=== PATIENT | female | born 1980 | race African-American/Black ===

== ENCOUNTER 2024-07-13 07:57 | Outpatient (AMB) | payer OTHER, SELFPAY ==
--- OUTSIDE RECORDS SUMMARY | 2024-07-13 08:01 | XMS_ITS | Encounter Summary ---
Author Organization [employer] Address [address] [place] [address] Care Team Providers Care Smoke Control Supervisor Name Role Phone Unavailable Primary Care Provider Unavailabl e Encounter Details Date Type Department Care Team (Late st Contact Info) Description 05/02/2024 Lab Requisition [facility] - Main Lab 299 [facility] [place] [address] Jesus Roberts MD 100 [facility] [address] [place] [address] Gross hematuria Social History Tobacco Use Types Packs/Day Years Used Date Smoking Tobacco: Never Assessed Comments Unknown Sex and Gender Information Value Date Recorded Sex Assigned at Not on file Legal Sex Female 1:12 PM EST Gender Identity Not on file Sexual Orientation Not on file documented as of this encounter Plan of Treatment Not on file documented as of this encounter Procedures Procedure Name Priority Date/Time Associated Diagnosis Comments AP OUTSIDE CONSULT Routine 04/25/2024 12 :00 AM EST Gross hematuria documented in this encounter Results * Anatomic pathology outside consult (04/25/2024 12:00 AM EST) Final Diagnosis Urine, Voided: Negative for high grade urothelial carcinoma. Results of [employer] fluorescence in situ hybridization (FISH) testing: CEP3: Normal CEP7: Normal CEP17: Normal LSI 9p21: Normal Interpretation: Normal profile Controls stained appropriately. Note: The results are intended as a screening device and should be interpreted in association with other clinical and pathological findings. 05/11/2024 6:13 PM EST [facility] ([facility]) [facility] Clinical Information [id number] Urine cytology/urine FISH. 05/11/2024 6:13 PM EST [facility] Gross Description A. Urine, Voided, : [id number] RECD 1 TP CYTO 1 TP FISH. 05/11/2024 6:13 PM [facility] Disclaimer Unless otherwise specified, all tissue is 10% NB formalin fixed and paraffin embedded. Technical pathology services provided by [facility] [address] [place] [address] (CLIA #[id number]/Rebekah Pedro MD, Security Chief Museum) 05/11/2024 6:13 PM [facility] Tissue Urine specimen from urethra / Unknown 04/25/2024 05/02/2024 1:18 PM EST us Jesus Roberts MD LAB PATHOLOGY ORDERAB LES Final Result [facility] [address] [place] [address], documented in this encounter Visit Diagnoses Diagnosis Gross hematuria documented in this encounter
--- OUTSIDE RECORDS SUMMARY | 2024-07-13 08:01 | XMS_ITS | Clinical Summary ---
Author Organization 299 [facility] Address [address] [place] [address] Phone Care Team Providers Care Power Generation Engineer Name Role Phone Unavailable Primary Care Provider Unavailabl e Encounters Date Type Department Care Team Description 05/02/2024 Lab Requisition [facility] - Main Lab 299 [facility] [place] [address] Jesus Roberts MD Gross hematuria from Last 3 Months Social History Tobacco Use Types Packs/Day Years Used Date Smoking Tobacco: Never Assessed Comments Unknown Sex and Gender Information Value Date Recorded Sex Assigned at Not on file Legal Sex Female 1:12 PM EST Gender Identity Not on file Sexual Orientation Not on file Plan of Treatment Health Maintenance Due Date Last Done Comments Breast Cancer Screening 1978 DTaP,Tdap,and Td Vaccines (1 - Tdap) 1997 Hepatitis B Vaccines (1 of 3 - 19+ 3-dose series) 1997 Cervical Cancer Screening: P ap Smear 11/15/1999 COVID-19 Vaccine (2023-2 5 season) 2024 Influenza Vaccine (#1) 2024 Colorectal Cancer Screening: Colonoscopy 05/02/2024 Depression Screening 05/02/2024 HIV Screening 05/02/2024 Hepatitis C Screening 05/02/2024 Social Influencers of Health Screening 05/02/2024 HIB Vaccines Aged Out No longer eligi ble based on patient's age to complete this topic HPV Vaccines Aged Out No longer eligi ble based on patient's age to complete this topic Hepatitis A Vaccines Aged Out No long er eligible based on patient's age to complete this topic IPV Vaccines Aged Out No longer eligi ble based on patient's age to complete this topic MMR Vaccines Aged Out No longer eligi ble based on patient's age to complete this topic Meningococcal ACWY Vaccine Aged Out N o longer eligible based on patient's age to complete this topic Meningococcal B Vacine Aged Out No lo nger eligible based on patient's age to complete this topic Pneumococcal Vaccine: Pediat rics (0 to 5 Years) and At-Risk Patients (6 to 64 Years) Aged Out No longer eligible b ased on patient's age to complete this topic RSV Immunization Patients Un amira 20 months Aged Out No longer eligible b ased on patient's age to complete this topic Varicella Vaccines Aged Out No longer eligible based on patient's age to complete this topic Procedures Procedure Name Priority Date/Time Associated Diagnosis Comments AP OUTSIDE CONSULT Routine 04/25/2024 12 :00 AM EST Gross hematuria from Last 3 Months Results * Anatomic pathology outside consult (04/25/2024 [...] clinical and pathological findings. 05/11/2024 6:13 PM [facility] Clinical Information [id number] Urine cytology/urine FISH. 05/11/2024 6:13 PM [facility] Gross Description A. Urine, Voided, : [id number] RECD 1 TP CYTO 1 TP FISH. 05/11/2024 6:13 PM [facility] Disclaimer Unless otherwise specified, all tissue is 10% NB formalin fixed and paraffin embedded. Technical pathology services provided by [facility] at [address] [place] [address] [address], [place] [address] (CLIA #[id number]/Rebekah Pedro MD, Senior Account Representative) 05/11/2024 6:13 PM [facility] Tissue Urine specimen from urethra / Unknown 04/25/2024 05/02/2024 1:18 PM EST us Jesus Roberts MD LAB PATHOLOGY ORDERAB LES Final Result [facility] ([facility]) [facility] [address] [place] [address], [place] [phone] from Last 3 Months
--- NOTE | 2024-07-13 10:47 | MHC.OFFVISWM ---
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 Allergies acetaminophen [From Percocet] Allergy (Mild, Verified 07/13/24 10:47) jittery latex Allergy (Mild, Verified 07/13/24 10:47) itchy oxycodone [From Percocet] Allergy (Mild, Verified 07/13/24 10:47) jittery Medication List - Last Reconciled 07/13/24 by Teja Castellanos MD amlodipine 5 mg PO DAILY atorvastatin mg PO DAILY loratadine mg PO DAILY losartan 25 mg PO DAILY semaglutide (Ozempic) mg subcut HPI HPI 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: Details: Start time: 11.00am, End time: 11.45am ?I spent 40 minutes speaking with the patient on the phone plus an additional 5 minutes reviewing and updating records for a total of 45 minutes HPI Comments Details: Previous weight loss efforts: Ozempic 2mg/wk: lost 10 lbs in 5 mths Wakes up: 6am, Sleeps: 11pm Breakfast: 9am (noodles, or eggs and toast) Lunch: (only instead of breakfast), 12pm Dinner: 7pm (Fish baked or fried) Snacks: sunflower seeds, dried foods before dinner Exercise: none Fluids: Coffee 3-4/wk (1 cup), premade tea: 2-3 cups/wk, soda: Gingerale (3-4/wk), juice: occasionally cranberry, ETOH: none PFSH Medical History (Updated 07/13/24 @ 10:53 by Teja Castellanos MD) DJD (degenerative joint disease) Anxiety Depression Hypertension Non-insulin dependent type 2 diabetes mellitus Sleep apnea Morbid obesity Surgical History (Updated 07/13/24 @ 10:53 by Teja Castellanos MD) History of delivery Hx of colonoscopy Hx of hysterectomy Family History (Updated 07/10/24 @ 08:32 by Lalita Preston CMA) Mother Diabetes Hypertension Obesity High cholesterol Father Drug addiction HIV (human immunodeficiency virus infection) Daughter No problems noted. Social History (Updated 07/10/24 @ 08:33 by Lalita Preston CMA) Alcohol intake: current Alcohol intake frequency: holidays/special occasions only Patient Tobacco Use Status: Never used Tobacco Telehealth Telehealth Telehealth Platform: Telephone Location of provider rendering services: practice address Location of patient: address on file Patient Identification confirmed using: Name, : Yes Telehealth method: voice only Patient verbally consented to treatment: Yes Patient verbally consented to billing insurance company: Yes Patient informed of any privacy concerns related to visit: Yes Minutes spent on Phone/Video with Pt.: 45 Assessment & Plan Assessment & Plan (1) Morbid obesity: Code(s): E66.01 - Morbid (severe) obesity due to excess calories Category: Medical Plan: 1.? Plan for lap sleeve gastrectomy. If diaphragmatic or ventral hernias are present at time of surgery, these will be repaired laparoscopically as well. I emphasized the importance of close follow-up, adherence to instructions and good communication. The surgery does not replace the need to change your lifestlyle which is the cause of the obesity problem. The surgery provides the motivation to try again to change your lifestyle, it reduces the appetite and make the transition to a better lifestyle easier and doubles the amount of weight you would lose compared to doing the lifestyle change without the surgery. You will need to be on a liquid diet with protein shakes for 2 weeks before surgery to maximize weight loss and boost your nutritional status to recover better from surgery and also for the first two weeks after surgery to let the stomach heal before we introduce other foods. After the first 2 weeks we will introduce protein bars and soft foods like scrambled eggs, cottage cheese and yogurt and after the 6th week will introduce meat, fish and cooked vegetables in small amounts. Over time you should be able to eat everything in small amounts. Side effects like nausea, vomiting, heartburn or abdominal pain are not common in the practice unless you are not following in the practice. This operation requires lifetime commitment to following in our practice and communication with me. You will much less weight and experience side effects if you don?t communicate or not following in the practice. Complications are rare and in our practice is about 1/10 of the national average. However, you can develop bleeding that may require transfusion (hasn?t happened for year in the practice), you may from complications (we did not have any deaths in the practice) and infections. Infections are usually a result of breakdown in communication or not understanding or following directions correctly. They are difficult to treat, they can happen during the first 6 weeks, they may require to be in the hospital for weeks or even months, not being able to eat by mouth and you may have drains and surgeries to try and correct the issue. Other risks and complications include possible conversion to an open procedure, leaks, small bowel obstruction, blood clots, cardiac, or pulmonary complications, as senior living complications such as ulcers, insufficient weight loss and vitamin deficiencies. 2. You will receive a link of our software mary to generate an individualized nutritional and exercise plan specific for you. Please send me a screenshot of the plans you will generate Meal to include lean meat (beef, fish, pork, turkey, chicken), or malaysian yogurt, or egg whites, or beans with a salad with olive oil and fruits (berries, pears, apples, kiwi). Avoid salt, breads, potatoes, rice, pasta, desserts. ?3. If you choose shakes, each shake would be drunk slowly, like coffee in a period of 2 hours. ?4. If you choose bars, cut each bar in 4 pieces and eat each piece in 30min ?to make each bar last 2 hours. ?5. I emphasized the importance of measuring accurately the food portion and measure it when serving the food in plate ?6. The meal portions include a specific number of forks of meat and salad. You always eat the meat portion but you can replace up to half of salad/vegetables portion with rice, potatoes or pasta, or a fruit ?if you like. The less you do it the better weight loss will be. ?7. One full-size fork is what it can be scooped on the fork without falling aside and not what can be bit with the fork. Use regular forks like those you find in a typical restaurant. ?8.? Please buy the body composition scale we discussed and send me weight measurements as soon as possible and then once a week. Always include your diet and exercise plan. 9. The best choice would be to purchase a stationary bike, elliptical or treadmill at home that can track calories. Let me know if you do so I can give you an exercise plan. ?10. Goal is to lose at least 1.5-2lbs per week ?11. Goal to lose 10% of your weight before surgery, which is about 26lbs. Ultimate weight goal: 235lbs before surgery 12. Please follow the diet plan exactly without any change. If you don't like something about the plan or you feel hungry you need to communicate with me so I can help you revise the plan. You should not change the plan yourself. 13. To be scheduled for EGD due to the history of sleeve gastrectomy and anemia. The possibility of biopsies was discussed. Patient needs to avoid use of NSAIDs and aspirin for 1 week prior to EGD. You must be on liquids only the day before your endoscopy. Risks of perforation and bleeding was discussed with the patient. This will be an outpatient procedure with IV sedation.
[2024-07-13 11:02] VITALS: BMI 44.8
== END 2024-07-13 11:44 | disposition home or self-care (01) ==
LOC: HO.HBS 07:57
PROVIDERS: PCP Internal Medicine; Visit Provider Surgery
DX: E66.813 Obesity, class 3 (principal); Z68.41 Body mass index [BMI] 40.0-44.9, adult
CPT/HCPCS: 98010

== ENCOUNTER 2024-07-17 11:33 | Day surgery (SDC) | payer OTHER, SELFPAY ==
--- NOTE | 2024-07-16 09:36 | P.CONAN_ITS ---
HPI - Anesthesia Eval Consult details Narrative: 43yo F for Upper Endoscopy Anesthesia Pre-Procedure Meds Is the patient on any of the following meds?: GLP1/DPP4 PMFSH Active Problems Active Problems: All Active Problems DJD (degenerative joint disease) (Acute) Anxiety (Acute) Depression (Acute) Hypertension (Acute) Non-insulin dependent type 2 diabetes mellitus (Acute) Sleep apnea (Acute) Morbid obesity (Acute) Past Medical History Medical History (Updated 07/13/24 @ 10:53 by Teja Castellanos MD) DJD (degenerative joint disease) Anxiety Depression Hypertension Non-insulin dependent type 2 diabetes mellitus Sleep apnea Morbid obesity Family History Family History (Updated 07/10/24 @ 08:32 by Lalita Preston CMA) Mother Diabetes Hypertension Obesity High cholesterol Father Drug addiction HIV (human immunodeficiency virus infection) Daughter No problems noted. Surgical History Surgical History (Updated 07/13/24 @ 10:53 by Teja Castellanos MD) History of delivery Hx of colonoscopy Hx of hysterectomy Social History Social History (Updated 07/10/24 @ 08:33 by Lalita Preston CMA) Are you a primary home health caregiver to a significant other at home: No Do you presently have visiting nurse or other home services: No Alcohol intake: current Alcohol intake frequency: does not drink Patient Tobacco Use Status: Never used Tobacco Meds Allergies Allergy/AdvReac Type Severity Reaction Status Date / Time acetaminophen [From Percocet] Allergy Mild jittery Verified 07/17/24 11:40 latex Allergy Mild itchy Verified 07/17/24 11:40 oxycodone [From Percocet] Allergy Mild jittery Verified 07/17/24 11:40 Home Medications ?Medication ?Instructions ?Recorded ?Confirmed ?Last Taken ?Type atorvastatin 10 mg tablet mg PO DAILY 07/10/24 07/13/24 07/17/24 History loratadine 10 mg tablet mg PO DAILY 07/10/24 07/13/24 07/17/24 History losartan 50 mg tablet 25 mg PO DAILY 07/10/24 07/13/24 07/17/24 History semaglutide 2 mg/dose (8 mg/3 mL) mg subcut 07/10/24 07/13/24 07/10/24 History subcutaneous pen injector (Ozempic) amlodipine 5 mg tablet 5 mg PO DAILY 07/13/24 07/13/24 07/17/24 History Assessment and Plan Assessment Anesthesia Assessment: Chart Reviewed
--- OUTSIDE RECORDS SUMMARY | 2024-07-16 09:44 | XMS_ITS | Clinical Summary ---
Author Organization 299 [facility] Address [address] [place] [address] Phone Care Team Providers Care Sheriff Name Role Phone Unavailable Primary Care Provider Unavailabl e Encounters Date Type Department Care Team Description 05/02/2024 Lab Requisition [facility] - Main Lab 299 [facility] [place] [address] Jesus Roberts MD Gross hematuria [...] clinical and pathological findings. 05/11/2024 6:13 PM [facility] Clinical Information [id number] Urine cytology/urine FISH. 05/11/2024 6:13 PM [facility] Gross Description A. Urine, Voided, : [id number] RECD 1 TP CYTO 1 TP FISH. 05/11/2024 6:13 PM [facility] Disclaimer Unless otherwise specified, all tissue is 10% NB formalin fixed and paraffin embedded. Technical pathology services provided by [facility]rology at [address] [place] [address] [address], [place] [address] (CLIA #[id number]/Rebekah Pedro MD, Warp Tying Machine Knotter) 05/11/2024 6:13 PM [facility] Tissue Urine specimen from urethra / Unknown 04/25/2024 05/02/2024 1:18 PM EST us Jesus Roberts MD LAB PATHOLOGY ORDERAB LES Final Result [id number] ([facility]) [facility] [address] [place] [address], [place] [phone] from Last 3 Months
--- OUTSIDE RECORDS SUMMARY | 2024-07-16 09:44 | XMS_ITS | Encounter Summary ---
Author Organization [employer] Address [address] [place] [address] Care Team Providers Care Linker Up Name Role Phone Unavailable Primary Care Provider Unavailabl e Encounter Details Date Type Department Care Team (Late st Contact Info) Description 05/02/[address] [facility] - Main Lab 299 [facility] [place] [address] Jesus Roberts MD 100 [facility] [address] [place] [address] Gross hematuria Social History Tobacco Use Types [...] and pathological findings. 05/11/2024 6:[address] [facility] ([facility]) [facility] Clinical Information [id number] Urine cytology/urine FISH. 05/11/2024 6:13 PM EST [facility] Gross Description A. Urine, Voided, : [id number] RECD 1 TP CYTO 1 TP FISH. 05/11/2024 6:13 PM [facility] Disclaimer Unless otherwise specified, all tissue is 10% NB formalin fixed and paraffin embedded. Technical pathology services provided by [facility] at [facility]note 2[facility] [address] [place] [address] (CLIA #[id number]/Rebekah Pedro MD, Focuser) 05/11/2024 6:13 PM [facility] Tissue Urine specimen from urethra / Unknown 04/25/2024 05/02/2024 1:18 PM EST us Jesus Roberts MD LAB PATHOLOGY ORDERAB LES Final Result [facility] [address] [place] [address], documented in this encounter Visit Diagnoses Diagnosis Gross hematuria documented in this encounter
[2024-07-17 11:50] VITALS: BP 110/5; PULSE 98; RESP 14; TEMP 36.2; O2SAT 97; BMI 44.8
[2024-07-17 12:00] LABS: Glucose, Whole Blood 83 mg/dL (60-115)
[2024-07-17] MEDS: Lactated Ringers 1,000 ML 100 ML IVCONT (12:10)
--- NOTE | 2024-07-17 12:21 | MHC.SHP ---
Pre-Procedural Eval Section A - 24 Hr Update-Section A only Date of Service: 07/17/24 The patient is an INPATIENT: No The patient has been examined within 24 hours of the surgical procedure. The History & Physical has been completed within 30 days and I have reviewed it.: Yes Section B - Complete if H&P > 30 days Chief Complaint: Morbid (severe) obesity due to excess calories Relevant Family History (Specify if Yes): No Relevant Social History: None Present Medications: None Medical History: No relevant PMH History of Previous Operations: No relevant previous surgery Allergies: Allergies Allergy/AdvReac Type Severity Reaction Status Date / Time acetaminophen [From Percocet] Allergy Mild jittery Verified 07/17/24 11:40 latex Allergy Mild itchy Verified 07/17/24 11:40 oxycodone [From Percocet] Allergy Mild jittery Verified 07/17/24 11:40 Review of Systems Sugical H&P ROS: Negative: Constitution, Cardiovascular, Respiratory, Neurological, Psychiatric, Hem-Onc, Allergic/Immunologic, Gastrointestinal, Genitourinary, Musculoskeletal, Integumentary, Endocrine and Eyes/Ears/Nose/Throat Exam Surgical H&P Exam: Normal: HEENT, Normal: Heart, Normal: Lungs, Normal: Extremities, Normal: Abdomen, Normal: Skin and Normal: Neurological Plan Diagnosis/Plan: Unchanged (EGD to assess the stomach's anatomy. Risks of bleeding and perforation were discussed with the patient and she is in agreement with the plan.) I have reviewed the history and physical and performed a pertinent physical examination on my patient. No changes have occurred unless specified. Time Spent With Patient Time: Total time managing care of this patient today ____ minutes.
--- NOTE | 2024-07-17 12:40 | P.BOP_ITS ---
Brief Operative Note Date of Service: 07/17/24 Pre-op diagnosis: Morbid obesity Post-op diagnosis: same Procedure: PROCEDURE DATE: 07/17/2024 PREOPERATIVE DIAGNOSIS: GERD POSTOPERATIVE DIAGNOSIS: ?Same as above. Normal endoscopy PROCEDURE: [id number] with biopsies Surgeon: Derick Castellanos M.D.. Ph.D. Marshmallow Machine Worker: None ? Anesthesia: IV sedation Estimated blood loss: ?Minimal FINDINGS AND PROCEDURE: ? OPERATIVE INDICATIONS: ?The patient is a 43 year old female known to me who is interested in bariatric surgery. Based on this information I recommended an upper endoscopy to evaluate the stomach's anatomy. Risks and complications of the surgery were discussed with the patient in advance particularly the possibility of perforation or bleeding that may require surgical intervention. The patient understood the risks and was in agreement with the plan. ? PROCEDURE: After informed consent was obtained by the patient, the patient was ?transferred to the Operating Room and was placed in the supine position.? After successful induction of IV sedation, a mouth block was inserted and the patient was placed in the left lateral decubitus position. An upper endoscopy was performed next, the oropharynx and esophagus appeared within the normal limits. There was no hiatal hernia. The z-line was smooth. The stomach was entered and it appeared to be of normal size. There was no gastrit is. There was no stricture or ulcer. A biopsy was obtained from the distal antrum. No significant bleeding was noted from the biopsy site. The scope was then advanced into the duodenum which appeared to be normal as well. At that point the duodenum ?and the stomach were decompressed and the scope was withdrawn from the patient's mouth. Additional biopsies were not performed because the patient desaturated and I was asked by the Anesthesiologist to withdraw the endoscope. The patient extubated and was transferred in stable condition to the Recovery Room for further care. I was present and performed all steps of the procedure. There were no residents to assist with this case. Valdez Castellanos M.D., Ph.D. Surgeon: Teja Castellanos MD Anesthesia: MAC Was an Marshmallow Machine Worker used for this Procedure?: No Estimated blood loss (mL): 0 IV fluids (mL): 400 Urine output (mL): 0 (No Lubin to record output) Pathology: other (1) antrum x1) Condition: stable Disposition: PACU
[2024-07-17 12:58] VITALS: BP 110/59; PULSE 104; RESP 18; TEMP 36.1; O2SAT 95
[2024-07-17 13:13] VITALS: BP 109/74; PULSE 98; RESP 18; TEMP 36.1; O2SAT 96
== END 2024-07-17 13:33 | disposition home or self-care (01) ==
PROVIDERS: PCP Internal Medicine; Visit Provider Surgery
PROC: 0DJ08ZZ Inspection of Upper Intestinal Tract, Via Natural or Artificial Opening Endoscopic (ICD-10-PCS; CPT 43235; principal; 2024-07-17 13:30)
DX: K21.9 Gastro-esophageal reflux disease without esophagitis (principal); E66.01 Morbid (severe) obesity due to excess calories; Z68.41 Body mass index [BMI] 40.0-44.9, adult; I10 Essential (primary) hypertension; E11.9 Type 2 diabetes mellitus without complications; F32.A Depression, unspecified; F41.9 Anxiety disorder, unspecified; Z79.85 Long-term (current) use of injectable non-insulin antidiabetic drugs; Z79.899 Other long term (current) drug therapy; Z88.5 Allergy status to narcotic agent; Z91.040 Latex allergy status
CPT/HCPCS: 43239; 82947; 88305; J2003; J2250; J2704

== ENCOUNTER → 2024-07-17 11:33 | Outpatient (BNV) | payer OTHER, SELFPAY | PROVIDERS: PCP Internal Medicine; Visit Provider Surgery | DX: K21.9 Gastro-esophageal reflux disease without esophagitis (principal) | CPT/HCPCS: 43239 ==

== ENCOUNTER 2024-07-24 08:35 | Outpatient (REF) | payer OTHER, SELFPAY ==
--- NOTE | ~2024-07-24 | XR_ITS ---
EXAMINATION: XR CHEST CLINICAL INFORMATION: E66.01 - Morbid (severe) obesity due to excess calories COMPARISON: None available. TECHNIQUE: 2 views of the chest were obtained. FINDINGS: No significant abnormality is noted involving the heart, lungs, mediastinum, bony thorax or soft tissues. XR/XR chest 2V IMPRESSION: Unremarkable chest examination. Electronically signed by: Cas Michel MD 07/24/2024 02:05 PM [facility]
--- OUTSIDE RECORDS SUMMARY | 2024-07-24 09:11 | XMS_ITS | Encounter Summary ---
Author Organization [employer] Address [address] [place] [address] Care Team Providers Care President And Chief Operating Officer Name Role Phone Unavailable Primary Care Provider Unavailabl e Encounter Details Date Type Department Care Team (Late st Contact Info) Description 05/02/2024 Lab Requisition [facility] - Main Lab 299 [facility] [place] [address] Jesus Roberts MD 100 [facility] [address] [place] [address] Gross hematuria Social History Tobacco Use Types [...] and pathological findings. 05/11/2024 6:13 PM EST [facility] ([facility]) [facility] Clinical Information [id number] Urine cytology/urine FISH. 05/11/2024 6:13 PM EST [facility] Gross Description A. Urine, Voided, : [id number] RECD 1 TP CYTO 1 TP FISH. 05/11/2024 6:13 PM [facility] Disclaimer Unless otherwise specified, all tissue is 10% NB formalin fixed and paraffin embedded. Technical pathology services provided by [facility] Urology at [facility] [address] [place] [address] (CLIA #[id number]/Rebekah Pedro MD, Professional Tutor) 05/11/2024 6:13 PM [facility] Tissue Urine specimen from urethra / Unknown 04/25/2024 05/02/2024 1:18 PM EST us Jesus Roberts MD LAB PATHOLOGY ORDERAB LES Final Result [facility] [address] [place] [address], documented in this encounter Visit Diagnoses Diagnosis Gross hematuria documented in this encounter
--- OUTSIDE RECORDS SUMMARY | 2024-07-24 09:11 | XMS_ITS | Clinical Summary ---
Author Organization 299 [facility] Address [address] [place] [address] Phone Care Team Providers Care Resistance Welder Name Role Phone Unavailable Primary Care Provider Unavailabl e Encounters Date Type Department Care Team Description 05/02/[address] [facility] - Main Lab 299 [facility] [place] [address] Jesus Roberts MD Gross hematuria [...] clinical and pathological findings. 05/11/2024 6:13 PM [facility] Clinical Information [id number] Urine cytology/urine FISH. 05/11/2024 6:13 PM [facility] Gross Description A. Urine, Voided, : [id number] RECD 1 TP CYTO 1 TP FISH. 05/11/2024 6:13 PM [facility] Disclaimer Unless otherwise specified, all tissue is 10% NB formalin fixed and paraffin embedded. Technical pathology services provided by [facility] Urology at [address] [place] [address] [address], [place] [address] (CLIA #[id number]/Rebekah Pedro MD, Economic Research Analyst) 05/11/2024 6:13 PM [facility] Tissue Urine specimen from urethra / Unknown 04/25/2024 05/02/2024 1:18 PM EST us Jesus Roberts MD LAB PATHOLOGY ORDERAB LES Final Result [facility] ([facility]) [facility] [address] [place] [address], [place] [phone] from Last 3 Months
[2024-07-24 09:24] LABS: MANUAL DIFF FLAG NO
--- NOTE | 2024-07-24 09:27 | ECG_ITS ---
Test Reason : MORBID OBESITY Blood Pressure : */* mmHG Vent. Rate : 92 BPM Atrial Rate : 92 BPM P-R Int : 162 ms QRS Dur : 72 ms QT Int : 344 ms P-R-T Axes : 49 25 20 degrees QTcB Int : 425 ms Normal sinus rhythm Normal ECG No previous ECGs available Referred By: Teja Castellanos Electronically Signed By: OLVIN SANCHES MD
[2024-07-24 09:53] LABS: Basophils Percent Auto 0.5 % (0-2); Eosinophils Absolute Auto 0.1 X10*3/uL (0.0-0.4); Eosinophils Percent Auto 1.6 % (0-4); Hematocrit 38.8 % (37.0-47.0); Hemoglobin 12.9 g/dl (12.0-16.0); Imm Gran Abs Auto 0.02 X10*3/uL (0.00-0.03); Imm Gran Pct Auto 0.2 % (0.0-0.4); Lymphocytes Absolute Auto 1.7 X10*3/uL (1.2-4.9); Mean Corpuscular HGB Conc 33.2 g/dl (31.0-35.0); Mean Corpuscular Hemoglobin 26.2 pg (27.0-33.0); Mean Corpuscular Volume 78.9 fL (80.0-98.0); Mean Platelet Volume 11.1 fL (9.4-12.3); Monocytes Absolute Auto 0.5 X10*3/uL (0.1-1.2); Monocytes Percent Auto 5.7 % (2-11); Platelet Count 286 X10*3/uL (160-400); Red Blood Count 4.92 X10*6/uL (4.20-5.50); Red Cell Distribution Width 15.7 % (11.0-16.0); White Blood Count 8.3 X10*3/uL (4.8-10.8)
[2024-07-24 10:10] LABS: Estimated Average Glucose 117 mg/dL; Hemoglobin A1C 134.0394 umol/L; Hemoglobin A1c % 5.7 % (<6.0); Total Hemoglobin (HGBA1C) 3409.9788 umol/L
[2024-07-24 10:26] LABS: Alanine Aminotransferase 26 U/L (0-31); Albumin Level 4.3 g/dL (3.5-5.0); Alkaline Phosphatase 79 U/L (39-117); Anion Gap 12 (12-20); Aspartate Amino Transferase 18 U/L (5-31); Bilirubin Total 0.3 mg/dL (0.0-1.0); Blood Urea Nitrogen 13 mg/dL (9-16); C Reactive Protein 0.49 mg/dL (< or = 0.50); Calcium 9.1 mg/dL (8.4-10.2); Carbon Dioxide 25 mmol/L (22-29); Chloride 108 mmol/L (96-108); Cholesterol 134 mg/dL (<200); Estimated Glomerular Filt Rate > 60; Glucose Random 94 mg/dL (60-115); HDL Cholesterol 26 mg/dL (>40); Iron 46 mcg/dL (30-160); LDL Cholesterol Calculated 92 mg/dL (<100); Percent Iron Saturation 18 % (15-50); Potassium 3.6 mmol/L (3.3-5.1); Sodium 141 mmol/L (135-145); Total Iron Binding Capacity 261 mcg/dL (228-428); Triglycerides 84 mg/dL (<150); Unsaturated Iron Binding 215 ug/dL
[2024-07-24 10:39] LABS: Ferritin 94 ng/mL (10-250); TSH reflex Free T4 0.74 uIU/mL (0.32-4.0); Vitamin D 25-OH Total 20.9 ng/mL (>30)
[2024-07-24 10:53] LABS: Folate 6.5 ng/mL (> or = 4.0); Vitamin B12 328 pg/mL (200-900)
[2024-07-24 10:56] LABS: Insulin 27 uU/mL (2-29)
[2024-07-26 22:03] LABS: Zinc 62 mcg/dL (60-130)
[2024-07-27 01:49] LABS: Vitamin A 66 mcg/dL (38-98)
[2024-07-30 15:18] LABS: Vitamin B1 8 nmol/L (8-30)
== END 2024-07-24 08:36 | disposition home or self-care (01) ==
LOC: HO.XRAY 08:35
PROVIDERS: PCP Internal Medicine; Visit Provider Surgery
DX: E66.01 Morbid (severe) obesity due to excess calories (principal); E11.9 Type 2 diabetes mellitus without complications; G47.30 Sleep apnea, unspecified; I10 Essential (primary) hypertension
CPT/HCPCS: 36415; 71046; 80053; 80061; 82306; 82607; 82728; 82746; 83036; 83525; 83540; 84425; 84443; 84590; 84630; 85025; 86140; 93005

== ENCOUNTER → 2024-07-24 08:45 | Outpatient (BNV) | payer OTHER, SELFPAY | PROVIDERS: PCP Internal Medicine; Visit Provider Radiology Diagnostic Radiology | DX: E66.01 Morbid (severe) obesity due to excess calories (principal) | CPT/HCPCS: 71046 ==

== ENCOUNTER → 2024-07-24 09:27 | Outpatient (BNV) | payer OTHER, SELFPAY | PROVIDERS: PCP Internal Medicine; Visit Provider Internal Medicine Cardiovascular Disease | DX: E66.01 Morbid (severe) obesity due to excess calories (principal) | CPT/HCPCS: 93010 ==

== ENCOUNTER 2024-08-09 07:56 | Outpatient (REF) | payer OTHER, SELFPAY ==
[2024-08-12 08:57] LABS: H Pylori Breath Test Positive (Negative)
== END 2024-08-09 07:57 | disposition home or self-care (01) ==
LOC: HO.LNP 07:56
PROVIDERS: Visit Provider Surgery
DX: B96.81 Helicobacter pylori [H. pylori] as the cause of diseases classified elsewhere (principal)
CPT/HCPCS: 83013; 99211

== ENCOUNTER → 2024-08-21 09:08 | Outpatient (AMB) | payer OTHER, SELFPAY ==
--- NOTE | 2024-08-21 09:00 | A.OFFWM_ITS ---
Intake Intake Visit Reasons: VIDEO BH Intake Allergies acetaminophen [From Percocet] Allergy (Mild, Verified 07/17/24 11:40) jittery latex Allergy (Mild, Verified 07/17/24 11:40) itchy oxycodone [From Percocet] Allergy (Mild, Verified 07/17/24 11:40) jittery PFSH Medical History (Updated 08/18/24 @ 10:24 by Teja Castellanos MD) DJD (degenerative joint disease) Anxiety Depression Hypertension Non-insulin dependent type 2 diabetes mellitus Sleep apnea Morbid obesity Surgical History (Updated 07/13/24 @ 10:53 by Teja Castellanos MD) History of delivery Hx of colonoscopy Hx of hysterectomy Family History (Updated 07/10/24 @ 08:32 by Lalita Preston CMA) Mother Diabetes Hypertension Obesity High cholesterol Father Drug addiction HIV (human immunodeficiency virus infection) Daughter No problems noted. Social History (Updated 07/10/24 @ 08:33 by Lalita Preston CMA) Are you a primary lawn care technician to a significant other at home: No Do you presently have visiting nurse or other home services: No Alcohol intake: current Alcohol intake frequency: does not drink Patient Tobacco Use Status: Never used Tobacco Behavioral Health Assessment Weight Management Therapy Therapy Notes Details The patient is a 43-year-old female presenting for an initial visit to complete a behavioral health assessment as part of a surgical weight loss program. The patient is seeking weight loss surgery to improve her overall health, particularly in managing her hypertension and diabetes. She hopes to find relief from pain through weight loss and resolve her sleep apnea. Ultimately, her goal is to become healthier and reduce her reliance on medication. The patient began therapy last month at her primary care provider?s office located at [address] [place] [address]. She has a history of depression and anxiety. She reports experiencing significant anger and sleep disturbances in the past. The patient was previously prescribed Sertraline and Seroquel but discontinued both medications over six years ago. She has attended counseling in the past but denies any history of psychiatric hospitalization. The patient also denies any current or past concerns related to self-harm or harm to others. Presenting Concerns Referral Source P-Provider, Dr. Jasper Yee PT has initial visit on 07/13/2024 Initially referred by her PCP. Reason for referral Completion of behavioral health assessment as part of process for weight-loss surgery. Precipitating Event Obesity. Initial weight 261Lbs. Living Situation Current Living Situation Rent At risk of losing current housing? No Satisfied with current living situation? Yes Comments Pt lives with her partner. Food/Weight/Diet Expectations of change The initial goal is to lose 10% of your weight before surgery, which is about 26lbs. Ultimate weight goal: 235lbs before surgery PT started the program at 261Lbs, most recently as of 08/18/24, was 250Lbs. PT is implementing the following: The current meal plan is a combination of shakes, bars, and 1 meal (9F/9F) per day. Exercise plan: Walking 3-4 days a week - 45 min. Scale: Yes. Communication with Provider: Yes on Saturdays. History/Relationship with food PT reports in the past she wouldn't eat or try variety of foods but last year she did Example of meals before starting the program: Breakfast: Lunch: Dinner: Snacks: Drinks/Liquids: History/Relationship with weight PT reports a normal size in childhood. In HS she was around 110 Lbs. She was also very active as a kid/teen. PT reports she started gaining weight after getting in 2016, she gained about 70Lbs in 5 years. In the last 10 years, the patient's Lowest weight has been her current weight at 250Lbs and the highest was 273Lbs Social History Family history and relationship PT is almost 3 years ago and has been living with her current partner for about 1 year. PT has a 23-year-old daughter. She has 3 younger brothers on her father's side, only child on her mother's side. Her mother is alive, father in 2000. Her mom was 13 when she had her, and her grandmother raised her. PT reports strained family relationships, she feels she is in her self-care era, which is focusing on herself. 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 Developmental history and status None reported. Currently WNL. Social support 2 cousins, 1 of then had bariatric surge ry. Partner. Community support Her boss and his . Oriental Orthodox community. Episcopalian/Spirituality Jew. 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 Cultural/Ethnic information Did a [facility] program Legal Involvement and History Current or historical involvement with the legal system? None. Education Highest grade completed Some college. Preferred learning style Auditory, Verbal, Written, Learn by doing and Visual Currently enrolled in educational program? No Interested in further educational program? No Educational Interests/Skills Business. PT has done several college classes and has been involved in non-profit work. Pt enjoys doing volunteering at sikhism and community. 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 No Meaningful activities Puzzles, music/sign, play some games on the phone. Financial Situation Describe current financial situation Comfortable Financial assistance? Food [place] Service Service? No Mental Health and Addiction Treatment Current/Past substance abuse? No Comments Alcohol: Rarely. Cigarettes/Tobacco: None. Quit 8 years ago. Cannabis/Edibles: cannabis, smokes 1-2 times at day. Current/Past addictive behavior concerns? No Psychiatric history PT started therapy last month at her PCP's office at [address] [place] [address]. She has been diagnosed with depression and anxiety in the past. PT reports she had a lot of anger and was having sleeping issues. Used to take Sertraline and Seroquel in the past, no longer on these meds more than 6 years ago. She has been at [facility] for counseling. Denies ever being hospitalized for MH. Denies any past or recent concerns for safety around Self-harm/other-harm. Medical and Physical Health Summary Additional Medical History not covered in history Arthritis, fatty liver, high cholesterol. Sexual History concerns None reported Physical exam in the last year? Yes Pain Screening Current pain? Yes Pain in the last few months? Yes Comments Knee, back, feet. Trauma/Abuse History History of trauma? Yes (SIERRA score:6) Questionnaires PHQ-9 Over the last 2 weeks, how often have you been bothered by any of the following problems? 1. Little interest or pleasure in doing things: several days 2. Feeling down, depressed, or hopeless: several days 3. Trouble falling or staying asleep, or sleeping too much: more than half the days 4. Feeling tired or having little energy: more than half the days 5. Poor appetite or overeating: several days 6. Feeling bad about yourself - or that you are a failure or have let yourself or your family down: several days 7. Trouble concentrating on things, such as reading the newspaper or watching television: more than half the days 8. Moving or speaking so slowly that other people could have noticed. Or the opposite - being so fidgety or restless that you have been moving around a lot more than usual: not at all 9. Thoughts that you would be better off or of hurting yourself in some way: not at all Total score: 10 Depression Screening Interpretation: Positive (From new Pt pack. New one will be administered at next visit. ) Depression Screening Done: Yes Source: Developed by Drs. Richie Carranza, Sharon Concepcion, Travis Dang and colleagues, with an educational miguel from [employer]. Assessment & Plan Assessment & Plan (1) Morbid obesity: Code(s): E66.01 - Morbid (severe) obesity due to excess calories (2) Adjustment disorder: Code(s): F43.20 - Adjustment disorder, unspecified Qualifiers: Adjustment disorder type: with mixed anxiety and depressed mood Qualified Code(s): F43.23 - Adjustment disorder with mixed anxiety and depressed mood Plan PT not cleared yet. Will return in 2 weeks to finish assessment, and a new PHQ-9 will be administered. Next mary: 09/04/2024 at 9am, Telehealth Telehealth Telehealth Telehealth Platform: [facility] Location of provider rendering services: other Location of patient: other Patient Identification confirmed using: Name, : Yes Telehealth method: video Patient verbally consented to treatment: Yes Patient verbally consented to billing insurance company: Yes Patient informed of any privacy concerns related to visit: Yes Minutes spent on Phone/Video with Pt.: 55 Coding Level of Care Code New Pt Tele Psy Diag Eval (97272) Patient Type New Diagnoses Morbid obesity E66.01 Adjustment disorder with mixed anxiety and depressed mood F43.23 Adjustment disorder type: with mixed anxiety and depressed mood Time Spent (min) 55
--- OUTSIDE RECORDS SUMMARY | 2024-08-21 10:03 | XMS_ITS | Clinical Summary ---
Author Organization 299 [facility] Address [address] [place] [address] Phone Care Team Providers Care Pool Hall Inspector Name Role Phone Unavailable Primary Care Provider Unavailabl e Social History Tobacco Use Types Packs/Day Years [...] Screening: P ap Smear 11/15/1999 COVID-19 Vaccine ( - 2023-2 5 season) 2024 Influenza Vaccine (#1) 2024 [...]
--- OUTSIDE RECORDS SUMMARY | 2024-08-21 10:03 | XMS_ITS | Encounter Summary ---
Author Organization [employer] Address [address] [place] [address] Care Team Providers Care Dairy Grazer Name Role Phone Unavailable Primary Care Provider Unavailabl e Encounter Details Date Type Department Care Team (Late st Contact Info) Description 05/02/2024 Lab Requisition [facility] - Main Lab 299 [facility] [place] [address] Jesus Roberts MD 100 [facility] 120 [place] [address] Gross hematuria Social History Tobacco Use Types [...] and pathological findings. 05/11/2024 6:13 PM EST [facility] ([facility]) [facility] Clinical Information [id number] Urine cytology/urine FISH. 05/11/2024 6:13 PM EST [facility] Gross Description A. Urine, Voided, : [id number] RECD 1 TP CYTO 1 TP FISH. 05/11/2024 6:13 PM [facility] Disclaimer Unless otherwise specified, all tissue is 10% NB formalin fixed and paraffin embedded. Technical pathology services provided by [facility]rology at [facility] [address] [place] [address] (CLIA #[id number]/Rebekah Pedro MD, Vmware Engineer) 05/11/2024 6:13 PM [facility] Tissue Urine specimen from urethra / Unknown 04/25/2024 05/02/2024 1:18 PM EST us Jesus Roberts MD LAB PATHOLOGY ORDERAB LES Final Result [facility] [address] [place] [address], documented in this encounter Visit Diagnoses Diagnosis Gross hematuria documented in this encounter
== END ==
PROVIDERS: Visit Provider Counselor Mental Health
DX: E66.01 Morbid (severe) obesity due to excess calories (principal); F43.23 Adjustment disorder with mixed anxiety and depressed mood
CPT/HCPCS: 90791

== ENCOUNTER 2024-09-03 08:46 | Outpatient (REF) | payer OTHER, SELFPAY ==
--- NOTE | ~2024-09-03 | US_ITS ---
EXAMINATION: US ABDOMEN COMPLETE WITH LIVER ELASTOGRAPHY HISTORY: E66.01 - Morbid (severe) obesity due to excess calories TECHNIQUE: Real-time grayscale ultrasound imaging of the abdomen was performed and images were reviewed. COMPARISON: There are no prior studies for comparison. FINDINGS: Liver: The right lobe of the liver measures 14.5 cm in size. The left lobe of the liver measures 15.2 cm in size. The liver demonstrates increased echotexture, consistent with steatosis. There is a 2.1 x 2.0 x 2.0 cm hypoechoic area in the right lobe which may represent focal fatty sparing. There is a 6 x 5 x 8 mm cyst adjacent to the gallbladder No intrahepatic biliary ductal dilatation is identified. There is normal hepatopedal flow in the portal vein. Ultrasound elastography of the liver was performed with 10 separate measurements of the liver parenchyma with the patient in the supine position. Measurements were obtained approximately 2 cm below Kriss's capsule and perpendicular to the capsule. Images are of satisfactory quality. The median shear wave velocity is 1.56 m/s. The interquartile range/median (IQR/median) is 0.12. Gallbladder and biliary tree: The gallbladder is unremarkable, without evidence of calculi, wall thickening, or pericholecystic fluid. There is no sonographic Voss sign. The common bile duct is normal in caliber measuring 4 mm. Kidneys: The right kidney measures 13.4 cm in length. The left kidney measures 13.0 cm in length. There is a hypertrophied column of Phillip on the right. The kidneys are otherwise unremarkable, without evidence of masses, hydronephrosis, or calculi. Pancreas: The pancreatic head, neck, and body are unremarkable. The pancreatic tail is obscured by bowel gas. Spleen: The spleen is normal in size and contour, measuring 9.7 cm in length. Abdominal aorta and inferior vena cava: The visualized portions of the abdominal aorta and inferior vena cava are normal in caliber. There is no free fluid in the abdomen. US/US abdomen comp w elastography IMPRESSION: Hepatomegaly and hepatic steatosis. Possible focal fatty sparing in the right lobe. This could be confirmed with MRI. The median shear wave velocity in the liver is 1.56 m/s, corresponding to a median liver stiffness of 7.70 kPa. The IQR/median value is 0.12. This is indicative of a quality data set. Findings are indicative of a low elastography value which rules out advanced chronic liver disease in asymptomatic patients. REFERENCE: Society of Radiologists in Ultrasound Liver Stiffness Thresholds (2020): LIVER STIFFNESS THRESHOLDS: *Shear wave velocity less than 1.3 m/s (Liver Stiffness equal or less than 5 kPa): High probability of being normal. *Shear wave velocity less than 1.7 m/s (Liver Stiffness less than 9 kPa): In the absence of other known clinical signs, rules out compensated advanced chronic liver disease. *Shear wave velocity between 1.7-2.1 m/s (Liver Stiffness 9-13 kPa): Suggestive of compensated advanced chronic liver disease but need further test for confirmation. *Shear wave velocity between 2.1-2.4 m/s (Liver Stiffness 13-17 kPa): Rules in compensated advanced chronic liver disease. *Shear wave velocity greater than 2.4 m/s (Liver Stiffness over 17 kPa): Suggestive of clinically significant portal hypertension. QUALITY OF DATA SET: *IQR/Median value equal or less than 0.15 implies a quality data set. *IQR/Median value over 0.15 implies a poor quality data set. SIGNIFICANT CHANGE FROM PRIOR EXAM: Significant change if liver stiffness measurement is 10% or greater from prior exam. OTHER CONSIDERATIONS: The stage of liver fibrosis may be overestimated in the setting of acute hepatitis, liver inflammation, elevated liver function tests, hepatic vascular congestion, obstructive cholestasis, non-fasting state, and infiltrative diseases such as amyloidosis and lymphoma. In some patients with NAFLD, the liver stiffness thresholds for compensated advanced chronic liver disease may be lower. In causes other than viral hepatitis and NAFLD, liver stiffness thresholds are not well established. Electronically signed by: Richie Alcaraz MD 09/03/2024 11:07 AM EDT
--- OUTSIDE RECORDS SUMMARY | 2024-09-03 09:24 | XMS_ITS | Clinical Summary ---
Author Organization 299 [facility] Address [address] [place] [address] Phone Care Team Providers Care Command And Control Name Role Phone Unavailable Primary Care Provider [...] 11/15/1999 COVID-19 Vaccine (2023-2 5 season) 2024 Colorectal Cancer Screening: Colonoscopy 05/02/2024 Depression Screening 05/02/2024 HIV Screening 05/02/2024 Hepatitis C Screening 05/02/2024 Social Influencers of Health Screening 05/02/2024 Influenza Vaccine (Season Ended) 2025 HIB Vaccines Aged Out No longer eligi [...] age to complete this topic Meningococcal B Vaccine Aged Out No l onger eligible based on patient's age to complete [...]
--- OUTSIDE RECORDS SUMMARY | 2024-09-03 09:24 | XMS_ITS | Encounter Summary ---
Author Organization [employer] Address [address] [place] [address] Care Team Providers Care Protective Signal Operator Name Role Phone Unavailable Primary Care Provider Unavailabl e Encounter Details Date Type Department Care Team (Late st Contact Info) Description 05/02/[address] [facility] - Main Lab [address] [facility] [place] [address] Jesus Roberts MD 100 [facility] 120 [place] [address] Gross hematuria Social History Tobacco Use Types [...] and pathological findings. 05/11/2024 6:13 PM EST [facility] ([facility]) [facility] Clinical Information [id number] Urine cytology/urine FISH. 05/11/2024 6:13 PM EST [facility] Gross Description A. Urine, Voided, : [id number] RECD 1 TP CYTO 1 TP FISH. 05/11/2024 6:13 PM [facility] Disclaimer Unless otherwise specified, all tissue is 10% NB formalin fixed and paraffin embedded. Technical pathology services provided by [facility]rology at [facility] [address], [place] [address] (CLIA #[id number]/Rebekah Pedro MD, Chicken Cutter) 05/11/2024 6:13 PM [facility] Tissue Urine specimen from urethra / Unknown 04/25/2024 05/02/2024 1:18 PM EST us Jesus Roberts MD LAB PATHOLOGY ORDERAB LES Final Result [facility] [address] [place] [address], documented in this encounter Visit Diagnoses Diagnosis Gross hematuria documented in this encounter
== END 2024-09-03 08:47 | disposition home or self-care (01) ==
LOC: HO.US 08:46
PROVIDERS: Visit Provider Surgery
DX: E66.01 Morbid (severe) obesity due to excess calories (principal); E11.9 Type 2 diabetes mellitus without complications; G47.30 Sleep apnea, unspecified; I10 Essential (primary) hypertension
CPT/HCPCS: 76700; 76981

== ENCOUNTER → 2024-09-03 08:48 | Outpatient (BNV) | payer MEDICAID, SELFPAY | PROVIDERS: Visit Provider Radiology Diagnostic Radiology | DX: R16.0 Hepatomegaly, not elsewhere classified (principal); K76.0 Fatty (change of) liver, not elsewhere classified | CPT/HCPCS: 76700; 76981 ==

== ENCOUNTER 2024-09-04 09:17 | Outpatient (AMB) | payer OTHER, SELFPAY ==
--- NOTE | 2024-09-04 09:10 | A.OFFWM_ITS ---
Intake Intake Visit Reasons: VIDEO BH F/U Allergies acetaminophen [From Percocet] Allergy (Mild, Verified 07/17/24 11:40) jittery latex Allergy (Mild, Verified 07/17/24 11:40) itchy oxycodone [From Percocet] Allergy (Mild, Verified 07/17/24 11:40) jittery PFSH Medical History (Updated 08/18/24 @ 10:24 by Teja Castellanos MD) DJD (degenerative joint disease) Anxiety Depression Hypertension Non-insulin dependent type 2 diabetes mellitus Sleep apnea Morbid obesity Surgical History (Updated 07/13/24 @ 10:53 by Teja Castellanos MD) History of delivery Hx of colonoscopy Hx of hysterectomy Family History (Updated 07/10/24 @ 08:32 by Lalita Preston CMA) Mother Diabetes Hypertension Obesity High cholesterol Father Drug addiction HIV (human immunodeficiency virus infection) Daughter No problems noted. Social History (Updated 07/10/24 @ 08:33 by Lalita Preston CMA) Are you a primary primary care nurse practitioner to a significant other at home: No Do you presently have visiting nurse or other home services: No Alcohol intake: current Alcohol intake frequency: does not drink Patient Tobacco Use Status: Never used Tobacco Behavioral Health Assessment Weight Management Therapy Therapy Notes Details The patient is a 43-year-old female presenting for an initial behavioral health assessment as part of the surgical weight loss program. She is pursuing bariatric surgery to improve her overall health, particularly in managing hypertension and diabetes. Additionally, she hopes that weight loss will help alleviate chronic pain, improve her sleep apnea, and reduce her reliance on medications. Her primary goal is to enhance her overall well-being and long-term health. The patient recently started therapy through her primary care provider. She has a history of depression, anxiety, anger, and sleep issues. She previously took Sertraline and Seroquel but stopped over six years ago. She has engaged in counseling in the past and denies any psychiatric hospitalizations, self-harm, or harm to others. At present, there is no indication of emotional or stress-related eating. Scores from the Binge Eating Scale (BES) suggest a low risk for binge eating behaviors. Additionally, PHQ-9 results indicate no current depressive symptoms. The mental status exam was within normal limits, with some mild sources of stress noted, though these do not appear to impair her functioning. The patient is cleared from a behavioral health standpoint for bariatric surgery at this time. She will follow up in approximately one month for continued support, as requested. Presenting Concerns Referral Source [facility]-Provider, Dr. Jasper Yee PT has initial visit on 07/13/2024 Initially referred by her PCP. Reason for referral Completion of behavioral health assessment as part of process for weight-loss surgery. Precipitating Event Obesity. Initial weight 261Lbs. Living Situation Current Living Situation Rent At risk of losing current housing? No Satisfied with current living situation? Yes Comments Pt lives with her partner. Food/Weight/Diet Expectations of change The initial goal is to lose 10% of your weight before surgery, which is about 26lbs. Ultimate weight goal: 235lbs before surgery PT started the program at 261Lbs, most recently as of 09/01/24, was 250Lbs. PT is implementing the following: The current meal plan is a combination of shakes, bars, and 1 meal (9F/9F) per day. Exercise plan: Walking 3-4 days a week - 45 min. Scale: Yes. Communication with Provider: Yes on Saturdays. History/Relationship with food Example of meals before starting the program: Breakfast: 9am (noodles, or eggs and toast) Lunch: (only instead of breakfast), 12pm Dinner: 7pm (Fish baked or fried) Snacks: sunflower seeds, dried foods before dinner. Fluids: Coffee 3-4/wk (1 cup), premade tea: 2-3 cups/wk, soda: Gingerale (3- 4/wk), juice: occasionally cranberry. History/Relationship with weight PT reports a normal size in childhood. In HS she was around 110 Lbs. She was also very active as a kid/teen. PT reports she started gaining weight after getting in 2017, she gained about 70Lbs in 5 years. In the last 10 years, the patient's Lowest weight has been her current weight at 250Lbs and the highest was 273Lbs History/Relationship with dieting Ozempic 2mg/wk: lost 10 lbs in 5 mths. Self-diets. Dancing classes, walking. Did a WMP program in the past. Binge Eating Do you frequently eat large amounts of food in short periods of time, not feeling physically hungry? No Do you feel out of control when you eat a large amount of food in a short period of time? No Do you eat large amounts of food rapidly and typically alone? No Night Eating Do you wake up at least once during the night to eat? No If you wake up in the night, do you find that it is necessary to eat something in order to fall back asleep? No Do you have little or no appetite in the morning and feel very hungry in the evening, often overeating between dinner and when you go to bed? No Social History Family history and relationship PT is almost 3 years ago and has been living with her current partner for about 1 year. PT has a 23-year-old daughter. She has 3 younger brothers on her father's side, only child on her mother's side. Her mother is alive, father in 2000. Her mom was 13 when she had her, and her grandmother raised her. PT reports strained family relationships, she feels she is in her self-care era, which is focusing on herself. 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 Developmental history and status None reported. Currently WNL. Social support 2 cousins, 1 of then had bariatric surge ry. Partner. Community support Her boss and his . L[employer] community. Christianity/Spirituality Roman Catholic. 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 Cultural/Ethnic information -[place]. Legal Involvement and History Current or historical involvement with the legal system? None. Education Highest grade completed Some college. Preferred learning style Auditory, Verbal, Written, Learn by doing and Visual Currently enrolled in educational program? No Interested in further educational program? No Educational Interests/Skills Business. PT has done several college classes and has been involved in non-profit work. Pt enjoys doing volunteering at restorationist and community. 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 No Meaningful activities Puzzles, music/sign, play some games on the phone. Financial Situation Describe current financial situation Comfortable Financial assistance? Food [place] Service Service? No Mental Health and Addiction Treatment Current/Past substance abuse? No Comments Alcohol: Rarely. Cigarettes/Tobacco: None. Quit 8 years ago. Cannabis/Edibles: cannabis, smokes 1-2 times at day. Current/Past addictive behavior concerns? No Psychiatric history PT started therapy last month at her PCP's office at [address] [place] [address]. She has been diagnosed with depression and anxiety in the past. PT reports she had a lot of anger and was having sleeping issues. Used to take Sertraline and Seroquel in the past, no longer on these meds more than 6 years ago. She has been at [facility] for counseling. Denies ever being hospitalized for MH. Denies any past or recent concerns for safety around Self-harm/other-harm. Medical and Physical Health Summary Additional Medical History not covered in history Arthritis, fatty liver, high cholesterol. Sexual History concerns Low libido. Physical exam in the last year? Yes Pain Screening Current pain? Yes Pain in the last few months? Yes Comments Knee, back, feet. Medications Is the patient compliant with medications? Yes Does the patient have Sandoval Guardian in place? Not applicable Does the patient use complimentary health approaches? Yes Trauma/Abuse History History of trauma? Yes (SIERRA score:6) Questionnaires PHQ-9 Over the last 2 weeks, how often have you been bothered by any of the following problems? 1. Little interest or pleasure in doing things: several days 2. Feeling down, depressed, or hopeless: not at all 3. Trouble falling or staying asleep, or sleeping too much: several days 4. Feeling tired or having little energy: several days 5. Poor appetite or overeating: not at all 6. Feeling bad about yourself - or that you are a failure or have let yourself or your family down: not at all 7. Trouble concentrating on things, such as reading the newspaper or watching television: not at all 8. Moving or speaking so slowly that other people could have noticed. Or the opposite - being so fidgety or restless that you have been moving around a lot more than usual: several days 9. Thoughts that you would be better off or of hurting yourself in some way: not at all Total score: 4 Depression Screening Interpretation: Positive (Related to current stress with partner. ) Depression Screening Done: Yes 81793 - PHQ-9 Billing: Yes Source: Developed by Drs. Richie Carranza, Sharon Concepcion, Travis Dang and colleagues, with an educational miguel from Private [facility]. Binge Eating Scale Group 1 A. I don't feel self-conscious about my wt. or body size when I'm with others. B. I feel concerned about how I look to others, but it normally does not make me fell disappointed with myself C. I do get self-conscious about my appearance and wt. which makes me feel disappointed in myself. D. I feel very self-conscious about my wt. and frequently I feel intense shame and disgust for myself. I try to avoid social contacts because of my self- consciousness. Response Group 1: B Group 2 A. I don't have any difficulty eating slowly in the proper manner. B. Although I seem to gobble down foods, I don't end up feeling stuffed because of eating to much. C. At times, I tend to eat quickly and then, I feel uncomfortably full afterwards. D. I have the habit of bolting down my food, without really chewing it. When this happens I usually feel uncomfortably stuffed because I've eaten to much. Response Group 2: B Group 3 A. I feel capable to control my eating urges when I want to. B. I feel like I have failed to control my eating more than the average person. C. I feel utterly helpless when it comes to feeling in control of my eating urges. D. Because I feel so helpless about controlling my eating I have become very desperate about trying to get control. Response Group 3: A Group 4 A. I don't have the habit of eating when I'm bored. B. I sometimes eat when I'm bored, but often I'm able to get busy and get my mind off food. C. I have a regular habit of eating when I'm bored, but occasionally, I can use some other activity to get my mind off eating. D. I have a strong habit of eating when I'm bored. Nothing seems to help me breath the habit. Response Group 4: A Group 5 A. I'm usually physically hungry when I eat something. B. Occasionally, I eat something on impulse even though I really am not hungry. C. I have the regular habit of eating foods, that I might not really enjoy, to satisfy a hungry feeling even though physically, I don't need the food. D. Although I'm not physically hungry, I get a hungry feeling in my mouth that only seems to be satisfied when I eat a food, like sandwich, that fills my mouth. Sometimes, when I eat the food to satisfy my mouth hunger, I then spit the food out so I won't gain weight. Response Group 5: A Group 6 A. I don't feel any guilt or self-hate after I overeat. B. After I overeat, occasionally I feel guilt or self-hate. C. Almost all the time I experience strong guilt or self-hate after I overeat. Response Group 6: A Group 7 A. I don't lose total control of my eating when dieting even after periods when I overeat. B. Sometimes when I eat a forbidden food on a diet, I feel like I blew it and eat even more. C. Frequently, I have the habit of saying to myself, I've blown it now, why not go all the way, when I overeat on a diet. When that happens I eat more. D. I have a regular habit of starting a strict diets for myself but I break the diets by going on an eating binge. My life seems to be either a feast or famine. Response Group 7: A Group 8 A. I rarely eat so much food that I feel uncomfortably stuffed afterwards. B. Usually about once a month, I each such a quantity of food, I end up feeling very stuffed. C. I have regular periods during the month when I eat large amounts of food, either at mealtime or at snacks. D. I eat so much food that I regularly feel quite uncomfortable after eating and sometimes a bit nauseous. Response Group 8: A Group 9 A. My level of calorie intake does not go up very high or go down very low on a regular basis. B. Sometimes after I overeat, I will try to reduce my caloric intake to almost nothing to compensate for the excess calories I've eaten. C. I have a regular habit of overeating during the night. It seems that my routine is not to be hungry in the morning but overeat in the evening. D. In my adult years, I have had week-long periods where I practically starve myself. This follows periods when I overeat. It seems I live a life of either feast or famine. Response Group 9: A Group 10 A. I usually am able to stop eating when I want to. I know when enough is enough. B. Every so often, I experience a compulsion to eat which I can't seem to control. C. Frequently, I experience strong urges to eat which I seem unable to control, but at other times I can control my eating urges. D. I feel incapable of controlling urges to eat. I have a fear of not being able to stop eating voluntarily. Response Group 10: A Group 11 A. I don't have any problem stopping eating when I feel full. B. I usually can stop eating when I feel full but occasionally overeat leaving me feeling uncomfortably stuffed. C. I have a problem stopping eating once I start and usually I feel uncomfortably stuffed after I eat a meal. D. Because I have a problem not being able to stop eating when I want, I sometimes have to induce vomiting to relieve my stuffed feeling. Response Group 11: A Group 12 A. I seem to eat just as much when I'm with others, Family social gatherings as when I'm by myself. B. Sometimes, when I'm with other persons, I don't eat as much as I want to eat because I'm self-conscious about my eating. C. Frequently, I eat only a small amount of food when others are present, because I'm very embarrassed about my eating. D. I feel so ashamed about overeating that I pick times to overeat when I know no one will see me. I feel like a closet eater. Response Group 12: A Group 13 A. I eat three meals a day with only an occasional between meal snack. B. I eat 3 meals a day, but I also normally snack between meals. C. When I am snacking heavily, I get in the habit of skipping regular meals. D. There are regular periods when I seem to be continually eating, with no planned meals. Response Group 13: C Group 14 A. I don't think much about trying to control unwanted eating urges. B. At least some of the time, I feel my thoughts are pre-occupied with trying to control my eating urges. C. I feel that frequently I spend much time thinking about how much I ate or about trying not to eat anymore. D. It seems to me that most of my waking hours are pre-occupied by thoughts about eating or not eating. I feel like I'm constantly struggling not to eat. Response Group 14: A Group 15 A. I don't think about food a great deal. B. I have strong craving for food but they last only for brief periods of time. C. I have days when I can't seem to think about anything else but food. D. Most of my days seem to be pre-occupied with thoughts about food. I feel like I live to eat. Response Group 15: A Group 16 A. I usually know whether or not I'm physically hungry. I take the right portion of food to satisfy me. B. Occasionally, I feel uncertain about knowing whether or not I'm physically hungry. A these times it's hard to know how much food I should take to satisfy me. C. Even though I might know how many calories I should eat, I don't have any idea what is a normal amount of food for me. Response Group 16: C Binge Eating Score: 6 Score less than 17 Minimal Risk Score between 18-26 Moderate Risk Score between 27-46 High Risk Assessment & Plan Assessment & Plan (1) Morbid obesity: Code(s): E66.01 - Morbid (severe) obesity due to excess calories (2) Adjustment disorder: Code(s): F43.20 - Adjustment disorder, unspecified Plan The patient is cleared from a behavioral health standpoint for bariatric surgery at this time. She will follow up in approximately one month for continued support, as requested. Next mary: 10/01/2024 at 9am telehealth. Telehealth Telehealth Telehealth Platform: [employer] Location of provider rendering services: other Location of patient: other Patient Identification confirmed using: Name, : Yes Telehealth method: video Patient verbally consented to treatment: Yes Patient verbally consented to billing insurance company: Yes Patient informed of any privacy concerns related to visit: Yes Minutes spent on Phone/Video with Pt.: 50 Coding Level of Care Code Established Pt Tele Psytx 45 mins (88177) Patient Type Established Diagnoses Morbid obesity E66.01 Adjustment disorder F43.20 Additional Codes PHQ-9 - 04184 - PHQ-9 Billing: Yes ([id number]) Time Spent (min) 50
--- OUTSIDE RECORDS SUMMARY | 2024-09-04 10:11 | XMS_ITS | Clinical Summary ---
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
--- OUTSIDE RECORDS SUMMARY | 2024-09-04 10:11 | XMS_ITS | Encounter Summary ---
Author Organization [employer] Address [address] [place] [address] Care Team Providers Care Costumed Character Name Role Phone Unavailable Primary Care Provider Unavailabl e Encounter Details Date Type Department Care Team (Late st Contact Info) Description 05/02/2024 Lab Requisition [facility] - Main Lab [address] [facility] [place] [address] Jesus Roberts MD [address] [facility] [address] [place] [address] Gross hematuria Social History Tobacco Use Types [...] and pathological findings. 05/11/2024 6:13 PM EST [facility] ([facility]) [facility] Clinical Information [id number] Urine cytology/urine FISH. 05/11/2024 6:13 PM EST [facility] Gross Description A. Urine, Voided, : [id number] RECD 1 TP CYTO 1 TP FISH. 05/11/2024 6:[address] [facility] Disclaimer Unless otherwise specified, all tissue is 10% NB formalin fixed and paraffin embedded. Technical pathology services provided by [facility] [address] [place] [address] (CLIA #[id number]/Rebekah Pedro MD, [employer] Adf Consultant) 05/11/2024 6:[address] [facility] Tissue Urine specimen from urethra / Unknown 04/25/2024 05/02/2024 1:18 PM EST us Jesus Roberts MD LAB PATHOLOGY ORDERAB LES Final Result [facility] [address] [place] [address], documented in this encounter Visit Diagnoses Diagnosis Gross hematuria documented in this encounter
== END 2024-09-04 10:06 | disposition home or self-care (01) ==
LOC: HO.HBST 09:17
PROVIDERS: Visit Provider Counselor Mental Health
DX: F43.20 Adjustment disorder, unspecified (principal); E66.01 Morbid (severe) obesity due to excess calories
CPT/HCPCS: 90834

== ENCOUNTER 2024-09-21 07:42 | Outpatient (REF) | payer OTHER, SELFPAY ==
--- OUTSIDE RECORDS SUMMARY | 2024-09-21 16:19 | XMS_ITS | Encounter Summary ---
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 [address] [place] [address] Gross hematuria Social History Tobacco Use Types [...] and pathological findings. 05/11/2024 6:13 PM EST [facility] ([facility]) [facility] Clinical Information [id number] Urine cytology/urine FISH. 05/11/2024 6:13 PM EST [facility] Gross Description A. Urine, Voided, : [id number] RECD 1 TP CYTO 1 TP FISH. 05/11/2024 6:13 PM [facility] Disclaimer Unless otherwise specified, all tissue is 10% NB formalin fixed and paraffin embedded. Technical pathology services provided by [facility] at [facility] [address] [place] [address] (CLIA #[id number]/Rebekah Pedro MD, Para Operator) 05/11/2024 6:13 PM [facility] Tissue Urine specimen from urethra / Unknown 04/25/2024 05/02/2024 1:18 PM EST us Jesus Roberts MD LAB PATHOLOGY ORDERAB LES Final Result [facility] [address] [place] [address], documented in this encounter Visit Diagnoses Diagnosis Gross hematuria documented in this encounter
[2024-09-22 07:32] LABS: H Pylori Breath Test Negative (Negative)
== END 2024-09-21 07:43 | disposition home or self-care (01) ==
LOC: HO.LNP 07:42
PROVIDERS: Surgery; Visit Provider Physician Assistant Surgical
DX: E66.01 Morbid (severe) obesity due to excess calories (principal); E11.9 Type 2 diabetes mellitus without complications; G47.30 Sleep apnea, unspecified; I10 Essential (primary) hypertension
CPT/HCPCS: 83013; 99211

== ENCOUNTER 2024-10-01 09:16 | Outpatient (AMB) | payer OTHER, SELFPAY ==
--- NOTE | 2024-10-01 09:05 | MHC.WMTHER ---
Intake Intake Visit Reasons: VIDEO BH F/U Allergies acetaminophen [From Percocet] Allergy (Mild, Verified 09/21/24 08:58) jittery latex Allergy (Mild, Verified 09/21/24 08:58) itchy oxycodone [From Percocet] Allergy (Mild, Verified 09/21/24 08:58) jittery PFSH Medical History (Updated 08/18/24 @ 10:24 by Teja Castellanos MD) DJD (degenerative joint disease) Anxiety Depression Hypertension Non-insulin dependent type 2 diabetes mellitus Sleep apnea Morbid obesity Surgical History (Updated 07/13/24 @ 10:53 by Teja Castellanos MD) History of delivery Hx of colonoscopy Hx of hysterectomy Family History (Updated 07/10/24 @ 08:32 by Lalita Preston CMA) Mother Diabetes Hypertension Obesity High cholesterol Father Drug addiction HIV (human immunodeficiency virus infection) Daughter No problems noted. Social History (Updated 07/10/24 @ 08:33 by Lalita Preston CMA) Are you a primary critical care rn to a significant other at home: No Do you presently have visiting nurse or other home services: No Alcohol intake: current Alcohol intake frequency: does not drink Patient Tobacco Use Status: Never used Tobacco Behavioral Health Assessment Weight Management Therapy Therapy Notes Details Subjective: Patient (PT) reports quitting smoking approximately two weeks ago, which has led to an increase in appetite. She shares feeling somewhat frustrated with her progress and occasionally overwhelmed.. Objective: PT attended a follow-up visit via Telehealth. Discussed current functioning and ongoing difficulties maintaining consistency with her meal and exercise plan. Utilized Cognitive Processing Therapy (CPT) to address relationship stressors and other life challenges. Reflected on personal decision-making and her role in improving current circumstances. Provided constructive feedback, along with validation and normalization of emotional responses. Assessment/Response: Mental status: stressed but functioning WNL. Risk reported/identified: None. Food/Weight/Diet Expectations of change The initial goal is to lose 10% of your weight before surgery, which is about 26 lbs. Ultimate weight goal: 235 lbs before surgery PT started the program at 261 lbs, weight as of 09/01/24, was 250 lbs. 10/01/2024 weight: 247Lbs. PT is implementing the following: -The current meal plan is a combination of shakes, bars, and 1 meal (9F/9F) per day. -Exercise plan: Going to the gym 3 days a week (Doing the bike at the gym for 20 minutes, treadmill 20 minutes), doing 2-3 days of outdoor walks. -Scale: Yes. -Communication with Provider: Yes on Mondays. Assessment & Plan Assessment & Plan (1) Adjustment disorder: Code(s): F43.20 - Adjustment disorder, unspecified Plan -Continue with CPT strategies. -Monitor adjustment to smoking cessation and related appetite changes. -F/up appointment scheduled in two weeks. Next mary: 10/16/2024 at 9am, Telehealth Telehealth Telehealth Telehealth Platform: [employer] Location of provider rendering services: other (Home [employer]. [place], [place]) Location of patient: address on file Patient Identification confirmed using: Name, : Yes Telehealth method: video Patient verbally consented to treatment: Yes Patient verbally consented to billing insurance company: Yes Patient informed of any privacy concerns related to visit: Yes Minutes spent on Phone/Video with Pt.: 55 Coding Level of Care Code Established Pt Tele Psytx >53 mins (46560) Patient Type Established Diagnoses Adjustment disorder F43.20 Time Spent (min) 55
--- OUTSIDE RECORDS SUMMARY | 2024-10-01 09:23 | XMS_ITS | Encounter Summary ---
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 05/11/2024 6:13 PM EST [facility] ([facility] Clinical Information [id number] Urine cytology/urine FISH. 05/11/2024 6:13 PM EST [facility] Gross Description A. Urine, Voided, : [id number] RECD 1 TP CYTO 1 TP FISH. 05/11/2024 6:13 PM [facility] Disclaimer Unless otherwise specified, all tissue is 10% NB formalin fixed and paraffin embedded. Technical pathology services provided by [facility] [address] [place] [address] (CLIA #[id number]/Rebekah Pedro MD, [employer]) 05/11/2024 6:13 PM [facility] Tissue Urine specimen from urethra / Unknown 04/25/2024 05/02/2024 1:18 PM EST us Jesus Roberts MD LAB PATHOLOGY ORDERAB LES Final Result [facility] [address] [place] [address], documented in this encounter Visit Diagnoses Diagnosis Gross hematuria documented in this encounter
--- OUTSIDE RECORDS SUMMARY | 2024-10-01 09:23 | XMS_ITS | Clinical Summary ---
Author Organization [address] [facility] Address [address] [place] [address] Phone Care Team Providers Care Pantry Steward/Stewardess Name Role Phone Unavailable Primary Care Provider [...]
== END 2024-10-01 10:15 | disposition home or self-care (01) ==
LOC: HO.HBST 09:16
PROVIDERS: Visit Provider Counselor Mental Health
DX: F43.20 Adjustment disorder, unspecified (principal)
CPT/HCPCS: 90837

== ENCOUNTER 2024-10-10 08:15 | Outpatient (AMB) | payer OTHER, SELFPAY ==
[2024-10-10 16:06] VITALS: BMI 42.2
--- NOTE | 2024-10-10 16:06 | MHC.OFFVISWM ---
VS Expanded 10/10/24 16:06 Height 5 ft 4 in Weight 246 lb 2 oz BMI 42.2 Body Fat % 56.4 Body Fat Mass 138.8 Fat Free Mass 107.2 Visceral Fat Rating 23 Body Water % 29.9 Body Water Mass 73.6 Basal Metabolic Rate/Score 1,419 Intake Visit Reasons: TV Pre Op LSG 10/17/24 Allergies acetaminophen [From Percocet] Allergy (Mild, Verified 10/10/24 16:09) jittery latex Allergy (Mild, Verified 10/10/24 16:09) itchy oxycodone [From Percocet] Allergy (Mild, Verified 10/10/24 16:09) jittery Medication List - Last Reconciled 10/10/24 by Teja Castellanos MD amlodipine 5 mg PO DAILY atorvastatin mg PO DAILY loratadine mg PO DAILY losartan 25 mg PO DAILY ondansetron 4 mg PO Q12H pantoprazole 40 mg PO DAILY polyethylene glycol 3350 17 grams PO DAILY semaglutide (Ozempic) mg subcut sucralfate 10 mL PO BID HPI HPI TV Pre Op LSG 10/17/24: Details: Start time: 3pm, End time: 3.30pm I spent 25 minutes speaking with the patient on the phone plus an additional 5 minutes reviewing and updating records for a total of 30 minutes HPI Comments Details: Overall weight loss: 15lbs, or 5.74% TBWL Is doing 2 Slimfast shakes (4oz of Slimfast mixed with 4oz almond milk), 2 Fit Crunch protein bars and one meal (8 forks each) Exercise: walking outside for 1.5 miles [facility] Medical History (Updated 08/18/24 @ 10:24 by Teja Castellanos MD) DJD (degenerative joint disease) Anxiety Depression Hypertension Non-insulin dependent type 2 diabetes mellitus Sleep apnea Morbid obesity Surgical History (Updated 07/13/24 @ 10:53 by Teja Castellanos MD) History of delivery Hx of colonoscopy Hx of hysterectomy Family History (Updated 07/10/24 @ 08:32 by Lalita Preston CMA) Mother Diabetes Hypertension Obesity High cholesterol Father Drug addiction HIV (human immunodeficiency virus infection) Daughter No problems noted. Social History (Updated 07/10/24 @ 08:33 by Lalita Preston CMA) Are you a primary career orientation teacher to a significant other at home: No Do you presently have visiting nurse or other home services: No Alcohol intake: current Alcohol intake frequency: does not drink Patient Tobacco Use Status: Never used Tobacco Telehealth Telehealth Telehealth Platform: Telephone Location of provider rendering services: practice address Location of patient: address on file Patient Identification confirmed using: Name, : Yes Telehealth method: voice only Patient verbally consented to treatment: Yes Patient verbally consented to billing insurance company: Yes Patient informed of any privacy concerns related to visit: Yes Minutes spent on Phone/Video with Pt.: 30 Assessment & Plan Assessment & Plan (1) Morbid obesity: Code(s): E66.01 - Morbid (severe) obesity due to excess calories Category: Medical Plan: 1. Plan for lap sleeve gastrectomy including upper GI endoscopy. All tests has been completed and reviewed and the patient is cleared for the surgery. If diaphragmatic or ventral hernias are present at time of surgery, these will be repaired laparoscopically as well. The surgery does not replace the need to change your lifestlyle which is the cause of the obesity problem. The surgery provides the motivation to try again to change your lifestyle, it reduces the appetite and make the transition to a better lifestyle easier and doubles the amount of weight you would lose compared to doing the lifestyle change without the surgery. You will need to be on a liquid diet with protein shakes for 2 weeks before surgery to maximize weight loss and boost your nutritional status to recover better from surgery and also for the first two weeks after surgery to let the stomach heal before we introduce other foods. After the first 2 weeks we will introduce protein bars and soft foods like scrambled eggs, cottage cheese and yogurt and after the 6th week will introduce meat, fish and cooked vegetables in small amounts. Over time you should be able to eat everything in small amounts. Side effects like nausea, vomiting, heartburn or abdominal pain are not common in the practice unless you are not following in the practice. This operation requires lifetime commitment to following in our practice and communication with me. You will much less weight and experience side effects if you don?t communicate or not following in the practice. Complications are rare and in our practice is about 1/10 of the national average. However, you can develop bleeding that may require transfusion (hasn?t happened for year in the practice), you may from complications (we did not have any deaths in the practice) and infections. Infections are usually a result of breakdown in communication or not understanding or following directions correctly. They are difficult to treat, they can happen during the first 6 weeks, they may require to be in the hospital for weeks or even months, not being able to eat by mouth and you may have drains and surgeries to try and correct the issue. Other risks and complications include possible conversion to an open procedure, leaks, small bowel obstruction, blood clots, cardiac, or pulmonary complications, as senior living complications such as ulcers, insufficient weight loss and vitamin deficiencies. So far she has proven to be an excellent communicator and very compliant with all our directions accomplishing a great weight loss. I believe that she is an excellent candidate and she is ready. 2. Preop prescriptions were provided and explained the purpose of each one. Need to be purchased preop. Start Pantoprazole now as you get it from the pharmacy, 1 pill per day. Sucralfate and Zofran are for after surgery as needed. 3. Bowel prep: please do 7 packets of Miralax mixing each one with a an 8oz glass of water, crystal light, gatorade zero, or propel on 10/15/24 and the same amount on 10/16/24. The Miralax you begin with one packet at a time in 8oz water or crystal light, gatorade zero, or propel as early in the day as you can and you do them back to back until you finish them. Continue the protein shakes during the bowel prep. 4. Needs to purchase 1oz medicine cups . 5. Needs to purchase Children's liquid Tylenol for postop pain control. 6. She needs to stop the Trulicity as of today. Avoid aspirin, motrin, Advil, Aleve, Ibuprofen, Naproxyn. Tylenol is OK. 7. She needs to purchase the Celebrate multivitamins from the hospital's gift shop. 8. Will do basic preop blood work-up any day between 10/11/24 and Tuesday10/12/24 fasting for 12 hours and is scheduled to see the Anesthesiologist prior to the day of surgery. 9. Importance of adherence to postop follow-up and recommendations was underscored and she understands that. 10. Stop food and bars as of tomorrow 5/22/25 and continue with 5 Muscle milk or Slimfast protein shakes (mix 4oz of Muscle milk or Slimfast with 4oz almond milk) at 7am-9am, 10am-12pm, 1pm-3pm, 4pm-6pm and at 7pm-9pm one more WHOLE BOTTLE Muscle milk or Slimfast protein shake at 10pm to midnight 11. No soups, broths or V8 12. The patient's medical history has been reviewed and they are considered low risk for post op DVT and therefore DVT prophylaxis is not considered necessary. Travel after surgery was reviewed. The patient has not disclosed any travel plans during the first 30 days after surgery and they have been advised that within the first 30 days after surgery any bus, plane, train or car travel over 2 hours in duration is contraindicated due to the possibility of developing blood clots from immobility. Any travel, needs to include periods of ambulation of 10 minutes in duration every 2 hours. Patient was instructed to discuss any plans for travel during this period with their bariatric surgeon. 13. Use your CPAP daily and bring it to the hospital with your mask 14. As of tomorrow, please check your blood pressure daily in the morning. If your blood pressure is: Below 120/70: do not take the Amlodipine or the Losartan 121/71 to 130/80: take HALF Amlodipine only 131/81 to 140/90: take HALF Amlodipine and HALF Losartan Over 141/91: take the whole Amlodipine and HALF Losartan 15. Please take at the day of surgery the following medications: Only Amlodipine and Losartan if your blood pressure is high enough to justify them. 16. Stop any control pills and don't use them for one month after surgery 17. Absolutely no smoking or vaping, or marijuana until the surgery and for at least the first 4 weeks. Only nicotine patches are allowed. 18. Send me weight measurements DAILY including the day of surgery 19. Avoid any steroids by mouth for any reason. Let me know if someone prescribes them to you 20. These instructions supersede anything else you read in the handbook, anything you watched in videos or classes or you were told by any other provider. If there is any conflict, you follow the above instructions and nothing else. 21. Exercise daily for 300 calories Orders: Orders Prothrombin Time INR Today E11.9 - Type 2 diabetes mellitus without complications, E66.01 - Morbid (severe) obesity due to excess calories, I10 - Essential (primary) hypertension Type and Screen Today E11.9 - Type 2 diabetes mellitus without complications, E66.01 - Morbid (severe) obesity due to excess calories, I10 - Essential (primary) hypertension C Reactive Protein Today E11.9 - Type 2 diabetes mellitus without complications, E66.01 - Morbid (severe) obesity due to excess calories, I10 - Essential (primary) hypertension Comprehensive Met. Panel Today E11.9 - Type 2 diabetes mellitus without complications, E66.01 - Morbid (severe) obesity due to excess calories, I10 - Essential (primary) hypertension TSH reflex Free T4 Today E11.9 - Type 2 diabetes mellitus without complications, E66.01 - Morbid (severe) obesity due to excess calories, I10 - Essential (primary) hypertension Partial Thromboplastin Time Today E11.9 - Type 2 diabetes mellitus without complications, E66.01 - Morbid (severe) obesity due to excess calories, I10 - Essential (primary) hypertension Lipid Panel Today E11.9 - Type 2 diabetes mellitus without complications, E66.01 - Morbid (severe) obesity due to excess calories, I10 - Essential (primary) hypertension Hemoglobin A1c Today E11.9 - Type 2 diabetes mellitus without complications, E66.01 - Morbid (severe) obesity due to excess calories, I10 - Essential (primary) hypertension Complete Blood Count Auto Diff Today E11.9 - Type 2 diabetes mellitus without complications, E66.01 - Morbid (severe) obesity due to excess calories, I10 - Essential (primary) hypertension Insulin Today E11.9 - Type 2 diabetes mellitus without complications, E66.01 - Morbid (severe) obesity due to excess calories, I10 - Essential (primary) hypertension Medications: New pantoprazole 40 mg PO DAILY 90 tabs 0RF K21.9 - Gastro-esophageal reflux disease without esophagitis sucralfate 10 mL PO BID 600 mL 2RF K21.9 - Gastro-esophageal reflux disease without esophagitis ondansetron Only take one every 12 hours as needed if you have nausea 4 mg PO Q12H 20 tabs 0RF nausea and vomiting R11.0 - Nausea polyethylene glycol 3350 Mix each measuring cup with 8oz of water, Crystal light, or Gatorade zero, or Propel and do 7 measuring cups on 10/15/24 and another 7 measuring cups on 5/27/25 17 grams PO DAILY 238 grams 0RF Z01.818 - Encounter for other preprocedural examination
== END 2024-10-10 16:28 | disposition home or self-care (01) ==
LOC: HO.HBS 08:15
PROVIDERS: Visit Provider Surgery
DX: E66.01 Morbid (severe) obesity due to excess calories (principal)
CPT/HCPCS: 99214

== ENCOUNTER → 2024-10-10 08:15 | Outpatient (BNVA) | payer OTHER, SELFPAY | PROVIDERS: Visit Provider Surgery ==

== ENCOUNTER → 2024-10-11 07:59 | Outpatient (BNVA) | payer OTHER, SELFPAY | PROVIDERS: Visit Provider Physician Assistant Surgical ==

== ENCOUNTER 2024-10-16 09:28 | Outpatient (AMB) | payer OTHER, SELFPAY ==
--- NOTE | 2024-10-16 09:15 | MHC.WMTHER ---
Intake Intake Visit Reasons: VIDEO BH F/U Allergies latex Allergy (Mild, Verified 11/26/24 14:25) Itching oxycodone (From Percocet) Allergy (Mild, Verified 11/26/24 14:25) jittery [facility] Medical History (Updated 11/20/24 @ 00:02 by Background Daemon) Pulmonary embolism H. pylori infection Hyperlipidemia H. pylori infection Fatty liver Protein S deficiency Elevated cholesterol DJD (degenerative joint disease) Anxiety Depression Hypertension Non-insulin dependent type 2 diabetes mellitus Sleep apnea Morbid obesity Surgical History (Updated 11/20/24 @ 00:02 by Background Daemon) S/P laparoscopic sleeve gastrectomy History of esophagogastroduodenoscopy (EGD) History of delivery Hx of colonoscopy Hx of hysterectomy Family History Mother Diabetes Hypertension Obesity High cholesterol Father Drug addiction HIV (human immunodeficiency virus infection) Daughter No problems noted. 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 She has committed to exercising daily and is currently following a liquid diet in preparation for her scheduled weight-loss surgery tomorrow. Objective: Patient attended follow-up via Telehealth. Interventions focused on reinforcing motivation and emotional preparedness for surgery. Brief CBT techniques were used to address pre-surgical anxiety and to strengthen commitment to post-operative behavior change. Patient engaged in values-based discussion to align health goals with long-term self-care. Coping strategies for the immediate post-surgical period were reviewed. Assessment/Response: Mental status: Stable, motivated. WNL Risk reported/identified: None Patient demonstrated readiness for surgery and appropriate insight into upcoming lifestyle changes. Assessment & Plan Assessment & Plan (1) Adjustment disorder: Code(s): F43.20 - Adjustment disorder, unspecified Plan Continue behavioral health follow-up post-op to support adjustment, emotional coping, and adherence to recovery goals. Next session to be scheduled 1 week after surgery. 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 Check your blood pressure every morning and follow the parameters Dr. Castellanos gave you 25 mg PO DAILY PRN If BP >130 Teja Castellanos MD amlodipine Hold Comment: Resume on 10/19/24. Check your blood pressure every morning and follow the parameters Dr. Castellanos gave you 2.5 - 5 mg PO DAILY Teja Castellanos MD Telehealth Telehealth Telehealth [facility] Location of provider rendering services: other Location of patient: address on file Patient Identification confirmed using: Name, : Yes Telehealth method: video Patient verbally consented to treatment: Yes Patient verbally consented to billing insurance company: Yes Patient informed of any privacy concerns related to visit: Yes Minutes spent on Phone/Video with Pt.: 45 Coding Level of Care Code Established Pt Tele Psytx 45 mins (72251) Patient Type Established Diagnoses Adjustment disorder F43.20 Time Spent (min) 45
--- OUTSIDE RECORDS SUMMARY | 2024-10-16 10:00 | XMS_ITS | Clinical Summary ---
Author Organization [address] [facility] Address [address] [place] [address] Phone Care Team Providers Care Starbucks Clerk Name Role Phone Unavailable Primary Care Provider [...]
== END 2024-10-16 10:15 | disposition home or self-care (01) ==
LOC: HO.HBST 09:28
PROVIDERS: Visit Provider Counselor Mental Health
DX: F43.20 Adjustment disorder, unspecified (principal)
CPT/HCPCS: 90834

== ENCOUNTER 2024-10-17 08:21 | Inpatient (IN) | payer OTHER, SELFPAY ==
[2024-10-11 07:52] LABS: MANUAL DIFF FLAG NO
[2024-10-11 08:09] LABS: Basophils Percent Auto 0.4 % (0-2); Eosinophils Absolute Auto 0.1 X10*3/uL (0.0-0.4); Eosinophils Percent Auto 1.4 % (0-4); Hemoglobin 12.7 g/dl (12.0-16.0); Imm Gran Abs Auto 0.02 X10*3/uL (0.00-0.03); Imm Gran Pct Auto 0.3 % (0.0-0.4); Lymphocytes Absolute Auto 1.6 X10*3/uL (1.2-4.9); Lymphocytes Percent Auto 19.5 % (20-40); Mean Corpuscular HGB Conc 33.4 g/dl (31.0-35.0); Mean Corpuscular Hemoglobin 26.6 pg (27.0-33.0); Mean Corpuscular Volume 79.7 fL (80.0-98.0); Mean Platelet Volume 11.1 fL (9.4-12.3); Monocytes Absolute Auto 0.4 X10*3/uL (0.1-1.2); Monocytes Percent Auto 4.9 % (2-11); Neutrophils Absolute Auto 5.8 x10*3/uL (2.0-8.3); Neutrophils Percent Auto 73.5 % (45-73); Platelet Count 270 X10*3/uL (160-400); Red Blood Count 4.77 X10*6/uL (4.20-5.50); Red Cell Distribution Width 14.9 % (11.0-16.0); White Blood Count 7.9 X10*3/uL (4.8-10.8)
[2024-10-11 08:14] LABS: INTERNATIONAL NORM RATIO 1.1 (0.9-1.1); Prothrombin Time 12.3 SEC (10.9-12.4)
[2024-10-11 08:15] LABS: Estimated Average Glucose 114 mg/dL; Hemoglobin A1C 127.3427 umol/L; Hemoglobin A1c % 5.6 % (<6.0); Total Hemoglobin (HGBA1C) 3373.1214 umol/L
[2024-10-11 08:48] LABS: Alanine Aminotransferase 25 U/L (0-31); Albumin Level 4.2 g/dL (3.5-5.0); Alkaline Phosphatase 77 U/L (39-117); Anion Gap 11 (12-20); Aspartate Amino Transferase 16 U/L (5-31); Bilirubin Total 0.2 mg/dL (0.0-1.0); Blood Urea Nitrogen 17 mg/dL (9-16); C Reactive Protein 0.54 mg/dL (< or = 0.50); Calcium 9.3 mg/dL (8.4-10.2); Carbon Dioxide 24 mmol/L (22-29); Chloride 110 mmol/L (96-108); Cholesterol 164 mg/dL (<200); Estimated Glomerular Filt Rate > 60; Glucose Random 97 mg/dL (60-115); HDL Cholesterol 28 mg/dL (>40); LDL Cholesterol Calculated 117 mg/dL (<100); Potassium 3.9 mmol/L (3.3-5.1); Sodium 141 mmol/L (135-145); Total Protein 7.3 g/dL (6.5-8.0); Triglycerides 98 mg/dL (<150)
[2024-10-11 09:20] LABS: Insulin 36 uU/mL (2-29); TSH reflex Free T4 1.21 uIU/mL (0.32-4.0)
[2024-10-12 10:31] VITALS: BMI 41.5
--- NOTE | 2024-10-16 08:23 | HO.ANESPROP2 ---
Documented by User: Britany Alaniz NP 10/16/24 08:25 HPI - Anesthesia Eval Consult details Narrative: 43yo F for Gastrectomy Sleeve - EGD, possible diaphragmatic hernia, possible ventral hernia, possible open Arixtra for protein S deficiency Anesthesia Pre-Procedure Meds Is the patient on any of the following meds?: GLP1/DPP4 PMFSH Active Problems Active Problems: All Active Problems Protein S deficiency (Acute) H. pylori infection (Acute) DJD (degenerative joint disease) (Acute) Anxiety (Acute) Depression (Acute) Hypertension (Acute) Non-insulin dependent type 2 diabetes mellitus (Acute) Sleep apnea (Acute) Morbid obesity (Acute) Past Medical History Medical History H. pylori infection Fatty liver Protein S deficiency Elevated cholesterol DJD (degenerative joint disease) Anxiety Depression Hypertension Non-insulin dependent type 2 diabetes mellitus Sleep apnea Morbid obesity Family History Family History Mother Diabetes Hypertension Obesity High cholesterol Father Drug addiction HIV (human immunodeficiency virus infection) Daughter No problems noted. Surgical History Surgical History History of esophagogastroduodenoscopy (EGD) History of delivery Hx of colonoscopy Hx of hysterectomy Social History Social History Are you a primary rn progressive care to a significant other at home: No Do you presently have visiting nurse or other home services: No Alcohol intake: current Alcohol intake frequency: holidays/special occasions only Patient Tobacco Use Status: Former Tobacco user Tobacco use type: Cigarette Years Smoked: 22 Substance Use Type Other:: smoked daily since age 13-last used ~ early September 2024 Have you been hit, kicked, punched, or otherwise hurt by someone within the past year? If so, by whom?: No Spiritual Healthcare Practices: no Protestant Healthcare Practices: no-Taoist Cultural Healthcare Practices: no Are you DNR?: No Advance Directives Information Provided: Yes (as above noted) Advance Directives on File: No Patient : No (had hysterectomy) FDLMP: n/a : No Poor oral hygiene: No Meds Allergies Allergy/AdvReac Type Severity Reaction Status Date / Time latex Allergy Mild Itching Verified 10/17/24 08:31 oxycodone [From Percocet] Allergy Mild jittery Verified 10/17/24 08:31 Home Medications ?Medication ?Instructions ?Recorded ?Confirmed ?Last Taken ?Type atorvastatin 10 mg tablet 10 mg PO DAILY 07/10/24 10/17/24 10/16/24 History loratadine 10 mg tablet 10 mg PO DAILY 07/10/24 10/17/24 10/16/24 History losartan 50 mg tablet 25 mg PO DAILY 07/10/24 10/17/24 10/16/24 History amlodipine 5 mg tablet 5 mg PO DAILY 07/13/24 10/17/24 10/16/24 History dulaglutide 1.5 mg/0.5 mL 1.5 mg subcut MO 10/12/24 10/17/24 10/08/24 History subcutaneous pen injector (Trulicity) Exam Height,Weight and Vital Signs: Height 5 ft 4 in Weight 109.769 kg Pertinent Lab Results Pertinent Lab Results: Laboratory Tests 10/11/24 10/11/24 07:40 07:51 WBC 7.9 RBC 4.77 Hgb 12.7 Hct 38.0 MCV 79.7 L MCH 26.6 L MCHC 33.4 RDW 14.9 Plt Count 270 MPV 11.1 Immature Gran % (Auto) 0.3 Neut % (Auto) 73.5 H Lymph % (Auto) 19.5 L Wheeler % (Auto) 4.9 Eos % (Auto) 1.4 Baso % (Auto) 0.4 Lymph # (Auto) 1.6 Wheeler # (Auto) 0.4 Eos # (Auto) 0.1 Baso # (Auto) 0.0 Abs Immat Gran (auto) 0.02 Absolute Neuts (auto) 5.8 Absolute Nucleated RBC 0.000 Nucleated RBC % (auto) 0.0 PT 12.3 INR 1.1 APTT 29.0 Sodium 141 Potassium 3.9 Chloride 110 H Carbon Dioxide 24 Anion Gap 11 L BUN 17 H Creatinine 0.78 Estim Creat Clear Calc TNP Estimated GFR > 60 Random Glucose 97 Estimat Average Glucose 114 Hemoglobin A1c % 5.6 Insulin Level 36 H Calcium 9.3 Total Bilirubin 0.2 AST 16 ALT 25 Alkaline Phosphatase 77 C-Reactive Protein 0.54 H Total Protein 7.3 Albumin 4.2 Triglycerides 98 Cholesterol 164 LDL Cholesterol, Calc 117 H HDL Cholesterol 28 L TSH 1.21 Blood Type B Positive Antibody Screen NEGATIVE Narrative Narrative: EKG 07/2024 Vent. Rate : 92 BPM Atrial Rate : 92 BPM P-R Int : 162 ms QRS Dur : 72 ms QT Int : 344 ms P-R-T Axes : 49 25 20 degrees QTcB Int : 425 ms Normal sinus rhythm Normal ECG No previous ECGs available Assessment and Plan Assessment Anesthesia Assessment: Chart Reviewed Documented by User: Malena Pal MD 10/17/24 09:40 [facility] Past Medical History Medical History H. pylori infection Fatty liver Protein S deficiency Elevated cholesterol DJD (degenerative joint disease) Anxiety Depression Hypertension Non-insulin dependent type 2 diabetes mellitus Sleep apnea Morbid obesity Family History Family History Mother Diabetes Hypertension Obesity High cholesterol Father Drug addiction HIV (human immunodeficiency virus infection) Daughter No problems noted. Surgical History Surgical History History of esophagogastroduodenoscopy (EGD) History of delivery Hx of colonoscopy Hx of hysterectomy History of Problems with Anesthesia: No Social History Social History Are you a primary rn progressive care to a significant other at home: No Do you presently have visiting nurse or other home services: No Alcohol intake: current Alcohol intake frequency: holidays/special occasions only Patient Tobacco Use Status: Former Tobacco user Tobacco use type: Cigarette Years Smoked: 22 Substance Use Type Other:: smoked daily since age 13-last used ~ early September 2024 Have you been hit, kicked, punched, or otherwise hurt by someone within the past year? If so, by whom?: No Spiritual Healthcare Practices: no Protestant Healthcare Practices: no-Taoist Cultural Healthcare Practices: no Are you DNR?: No Advance Directives Information Provided: Yes (as above noted) Advance Directives on File: No Patient : No (had hysterectomy) FDLMP: n/a : No Poor oral hygiene: No Meds Allergies Allergy/AdvReac Type Severity Reaction Status Date / Time latex Allergy Mild Itching Verified 10/17/24 08:31 oxycodone [From Percocet] Allergy Mild jittery Verified 10/17/24 08:31 Home Medications ?Medication ?Instructions ?Recorded ?Confirmed ?Last Taken ?Type atorvastatin 10 mg tablet 10 mg PO DAILY 07/10/24 10/17/24 10/16/24 History loratadine 10 mg tablet 10 mg PO DAILY 07/10/24 10/17/24 10/16/24 History losartan 50 mg tablet 25 mg PO DAILY 07/10/24 10/17/24 10/16/24 History amlodipine 5 mg tablet 5 mg PO DAILY 07/13/24 10/17/24 10/16/24 History dulaglutide 1.5 mg/0.5 mL 1.5 mg subcut MO 10/12/24 10/17/24 10/08/24 History subcutaneous pen injector (Trulicity) Exam Airway Mallampati Class: III TM Dist: >3cm Neck ROM: Full Loose/Missing/Broken Teeth: No Heart: RRR Lungs: CTA Assessment and Plan Assessment Anesthesia Assessment: Anesthesia Plan Discussed Final Anesthetic Review History of Problems with Anesthesia: No NPO: Yes ASA Class: III Final Preanesthetic Review: Meds/Allgs Chart Reviewed, Consent Obtained/Reviewed and Anes Risks/Benef Reviewed Patient Risk: Intermediate Procedure Risk: Intermediate Anesthetic Plan Anesthetic Plan: GA Disposition: Standard PACU
[2024-10-17] VITALS (9 sets, daily range): BP systolic 109–134; BP diastolic 55–75; PULSE 71–94; RESP 14–20; TEMP 36–36.9; O2SAT 96–100
--- OUTSIDE RECORDS SUMMARY | 2024-10-17 08:37 | XMS_ITS | Clinical Summary ---
Author Organization [address] [facility] Address [address] [place] [address] Phone Care Team Providers Care History Tutor Name Role Phone Unavailable Primary Care Provider [...]
--- NOTE | 2024-10-17 08:38 | PHA.MEDREC ---
Pharmacy Consult ? Medication Reconciliation Pharmacy has completed the medication reconciliation. Spoke to patient at bedside, she was able to confirm her meds. Losartan she has been tkaing 25mg for the last week. Trulicity she takes Mondays but skipped this week. The Fondaparinux, Ondansetron, Polyethylene Glycol, and Sucralfate were filled for post-op and she hasn't started yet.
[2024-10-17] MEDS: Lactated Ringers 1,000 ML 999 ML IV (08:57)
[2024-10-17] MEDS: Aprepitant 32 MG/4.4 ML VIAL IVPUSH (08:58)
[2024-10-17 09:14] LABS: Glucose, Whole Blood 80 mg/dL (60-115)
--- NOTE | 2024-10-17 09:35 | MHC.SHP ---
Pre-Procedural Eval Section A - 24 Hr Update-Section A only Date of Service: 10/17/24 The patient is an INPATIENT: Yes The patient has been examined within 24 hours of the surgical procedure. The History & Physical has been completed within 30 days and I have reviewed it.: Yes Section B - Complete if H&P > 30 days Chief Complaint: OBESITY Relevant Family History (Specify if Yes): No Relevant Social History: None Present Medications: None Medical History: No relevant PMH History of Previous Operations: No relevant previous surgery Allergies: Allergies Allergy/AdvReac Type Severity Reaction Status Date / Time latex Allergy Mild Itching Verified 10/17/24 08:31 oxycodone [From Percocet] Allergy Mild jittery Verified 10/17/24 08:31 Review of Systems Sugical H&P ROS: Negative: Constitution, Cardiovascular, Respiratory, Neurological, Psychiatric, Hem-Onc, Allergic/Immunologic, Gastrointestinal, Genitourinary, Musculoskeletal, Integumentary, Endocrine and Eyes/Ears/Nose/Throat Exam Surgical H&P Exam: Normal: HEENT, Normal: Heart, Normal: Lungs, Normal: Extremities, Normal: Abdomen, Normal: Skin and Normal: Neurological Plan Diagnosis/Plan: Unchanged I have reviewed the history and physical and performed a pertinent physical examination on my patient. No changes have occurred unless specified. Time Spent With Patient Time: Total time managing care of this patient today ____ minutes.
--- NOTE | 2024-10-17 09:41 | P.BOP_ITS ---
Brief Operative Note Date of Service: 10/17/24 Pre-op diagnosis: Morbid obesity with comorbidities (see below) Post-op diagnosis: same Procedure: INITIAL PATIENT BMI ON PRESENTATION AT OUR OFFICE: 44.8 kg/m2 LAST BMI BEFORE SURGERY: 41.6 kg/m2 COMORBIDITIES: Protein S Deficiency, non-insulin dependent diabetes, sleep apnea on CPAP, hyperlipidemia, hypertension, depression, anxiety, DJD, liver fibrosis ?The patient presented to the Weight Management Program with significant obesity that was negatively impacting the patient's comorbidities as listed above.? The program is a phased program with a special focus on preoperative medical weight management to promote substantial weight loss and prepare the patients for the second phase of the program: bariatric surgery. The patient participated in an intensive weekly lifestyle ?intervention and exercise program during which the patient ?has lost between the initial office visit and the last preoperative visit 25.6 lbs, or 9.8% of initial actual body weight. It was deemed appropriate for the patient to now have bariatric surgery. In light of the current Covid-19 pandemic and the well documented strong association of obesity and increased risk of worse outcomes if infected with Covid-19 (REFERENCES: https://pubmed.ncbi.nlm.nih.gov/02337723/ ,? https://pubmed.ncbi.nlm.nih.gov/05712342/ ), any delay in undergoing bariatric surgery may lead to the patient's worsening health condition and increased?risk of more severe Covid-19 disease if infected. In addition a recent?study from [facility] published in [facility] on 05/18/2021 ([email or web address]) found that, among patients with obesity, substantial weight loss achieved with surgery was associated with improved outcomes of COVID-19 infection. The findings suggest that obesity can be a modifiable risk factor for the severity of COVID-19 infection. In addition, the patient met the BMI-criteria for bariatric surgery based on the BMI on initial presentation. The patient should not be penalized for achieving such weight loss because ?it is not sustainable long-term without surgical intervention and it was achieved in preparation for bariatric surgery ?under my direction and based on my published research ([email or web address]).[email or web address] and? https://www. soard.org/article/[email or web address](05)44171-X/pdf ) ?that a 10% preoperative weight loss improves long-term weight loss after surgery and reduces perioperative complications.? Insurance carriers such as [facility] have endorsed my recommendations ?and have included in their policies criteria to include a 10% preoperative weight loss requirement. PROCEDURE: Esophago-gastroscopy, laparoscopic lysis of adhesions, laparoscopic sleeve gastrectomy and laparoscopic gastropexy INDICATIONS: This is a 43 year-old female who was electively scheduled for laparoscopic, possibly open sleeve gastrectomy. The risks and complications of the procedure were discussed with the patient in advance, particularly the possibility of ; pulmonary embolism; staple line leak; bleeding; GERD; cardiac, pulmonary, or renal complications; as well as long-term problems such as insufficient weight loss, vitamin deficiency, strictures, or ulcers. The patient understood all the risks, and was in agreement to proceed with surgery. DESCRIPTION OF PROCEDURE: After informed consent was obtained from the patient, the patient was given preoperative antibiotics, and was transferred to the operating room. After successful induction of general anesthesia, pneumatic compression devices were placed on both lower extremities. An upper endoscopy was performed next. The oropharynx and esophagus appeared to be within normal limits. There was no diaphragmatic hernia present. The stomach was entered. Then after all fluid and air were suctioned and the stomach was fully decompressed, the scope was withdrawn and secured in the mid esophagus. The patient was then prepped and draped in the usual sterile manner, and abdominal access was established at the right upper quadrant with the Raymon technique. A 12 mm blunt port was inserted, and the abdomen was insufflated with CO2 to a pressure of 15 mmHg. Under direct visualization, additional ports were placed, specifically two 5 mm Versi-step ports to the left upper quadrant, and a 5 mm Versi-Step port to the right upper quadrant. 1% lidocaine plain was used to infiltrate all port sites as well as all fascia defects. Following that, the patient was placed in a steep reverse Trendelenburg position. An additional 5 mm port was placed to the right flank for the Mediflex retractor that was used to retract the left lobe of the liver. The gastro-esophageal fat pad was opened with the ultrasonic device (Thunderbeat, Olympus) and the anterior esophagus and hiatus were exposed. The angle of His was opened with the ultrasonic device the fundus of the stomach from any diaphragmatic and splenic attachments. I then opened the gastrocolic ligament between the transverse colon and the greater curvature of the stomach with the ultrasonic device to enter the lesser sac and facilitate the ligation of the short gastric vessels. I started at a mid-point along the greater curvature and using the Thunderbeat, all short gastric vessels were divided all the way to the angle of His until the left gabby was completely dissected at its entirety. I then divided the gastro-colic ligament distally to a distance of about 3-4 cm proximal to the pylorus. There were extensive congenital adhesions between the pancreas and posterior gastric wall. Those were lysed completely with the ultrasonic device. Adhesiolysis took approximately 45 min to complete. The stomach was then divided transversely with two Endo ERA-45 purple and four ERA-60 articulating purple loads using the DailyeventIA stapler and loads. Every effort was made that the gastric sleeve had a tubular shape and an even caliber throughout. Once the sleeve resection was completed, the staple line of the gastric sleeve was reinforced with Hemoclips. The resected stomach was retrieved without difficulty from the Raymon port. A gastropexy was then performed in order to prevent postoperative GERD and partial gastric volvulus. Several interrupted 2.0 Surgidac sutures were placed between the sleeve's staple line and the previously divided greater omentum and gastro-colic ligament using the Endo-Stitch device. ?An upper endoscopy was performed. There was no narrowing at the GE junction. The scope was easily advanced all the way to the pylorus which was clearly visualized. There was no narrowing anywhere and the sleeve's caliber was even throughout. The sleeve's staple line was inspected and there was no evidence of ischemia, bleeding or dehiscence. At that point the gastroscope was withdrawn from the patient?s mouth while we were decompressing the bowel and the stomach from any remaining air. I looked into the lesser sac to see how the sleeve was situating and it was situating well. There was no bleeding from the staple line, spleen, or short gastric vessels. The Mediflex retractor was removed, and the undersurface of the liver was inspected and there was no bleeding. The patient was placed in supine position. I closed the fascial defect of the 12 mm port site with a figure of eight #1 Polysorb suture. Then 30cc Ropivacaine plain with 10 mg of Dexamethasone were used to infiltrate the fascial closure as well as all skin incisions. At this point, the abdomen was deflated, all ports were removed under direct vision, and no bleeding was noted from any of the port sites. The skin incisions were irrigated with saline and were closed with 4-0 absorbable monofilament sutures. Steri-Strips and OpSites were used to cover all incisions. The patient was extubated and was transferred in stable condition to the recovery room for further care. I was present and performed all law parts of the procedure. Mr. Wade was the first aid nurse. There were no residents to assist with this case. Valdez Castellanos MD, PhD, FACS Surgeon: Teja Castellanos MD Anesthesia: GETA, local and other (TAP block) Was an Precinct Commanding Officer used for this Procedure?: Yes Precinct Commanding Officer: Rios Wade Estimated blood loss (mL): 10 IV fluids (mL): 2,100 Urine output (mL): 0 (No Lubin to record output) Pathology: other (1) Stomach, 2) Gastro-esophageal fat pad) Condition: stable Disposition: PACU
--- NOTE | 2024-10-17 09:46 | P.PNGS_ITS ---
Subjective Subjective Date of Service: 10/18/24 Interval history: Feels well. Mild incisional pain. She is tolerating phase 1 bariatric diet Physical Exam 2 Vital Signs: Vital Signs: Last Vital Signs Temp 97.8 F 10/17/24 08:34 Pulse 86 10/17/24 08:34 Resp 14 10/17/24 08:34 BP 109/69 10/17/24 08:34 Pulse Ox 97 10/17/24 08:34 O2 Del Method Room Air 10/17/24 08:34 BMI result Body Mass Index 41.5 GI: Inspection: Yes normal to inspection, Yes incision (clean, dry and intact) and Yes obesity Palpation (GI): Soft to palpation Extrem: Right lower extremity: normal to inspection (no calf tenderness) L eft lower extremity: normal to inspection (no calf tenderness) Objective Data Active Medications Albuterol/Ipratropium (Albuterol/Iprat 2.5/0.5mg 3 Ml Ampul.Neb) 3 ml INHALE ONCE PRN PRN Reason: Bronchospasm/wheezing Stop: 10/17/24 15:41 Fentanyl (Fentanyl Citrate/Pf 100 Mcg/2 Ml Vial) 25 mcg IVPUSH Q5M PRN PRN Reason: Pain, Moderate to Severe (Pain Scale 4-10) Stop: 10/17/24 15:41 Haloperidol Lactate (Haloperidol Lactate 5 Mg/Ml Vial) 1 mg IVPUSH ONCE PRN PRN Reason: intractable nausea Stop: 10/17/24 15:41 Hydromorphone HCl (Hydromorphone Hcl 0.5 Mg/0.5 Ml Syringe) 0.25 mg IVPUSH Q5M PRN PRN Reason: Pain, Moderate to Severe (Pain Scale 4-10) Stop: 10/17/24 15:41 Lactated Ringer's (Lr) 1,000 mls @ 100 mls/hr IVCONT .Q10H BLAIR Lactated Ringer's (Lr) 1,000 mls @ 999 mls/hr IV .Q1H1M BLAIR Stop: 10/17/24 10:15 Last Admin: 10/17/24 08:57 Dose: 999 mls/hr Documented By: RAEGAN Naloxone HCl (Naloxone Hcl 0.4 Mg/Ml Vial) 0.04 mg IVPUSH Q5M PRN PRN Reason: Excessive sedation or RR < 8 Ondansetron HCl (Ondansetron Hcl 4 Mg/2 Ml Vial) 4 mg IVPUSH ONCE PRN PRN Reason: Nausea and Vomiting Stop: 10/17/24 15:41 Labs 10/18/24 05:38 10/18/24 05:38 Labs: Laboratory Results - last 24 hr 10/17/24 09:10 POC Glucose 80 Procedures Date of Service Date of Service: 10/18/24 Progress Note: A&P Assessment and plan (1) Morbid obesity: Status: Acute Assessment and Plan: s/p laparoscopic sleeve gastrectomy, lysis of adhesions and gastropexy Doing well Will check am labs and if OK the patient will be discharged home (2) Non-insulin dependent type 2 diabetes mellitus: Status: Acute (3) Hypertension: Status: Acute (4) Protein S deficiency: Status: Acute (5) Sleep apnea: Status: Acute (6) Depression: Status: Acute (7) Anxiety: Status: Acute (8) Hyperlipidemia: Status: Acute (9) Liver fibrosis: Status: Acute (10) S/P laparoscopic sleeve gastrectomy: Status: Acute (11) Hepatomegaly: Status: Acute (12) Congenital intra-abdominal adhesions: Status: Acute Time Spent With Patient Time: Total time managing care of this patient today ____ minutes. Quality Stroke Does the patient have a stroke diagnosis?: No VTE Prior VTE?: No VTE Risk Level:: Surgical - moderate VTE Device Contraindication: N/A - Device Ordered VTE Drug Contraindication: Treatment Not Indicated
[2024-10-17] MEDS: ceFAZolin Sodium/Dextrose,Iso 2 GM/50 ML PIGGYBACK IV ×2 (10:44→15:25)
--- NOTE | 2024-10-17 12:07 | P.DS_ITS ---
DS: Providers Provider Date of Service: 10/18/24 Date of admission: 10/17/24 08:21 Date of discharge: 10/18/24 Primary care physician: Unknown Physician DS: Diagnosis Discharge Diagnosis (1) Morbid obesity: Status: Acute (2) Non-insulin dependent type 2 diabetes mellitus: Status: Acute (3) Hypertension: Status: Acute (4) Protein S deficiency: Status: Acute (5) Sleep apnea: Status: Acute (6) Depression: Status: Acute (7) Anxiety: Status: Acute (8) Hyperlipidemia: Status: Acute (9) Liver fibrosis: Status: Acute DS: Summary Hospital Course Hospital Course: ADMITTING DIAGNOSIS: morbid obesity, protein S deficiency, fabi, dm, htn, hld, anxiety, depression ? DISCHARGE DIAGNOSIS: same, s/p laparoscopic sleeve gastrectomy ? PAST SURGICAL HISTORY: hysterectomy ? PROCEDURE: upper endoscopy, laparoscopic sleeve gastrectomy ? DISCHARGE SUMMARY: ? History of Present Illness: ? The patient is a?43 year-old woman with a BMI of?44.8 kg/m2 and associated co- morbidities as described above. The patient had extensive work-up,lost?19.9 lbs preoperatively and was electively scheduled for laparoscopic, possible open sleeve gastrectomy and gastropexy. Risks and complications of the surgery were discussed with the patient in advance, particularly the possibility of , pulmonary embolism, anastomotic leak, bleeding, bowel injury, GERD, cardiac, renal or pulmonary complications. The patient understood all the risks and was in agreement with the surgical plan. ? Hospital Course: ? The patient underwent an uneventful laparoscopic sleeve gastrectomy with gastropexy on the day of admission. Postoperatively, the patient was transferred to the surgical floor. The patient received IV Acetaminophen and IV dilaudid for pain control. Patient was started on bariatric phase 1 diet POD #0. On postoperative day one, the patient was feeling well without nausea, vomiting, fevers, or tachycardia. The patient had some mild incisional pain and the abdomen was soft. ? On the morning of postoperative day one, the patient was continued on 1 ounce of water or ice every half hour. During the day, the patient did fairly well, having some incisional pain, but able to ambulate adequately and to tolerate liquids well. ? Since the patient is doing well, we decided that the patient was ready to be discharged. The patient was given instructions to follow-up with me next week and to call my office for any fever over 101, persistent abdominal pain, nausea, vomiting, GERD, symptoms of DVT such as calf tenderness, or leg swelling, or pulmonary embolism such as chest pain or shortness of breath. The patient was also instructed to drink 40-60 ounces of liquids per day using the 1-ounce cups. The patient had been given prescriptions for Tylenol for pain, Zofran prn for nausea, and pantoprazole and carafate previously. The patient was encouraged to ambulate and use the incentive spirometer. The patient was allowed to shower, but no baths, and encouraged to stay active at home. All of these instructions were given to the patient personally. All questions were answered and the patient understood all instructions, the instructions were also given to the patient in print. Time Attestation Total time managing care of this patient today: 25 mintues. Discharge Coordination Time (in mins): 25 Quality: Safe Use of Opioids Does Pt have an Active Cancer Diagnosis on the Problem List?: No Quality: Stroke Does the patient have a stroke diagnosis?: No Physical Exam Vital Signs: Vital Signs: Last Vital Signs Temp 97.1 F 10/17/24 12:00 Pulse 85 10/17/24 12:00 Resp 19 10/17/24 12:00 BP 130/74 10/17/24 12:00 Pulse Ox 100 10/17/24 12:00 O2 Del Method Simple Mask 10/17/24 12:00 O2 Flow Rate 6 10/17/24 12:00 BMI result Body Mass Index 41.5 DS: Data Data Completed and Pending Pending studies at discharge: Pending at discharge 10/17/24 11:36 Surgical [PTH] Routine Labs on day of discharge: Laboratory Results - last 24 hr 10/17/24 09:10 POC Glucose 80 Discharge Plan Discharge Anticipated Discharge Date/Time: 10/18/24 10:00 Patient Disposition: Home, Self-Care Discharge Diagnosis: s/p laparoscopic sleeve gastrectomy Referrals: Physician,Unknown J [Primary Care Provider] - 1 Week Discharge Medications: Continued atorvastatin 10 mg tablet 10 mg PO DAILY loratadine 10 mg tablet 10 mg PO DAILY pantoprazole 40 mg tablet,delayed release (DR/EC) 40 mg PO DAILY Qty: 90 0RF sucralfate 100 mg/mL suspension 10 ml PO BID Qty: 600 2RF ondansetron 4 mg tablet,disintegrating 4 mg PO Q12H Qty: 20 0RF Rx Instructions: Only take one every 12 hours as needed if you have nausea Held fondaparinux 2.5 mg/0.5 mL syringe 2.5 mg subcut Q24H Qty: 5 1RF Hold Instructions: until discussed with Dr Castellanos Trulicity 1.5 mg/0.5 mL pen injector 1.5 mg subcut MO Hold Instructions: until discussed with dr Castellanos losartan 50 mg tablet 25 mg PO DAILY Hold Instructions: Resume on 10/19/24. Check your blood pressure every morning and follow the parameters Dr. Castellanos gave you amlodipine 5 mg tablet 5 mg PO DAILY Hold Instructions: Resume on 10/19/24. Check your blood pressure every morning and follow the parameters Dr. Castellanos gave you Discontinued polyethylene glycol 3350 17 gram/dose powder 17 g PO DAILY Qty: 238 0RF Rx Instructions: Mix each measuring cup with 8oz of water, Crystal light, or Gatorade zero, or Propel and do 7 measuring cups on 10/15/24 and another 7 measuring cups on 10/16/24 Discharge Orders: Discharge Order (Routine); Ordered 10/18/24 Ordered By: Teja Castellanos Activity on Discharge: No heavy lifting Stand Alone Forms: Patient Portal Discharge page Print Language: Belarusian Care Plan Goals: weight loss Health Concerns: morbid obesity Plan of Treatment: No tub baths, sex or returning to work until discussed at first post op appointment. No exercise, alcohol, tobacco or illegal drug use. Continue to use incentive spirometer hourly while awake. Walk in home for 5- 10 minutes every 2 hours during the first week. Follow all instructions in the bariatric handbook and call with any questions.Discharge Instructions 1. Please call your doctor or come back to the emergency room should any new symptoms arise. 2. You will receive a courtesy call from [facility] 24-48 hours after discharge. 3. Activity: abstain from alcohol, practice limited stair climbing, no bending, no driving, no exercise, no illicit substances, no lifting, no sex, no tub bath, no work. 4. Diet: continue as discussed with Dr. Castellanos. 5. Dressing Change/Wound Care: Your incision is covered by clear bandages and guaze underneath. If the area is tender, you may apply an ice pack for short intervals (no more than 20 minutes on, followed by at least 20 minutes off). Do not apply heat. Do not use creams, lotions, or topical antibiotics unless instructed to do so by your surgeon. These can cause infection or allergic reaction. 6. Call your doctor if: - Your temperature exceeds 101.5 F - You experience excessive pain or swelling - You have an unexpected reaction to medication - You have excessive bleeding - You experience continued vomiting/nausea - Your incision begins to separate - Your incision shows signs of infection such as increased redness, swelling, excessive pain, heat, or drainage (light blood or clear fluid is normal) 7. General instructions: No lifting greater than 5 lbs for 1 week and not more than 20lbs the next 3?weeks. No driving until seen at the office in 5-7 days after surgery. If you do not move your bowels in the next 2 days, please tell?Dr. Castellanos. Please walk around your home every hour or two to prevent blood clots from forming in your legs. You do not need to wake from sleeping to walk. Please sleep in a bed or couch to prevent kinking at the hips and knees. Please take your incentive spirometer (your lung rock breaker) home with you and use it for the next few days to prevent pneumonia. You may shower, no hot tubs, baths or swimming pools.?Please follow the post op diet instructions you are?given by Dr Castellanos? and text me daily at 5-6pm for an update.?If you have any issues or concerns or questions please communicate this to him via text.? The Celebrate shakes have all of the bariatric vitamins you need if you consume these shakes. If you are drinking other protein shakes, you will need to purchase the Celebrate multivitamins and calcium that are available in the [employer] gift shop on the first floor of the [facility].??Do not take anything without first discussing with Dr Castellanos. Please make sure you are consuming at least 40 ounces of fluids per day starting the?day AFTER your discharge from the hospital. Always drink 1-2 ml per minute using the 5ml?syringe. If you drink faster you may experience?bloating,?gas pain, burping, nausea or heartburn. In that case please slow down your pace and use the syringe to?understand better the?proper?pace and volume of drinking. Do not hesitate to contact the office with any questions at . The patient's medical history has been reviewed and they are considered low risk for post op DVT and therefore DVT prophylaxis is not considered necessary. Travel after surgery was reviewed. The patient has not disclosed any travel plans during the first 30 days after surgery and they have been advised that within the first 30 days after surgery any bus, plane, train or car travel over 2 hours in duration is contraindicated due to the possibility of developing blood clots from immobility. Any travel, needs to include periods of ambulation of 10 minutes in duration every 2 hours.? The patient was instructed to discuss any plans for travel during this period with their bariatric surgeon. Assessment: stable s/p laparoscopic sleeve gastrectomy
[2024-10-17 12:11] LABS: Glucose, Whole Blood 151 mg/dL (60-115)
[2024-10-17] MEDS: Haloperidol Lactate 5 MG/ML VIAL 1 MG IVPUSH (12:43)
[2024-10-17 12:49] LABS: Hematocrit 35.1 % (37.0-47.0); Hemoglobin 11.8 g/dl (12.0-16.0)
[2024-10-17] MEDS: Lactated Ringers 1,000 ML 100 ML IVCONT ×2 (13:12→22:27)
[2024-10-17 13:16] LABS: Anion Gap 12 (12-20); Blood Urea Nitrogen 14 mg/dL (9-16); Calcium 8.6 mg/dL (8.4-10.2); Carbon Dioxide 24 mmol/L (22-29); Chloride 107 mmol/L (96-108); Creatinine Clr Calc Pharmacy 94.5; Estimated Glomerular Filt Rate > 60; Glucose Random 178 mg/dL (60-115); Potassium 3.6 mmol/L (3.3-5.1); Sodium 139 mmol/L (135-145)
[2024-10-17 13:35] LABS: Glucose, Whole Blood 179 mg/dL (60-115)
[2024-10-17] MEDS: Acetaminophen 1,000 MG/100 ML PIGGYBACK 16.7 MG IV ×2 (16:30→22:26)
[2024-10-17] MEDS: Losartan Potassium 25 MG TABLET PO (16:31)
[2024-10-17] MEDS: amLODIPine Besylate 5 MG TABLET PO (16:31)
[2024-10-17] MEDS: HYDROmorphone HCl 0.5 MG/0.5 ML SYRINGE 0.25 MG IVPUSH ×2 (17:16→21:41)
[2024-10-17] MEDS: 0.9 % Sodium Chloride Flush 3 ML SYRINGE IVFLUSH (21:36)
[2024-10-18 00:06] VITALS: BP 126/65; PULSE 88; RESP 17; TEMP 36.6; O2SAT 94
[2024-10-18] MEDS: HYDROmorphone HCl 0.5 MG/0.5 ML SYRINGE 0.25 MG IVPUSH (03:12)
[2024-10-18 03:43] VITALS: BP 137/69; PULSE 84; RESP 18; TEMP 36.4; O2SAT 93
[2024-10-18 03:54] VITALS: BP 124/58
[2024-10-18] MEDS: Acetaminophen 1,000 MG/100 ML PIGGYBACK 16.7 MG IV (04:21)
[2024-10-18] MEDS: Pantoprazole Sodium 40 MG/10 ML VIAL IVPUSH (05:39)
[2024-10-18 05:51] LABS: MANUAL DIFF FLAG NO
[2024-10-18 05:56] LABS: Basophils Percent Auto 0.1 % (0-2); Hematocrit 35.1 % (37.0-47.0); Hemoglobin 11.8 g/dl (12.0-16.0); Imm Gran Abs Auto 0.04 X10*3/uL (0.00-0.03); Imm Gran Pct Auto 0.3 % (0.0-0.4); Lymphocytes Absolute Auto 0.8 X10*3/uL (1.2-4.9); Lymphocytes Percent Auto 7.2 % (20-40); Mean Corpuscular HGB Conc 33.6 g/dl (31.0-35.0); Mean Corpuscular Hemoglobin 26.6 pg (27.0-33.0); Mean Corpuscular Volume 79.1 fL (80.0-98.0); Mean Platelet Volume 10.5 fL (9.4-12.3); Monocytes Absolute Auto 0.6 X10*3/uL (0.1-1.2); Monocytes Percent Auto 5.5 % (2-11); Neutrophils Absolute Auto 10.1 x10*3/uL (2.0-8.3); Neutrophils Percent Auto 86.9 % (45-73); Platelet Count 241 X10*3/uL (160-400); Red Blood Count 4.44 X10*6/uL (4.20-5.50); Red Cell Distribution Width 14.8 % (11.0-16.0); White Blood Count 11.6 X10*3/uL (4.8-10.8)
[2024-10-18 06:11] LABS: Anion Gap 14 (12-20); Blood Urea Nitrogen 10 mg/dL (9-16); Calcium 9.1 mg/dL (8.4-10.2); Carbon Dioxide 22 mmol/L (22-29); Chloride 111 mmol/L (96-108); Creatinine Clr Calc Pharmacy 130.3; Estimated Glomerular Filt Rate > 60; Glucose Random 97 mg/dL (60-115); Potassium 3.9 mmol/L (3.3-5.1); Sodium 143 mmol/L (135-145)
[2024-10-18] MEDS: ondansetron HCL 4 MG/2 ML VIAL IVPUSH (06:15)
[2024-10-18 07:21] VITALS: BP 141/89; PULSE 93; RESP 18; TEMP 36.2; O2SAT 96
[2024-10-18] MEDS: amLODIPine Besylate 5 MG TABLET PO (08:11)
[2024-10-18] MEDS: Losartan Potassium 25 MG TABLET PO (08:11)
--- NOTE | 2024-10-18 08:31 | HO.POSTANES ---
Post Anesthesia Evaluation Post Anesthesia Evaluation Date of Service: 10/18/24 Vital Signs: Vital Signs Temp Pulse Resp BP Pulse Ox O2 Del Method 10/18/24 07:21 97.1 F 93 18 141/89 H 96 Room Air 10/18/24 03:54 124/58 L 10/18/24 03:43 97.5 F 84 18 137/69 93 CPAP 10/18/24 00:06 97.9 F 88 17 126/65 94 CPAP Anesthesia: General Endotracheal-GETA Mental Status: Awake Pain Control: Satisfactory Nausea/Vomiting: None Hydration: Adequate Anesthesia-Related Issues: No Anes. Related Issues
--- NOTE | 2024-10-18 08:48 | MHC.CM.PN ---
Patient 43 DX OBESITY S/P surgical intervention. She was discharged prior to being seen by case management.
== END 2024-10-18 08:48 | disposition home or self-care (01) | DRG 403 ==
LOC: HO.SSSA 12:09 → HO.S3 12:13
PROVIDERS: Physician Assistant Surgical; Admitting Provider Surgery; Visit Provider Surgery
PROC: 0DB64Z3 Excision of Stomach, Percutaneous Endoscopic Approach, Vertical (ICD-10-PCS; CPT 43845; principal; 2024-10-17 10:20)
DX: E66.01 Morbid (severe) obesity due to excess calories (principal); D68.59 Other primary thrombophilia; K74.00 Hepatic fibrosis, unspecified; E11.9 Type 2 diabetes mellitus without complications; G47.33 Obstructive sleep apnea (adult) (pediatric); E78.5 Hyperlipidemia, unspecified; I10 Essential (primary) hypertension; F32.A Depression, unspecified; F41.9 Anxiety disorder, unspecified; M19.90 Unspecified osteoarthritis, unspecified site; Q43.3 Congenital malformations of intestinal fixation; Z79.85 Long-term (current) use of injectable non-insulin antidiabetic drugs; Z68.41 Body mass index [BMI] 40.0-44.9, adult; Z79.899 Other long term (current) drug therapy
CPT/HCPCS: 36415; 80048; 80053; 80061; 82947; 83036; 83525; 84443; 85014; 85018; 85025; 85610; 85730; 86140; 86850; 86900; 86901; 88304; 88305; 88307; 88342; A4649; C9145; J0131; J0690; J1100; J1171; J1630; J2003; J2250; J2405; J2470; J2704; J2795; J3010; J7120

== ENCOUNTER → 2024-10-17 08:21 | Outpatient (BNV) | payer OTHER, SELFPAY | PROVIDERS: Admitting Provider Surgery; Visit Provider Surgery | DX: E66.01 Morbid (severe) obesity due to excess calories (principal); Z68.41 Body mass index [BMI] 40.0-44.9, adult; K66.0 Peritoneal adhesions (postprocedural) (postinfection) | CPT/HCPCS: 43659; 43775; 99024; 99499 ==

== ENCOUNTER 2024-10-23 09:39 | Outpatient (AMB) | payer OTHER, SELFPAY ==
--- NOTE | 2024-10-23 09:30 | A.OFFWM_ITS ---
Intake Intake Visit Reasons: TV PO LSG 10/17/24 Allergies latex Allergy (Mild, Verified 10/17/24 08:31) Itching oxycodone [From Percocet] Allergy (Mild, Verified 10/17/24 08:31) jittery [facility] Medical History (Updated 10/19/24 @ 00:02 by Background Daemon) H. pylori infection Hyperlipidemia H. pylori infection Fatty liver Protein S deficiency Elevated cholesterol DJD (degenerative joint disease) Anxiety Depression Hypertension Non-insulin dependent type 2 diabetes mellitus Sleep apnea Morbid obesity Surgical History (Updated 10/19/24 @ 00:02 by Background Daemon) History of esophagogastroduodenoscopy (EGD) History of delivery Hx of colonoscopy Hx of hysterectomy Family History Mother Diabetes Hypertension Obesity High cholesterol Father Drug addiction HIV (human immunodeficiency virus infection) Daughter No problems noted. Social History Household Members: Family Housing: Apartment Are you a primary home health care worker to a significant other at home: No Do you presently have visiting nurse or other home services: No Alcohol intake: current Alcohol intake frequency: holidays/special occasions only Patient Tobacco Use Status: Former Tobacco user Tobacco use type: Cigarette Years Smoked: 22 Behavioral Health Assessment Weight Management Therapy Therapy Notes Details Subjective:? The patient underwent weight loss surgery on 10/17/2024 and reports a good recovery. However, she is experiencing some stress with her partner and has not been sleeping well. She occasionally feels impatient, eager to fully recover and return to her normal busy routine. Objective:? The patient is attending a post-operative behavioral health session. During the session, we discussed her functioning and recovery process. A PHQ-9 was administered. We reviewed her meal plan and emphasized the importance of adhering to all instructions to prevent complications, including maintaining a proper drinking pace. We discussed how to use her energy wisely and stay busy while following post-operative instructions and ensuring adequate rest. A mindfulness exercise was practiced. Additionally, we discussed the importance of discipline over motivation for achieving long-term success. Assessment/Response: * Mental status: some stress, feeling fidgety but euthymic, and good functioning overall. * Risk reported/identified: Within normal limits The PHQ-9 indicates no active symptoms or concerns with depression or mood in general. Food/Weight/Diet Expectations of change The initial goal is to lose 10% of your weight before surgery, which is about 26 lbs. Ultimate weight goal: 235 lbs before surgery PT started the program at 261 lbs, weight as of 09/01/24, was 250 lbs. 10/01/2024 weight: 247Lbs. Day of surgery weight 10/17/2024: 235Lbs PO weight 10/23/2024: 230Lbs PT is implementing the following: -The current meal plan: liquid diet, pha se 2. Goal: 40-60oz at day, including 2 shakes and water/Gatorade. -Exercise plan: not cleared yet. -Scale: Yes. -Communication with Provider: Yes, daily as she had surgery last week. Questionnaires PHQ-9 Over the last 2 weeks, how often have you been bothered by any of the following problems? 1. Little interest or pleasure in doing things: not at all 2. Feeling down, depressed, or hopeless: not at all 3. Trouble falling or staying asleep, or sleeping too much: several days (at night as she is napping during the day. ) 4. Feeling tired or having little energy: several days 5. Poor appetite or overeating: not at all 6. Feeling bad about yourself - or that you are a failure or have let yourself or your family down: not at all 7. Trouble concentrating on things, such as reading the newspaper or watching television: not at all 8. Moving or speaking so slowly that other people could have noticed. Or the opposite - being so fidgety or restless that you have been moving around a lot more than usual: several days (fidgety as she is an active person. ) 9. Thoughts that you would be better off or of hurting yourself in some way: not at all Total score: 3 Depression Screening Interpretation: Negative Depression Screening Done: Yes 49966 - PHQ-9 Billing: Yes Source: Developed by Drs. Richie Carranza, Sharon Concepcion, Travis Dang and colleagues, with an educational miguel from [employer]. Assessment & Plan Assessment & Plan (1) Adjustment disorder: Code(s): F43.20 - Adjustment disorder, unspecified Plan F/up in 2 weeks. Reminded to keep mary with PA tomorrow. Next mary: 11/06/2024 at 11am- telehealth. Telehealth Telehealth Telehealth Platform: [employer] Location of provider rendering services: practice address Location of patient: address on file Patient Identification confirmed using: Name, : Yes Telehealth method: video Patient verbally consented to treatment: Yes Patient verbally consented to billing insurance company: Yes Patient informed of any privacy concerns related to visit: Yes Minutes spent on Phone/Video with Pt.: 30 Coding Level of Care Code Established Pt Tele Psytx 30 mins (74911) Patient Type Established Diagnoses Adjustment disorder F43.20 Additional Codes PHQ-9 - 76128 - PHQ-9 Billing: Yes ([id number]) Time Spent (min) 30
--- OUTSIDE RECORDS SUMMARY | 2024-10-23 10:47 | XMS_ITS | Clinical Summary ---
Author Organization [address] [facility] Address [address] [place] [address] Phone Care Team Providers Care Glue Plant Operator Name Role Phone Unavailable Primary Care [...]
== END 2024-10-23 09:59 | disposition home or self-care (01) ==
LOC: HO.HBST 09:39
PROVIDERS: Visit Provider Counselor Mental Health
DX: F43.20 Adjustment disorder, unspecified (principal)
CPT/HCPCS: 90832

== ENCOUNTER 2024-10-24 12:40 | Outpatient (AMB) | payer OTHER, SELFPAY ==
--- NOTE | 2024-10-24 13:07 | A.OFFVIS_ITS ---
VS Expanded 10/24/24 13:25 BP 124/81 Blood Pressure Location Rt brachial Blood Pressure Position Sitting Pulse 97 Pulse Source Pulse Oximeter Temp 97.4 F Temperature Source Temporal Artery Scan Pulse Oximetry 98 Oxygen Delivery Method Room Air Height 5 ft 4 in Weight 228 lb 9.6 oz BMI 39.2 Body Fat % 42.0 Body Fat Mass 96.0 Fat Free Mass 132.4 Visceral Fat Rating 12.0 Body Water % 41.4 Body Water Mass 94.6 Muscle Mass/Score 125.8 Basal Metabolic Rate/Score 1,842 Intake Visit Reasons: (OV) PO LSG 10/17/24 Architectural Practice Manager Required: No Allergies latex Allergy (Mild, Verified 10/24/24 13:18) Itching oxycodone [From Percocet] Allergy (Mild, Verified 10/24/24 13:18) jittery Medication List - Last Reconciled 10/24/24 by ROBBI Maldonado amlodipine 5 mg PO DAILY atorvastatin 10 mg PO DAILY dulaglutide (Trulicity) 1.5 mg subcut MO fondaparinux 2.5 mg (0.5 mL) subcut Q24H loratadine 10 mg PO DAILY losartan 25 mg PO DAILY ondansetron 4 mg PO Q12H pantoprazole 40 mg PO DAILY sucralfate 10 mL PO BID HPI Comments Details: Patient is a pleasant 43-year-old female who returns to the office today in follow-up. She is 6 days post sleeve gastrectomy performed on 10/17/2024. Tolerating 2 premier protein ready to drink shakes at 9-12 and2-5 and 6 oz mixed with 2 oz of unsweetened almond milk at 6-8. She has moved her bowels and has no complaints of pain. [facility] Medical History (Updated 10/19/24 @ 00:02 by Background Daemon) H. pylori infection Hyperlipidemia H. pylori infection Fatty liver Protein S deficiency Elevated cholesterol DJD (degenerative joint disease) Anxiety Depression Hypertension Non-insulin dependent type 2 diabetes mellitus Sleep apnea Morbid obesity Surgical History (Updated 10/19/24 @ 00:02 by Background Daemon) History of esophagogastroduodenoscopy (EGD) History of delivery Hx of colonoscopy Hx of hysterectomy Family History Mother Diabetes Hypertension Obesity High cholesterol Father Drug addiction HIV (human immunodeficiency virus infection) Daughter No problems noted. Social History Household Members: Family Housing: Apartment Are you a primary care companion to a significant other at home: No Do you presently have visiting nurse or other home services: No Alcohol intake: current Alcohol intake frequency: holidays/special occasions only Patient Tobacco Use Status: Former Tobacco user Tobacco use type: Cigarette Years Smoked: 22 Physical Exam Vital Signs: Last Vital Signs Temp 97.4 F 10/24/24 13:25 Pulse 97 10/24/24 13:25 BP 124/81 10/24/24 13:25 Pulse Ox 98 10/24/24 13:25 Oxygen Delivery Method Room Air 10/24/24 13:25 BMI result Body Mass Index 39.2 GI Inspection: Yes incision (Clean, dry, intact.) Assessment & Plan Assessment & Plan (1) S/P laparoscopic sleeve gastrectomy: Code(s): Z98.84 - Bariatric surgery status Category: Surgical Plan: POD 6 s/p LSG on 10/17/[address] Castellanos Weight loss prior to surgery was 19.9 pounds or 7.6 % TBWL. Original weight on 07/13/2024 was 261.2 pounds and op weight was 241.3 pounds. Be sure to text Dr Castellanos exactly 1 week after surgery your weight from your home scale so he can adjust your meal plan. Continue meal plan until f/u dayanna Nation in 2 weeks May shower, no submersion in bath for another week Continue abdominal binder with activity and exercise for the next 2 weeks. Exercise prior to surgery was walking outside and stationary bike and may resume No abdominal exercises for 6 weeks post operatively Will be emailed link to post op video for review Reminded of the pace of drinking, 2 mL per minute, 1 oz/15 min.
--- OUTSIDE RECORDS SUMMARY | 2024-10-24 13:10 | XMS_ITS | Clinical Summary ---
Author Organization [address] [facility] Address [address] [place] [address] Phone Care Team Providers Care Sand Polisher Name Role Phone Unavailable Primary Care Provider [...]
[2024-10-24 13:25] VITALS: BP 124/81; PULSE 97; TEMP 36.3; O2SAT 98; BMI 39.2
== END 2024-10-24 14:17 | disposition home or self-care (01) ==
LOC: HO.HBS 12:41
PROVIDERS: Visit Provider Physician Assistant Surgical
DX: Z98.84 Bariatric surgery status (principal)
CPT/HCPCS: 99024

== ENCOUNTER → 2024-10-24 12:40 | Outpatient (BNVA) | payer OTHER, SELFPAY | PROVIDERS: Visit Provider Physician Assistant Surgical | DX: E66.9 Obesity, unspecified (principal); Z98.84 Bariatric surgery status; Z68.39 Body mass index [BMI] 39.0-39.9, adult | CPT/HCPCS: 99212 ==

== ENCOUNTER 2024-10-31 07:28 | Inpatient (IN) | payer OTHER, SELFPAY ==
[2024-10-31] VITALS (9 sets, daily range): BP systolic 103–124; BP diastolic 63–82; PULSE 74–102; RESP 14–18; TEMP 36.3–37.1; O2SAT 95–100; BMI 38.2
--- NOTE | ~2024-10-31 | CT_ITS ---
EXAMINATION: CT ABDOMEN AND PELVIS WITH CONTRAST CLINICAL INFORMATION: Portal vein thrombosis COMPARISON: None available. TECHNIQUE: Multidetector volumetric images were obtained from the superior aspect of the liver through the pubic symphysis following administration 85 mL of Omnipaque 350 intravenous contrast. Sagittal and coronal reformatted images were obtained on the technologist's workstation. Oral contrast: No This CT examination was performed using dose optimization techniques as appropriate, variously including the following: *Automated exposure control *Adjustment of mA and/or kV according to patient size (this includes techniques or standardized protocols for targeted exams where dose is matched to indication/reason for exam; i.e. extremities or head) *Use of iterative reconstruction technique DLP: 771 mGY*cm FINDINGS: LUNG BASES: The visualized lung bases are unremarkable. LIVER, GALLBLADDER, AND BILIARY TREE: Again noted is nonopacification of the left portal vein throughout the liver. There is also stable nonopacification of divisions of the right portal vein extending into the right hepatic lobe, segments 5 and 6. There is also associated filling defect in the superior mesenteric vein. There is contrast filling of the splenic vein and the main portal vein. Splenic vein wall appears thickened and there is adjacent fat stranding. Small focal hypoattenuating lesion in the left medial hepatic segment along the gallbladder fossa is too small enteric contrast but prior represent simple hepatic cysts. There is minimal layering contrast in the gallbladder from vicarious excretion related to yesterday's examination. There is no gallbladder wall thickening or extrahepatic bile duct relation. PANCREAS: Unremarkable. SPLEEN: Unremarkable. ADRENAL GLANDS: Unremarkable. KIDNEYS AND URETERS: Hypodensity in the superior right pole is too small character as before represent small simple renal cyst. Kidneys are otherwise unremarkable. BLADDER: Unremarkable. GASTROINTESTINAL TRACT: There is hypoattenuation and wall thickening of the proximal jejunum with borderline mild dilation of the lumen, increased in thickness and hypoattenuation when compared to the prior. There is also new mild thickening of a segment of jejunum extending along the left abdominal wall, increased since yesterday. There is fat stranding in the adjacent mesentery. There is no free air or gas in the wall of the bowel. Otherwise, again noted are changes from gastric bypass surgery. Also, again seen is diverticulosis in the descending and sigmoid colon. Small moderate amount of ascites is stable. ABDOMINAL WALL: No significant hernia is appreciated. LYMPH NODES: Normal. VASCULAR: See liver section. Minimal atherosclerotic calcifications present in the abdominal aorta and right common iliac artery. PELVIC VISCERA: There is a 2.0 x 2.4 cm left ovarian cyst. Right ovary is unremarkable. Uterus is clearly seen. OSSEOUS STRUCTURES: Severe facet sclerosis is present in the lower lumbar spine. There is degenerative disc disease in the lower thoracic spine. CT/CT abdomen pelvis w IV con IMPRESSION: Stable venous thrombosis involving the superior mesenteric vein, entire left portal vein, and posterior divisions in the right hepatic vein. There is associated bowel wall thickening involving the proximal jejunum and borderline mild dilation of the affected loop with potential for developing paralytic ileus. There is new mild thickening of the descending loops of jejunum along the left abdominal wall. Bowel wall thickening is likely ischemic in nature versus infection. Other etiologies such as inflammatory bowel disease is unlikely. Small to moderate amount ascites is stable. Results were discussed between Dr. Sage Alcarazand Dr. Sheri Aguiar guidelines were followed. Electronically signed by: Obinna Arriaga MD 11/01/2024 11:10 AM EDT
--- NOTE | ~2024-10-31 | CT_ITS ---
CLINICAL HISTORY: per Dr. Damon- imaging prior to IR procedure [address] abdomen and pelvis with contrast Comparison: 11/01/24 Findings: No consolidation at the lung bases. Unremarkable gallbladder and bladder. Hepatic steatosis. Subcentimeter low attenuating liver lesion which is too small to characterize. Persistent thrombus within right and left portal veins. The main portal vein is patent. The splenic vein is patent in the spleen enhances normally. Right renal subcentimeter low attenuating lesions which are too small to characterize. Status post hysterectomy. Left ovarian corpus luteum, similar to the prior study. The other solid organs are unremarkable. Status post sleeve gastrectomy. Interval decrease in the amount of small bowel wall thickening, currently mild. There is thrombus within the superior mesenteric vein which is slightly less than on the prior study. Interval decrease in amount of mesenteric edema, currently mild. No bowel dilation. A normal appendix is identified. Colonic diverticulosis. No aneurysm. Trace calcified atherosclerotic disease. No lymphadenopathy. Small ascites, similar to the prior study. No acute osseous abnormality. Grade 1 anterolisthesis of L4 on L5, degenerative. Impression: Interval decrease in amount of small bowel wall thickening, currently mild, which is secondary to thrombus within the superior mesenteric vein. Slight decrease in amount of thrombus within the superior mesenteric vein since the prior study. Decrease in amount of mesenteric edema, currently mild. There is persistent thrombus within the right and left portal veins. Small ascites, similar to the prior study. This document has been electronically signed by: Mohini Ibarra MD on 11/04/2024 16:06:09
--- NOTE | ~2024-10-31 | XR_ITS ---
CLINICAL HISTORY: SOB with ambulation 1 view chest x-ray Comparison: CT/SR - CT ABDOMEN PELVIS W IV CON - 11/01/24 10:23 EDT CR/SR - XR CHEST 2V - 07/24/24 09:00 EST Findings: Right middle lobe scarring. No acute consolidation, pleural effusion, or pneumothorax. Heart size is normal. No acute fracture. IMPRESSION: 1. No acute cardiopulmonary findings. This document has been electronically signed by: Abel Newton MD on 11/03/2024 18:39:26
--- NOTE | ~2024-10-31 | CT_ITS ---
EXAMINATION: CT ABDOMEN PELVIS WITH IV CONTRAST HISTORY: abd pain, recent gastric sleeve 10/17 COMPARISON: There are no prior studies for available comparison. TECHNIQUE: CT scan of the abdomen and pelvis was performed following administration of 85 mL Omnipaque 350 using standard departmental protocol. Coronal and sagittal reformatted images were generated and reviewed. Oral contrast material was not administered at the request of the referring physician. This CT exam was performed with one or more of the following dose reduction techniques: automated exposure control, adjustment of the mA and/or kV according to patient size, use of iterative reconstruction technique. DLP: 1180 mGy-cm FINDINGS: LOWER CHEST: The visualized lung bases are clear. There is no pleural effusion. CARDIOVASCULATURE: The heart is normal in size. There is no pericardial effusion. LIVER: The liver is normal in size and contour. No liver mass is identified. There is thrombosis of the left portal vein and the posterior branch of the right portal vein. The main portal vein and the hepatic veins are patent. GALLBLADDER / BILE DUCTS: The gallbladder is unremarkable. There is no intra or extrahepatic biliary ductal dilatation. SPLEEN: The spleen is normal in size. No focal splenic lesion is identified. PANCREAS: The pancreas is unremarkable in appearance. ADRENAL GLANDS: Within normal limits. KIDNEYS/RETROPERITONEUM: No renal calculi are identified. There is no hydronephrosis. No renal masses are identified. LYMPH NODES: No abdominal or pelvic lymphadenopathy. VASCULATURE: The abdominal aorta is normal in caliber. There is complete thrombosis of the superior mesenteric vein. MESENTERY/PERITONEUM: There is a small to moderate amount of fluid in the pelvis. Dependent high density material is noted cyst with hemorrhage. No masses. There is no free intraperitoneal gas. STOMACH: Postsurgical changes are noted involving the stomach. SMALL BOWEL: The proximal jejunum demonstrates wall thickening and there is inflammatory stranding of the mesentery. Findings are suspicious for ischemia given the SMV thrombosis. COLON: There is diverticulosis of the colon, without evidence of diverticulitis. APPENDIX: Normal. URINARY BLADDER/PELVIC ORGANS: The urinary bladder is collapsed, limiting evaluation. The patient is status post hysterectomy. BONES / SOFT TISSUES: No suspicious bony or soft tissue abnormalities. CT/CT abdomen pelvis w IV con IMPRESSION: Thrombosis of the superior mesenteric vein, the left portal vein, and the posterior branch of the right portal vein. Wall thickening of the proximal jejunum with associated inflammatory stranding, highly suspicious for ischemia. Small to moderate amount of fluid with a small amount of layering hemorrhage in the pelvis. These findings were discussed with Irish Landa in the emergency room on 10/31/2024 at 12:54 PM. Electronically signed by: Richie Alcaraz MD 10/31/2024 01:00 PM EDT
[2024-10-31 08:03] LABS: MANUAL DIFF FLAG NO
[2024-10-31 08:10] LABS: Basophils Percent Auto 0.3 % (0-2); Eosinophils Absolute Auto 0.1 X10*3/uL (0.0-0.4); Eosinophils Percent Auto 0.7 % (0-4); Hematocrit 36.8 % (37.0-47.0); Hemoglobin 12.7 g/dl (12.0-16.0); Imm Gran Abs Auto 0.02 X10*3/uL (0.00-0.03); Imm Gran Pct Auto 0.2 % (0.0-0.4); Lymphocytes Absolute Auto 1.3 X10*3/uL (1.2-4.9); Lymphocytes Percent Auto 11.5 % (20-40); Mean Corpuscular HGB Conc 34.5 g/dl (31.0-35.0); Mean Corpuscular Hemoglobin 26.5 pg (27.0-33.0); Mean Corpuscular Volume 76.7 fL (80.0-98.0); Mean Platelet Volume 11.3 fL (9.4-12.3); Monocytes Absolute Auto 0.9 X10*3/uL (0.1-1.2); Monocytes Percent Auto 8.4 % (2-11); Neutrophils Absolute Auto 8.7 x10*3/uL (2.0-8.3); Neutrophils Percent Auto 78.9 % (45-73); Platelet Count 247 X10*3/uL (160-400); Red Cell Distribution Width 14.6 % (11.0-16.0)
[2024-10-31 08:20] LABS: Alanine Aminotransferase 30 U/L (0-31); Albumin Level 4.1 g/dL (3.5-5.0); Alkaline Phosphatase 76 U/L (39-117); Anion Gap 14 (12-20); Aspartate Amino Transferase 18 U/L (5-31); Bilirubin Total 0.4 mg/dL (0.0-1.0); Blood Urea Nitrogen 7 mg/dL (9-16); Calcium 9.2 mg/dL (8.4-10.2); Carbon Dioxide 23 mmol/L (22-29); Chloride 106 mmol/L (96-108); Creatinine Clr Calc Pharmacy 117.3; Estimated Glomerular Filt Rate > 60; Glucose Random 133 mg/dL (60-115); Potassium 3.2 mmol/L (3.3-5.1); Sodium 140 mmol/L (135-145); Total Protein 7.5 g/dL (6.5-8.0)
--- NOTE | 2024-10-31 09:10 | ED.GENADULT ---
HPI - General Adult General Chief complaint: Abdominal Pain Stated complaint: pain, dehydrated post op bariatric surgery Time Seen by Provider: 10/31/24 09:03 Source: patient, RN notes reviewed and old records reviewed Mode of arrival: ambulatory Limitations: no limitations History of Present Illness ED Provider: Cordell HPI narrative: Patient is a 43-year-old female with history of T2DM, HTN, sleep apnea, obesity, HLD, congenital intra-abdominal adhesions, recent lap sleeve gastrectomy on 10/17/24 presenting to the emergency department with complaint of upper abdominal pain since Tuesday which began during the day. Reports has been unable to tolerate any more than 20oz of fluid per day. Has had nausea but has not been able to vomit. Denies diarrhea or constipation. Unsure of fevers, does not have thermometer at home, denies chills/sweats. States pain has gradually been worsening. Was taking liquid acetaminophen which was providing some brief relief initially but is no longer providing relief at all. MD complaint: abdominal pain Onset (ago): day(s) Related Data Home Medications ?Medication ?Instructions ?Recorded ?Confirmed atorvastatin 10 mg tablet 10 mg PO DAILY 07/10/24 10/24/24 loratadine 10 mg tablet 10 mg PO DAILY 07/10/24 10/24/24 losartan 50 mg tablet 25 mg PO DAILY 07/10/24 10/24/24 amlodipine 5 mg tablet 5 mg PO DAILY 07/13/24 10/24/24 dulaglutide 1.5 mg/0.5 mL 1.5 mg subcut MO 10/12/24 10/24/24 subcutaneous pen injector (Trulicity) Previous Rx's ?Medication ?Instructions ?Recorded ondansetron 4 mg disintegrating 4 mg PO Q12H nausea and vomiting 10/10/24 tablet #20 tabs pantoprazole 40 mg tablet,delayed 40 mg PO DAILY #90 tabs 10/10/24 release sucralfate 100 mg/mL oral 10 ml PO BID #600 mL 10/10/24 suspension fondaparinux 2.5 mg/0.5 mL 2.5 mg (0.5 mL) subcut Q24H #5 mL 10/13/24 subcutaneous solution syringe Allergies Allergy/AdvReac Type Severity Reaction Status Date / Time latex Allergy Mild Itching Verified 10/31/24 07:51 oxycodone [From Percocet] Allergy Mild jittery Verified 10/31/24 07:51 Review of Systems Review of Systems: As per HPI Yes all other systems are reviewed and are negative Constitutional: Constitutional: Reports as per HPI [facility] Past Medical History Medical History (Updated 10/31/24 @ 13:48 by Irish Landa NP) H. pylori infection Hyperlipidemia H. pylori infection Fatty liver Protein S deficiency Elevated cholesterol DJD (degenerative joint disease) Anxiety Depression Hypertension Non-insulin dependent type 2 diabetes mellitus Sleep apnea Morbid obesity Surgical History (Updated 10/19/24 @ 00:02 by Elvis Loza) History of esophagogastroduodenoscopy (EGD) History of delivery Hx of colonoscopy Hx of hysterectomy Family History Family History Mother Diabetes Hypertension Obesity High cholesterol Father Drug addiction HIV (human immunodeficiency virus infection) Daughter No problems noted. Social History Social History Household Members: Family Housing: Apartment Are you a primary acute care nursing assistant to a significant other at home: No Do you presently have visiting nurse or other home services: No Alcohol intake: current Alcohol intake frequency: holidays/special occasions only Patient Tobacco Use Status: Former Tobacco user Tobacco use type: Cigarette Years Smoked: 22 Smoked in Last 30 Days: No Use of substances other than those prescribed or required for medical reasons: No Advance Directives: No Advance Directives Information Provided: Yes Do you have a plan to hurt others: No Plan Patient : No Physical Exam ED Vital Signs: Vital Signs - 24 hr 10/31/24 07:48 10/31/24 11:04 Temperature 98.7 F 97.4 F Pulse Rate 102 H 74 Respiratory Rate 18 18 Blood Pressure 119/82 103/64 Pulse Oximetry 97 95 Oxygen Delivery Method Room Air Room Air BMI result Body Mass Index 38.2 Vital signs have been reviewed and appear to be correct. Blood pressure normal. Heart rate slightly tachycardic. Respiratory rate normal. Temperature normal. Oxygen saturation normal. Const General: cooperative, healthy appearing and no acute distress Orientation/consciousness: oriented to person, oriented to place, oriented to time and patient oriented x3 Limitations: no limitations HENMT Head: Yes normocephalic and Yes atraumatic Ears: external ears normal General nose exam: Normal external nose present Face and sinus: Yes face symmetric Mouth: oropharynx normal and moist mucous membranes Throat: Yes uvula midline Eyes Pupils: Equal, round and reactive pupils present Neck Neck: Yes normal visual inspection and Yes supple Resp Effort & Inspection: normal respiratory effort and able to speak in complete sentences Auscultation: clear to auscultation bilaterally Cardio Rate: regular rate Rhythm: regular rhythm Heart sounds: S1 normal heart sound present and S2 normal heart sound present GI Other: patient wearing abdominal binder, surgical incisions clean, dry, intact, without erythema, swelling, or drainage Palpation (GI): Soft to palpation and Tenderness to palpation present (GI) in the epigastrum, in the LUQ and in the RUQ Auscultation: Hypoactive bowel sounds present General: Yes no CVA tenderness Back/Spine/Pelvis Back: no CVA tenderness Skin General skin exam: elasticity normal and turgor normal Neuro General: oriented to person, oriented to place, oriented to time, patient oriented x3, moves all extremities, no focal motor deficits and CN's II-XI intact bilaterally Cranial nerves: Yes Equal, round and reactive pupils present Cognition (Neuro): normal cognition Extrem General: Yes full ROM, Yes no pedal edema and Yes no calf tenderness Psych Mental Status: mental status grossly normal Affect: normal affect Thought process: Normal thought process present Course Reevaluation(s) Reevaluation #1: Received call from radiologist that CT A/P showing thrombosis of SMV, left portal vein, and posterior branch of R portal vein with wall thickening of proximal jejeunum concerning for ischemia. [place] text to Dr. [place] and ROBBI Wade in bariatric surgery. Time: 12:54 Reevaluation #2: No return text or call from Dr. Castellanos. ROBBI Sharif from bariatric office also notified on findings, states he will reach out directly to try to reach Dr. Castellanos. Time: 13:27 Reevaluation #3: Dr. Castellanos and ROBBI Wade at bedside, will admit patient. Time: 13:47 Medications Administered Discontinued Medications Generic Name Dose Route Start Last Admin Trade Name Freq PRN Reason Stop Dose Admin Diatrizoate Meglum/Diatrizoate Sod 30 ml 10/31/24 12:23 10/31/24 12:24 Diatrizoate Meglumine, Sodium 30 Ml Solution PO 10/31/24 12:24 30 ml ONCE ONE Administration Hydromorphone HCl 1 mg 10/31/24 10:16 10/31/24 10:22 Hydromorphone Hcl 1 Mg/Ml Syringe IVPUSH 10/31/24 10:17 1 mg ONCE ONE Administration Protocol Sodium Chloride 1,000 mls @ 999 mls/hr 10/31/24 09:30 10/31/24 10:47 Ns IV 10/31/24 10:30 Infused .Q1H1M BLAIR Infusion Iohexol 100 ml 10/31/24 12:24 10/31/24 12:24 Iohexol 350 Mg/Ml 100 Ml Infus..Btl IV 10/31/24 12:25 100 ml ONCE ONE Administration Morphine Sulfate 4 mg 10/31/24 09:19 10/31/24 09:46 Morphine Sulfate 4 Mg/Ml Cartridge IVPUSH 10/31/24 09:20 4 mg ONCE ONE Administration Protocol Ondansetron HCl 4 mg 10/31/24 09:19 10/31/24 09:46 Ondansetron Hcl 4 Mg/2 Ml Vial IVPUSH 10/31/24 09:20 4 mg ONCE ONE Administration Medical Decision Making Medical Decision Making MDM Narrative: Patient is a 43-year-old female with history of T2DM, HTN, sleep apnea, obesity, HLD, congenital intra-abdominal adhesions, recent lap sleeve gastrectomy on 10/17/24 presenting to the emergency department with complaint of upper abdominal pain since Tuesday which began during the day. On exam patient is awake, A+Ox3, HR slightly tachycardic, VS otherwise WNL, afebrile, normal neurological exam without focal deficits, physical exam findings as above. Given reported symptoms and physical exam findings, initial differential includes but is not limited to perforation, abscess, obstruction, thrombosis. Labs notable for slight leukocytosis improved from POD 1, slight hypokalemia, no HIRAM, euglycemic. Patient medicated for pain with morphine, reports little relief, rates pain at 7/10. Dilaudid ordered. CT notable for thrombosis of superior mesenteric vein, left portal vein, posterior branch of the right portal vein with wall thickening of proximal jejunum concerning for ischemia. My interpretation is in agreement with the radiologist's interpretation. See course for remainder of clinical decision-making. Differential Diagnosis Differential Diagnoses: The differential diagnosis associated with the presentation includes as per [facility] Admission/Observation Consideration of admission/observation: Escalation of care including admission/observation considered Consult Healthcare Provider Management of the patient was discussed with: Secretary Of Police (Dr. Castellanos, ROBBI Sharif) Lab Data [facility] Lab Attestation statement: I reviewed the patient's lab results. as per [facility] 10/31/24 07:59 10/31/24 07:59 Labs: Lab Results 10/31/24 10/31/24 10/31/24 Range/Units 07:59 10:37 11:33 WBC 11.0 H (4.8-10.8) X10*3/uL RBC 4.80 (4.20-5.50) X10*6/uL Hgb 12.7 (12.0-16.0) g/dl Hct 36.8 L (37.0-47.0) % MCV 76.7 L (80.0-98.0) fL MCH 26.5 L (27.0-33.0) pg MCHC 34.5 (31.0-35.0) g/dl RDW 14.6 (11.0-16.0) % Plt Count 247 (160-400) X10*3/uL MPV 11.3 (9.4-12.3) fL Immature Gran % (Auto) 0.2 (0.0-0.4) % Neut % (Auto) 78.9 H (45-73) % Lymph % (Auto) 11.5 L (20-40) % Oliver % (Auto) 8.4 (2-11) % Eos % (Auto) 0.7 (0-4) % Baso % (Auto) 0.3 (0-2) % Lymph # (Auto) 1.3 (1.2-4.9) X10*3/uL Oliver # (Auto) 0.9 (0.1-1.2) X10*3/uL Eos # (Auto) 0.1 (0.0-0.4) X10*3/uL Baso # (Auto) 0.0 (0.0-0.2) X10*3/uL Abs Immat Gran (auto) 0.02 (0.00-0.03) X10*3/uL Absolute Neuts (auto) 8.7 H (2.0-8.3) x10*3/uL Absolute Nucleated RBC 0.000 (0.0-0.012) X10*3/uL Nucleated RBC % (auto) 0.0 (0.0-0.2) /100WBC Sodium 140 (135-145) mmol/L Potassium 3.2 L (3.3-5.1) mmol/L Chloride 106 (96-108) mmol/L Carbon Dioxide 23 (22-29) mmol/L Anion Gap 14 (12-20) BUN 7 L (9-16) mg/dL Creatinine 0.70 (0.5-1.4) mg/dL Estim Creat Clear Calc 117.3 Estimated GFR > 60 Random Glucose 133 H (60-115) mg/dL Lactic Acid 0.6 (0.5-2.0) mmol/L Calcium 9.2 (8.4-10.2) mg/dL Magnesium 2.0 (1.6-2.6) mg/dL Total Bilirubin 0.4 (0.0-1.0) mg/dL AST 18 (5-31) U/L ALT 30 (0-31) U/L Alkaline Phosphatase 76 (39-117) U/L Total Protein 7.5 (6.5-8.0) g/dL Albumin 4.1 (3.5-5.0) g/dL Lipase 33 (8-78) U/L Urine Color Yellow Urine Appearance Cloudy Urine pH 6.0 (5.0-9.0) Ur Specific [place] 1.020 (1.005-1.025) Urine Protein 30 (1+) H (Neg-Trace) mg/dL Urine Glucose (UA) Negative (Negative) mg/dL Urine Ketones 80 (Negative) mg/dL Urine Blood Negative (Negative) Urine Nitrite Positive H (Negative) Ur Leukocyte Esterase Small (1+) H (Negative) Urine RBC 0-2 (0-2) /HPF Urine WBC 21-50 H (0-5) /HPF Ur Squamous Epith Cells 11-20 (0-2) /HPF Urine Bacteria 4+ (None Seen) Hyaline Casts 0-2 (0-2) /LPF Independent Interpretation I performed an independent interpretation of an: CT Scan Interpretation: CT notable for thrombosis of superior mesenteric vein, left portal vein, posterior branch of the right portal vein with wall thickening of proximal jejunum concerning for ischemia. Radiology Impression Discussion of test interpretation with radiology: I have reviewed the radiologist's reading. Radiologist Impression: CT/CT abdomen pelvis w IV con IMPRESSION: Thrombosis of the superior mesenteric vein, the left portal vein, and the posterior branch of the right portal vein. Wall thickening of the proximal jejunum with associated inflammatory stranding, highly suspicious for ischemia. Small to moderate amount of fluid with a small amount of layering hemorrhage in the pelvis. These findings were discussed with Irish Landa in the emergency room on 10/31/2024 at 12:54 PM. External Record Review External record reviewed: Inpatient record, Office record and Outpatient record Prescription Management I considered prescription management with: Pain Medication Critical Care Time Critical Care Time Critical Care Time: Yes Total Critical Care Time: 49 Attestation: I have personally provided critical care time exclusive of time spent on separately billable procedures. Time includes review of lab data, radiology results, discussion with consultants, and monitoring for potential decompensation. Intervention performed as documented. Discharge Plan Discharge Patient Disposition: Admitted As Inpatient Prescriptions: No Action fondaparinux 2.5 mg/0.5 mL syringe 2.5 mg subcut Q24H Qty: 5 1RF Trulicity 1.5 mg/0.5 mL pen injector 1.5 mg subcut MO losartan 50 mg tablet 25 mg PO DAILY atorvastatin 10 mg tablet 10 mg PO DAILY loratadine 10 mg tablet 10 mg PO DAILY amlodipine 5 mg tablet 5 mg PO DAILY pantoprazole 40 mg tablet,delayed release (DR/EC) 40 mg PO DAILY Qty: 90 0RF sucralfate 100 mg/mL suspension 10 ml PO BID Qty: 600 2RF ondansetron 4 mg tablet,disintegrating 4 mg PO Q12H Qty: 20 0RF Rx Instructions: Only take one every 12 hours as needed if you have nausea Print Language: Austrian
--- OUTSIDE RECORDS SUMMARY | 2024-10-31 09:20 | XMS_ITS | Clinical Summary ---
Author Organization [address] [facility] Address [address] [place] [address] Phone Care Team Providers Care Die Attaching Machine Tender Name Role Phone Unavailable Primary Care Provider [...]
[2024-10-31] MEDS: ondansetron HCL 4 MG/2 ML VIAL IVPUSH ×2 (09:46→19:49)
[2024-10-31] MEDS: 0.9 % Sodium Chloride 1,000 ML 999 ML IV (09:46)
[2024-10-31] MEDS: Morphine Sulfate 4 MG/ML CARTRIDGE IVPUSH (09:46)
[2024-10-31] MEDS: HYDROmorphone HCl 1 MG/ML SYRINGE IVPUSH (10:22)
[2024-10-31 10:48] LABS: Lipase 33 U/L (8-78)
[2024-10-31 11:09] LABS: Lactic Acid 0.6 mmol/L (0.5-2.0)
[2024-10-31 11:42] LABS: Appearance Urine Cloudy; Color Urine Yellow; Glucose Urine UA Negative (Negative); Leukocyte Esterase Urine Small (1+) (Negative); Nitrite Urine Positive (Negative); UMIC TRIGGER UACC YES; Urine Blood Negative (Negative); Urine Ketones 80 mg/dL (Negative); Urine Protein 30 (1+) mg/dL (Neg-Trace)
[2024-10-31 11:44] LABS: Bacteria Urine 4+ (None Seen); Hyaline Casts Urine 0-2 /LPF (0-2); RBC Urine 0-2 /HPF (0-2); UACC Culture Trigger YES; WBC Urine 21-50 /HPF (0-5)
--- NOTE | 2024-10-31 12:22 | PC.NURSE ---
Pt to CT
[2024-10-31] MEDS: iohexoL 350 MG/ML 100 ML INFUS..BTL IV (12:24)
[2024-10-31] MEDS: Diatrizoate Meglumine, Sodium 30 ML SOLUTION PO (12:24)
--- NOTE | 2024-10-31 13:43 | PC.NURSE ---
Informed provider. Pt. requesting pain medication. Awaiting orders at this time.
[2024-10-31 14:22] LABS: Hematocrit 36.7 % (37.0-47.0); Hemoglobin 12.2 g/dl (12.0-16.0); Mean Corpuscular HGB Conc 33.2 g/dl (31.0-35.0); Mean Corpuscular Hemoglobin 26.3 pg (27.0-33.0); Mean Corpuscular Volume 79.3 fL (80.0-98.0); Mean Platelet Volume 12.1 fL (9.4-12.3); Platelet Count 214 X10*3/uL (160-400); Red Blood Count 4.63 X10*6/uL (4.20-5.50); Red Cell Distribution Width 14.8 % (11.0-16.0); White Blood Count 11.4 X10*3/uL (4.8-10.8)
[2024-10-31] MEDS: Heparin Sodium,Porcine 5,000 UNIT/ML VIAL 8100 UNIT IVPUSH (14:23)
[2024-10-31 14:28] LABS: INTERNATIONAL NORM RATIO 1.3 (0.9-1.1); Prothrombin Time 14.9 SEC (10.9-12.4)
[2024-10-31] MEDS: Heparin Sodium,Porcine/1/2NS 25,000 UNIT/250 ML IV.SOLN 14.14 UNIT IVCONT (14:28)
--- NOTE | 2024-10-31 14:28 | P.HPGS_ITS ---
History of Present Illness History of Present Illness Date of Service: 11/01/24 <ROBBI Maldonado - Last Filed: 11/01/24 07:58> 10/31/24 <Teja Castellanos MD - Last Filed: 10/31/24 16:31> Chief complaint: Portal Vein thrombosis <ROBBI Maldonado - Last Filed: 11/01/24 07:58> Narrative: Francisca Mcneill is a 43 year old female with history of protein S deficiency who underwent uneventful sleeve gastrectomy on 10/17/2024. She was to restart Arixtra postoperatively however this did not happen. She developed abdominal pain in the epigastric area 3 days ago. Her p.o. intake decreased and abdominal pain worsened last night, presenting to the emergency room. She reports her last bowel movement was loose brown stool on Tuesday. She additionally reported associated nausea without vomiting. In the emergency room she was found to have portal vein thrombosis and is going to be admitted to the hospital for heparin drip. <ROBBI Maldonado - Last Filed: 11/01/24 07:58> Francisca Mcneill is a 43 year old female with history of protein S de ficiency who underwent uneventful sleeve gastrectomy on 10/17/2024. Arixtra was prescribed postoperatively but the patient did not start it. She developed abdominal pain in the epigastric area 3 days ago. Her p.o. intake decreased and abdominal pain worsened last night, presenting to the emergency room. She reports her last bowel movement was loose brown stool on Tuesday. She additionally reported associated nausea without vomiting. In the emergency room she was found to have portal vein thrombosis and is going to be admitted to the hospital for heparin drip. Last bowel movement was 4 days ago and it was normal. <Teja Castellanos MD - Last Filed: 10/31/24 16:31> Review of Systems Review of Systems: Yes all other systems are reviewed and are negative <ROBBI Maldonado - Last Filed: 11/01/24 07:58> FOR[facility]LY [facility] Past Medical History Medical History: Medical History (Updated 10/31/24 @ 13:48 by Irish Landa NP) H. pylori infection Hyperlipidemia H. pylori infection Fatty liver Protein S deficiency Elevated cholesterol DJD (degenerative joint disease) Anxiety Depression Hypertension Non-insulin dependent type 2 diabetes mellitus Sleep apnea Morbid obesity <ROBBI Maldonado - Last Filed: 11/01/24 07:58> Family History Family History: Family History Mother Diabetes Hypertension Obesity High cholesterol Father Drug addiction HIV (human immunodeficiency virus infection) Daughter No problems noted. <ROBBI Maldonado - Last Filed: 11/01/24 07:58> Surgical History Surgical History: Surgical History (Updated 10/19/24 @ 00:02 by Elvis Loza) History of esophagogastroduodenoscopy (EGD) History of delivery Hx of colonoscopy Hx of hysterectomy <ROBBI Maldonado - Last Filed: 11/01/24 07:58> Social History Social History: Social History Household Members: Spouse Household Members Other:: 2 Housing: Apartment Are you a primary md do resident urgent care to a significant other at home: No Do you presently have visiting nurse or other home services: No Alcohol intake: current Alcohol intake frequency: holidays/special occasions only Comment: rings appropriately Patient Tobacco Use Status: Former Tobacco user Tobacco use type: Cigarette Years Smoked: 22 Smoked in Last 30 Days: No Use of substances other than those prescribed or required for medical reasons: No Currently Displaying Signs/Symptoms of Drug Intoxication Withdrawal: No Do you feel safe in your current relationship?: Yes Advance Directives: No Advance Directives Information Provided: Yes Do you have a plan to hurt others: No Plan Recently lost weight without trying: Yes Patient : No Poor oral hygiene: No <ROBBI Maldonado Last Filed: 11/01/24 07:58> Meds Allergies/Adverse reactions: Allergies Allergy/AdvReac Type Severity Reaction Status Date / Time latex Allergy Mild Itching Verified 10/31/24 07:51 oxycodone [From Percocet] Allergy Mild jittery Verified 10/31/24 07:51 <ROBBI Maldonado - Last Filed: 11/01/24 07:58> Active Medications: Current Medications Heparin Sodium (Porcine) (Heparin Sodium,Porcine 5,000 Unit/Ml Vial) 4,000 unit 40 unit/kg (4000 unit) IVPUSH PROTOCOL BOLUS PRN; Protocol PRN Reason: 40 unit/kg - Heparin Protocol Heparin Sodium (Porcine) (Heparin Sodium,Porcine 5,000 Unit/Ml Vial) 8,100 unit 80 unit/kg (8100 unit) IVPUSH PROTOCOL BOLUS PRN; Protocol PRN Reason: 80 unit/kg - Heparin Protocol Heparin Sodium/Sodium Chloride (Heparin Sodium,Porcine/1/2ns) 25,000 unit in 250 mls @ 0 mls/hr IVCONT .Q0M BLAIR; Protocol <ROBBI Maldonado - Last Filed: 11/01/24 07:58> Home medications: Home Medications ?Medication ?Instructions ?Recorded ?Confirmed ?Last Taken ?Type atorvastatin 10 mg tablet 10 mg PO DAILY 07/10/24 10/31/24 10/16/24 History loratadine 10 mg tablet 10 mg PO DAILY 07/10/24 10/31/24 10/16/24 History losartan 50 mg tablet 25 mg PO DAILY PRN If BP >130 07/10/24 10/31/24 10/16/24 History amlodipine 5 mg tablet 2.5 - 5 mg PO DAILY 07/13/24 10/31/24 10/16/24 History acetaminophen 650 mg/20.3 mL oral 650 mg PO Q4H PRN Pain 10/31/24 10/31/24 10/31/24 History suspension multivitamin with iron 1 tab PO DAILY 10/31/24 10/31/24 10/16/24 History pantoprazole 40 mg tablet,delayed 40 mg PO DAILY@0630 10/31/24 10/31/24 10/16/24 History release <ROBBI Maldonado - Last Filed: 11/01/24 07:58> Physical Exam Vital Signs: Vital Signs: Last Vital Signs Temp 97.4 F 10/31/24 11:04 Pulse 74 10/31/24 11:04 Resp 18 10/31/24 11:04 BP 103/64 10/31/24 11:04 Pulse Ox 95 10/31/24 11:04 O2 Del Method Room Air 10/31/24 11:04 BMI result Body Mass Index 38.2 <ROBBI Maldonado - Last Filed: 11/01/24 07:58> Const: General: cooperative, healthy appearing and no acute distress <ROBBI Maldonado Last Filed: 11/01/24 07:58> Orientation/consciousness: patient oriented x3 <ROBBI Maldonado Last Filed: 11/01/24 07:58> HEENT: Head: Yes normal to inspection <ROBBI Maldonado Last Filed: 11/01/24 07:58> Ears: hearing grossly normal bilaterally <ROBBI Maldonado Last Filed: 11/01/24 07:58> General nose exam: Normal external nose present <ROBBI Maldonado Last Filed: 11/01/24 07:58> Face and sinus: Yes normal facial exam <ROBBI Maldonado Last Filed: 11/01/24 07:58> Eyes: General: appearance normal, both eyes and all related structures <ROBBI Maldonado Last Filed: 11/01/24 07:58> Resp: Effort & Inspection: normal respiratory effort <ROBBI Maldonado Last Filed: 11/01/24 07:58> Auscultation: clear to auscultation bilaterally <ROBBI Maldonado Last Filed: 11/01/24 07:58> Cardio: Rate: regular rate <ROBBI Maldonado Last Filed: 11/01/24 07:58> Rhythm: regular rhythm <ROBBI Maldonado Last Filed: 11/01/24 07:58> Heart sounds: S1 normal heart sound present and S2 normal heart sound present <ROBBI Maldonado Last Filed: 11/01/24 07:58> GI: Palpation (GI): Soft to palpation, Tenderness to palpation present (GI) other (Fairly diffusely across the epigastrium, right upper and left upper quadrant. No guarding or rebound tenderness) and no guarding <ROBBI Maldonado Last Filed: 11/01/24 07:58> Palpation (GI): Tenderness to palpation present (GI) (mild mid-epigastric and LUQ tenderness. No peritoneal signs) <Teja Castellanos MD - Last Filed: 10/31/24 16:31> Auscultation: normal bowel sounds <ROBBI Maldonado Last Filed: 11/01/24 07:58> Skin: General skin exam: no rashes or lesions noted <ROBBI Maldonado Last Filed: 11/01/24 07:58> Neuro: General: patient oriented x3 <ROBBI Maldonado Last Filed: 11/01/24 07:58> Extrem: General: No edema <ROBBI Maldonado Last Filed: 11/01/24 07:58> Psych: Appearance: grossly normal <ROBBI Maldonado Last Filed: 11/01/24 07:58> Mental Status: mental status grossly normal <ROBBI Maldonado Last Filed: 11/01/24 07:58> Speech and movement: Normal speech and movement present <ROBBI Maldonado Last Filed: 11/01/24 07:58> Affect: normal affect <ROBBI Maldonado Last Filed: 11/01/24 07:58> Attitude: cooperative <ROBBI Maldonado Last Filed: 11/01/24 07:58> Results Results Labs: Short CBC 10/31/24 10/31/24 Range/Units 07:59 14:17 WBC 11.0 H 11.4 H (4.8-10.8) X10*3/uL Hgb 12.7 12.2 (12.0-16.0) g/dl Hct 36.8 L 36.7 L (37.0-47.0) % Plt Count 247 214 (160-400) X10*3/uL BMP 10/31/24 07:59 Sodium 140 Potassium 3.2 L Chloride 106 Carbon Dioxide 23 BUN 7 L Creatinine 0.70 Calcium 9.2 Liver Function 10/31/24 Range/Units 07:59 Total Bilirubin 0.4 (0.0-1.0) mg/dL AST 18 (5-31) U/L ALT 30 (0-31) U/L Alkaline Phosphatase 76 (39-117) U/L Albumin 4.1 (3.5-5.0) g/dL Urine 10/31/24 Range/Units 11:33 Urine Color Yellow Urine Appearance Cloudy Urine pH 6.0 (5.0-9.0) Ur Specific [place] 1.020 (1.005-1.025) Urine Protein 30 (1+) H (Neg-Trace) mg/dL Urine Glucose (UA) Negative (Negative) mg/dL <ROBBI Maldonado Last Filed: 11/01/24 07:58> Abdomen CT scan report/results: report reviewed (Thrombosis of the superior mesenteric vein, the left portal vein, and the posterior branch of the right portal vein. Wall thickening of the proximal jejunum with associated inflammatory stranding, highly suspicious for ischemia. Small to moderate amount of fluid with a small amount of layering h) and image reviewed <ROBBI Maldonado - Last Filed: 11/01/24 07:58> Assessment and Plan (1) Portal vein thrombosis: Status: Acute <ROBBI Maldonado - Last Filed: 11/01/24 07:58> Patient with history of protein S deficiency found to have thrombosis of the superior mesenteric vein, the left portal vein, and the posterior branch of the right portal vein.portal vein thrombosis. Main portal vein without thrombosis. Plan is for heparin bolus followed by heparin drip, serial lactate, CBC, Chem 7. Case discussed with interventional radiology with conservative approach at the moment and in agreement with systemic anticoagulation and low threshold for percutaneous transhepatic thrombolysis if no improvement or worsening by serial exams and lab data. Patient will be maintained NPO, given LR. Analgesia with IV Ofirmev, p.r.n. Dilaudid. P.r.n. antiemetic with metoclopramide and ondansetron. PPI prophylaxis with b.i.d. pantoprazole. Additionally 1 dose of B12, daily folate and thiamine. Patient may require PICC line for TPN if no improvement, she will be watched very closely. Case discussed and patient examined in entirety with Dr. Castellanos. <ROBBI Maldonado - Last Filed: 11/01/24 07:58> Patient with history of protein S deficiency found to have thrombosis of the superior mesenteric vein, the left portal vein, and the posterior branch of the right portal vein.portal vein thrombosis. Main portal vein without thrombosis. Plan is for heparin bolus followed by heparin drip, serial lactate, CBC, Chem 7. Case discussed with interventional radiology with conservative approach at the moment and in agreement with systemic anticoagulation and low threshold for percutaneous transhepatic thrombolysis if no improvement or worsening by serial exams and lab data. Patient will be maintained NPO, given LR. Analgesia with IV Ofirmev, p.r.n. Dilaudid. P.r.n. antiemetic with metoclopramide and ondansetron. PPI prophylaxis with b.i.d. pantoprazole. Additionally 1 dose of B12, daily folate and thiamine. Patient may require PICC line for TPN if no improvement, she will be watched very closely. Case discussed and patient examined in entirety with Dr. Castellanos. Note was reviewed and I agree with contents of the note and the plan made. The plan was discussed with the patient and her . <Teja Castellanos MD - Last Filed: 10/31/24 16:31> Total time managing care of this patient today: 30 minutes. <Teja Castellanos MD - Last Filed: 10/31/24 16:31> Quality Stroke Does the patient have a stroke diagnosis?: No <Teja Castellanos MD - Last Filed: 10/31/24 16:31> VTE Prior VTE?: No <Teja Castellanos MD - Last Filed: 10/31/24 16:31> VTE Risk Level:: Surgical - high <Teja Castellanso MD - Last Filed: 10/31/24 16:31> VTE Device Contraindication: N/A - Device Ordered <Teja Castellanos MD - Last Filed: 10/31/24 16:31> VTE Drug Contraindication: N/A - Med Ordered <Teja Castellanos MD - Last Filed: 10/31/24 16:31> Procedures Date of Service Date of Service: 11/01/24 <ROBBI Maldonado - Last Filed: 11/01/24 07:58> 10/31/24 <Teja Castellanos MD - Last Filed: 10/31/24 16:31>
[2024-10-31 14:31] LABS: PTT Heparin Drip 29.4 SEC (53-77.9)
--- NOTE | 2024-10-31 14:35 | PHA.MEDREC ---
Addendum entered by Abhishek Melgar [facility] 10/31/24 15:14: Reviewed by [facility] Original Note: Pharmacy Consult ? Medication Reconciliation Pharmacy has completed the medication reconciliation. Spoke with pt and she was able to confirm her medications. Pt had a surgery 10/17 and states she stopped her po medications 10/16 for it and has not been able to start any of them again due to complications with the surgery and not being able to keep any food/water down. Pt confirmed she was taking Trulicity once a week but states her Dr stopped it 10/08 to have the pt start Zepbound but the pt had insurance issues confirming that injection and now the pharmacy is out of stock of that medication at this time. Pt stated she takes her Amlodipine 5mg tab 1/2-1 tab depending on what her BP Parameters are per Dr. Castellanos orders. Pt also stated she has Losartan 50mg tabs at home as needed if her BP spikes over 130-140, she will take one but has not needed to.
--- NOTE | 2024-10-31 14:37 | PC.NURSE ---
okay to start hep before receiving ptt level per suni melgar
[2024-10-31] MEDS: HYDROmorphone HCl 0.5 MG/0.5 ML SYRINGE 0.25 MG IVPUSH ×3 (14:45→22:40)
[2024-10-31] MEDS: Cyanocobalamin (Vitamin B-12) 1,000 MCG/ML VIAL 1000 MCG IM (14:45)
[2024-10-31] MEDS: Acetaminophen 1,000 MG/100 ML PIGGYBACK 16.7 MG IV ×2 (14:45→20:01)
[2024-10-31] MEDS: Pantoprazole Sodium 40 MG/10 ML VIAL IVPUSH (14:46)
[2024-10-31] MEDS: Lactated Ringers 1,000 ML 150 ML IVCONT ×2 (15:41→22:17)
[2024-10-31 16:09] LABS: Folate 8.8 ng/mL (> or = 4.0); Vitamin B12 486 pg/mL (200-900)
[2024-10-31] MEDS: Potassium Chloride/H20 10 MEQ/100 ML PIGGYBACK 100 MEQ IV ×2 (16:19→18:14)
[2024-10-31 16:26] LABS: Lactate Dehydrogenase 131 U/L (122-220)
[2024-10-31 16:29] LABS: Lactic Acid 0.8 mmol/L (0.5-2.0)
--- NOTE | 2024-10-31 19:18 | PC.NURSE ---
Hep Gtt checked at bedside with TRE Baxter.
[2024-10-31 21:25] LABS: PTT Heparin Drip 178.2 SEC (53-77.9)
--- NOTE | 2024-10-31 22:02 | PC.NURSE ---
Addendum entered by Nila Stearns RN 11/01/24 00:44: 2243 PTT 98.2, per protocol holding infusion for an hour then decreasing by 3 units/kg/hr 2347 Heparin drip decreased by 3 units/kg/hr, now infusing at 11 units/kg/hr , 11.11 mls/hr . Witnessed by secondary RNAmparo. Next PTT ordered for 0545 11/01/24 Original Note: At 2121 notified of critical PTT high 178.2 Per protocol heparin drip paused at 2127 and disconnected from patient, witness by secondary nurse. Hourly PTT order, next PTT order for 2227
[2024-10-31] MEDS: Metoclopramide HCl 10 MG/2 ML VIAL IVPUSH (22:36)
[2024-10-31 23:00] LABS: PTT Heparin Drip 98.2 SEC (53-77.9)
[2024-10-31] MEDS: 0.9 % Sodium Chloride Flush 3 ML SYRINGE IVFLUSH (23:29)
[2024-11-01] VITALS (8 sets, daily range): BP systolic 106–121; BP diastolic 56–72; PULSE 72–85; RESP 16–18; TEMP 36.4–37.2; O2SAT 94–98
[2024-11-01] MEDS: Acetaminophen 1,000 MG/100 ML PIGGYBACK 16.7 MG IV ×4 (01:19→21:28)
[2024-11-01] MEDS: HYDROmorphone HCl 0.5 MG/0.5 ML SYRINGE 0.25 MG IVPUSH ×3 (01:49→09:09)
--- NOTE | 2024-11-01 03:03 | PC.NURSE ---
Patient continues to refuse bed alarm. Patient is alert and oriented x4, rings appropriately.
[2024-11-01] MEDS: Lactated Ringers 1,000 ML 150 ML IVCONT ×3 (04:52→19:23)
[2024-11-01 05:44] LABS: MANUAL DIFF FLAG NO
[2024-11-01 05:47] LABS: Basophils Percent Auto 0.4 % (0-2); Eosinophils Absolute Auto 0.1 X10*3/uL (0.0-0.4); Eosinophils Percent Auto 0.4 % (0-4); Hematocrit 35.3 % (37.0-47.0); Hemoglobin 11.8 g/dl (12.0-16.0); Imm Gran Abs Auto 0.04 X10*3/uL (0.00-0.03); Imm Gran Pct Auto 0.4 % (0.0-0.4); Lymphocytes Absolute Auto 1.3 X10*3/uL (1.2-4.9); Lymphocytes Percent Auto 11.5 % (20-40); Mean Corpuscular HGB Conc 33.4 g/dl (31.0-35.0); Mean Corpuscular Hemoglobin 26.3 pg (27.0-33.0); Mean Corpuscular Volume 78.6 fL (80.0-98.0); Mean Platelet Volume 11.2 fL (9.4-12.3); Monocytes Percent Auto 8.7 % (2-11); Neutrophils Absolute Auto 8.8 x10*3/uL (2.0-8.3); Neutrophils Percent Auto 78.6 % (45-73); Platelet Count 205 X10*3/uL (160-400); Red Blood Count 4.49 X10*6/uL (4.20-5.50); Red Cell Distribution Width 14.8 % (11.0-16.0); White Blood Count 11.2 X10*3/uL (4.8-10.8)
[2024-11-01 05:52] LABS: INTERNATIONAL NORM RATIO 1.3 (0.9-1.1); Prothrombin Time 15.3 SEC (10.9-12.4)
[2024-11-01 05:54] LABS: PTT Heparin Drip 58.4 SEC (53-77.9)
[2024-11-01] MEDS: Pantoprazole Sodium 40 MG/10 ML VIAL IVPUSH ×2 (05:57→17:26)
[2024-11-01 06:03] LABS: Lactic Acid 1.8 mmol/L (0.5-2.0)
[2024-11-01 06:04] LABS: Anion Gap 15 (12-20); Blood Urea Nitrogen 5 mg/dL (9-16); Carbon Dioxide 24 mmol/L (22-29); Chloride 108 mmol/L (96-108); Creatinine Clr Calc Pharmacy 136.8; Estimated Glomerular Filt Rate > 60; Glucose Random 104 mg/dL (60-115); Potassium 3.9 mmol/L (3.3-5.1); Sodium 143 mmol/L (135-145)
[2024-11-01] MEDS: Thiamine HCL 100 MG in 0.9 % Sodium Chloride 100 ML 202 MG IV (08:37)
[2024-11-01] MEDS: 0.9 % Sodium Chloride Flush 3 ML SYRINGE IVFLUSH (08:38)
--- NOTE | 2024-11-01 08:50 | PM.PNGS ---
Subjective Subjective Date of Service: 11/01/24 Interval history: Looks better. States that the epigastric pain is somewhat better and she is using the Dilaudid less frequently. Lactate 0.6 / 0.8 / 1.0 / 1.8 Physical Exam Vital Signs: Vital Signs: Last Vital Signs Temp 97.5 F 11/01/24 07:37 Pulse 83 11/01/24 07:37 Resp 16 11/01/24 07:37 BP 106/56 L 11/01/24 07:37 Pulse Ox 97 11/01/24 07:37 O2 Del Method Room Air 11/01/24 07:37 BMI result Body Mass Index 38.2 GI: Inspection: Yes normal to inspection, Yes incision (well healed) and Yes obesity Palpation (GI): Tenderness to palpation present (GI) in the epigastrum and in the LUQ Extrem: Right lower extremity: normal to inspection (no calf tenderness) Left lower extremity: normal to inspection (no calf tenderness) Objective Data Active Medications Heparin Sodium (Porcine) (Heparin Sodium,Porcine 5,000 Unit/Ml Vial) 4,000 unit 40 unit/kg (4000 unit) IVPUSH PROTOCOL BOLUS PRN; Protocol PRN Reason: 40 unit/kg - Heparin Protocol Heparin Sodium (Porcine) (Heparin Sodium,Porcine 5,000 Unit/Ml Vial) 8,100 unit 80 unit/kg (8100 unit) IVPUSH PROTOCOL BOLUS PRN; Protocol PRN Reason: 80 unit/kg - Heparin Protocol Hydromorphone HCl (Hydromorphone Hcl 0.5 Mg/0.5 Ml Syringe) 0.25 mg IVPUSH Q3H PRN; Protocol PRN Reason: Pain, Moderate(Pain Scale 4-6) Last Admin: 11/01/24 05:57 Dose: 0.25 mg Documented By: SAMANTHA Heparin Sodium/Sodium Chloride (Heparin Sodium,Porcine/1/2ns) 25,000 unit in 250 mls @ 0 mls/hr IVCONT .Q0M [facility]; Protocol Last Titration: 11/01/24 06:04 Dose: 11 units/kg/hr, 11.11 mls/hr Documented By: SAMANTHA Co-signed By: BARBARA Lactated Ringer's (Lr) 1,000 mls @ 150 mls/hr IVCONT .Q6H40M [facility] Last Admin: 11/01/24 04:52 Dose: 150 mls/hr Documented By: KELSIE Acetaminophen (Ofirmev) 1,000 mg in 100 mls @ 16.7 mls/hr IV .Q6H [facility] Last Infusion: 11/01/24 07:26 Dose: Infused Documented By: KHANH Folic Acid 1 mg/ Sodium (Chloride) 50.2 mls @ 100.4 mls/hr IV DAILY [facility] Thiamine HCl 100 mg/ Sodium (Chloride) 101 mls @ 202 mls/hr IV DAILY [facility] Last Admin: 11/01/24 08:37 Dose: 202 mls/hr Documented By: KHANH Metoclopramide HCl (Metoclopramide Hcl 10 Mg/2 Ml Vial) 10 mg IVPUSH Q6H PRN PRN Reason: Nausea no effect from zofran Last Admin: 10/31/24 22:36 Dose: 10 mg Documented By: KELSIE Metoprolol Tartrate (Metoprolol Tartrate 5 Mg/5 Ml Vial) 5 mg IVPUSH Q6H PRN PRN Reason: BP>140/90 Ondansetron HCl (Ondansetron Hcl 4 Mg/2 Ml Vial) 4 mg IVPUSH Q8H PRN PRN Reason: Nausea Last Admin: 10/31/24 19:49 Dose: 4 mg Documented By: KELSIE Pantoprazole Sodium (Pantoprazole Sodium 40 Mg/10 Ml Vial) 40 mg IVPUSH BID@0630,1630 [facility] Last Admin: 11/01/24 05:57 Dose: 40 mg Documented By: SAMANTHA Sodium Chloride (0.9 % Sodium Chloride Flush 3 Ml Syringe) 3 ml IVFLUSH QSHIFT [facility] Last Admin: 11/01/24 08:38 Dose: 3 ml Documented By: KHANH Labs 11/01/24 05:39 11/01/24 05:39 Labs: Laboratory Results - last 24 hr 10/31/24 10/31/24 10/31/24 07:59 10:37 11:33 MCV MCH MCHC RDW Plt Count MPV Immature Gran % (Auto) Neut % (Auto) Lymph % (Auto) [place] % (Auto) Eos % (Auto) Baso % (Auto) Lymph # (Auto) [place] # (Auto) Eos # (Auto) Baso # (Auto) Abs Immat Gran (auto) Absolute Neuts (auto) Absolute Nucleated RBC Nucleated RBC % (auto) PT INR aPTT Heparin Protocol Anion Gap Estim Creat Clear Calc Estimated GFR Random Glucose Lactic Acid 0.6 Calcium Magnesium 2.0 Lactate Dehydrogenase Lipase 33 Vitamin B12 Folate Urine Color Yellow Urine Appearance Cloudy Urine pH 6.0 Ur Specific [place] 1.020 Urine Protein 30 (1+) H Urine Glucose (UA) Negative Urine Ketones 80 Urine Blood Negative Urine Nitrite Positive H Ur Leukocyte Esterase Small (1+) H Urine RBC 0-2 Urine WBC 21-50 H Ur Squamous Epith Cells 11-20 Urine Bacteria 4+ Hyaline Casts 0-2 10/31/24 10/31/24 10/31/24 14:17 14:57 15:07 MCV 79.3 L MCH 26.3 L MCHC 33.2 RDW 14.8 Plt Count 214 MPV 12.1 Immature Gran % (Auto) Neut % (Auto) Lymph % (Auto) [place] % (Auto) Eos % (Auto) Baso % (Auto) Lymph # (Auto) [place] # (Auto) Eos # (Auto) Baso # (Auto) Abs Immat Gran (auto) Absolute Neuts (auto) Absolute Nucleated RBC 0.000 Nucleated RBC % (auto) 0.0 PT 14.9 H D INR 1.3 H aPTT Heparin Protocol 29.4 L Anion Gap Estim Creat Clear Calc Estimated GFR Random Glucose Lactic Acid Calcium Magnesium Lactate Dehydrogenase 131 Lipase Vitamin B12 486 Folate 8.8 Urine Color Urine Appearance Urine pH Ur Specific [place] Urine Protein Urine Glucose (UA) Urine Ketones Urine Blood Urine Nitrite Ur Leukocyte Esterase Urine RBC Urine WBC Ur Squamous Epith Cells Urine Bacteria Hyaline Casts 10/31/24 10/31/24 10/31/24 16:01 20:25 21:53 MCV MCH MCHC RDW Plt Count MPV Immature Gran % (Auto) Neut % (Auto) Lymph % (Auto) [place] % (Auto) Eos % (Auto) Baso % (Auto) Lymph # (Auto) [place] # (Auto) Eos # (Auto) Baso # (Auto) Abs Immat Gran (auto) Absolute Neuts (auto) Absolute Nucleated RBC Nucleated RBC % (auto) PT INR aPTT Heparin Protocol 178.2 H* D Anion Gap Estim Creat Clear Calc Estimated GFR Random Glucose Lactic Acid 0.8 1.0 Calcium Magnesium Lactate Dehydrogenase Lipase Vitamin B12 Folate Urine Color Urine Appearance Urine pH Ur Specific [place] Urine Protein Urine Glucose (UA) Urine Ketones Urine Blood Urine Nitrite Ur Leukocyte Esterase Urine RBC Urine WBC Ur Squamous Epith Cells Urine Bacteria Hyaline Casts 10/31/24 11/01/24 11/01/24 22:43 05:39 05:41 MCV 78.6 L MCH 26.3 L MCHC 33.4 RDW 14.8 Plt Count 205 MPV 11.2 Immature Gran % (Auto) 0.4 Neut % (Auto) 78.6 H Lymph % (Auto) 11.5 L [place] % (Auto) 8.7 Eos % (Auto) 0.4 Baso % (Auto) 0.4 Lymph # (Auto) 1.3 [place] # (Auto) 1.0 Eos # (Auto) 0.1 Baso # (Auto) 0.0 Abs Immat Gran (auto) 0.04 H Absolute Neuts (auto) 8.8 H Absolute Nucleated RBC 0.000 Nucleated RBC % (auto) 0.0 PT 15.3 H INR 1.3 H aPTT Heparin Protocol 98.2 H D 58.4 D Anion Gap 15 Estim Creat Clear Calc 136.8 Estimated GFR > 60 Random Glucose 104 Lactic Acid 1.8 Calcium 9.0 Magnesium Lactate Dehydrogenase Lipase Vitamin B12 Folate Urine Color Urine Appearance Urine pH Ur Specific [place] Urine Protein Urine Glucose (UA) Urine Ketones Urine Blood Urine Nitrite Ur Leukocyte Esterase Urine RBC Urine WBC Ur Squamous Epith Cells Urine Bacteria Hyaline Casts Procedures Date of Service Date of Service: 11/01/24 Progress Note: A&P Assessment and plan (1) Mesenteric vein thrombosis: Status: Acute Assessment and Plan: 1. Continue heparin protocol 2. NPO, IV fluids 3. Repeat CT scan today Time Spent With Patient Time: Total time managing care of this patient today __20__ minutes. Quality Stroke Does the patient have a stroke diagnosis?: No VTE Prior VTE?: No VTE Risk Level:: Surgical - high VTE Device Contraindication: N/A - Device Ordered VTE Drug Contraindication: N/A - Med Ordered
--- NOTE | 2024-11-01 09:55 | MHC.CM.PN ---
PATIENT LIVES IN A HOME W/ HER MOTHER. INDEPENDENT W/ CARE. USES CPAP - SUPPLIES THROUGH A LOCAL DME STORE, CANNOT RECALL NAME. PCP ТАТЬЯНА CHEW MD REPORTS SHE HAS AN HCP NAMING HER PARTNER, KIANNA STEPHENSON, H[employer]. COPY REQUESTED. DP: GOAL IS HOME SELF CARE, PARTNER TO TRANSPORT. CM WILL CONTINUE TO FOLLOW.
[2024-11-01] MEDS: iohexoL 350 MG/ML 100 ML INFUS..BTL IV (10:37)
[2024-11-01 11:41] LABS: Lactic Acid 0.9 mmol/L (0.5-2.0)
[2024-11-01] MEDS: Folic Acid 1 MG in 0.9 % Sodium Chloride 50 ML 100.4 MG IV (12:16)
[2024-11-01 12:38] LABS: PTT Heparin Drip 60.8 SEC (53-77.9)
[2024-11-01] MEDS: Heparin Sodium,Porcine/1/2NS 25,000 UNIT/250 ML IV.SOLN 11.11 UNIT IVCONT (13:47)
[2024-11-01] MEDS: Heparin Sodium,Porcine 5,000 UNIT/ML VIAL 4000 UNIT IVPUSH (19:23)
[2024-11-01 23:59] LABS: Partial Thromboplastin Time 109.7 SEC (26.0-36.8)
[2024-11-02 01:22] LABS: PTT Heparin Drip 66.9 SEC (53-77.9)
[2024-11-02] MEDS: Lactated Ringers 1,000 ML 150 ML IVCONT (01:29)
[2024-11-02] MEDS: Acetaminophen 1,000 MG/100 ML PIGGYBACK 16.7 MG IV ×4 (03:35→21:13)
[2024-11-02 03:47] VITALS: BP 111/72; PULSE 82; RESP 18; TEMP 36.7; O2SAT 99
--- NOTE | 2024-11-02 04:45 | PC.NURSE ---
Per pharmacist and ROBBI Wade - heparin drip was increased from 9 units to 12 units. Next PTT-HD is scheduled for 1030.
[2024-11-02] MEDS: Pantoprazole Sodium 40 MG/10 ML VIAL IVPUSH ×2 (05:38→16:26)
[2024-11-02 06:04] LABS: MANUAL DIFF FLAG NO
[2024-11-02 06:09] LABS: Basophils Percent Auto 0.3 % (0-2); Eosinophils Absolute Auto 0.1 X10*3/uL (0.0-0.4); Eosinophils Percent Auto 1.1 % (0-4); Hematocrit 30.3 % (37.0-47.0); Hemoglobin 10.4 g/dl (12.0-16.0); Imm Gran Abs Auto 0.03 X10*3/uL (0.00-0.03); Imm Gran Pct Auto 0.3 % (0.0-0.4); Lymphocytes Absolute Auto 1.7 X10*3/uL (1.2-4.9); Lymphocytes Percent Auto 19.4 % (20-40); Mean Corpuscular HGB Conc 34.3 g/dl (31.0-35.0); Mean Corpuscular Hemoglobin 26.7 pg (27.0-33.0); Mean Corpuscular Volume 77.7 fL (80.0-98.0); Mean Platelet Volume 11.7 fL (9.4-12.3); Monocytes Absolute Auto 0.7 X10*3/uL (0.1-1.2); Monocytes Percent Auto 8.4 % (2-11); Neutrophils Absolute Auto 6.1 x10*3/uL (2.0-8.3); Neutrophils Percent Auto 70.5 % (45-73); Platelet Count 216 X10*3/uL (160-400); Red Cell Distribution Width 14.8 % (11.0-16.0); White Blood Count 8.7 X10*3/uL (4.8-10.8)
[2024-11-02 06:28] LABS: Lactic Acid 0.5 mmol/L (0.5-2.0)
[2024-11-02 06:36] LABS: Anion Gap 13 (12-20); Blood Urea Nitrogen 5 mg/dL (9-16); Calcium 8.4 mg/dL (8.4-10.2); Carbon Dioxide 23 mmol/L (22-29); Chloride 111 mmol/L (96-108); Creatinine Clr Calc Pharmacy 139.1; Estimated Glomerular Filt Rate > 60; Glucose Random 78 mg/dL (60-115); Potassium 3.1 mmol/L (3.3-5.1); Sodium 144 mmol/L (135-145)
--- NOTE | 2024-11-02 07:39 | PM.PNGS ---
Subjective Subjective Date of Service: 11/02/24 Interval history: Feels better. Has not used Dilaudid since yesterday morning. Has very good urine output. Is walking frequently Physical Exam Vital Signs: Vital Signs: Last Vital Signs Temp 98.1 F 11/02/24 03:47 Pulse 82 11/02/24 03:47 Resp 18 11/02/24 03:47 BP 111/72 11/02/24 03:47 Pulse Ox 99 11/02/24 03:47 O2 Del Method Room Air 11/02/24 03:47 BMI result Body Mass Index 38.2 GI: Inspection: Yes normal to inspection and Yes incision (well healed) Palpation (GI): Soft to palpation and Tenderness to palpation present (GI) (less than yesterday) in the epigastrum and in the LUQ Extrem: Right lower extremity: normal to inspection (no calf tenderness) Left lower extremity: normal to inspection (no calf tenderness) Objective Data Active Medications Heparin Sodium (Porcine) (Heparin Sodium,Porcine 5,000 Unit/Ml Vial) 4,000 unit 40 unit/kg (4000 unit) IVPUSH PROTOCOL BOLUS PRN; Protocol PRN Reason: 40 unit/kg - Heparin Protocol Last Admin: 11/01/24 19:23 Dose: 4,000 unit Documented By: JUANI Heparin Sodium (Porcine) (Heparin Sodium,Porcine 5,000 Unit/Ml Vial) 8,100 unit 80 unit/kg (8100 unit) IVPUSH PROTOCOL BOLUS PRN; Protocol PRN Reason: 80 unit/kg - Heparin Protocol Hydromorphone HCl (Hydromorphone Hcl 0.5 Mg/0.5 Ml Syringe) 0.25 mg IVPUSH Q3H PRN; Protocol PRN Reason: Pain, Moderate(Pain Scale 4-6) Last Admin: 11/01/24 09:09 Dose: 0.25 mg Documented By: KHANH Lactated Ringer's (Lr) 1,000 mls @ 150 mls/hr IVCONT .Q6H40M [facility] Last Admin: 11/02/24 05:37 Dose: Not Given Documented By: JUANI Non-Admin Reason: IV Running Acetaminophen (Ofirmev) 1,000 mg in 100 mls @ 16.7 mls/hr IV .Q6H [facility] Last Admin: 11/02/24 03:35 Dose: 16.7 mls/hr Documented By: JUANI Thiamine HCl 100 mg/ Sodium (Chloride) 101 mls @ 202 mls/hr IV DAILY [facility] Last Infusion: 11/01/24 09:15 Dose: Infused Documented By: KHANH Folic Acid 1 mg/ Sodium (Chloride) 50.2 mls @ 100.4 mls/hr IV DAILY [facility] Last Infusion: 11/01/24 13:19 Dose: Infused Documented By: KHANH Heparin Sodium/Sodium Chloride (Heparin Sodium,Porcine/1/2ns) 25,000 unit in 250 mls @ 0 mls/hr IVCONT .Q0M [facility]; Protocol Last Titration: 11/02/24 04:31 Dose: 12 units/kg/hr, 12.12 mls/hr Documented By: JUANI Co-signed By: JUNI Metoclopramide HCl (Metoclopramide Hcl 10 Mg/2 Ml Vial) 10 mg IVPUSH Q6H PRN PRN Reason: Nausea no effect from zofran Last Admin: 10/31/24 22:36 Dose: 10 mg Documented By: EKLSIE Metoprolol Tartrate (Metoprolol Tartrate 5 Mg/5 Ml Vial) 5 mg IVPUSH Q6H PRN PRN Reason: BP>140/90 Ondansetron HCl (Ondansetron Hcl 4 Mg/2 Ml Vial) 4 mg IVPUSH Q8H PRN PRN Reason: Nausea Last Admin: 10/31/24 19:49 Dose: 4 mg Documented By: KELSIE Pantoprazole Sodium (Pantoprazole Sodium 40 Mg/10 Ml Vial) 40 mg IVPUSH BID@0630,1630 [facility] Last Admin: 11/02/24 05:38 Dose: 40 mg Documented By: JUANI Sodium Chloride (0.9 % Sodium Chloride Flush 3 Ml Syringe) 3 ml IVFLUSH QSHIFT [facility] Last Admin: 11/01/24 19:44 Dose: Not Given Documented By: JUANI Non-Admin Reason: IV Running Labs 11/02/24 05:58 11/02/24 05:58 Labs: Laboratory Results - last 24 hr 11/01/24 11/01/24 11/01/24 11:18 11:50 17:52 MCV MCH MCHC RDW Plt Count MPV Immature Gran % (Auto) Neut % (Auto) Lymph % (Auto) [place] % (Auto) Eos % (Auto) Baso % (Auto) Lymph # (Auto) [place] # (Auto) Eos # (Auto) Baso # (Auto) Abs Immat Gran (auto) Absolute Neuts (auto) Absolute Nucleated RBC Nucleated RBC % (auto) APTT Cancelled aPTT Heparin Protocol 60.8 48.0 L D Anion Gap Estim Creat Clear Calc Estimated GFR Random Glucose Lactic Acid 0.9 Calcium 11/01/24 11/02/24 11/02/24 23:41 01:06 05:58 MCV 77.7 L MCH 26.7 L MCHC 34.3 RDW 14.8 Plt Count 216 MPV 11.7 Immature Gran % (Auto) 0.3 Neut % (Auto) 70.5 Lymph % (Auto) 19.4 L [place] % (Auto) 8.4 Eos % (Auto) 1.1 Baso % (Auto) 0.3 Lymph # (Auto) 1.7 [place] # (Auto) 0.7 Eos # (Auto) 0.1 Baso # (Auto) 0.0 Abs Immat Gran (auto) 0.03 Absolute Neuts (auto) 6.1 Absolute Nucleated RBC 0.000 Nucleated RBC % (auto) 0.0 APTT 109.7 H* D aPTT Heparin Protocol 66.9 D Anion Gap 13 Estim Creat Clear Calc 139.1 Estimated GFR > 60 Random Glucose 78 Lactic Acid 0.5 Calcium 8.4 D Microbiology Microbiology Results: Microbiology 10/31/24 10:37 Blood Culture - Preliminary Blood - Venous No growth after 24 hours. 10/31/24 10:37 Blood Culture - Preliminary Blood - Venous No growth after 24 hours. 10/31/24 Unknown Urine Culture - Preliminary Urine clean catch - Clean Catch Midstream Gram negative co[place] Procedures Date of Service Date of Service: 11/02/24 Progress Note: A&P Assessment and plan (1) Mesenteric vein thrombosis: Status: Acute Assessment and Plan: 1. Phase 1 diet 2. Continue IV heparin 3. Supplement K 4. Consult Dr. Mckenzie for best fpc option for anticoagulation: Coumadin vs Eliquis and appropriate dosing Time Spent With Patient Time: Total time managing care of this patient today ____ minutes. Quality Stroke Does the patient have a stroke diagnosis?: No VTE Prior VTE?: No VTE Risk Level:: Surgical - high VTE Device Contraindication: N/A - Device Ordered VTE Drug Contraindication: N/A - Med Ordered
[2024-11-02 07:44] VITALS: BP 112/73; PULSE 95; RESP 18; TEMP 36.2; O2SAT 99
[2024-11-02] MEDS: KCl 20 mEq in 0.45% Sod 20 MEQ/1,000 ML IV.SOLN 125 MEQ IVCONT ×3 (08:12→22:43)
[2024-11-02] MEDS: Folic Acid 1 MG in 0.9 % Sodium Chloride 50 ML 100.4 MG IV (08:20)
[2024-11-02] MEDS: Thiamine HCL 100 MG in 0.9 % Sodium Chloride 100 ML 202 MG IV (08:59)
[2024-11-02 10:53] LABS: PTT Heparin Drip 58.4 SEC (53-77.9)
[2024-11-02] MEDS: Heparin Sodium,Porcine 5,000 UNIT/ML VIAL 4000 UNIT IVPUSH (11:06)
--- NOTE | 2024-11-02 11:07 | MHC.CM.PN ---
Patient not medically cleared for dc at this time. CM will continue to follow.
--- NOTE | 2024-11-02 11:51 | P.CNHO_ITS ---
Subjective - Subjective Chief complaint: Abdominal pain Patient: new to practice Consult date: 11/02/24 Primary Care Provider: Aydee Santos MD Health Insurance Agent Utilized?: No - [place] Speaking HPI - Consult Narrative Reason for consult: Thrombosis Narrative: Francisca Mcneill is a 43 year old female with history of protein S deficiency, prior spontaneous pulmonary embolism who is presenting with postoperative thrombosis of multiple abdominal veins. Patient states that she was diagnosed with spontaneous pulmonary embolism in 1998, all her treatment was at [facility]. She was diagnosed with protein S deficiency. She was on anticoagulation with warfarin from [id number]. In 2000 she became , she was on Lovenox and subsequently Coumadin for about 2 months . She then took herself off the medication. In 2003 she had an performed at [place]. At that time she did not receive any perioperative chemical prophylaxis. In 2010 she underwent hysterectomy for polyps, she underwent perioperative heparin for DVT prophylaxis. She underwent laparoscopic sleeve gastrectomy with gastropexy on 10/17/2024. She received preoperative Arixtra 2.5 mg once a day for prophylaxis but not postoperatively. A week after surgery she developed cramping abdominal pain and she was unable to eat or drink anything. She was afraid of dehydration and presented to emergency department because of progressive increase in pain. She denies any pleuritic chest pain, shortness of breath or cough. She denies any swelling in her lower extremities. She denies any fever or chills. She does not know if any other members in her family have thrombophilia, her and child have protein C deficiency. She is a former smoker. Review of Systems - Constitutional Reports as per [facility] Medical History: Medical History (Last Updated 10/17/24 @ 09:47 by Teja Castellanos MD) Anxiety Depression DJD (degenerative joint disease) Elevated cholesterol Fatty liver H. pylori infection H. pylori infection Hyperlipidemia Hypertension Morbid obesity Non-insulin dependent type 2 diabetes mellitus Protein S deficiency Sleep apnea Family History: Family History (Last Reviewed 10/17/24 @ 09:39 by Malena Pal MD) Mother Diabetes Hypertension Obesity High cholesterol Father Drug addiction HIV (human immunodeficiency virus infection) Daughter No problems noted. Surgical History: Surgical History (Last Reviewed 10/17/24 @ 09:39 by Malena Pal MD) History of delivery History of esophagogastroduodenoscopy (EGD) Hx of colonoscopy Hx of hysterectomy Social History: Social History (Last Reviewed 10/17/24 @ 09:39 by Malena Pal MD) Living Situation History: Household Members: Spouse Household Members Other:: 2 Housing: Apartment Are you a primary prompt care rn to a significant other at home: No Do you presently have visiting nurse or other home services: No Alcohol History Details: 1. How often do you have a drink containing alcohol?: a. Never AUDIT-C Alcohol total score: 0 Currently Displaying Signs/Symptoms of Alcohol Withdrawal: No Tobacco History: Patient Tobacco Use Status: Former Tobacco user Tobacco use type: Cigarette Years Smoked: 22 Smoked in Last 30 Days: No Substance Use History: Use of substances other than those prescribed or required for medical reasons : No Currently Displaying Signs/Symptoms of Drug Intoxication Withdrawal: No Domestic Abuse History: Do you feel safe in your current relationship?: Yes Advance Directives: Advance Directives: No Advance Directives Information Provided: Yes Homicidal Assessment: Do you have a plan to hurt others: No Plan Nutrition Assessment: Recently lost weight without trying: Yes Patient : No Poor oral hygiene: No Occupation Assessmet: service: No Home Medications and Allergies Current Medications: Current Medications Heparin Sodium (Porcine) (Heparin Sodium,Porcine 5,000 Unit/Ml Vial) 4,000 unit 40 unit/kg (4000 unit) IVPUSH PROTOCOL BOLUS PRN; Protocol PRN Reason: 40 unit/kg - Heparin Protocol Last Admin: 11/02/24 11:06 Dose: 4,000 unit Heparin Sodium (Porcine) (Heparin Sodium,Porcine 5,000 Unit/Ml Vial) 8,100 unit 80 unit/kg (8100 unit) IVPUSH PROTOCOL BOLUS PRN; Protocol PRN Reason: 80 unit/kg - Heparin Protocol Hydromorphone HCl (Hydromorphone Hcl 0.5 Mg/0.5 Ml Syringe) 0.25 mg IVPUSH Q3H PRN; Protocol PRN Reason: Pain, Moderate(Pain Scale 4-6) Last Admin: 11/01/24 09:09 Dose: 0.25 mg Acetaminophen (Ofirmev) 1,000 mg in 100 mls @ 16.7 mls/hr IV .Q6H [facility] Last Admin: 11/02/24 10:16 Dose: 16.7 mls/hr Thiamine HCl 100 mg/ Sodium (Chloride) 101 mls @ 202 mls/hr IV DAILY [facility] Last Infusion: 11/02/24 09:31 Dose: Infused Folic Acid 1 mg/ Sodium (Chloride) 50.2 mls @ 100.4 mls/hr IV DAILY [facility] Last Infusion: 11/02/24 08:54 Dose: Infused Heparin Sodium/Sodium Chloride (Heparin Sodium,Porcine/1/2ns) 25,000 unit in 250 mls @ 0 mls/hr IVCONT .Q0M [facility]; Protocol Last Titration: 11/02/24 11:10 Dose: 14 units/kg/hr, 14.14 mls/hr Potassium Chloride/Sodium Chloride (Kcl 20 Meq In 0.45% Sod) 20 meq in 1,000 mls @ 125 mls/hr IVCONT .Q8H [facility] Last Admin: 11/02/24 08:12 Dose: 125 mls/hr Metoclopramide HCl (Metoclopramide Hcl 10 Mg/2 Ml Vial) 10 mg IVPUSH Q6H PRN PRN Reason: Nausea no effect from zofran Last Admin: 10/31/24 22:36 Dose: 10 mg Metoprolol Tartrate (Metoprolol Tartrate 5 Mg/5 Ml Vial) 5 mg IVPUSH Q6H PRN PRN Reason: BP>140/90 Ondansetron HCl (Ondansetron Hcl 4 Mg/2 Ml Vial) 4 mg IVPUSH Q8H PRN PRN Reason: Nausea Last Admin: 10/31/24 19:49 Dose: 4 mg Pantoprazole Sodium (Pantoprazole Sodium 40 Mg/10 Ml Vial) 40 mg IVPUSH BID@0630,1630 [facility] Last Admin: 11/02/24 05:38 Dose: 40 mg Sodium Chloride (0.9 % Sodium Chloride Flush 3 Ml Syringe) 3 ml IVFLUSH QSHIFT [facility] Last Admin: 11/02/24 07:51 Dose: Not Given Home Medications ?Medication ?Instructions ?Recorded ?Confirmed ?Type atorvastatin 10 mg tablet 10 mg PO DAILY 07/10/24 10/31/24 History loratadine 10 mg tablet 10 mg PO DAILY 07/10/24 10/31/24 History losartan 50 mg tablet 25 mg PO DAILY PRN If BP >130 07/10/24 10/31/24 History amlodipine 5 mg tablet 2.5 - 5 mg PO DAILY 07/13/24 10/31/24 History acetaminophen 650 mg/20.3 mL oral 650 mg PO Q4H PRN Pain 10/31/24 10/31/24 History suspension multivitamin with iron 1 tab PO DAILY 10/31/24 10/31/24 History pantoprazole 40 mg tablet,delayed 40 mg PO DAILY@0630 10/31/24 10/31/24 History release Allergies Allergy/AdvReac Type Severity Reaction Status Date / Time latex Allergy Mild Itching Verified 10/31/24 07:51 oxycodone [From Percocet] Allergy Mild jittery Verified 10/31/24 07:51 Physical Exam Vital signs: Vital Signs Temp 97.1 F 11/02/24 07:44 Pulse 95 11/02/24 07:44 Resp 18 11/02/24 07:44 BP 112/73 11/02/24 07:44 Pulse Ox 99 11/02/24 07:44 O2 Del Method Room Air 11/02/24 07:44 Intake & Output 11/01/24 11/02/24 11/02/24 18:59 06:59 18:59 Intake Total 1432.597 / 3938.710 2506.113 / 3938.710 1331.798 / 1331.798 Output Total 1350 / 2400 1050 / 2400 Balance 82.597 / 2520.520 3287.113 / 1183.590 6070.798 / 1331.798 Urine Output (Average ml/kg/hr) 1.11 0.87 0.87 Intake: Intake, Oral Amount 240 / 240 Intake, IV Amount 1432.597 / 3698.710 2266.113 / 3698.710 1331.798 / 1331.798 Acetaminophen 1,000 mg In 100 200 / 400 200 / 400 100 / 100 ml @ 16.7 mls/hr IV .Q6H [facility] Rx #:[id number] Folic Acid 1 mg In 0.9 % Sodium 50.2 / 50.2 50.2 / 50.2 Chloride 50 ml @ 100.4 mls/hr IV DAILY [facility] Rx#:[id number] Thiamine HCL 100 mg In 0.9 % 101 / 101 101 / 101 Sodium Chloride 100 ml @ 202 mls/hr IV DAILY [facility] Rx#: [id number] Heparin Sodium,Porcine/1/2NS 25 81.397 / 232.510 151.113 / 232.510 80.598 / 80.598 ,000 unit In 250 ml @ Per Protocol IVCONT .Q0M [facility] Rx#: [id number] Lactated Ringers 1,000 ml @ 150 1000 / 2915 1915 / 2915 1000 / 1000 mls/hr IVCONT .Q6H40M [facility] Rx#: [id number] Output: Output, Urine Amount 1350 / 2400 1050 / 2400 Other: Meal Refused No NPO Yes Dinner % Eaten 75% Eating (Feeding) Ability Independent Urine Bathroom Bathroom Urine Color Yellow Yellow Weight 100.9 kg - Constitutional Present: no acute distress, obese - Routine HEENT Exam Head: Present: normal inspection Eye: Present: EOMI - Routine Neck Exam Absent: lymphadenopathy - Routine Respiratory Exam Present: CTAB. Absent: accessory muscle use - Routine Cardiovascular Exam Cardiovascular: Present: RRR, S1, S2 - Routine Extremities Exam Absent: tenderness Hem/Onc Consult Result - Labs CBC & Chem 7: 11/02/24 05:58 11/02/24 05:58 Labs: Short CBC 11/02/24 Range/Units 05:58 WBC 8.7 (4.8-10.8) X10*3/uL Hgb 10.4 L (12.0-16.0) g/dl Hct 30.3 L (37.0-47.0) % Plt Count 216 (160-400) X10*3/uL BMP 11/02/24 05:58 Sodium 144 Potassium 3.1 L D Chloride 111 H Carbon Dioxide 23 BUN 5 L Creatinine 0.59 Calcium 8.4 D Assessment and Plan Patient Active problem list reviewed?: Yes (1) Mesenteric vein thrombosis Status: Acute Assessment and plan: 1. This is a 43-year-old woman with history of protein S deficiency, spontaneous pulmonary embolism in 1998 who has developed extensive postoperative intra- abdominal thrombosis. As per history she was on anticoagulation with warfarin from 1998 until 2000. She was followed by chisel grinder at [facility] until 2000. She took herself off warfarin in 2001 after she delivered her 1st and only child. She did receive anticoagulation throughout her and in the period. She underwent uncomplicated laparoscopic gastric sleeve surgery/gastropexy on 10/17/2024. A week later, she developed symptoms of cramping abdominal pain that progressively worsened along with inability to eat. She did not receive thromboprophylaxis postoperatively. CT abdomen/pelvis with contrast performed 10/31/2024 showed thrombosis of the superior mesenteric vein, left portal vein in the posterior branch of right portal vein. Wall thickening of proximal jejunum and associated inflammatory stranding highly suspicious for ischemia. Small to moderate amount of fluid with a small amount of layering hemorrhage in the pelvis. She was started on heparin on 10/31/2024. The scan was repeated on 11/01/2024, was read as stable venous thrombosis with mild dilatation of affected jejunal loop, bowel wall thickening felt likely ischemic in nature rather than infection. No mention of any intra-abdominal hemorrhage. Hemoglobin dropped slightly, this could be dilutional. This is therefore thrombosis in the postoperative setting in a patient with underlying thrombophilia as per her report and prior spontaneous thromboembolism. I could not find records at [facility] going back to 1998. Clinically she is improving, her abdominal pain has resolved since she was started on anticoagulation. I would recommend warfarin for anticoagulation because of her BMI and insufficient data with newer oral anticoagulants such as Eliquis for patients with protein S deficiency. She could be switched to Eliquis after the acute phase of 3 months. I do recommend longer duration of anticoagulation. The duration can be determined after repeat imaging and possibly repeating thrombophilia workup. I will be happy to see her upon discharge. Thank you for the consultation. - Time Spent With Patient Time Spent with Patient (in minutes): 30 Additional Coding: - Additional E/M codes Complex E/M visit Add On: CPT G2211
[2024-11-02 12:00] VITALS: BP 117/77; PULSE 88; RESP 18; TEMP 36.3; O2SAT 100
[2024-11-02 15:25] VITALS: BP 124/74; PULSE 79; RESP 18; TEMP 36.9; O2SAT 99
[2024-11-02] MEDS: Heparin Sodium,Porcine/1/2NS 25,000 UNIT/250 ML IV.SOLN 12.12 UNIT IVCONT (15:43)
[2024-11-02 17:21] LABS: PTT Heparin Drip 98.8 SEC (53-77.9)
[2024-11-02 19:13] VITALS: BP 117/74; PULSE 74; RESP 18; TEMP 36.8; O2SAT 97
[2024-11-02 23:36] VITALS: BP 119/81; PULSE 79; RESP 16; TEMP 36.1; O2SAT 98
[2024-11-03] MEDS: Heparin Sodium,Porcine 5,000 UNIT/ML VIAL 4000 UNIT IVPUSH ×2 (00:07→13:25)
[2024-11-03 03:20] VITALS: BP 120/79; PULSE 80; RESP 16; TEMP 36.1; O2SAT 98
[2024-11-03] MEDS: Acetaminophen 1,000 MG/100 ML PIGGYBACK 16.7 MG IV ×4 (03:20→23:18)
[2024-11-03] MEDS: KCl 20 mEq in 0.45% Sod 20 MEQ/1,000 ML IV.SOLN 125 MEQ IVCONT ×3 (06:14→23:17)
[2024-11-03] MEDS: Pantoprazole Sodium 40 MG/10 ML VIAL IVPUSH ×2 (06:14→15:44)
[2024-11-03 06:16] LABS: MANUAL DIFF FLAG NO
[2024-11-03 06:20] LABS: Basophils Percent Auto 0.6 % (0-2); Eosinophils Absolute Auto 0.1 X10*3/uL (0.0-0.4); Eosinophils Percent Auto 1.9 % (0-4); Hematocrit 33.6 % (37.0-47.0); Hemoglobin 11.4 g/dl (12.0-16.0); Imm Gran Abs Auto 0.03 X10*3/uL (0.00-0.03); Imm Gran Pct Auto 0.4 % (0.0-0.4); Lymphocytes Absolute Auto 1.8 X10*3/uL (1.2-4.9); Lymphocytes Percent Auto 25.6 % (20-40); Mean Corpuscular HGB Conc 33.9 g/dl (31.0-35.0); Mean Corpuscular Hemoglobin 26.2 pg (27.0-33.0); Mean Corpuscular Volume 77.2 fL (80.0-98.0); Mean Platelet Volume 11.3 fL (9.4-12.3); Monocytes Absolute Auto 0.5 X10*3/uL (0.1-1.2); Monocytes Percent Auto 6.6 % (2-11); Neutrophils Absolute Auto 4.5 x10*3/uL (2.0-8.3); Neutrophils Percent Auto 64.9 % (45-73); Platelet Count 245 X10*3/uL (160-400); Red Blood Count 4.35 X10*6/uL (4.20-5.50); Red Cell Distribution Width 14.9 % (11.0-16.0); White Blood Count 6.9 X10*3/uL (4.8-10.8)
[2024-11-03] MEDS: Metoclopramide HCl 10 MG/2 ML VIAL IVPUSH (06:23)
[2024-11-03 06:30] LABS: PTT Heparin Drip 100.1 SEC (53-77.9)
[2024-11-03 06:37] LABS: Lactic Acid 0.6 mmol/L (0.5-2.0)
[2024-11-03 06:41] LABS: Anion Gap 15 (12-20); Blood Urea Nitrogen 6 mg/dL (9-16); Calcium 9.1 mg/dL (8.4-10.2); Carbon Dioxide 19 mmol/L (22-29); Chloride 110 mmol/L (96-108); Creatinine Clr Calc Pharmacy 136.8; Estimated Glomerular Filt Rate > 60; Glucose Random 68 mg/dL (60-115); Potassium 3.8 mmol/L (3.3-5.1); Sodium 140 mmol/L (135-145)
--- NOTE | 2024-11-03 06:42 | PC.NURSE ---
Pt on Heparin drip at 9 units/kg/hr. PTT at 2300 drawn and result came at 12mn=49, Heparin increased to 11 units/kg/hr and bolus of 40units given. PTT at 0600 taken with result came at 0636= 100.1, Heparin drip paused at 0637, will restart at 0737 at 8 units/kg/hr. No apparent bleed noted so far.
[2024-11-03 08:07] VITALS: BP 111/75; PULSE 83; RESP 18; TEMP 36.6; O2SAT 100
[2024-11-03] MEDS: 0.9 % Sodium Chloride Flush 3 ML SYRINGE IVFLUSH ×2 (08:09→15:48)
[2024-11-03] MEDS: Thiamine HCL 100 MG in 0.9 % Sodium Chloride 100 ML 202 MG IV (09:08)
[2024-11-03] MEDS: Folic Acid 1 MG in 0.9 % Sodium Chloride 50 ML 100.4 MG IV (10:00)
--- NOTE | 2024-11-03 11:04 | P.PNGS_ITS ---
Subjective Subjective Date of Service: 11/03/24 Interval history: No overnight events. Pt reports mild nausea and cramping earlier this morning. Given Reglan which helped. No pain currently. Would like to try protein shakes. Voiding, passing flatus, + loose BM yesterday. Ambulated twice yesterday, plans to walk again today when her partner arrives. She reports that she spoke to Dr. Damon yesterday and is agreeable to moving forward with the discussed procedure. Physical Exam 2 Vital Signs: Vital Signs: Last Vital Signs Temp 97.8 F 11/03/24 08:07 Pulse 83 11/03/24 08:07 Resp 18 11/03/24 08:07 BP 111/75 11/03/24 08:07 Pulse Ox 100 11/03/24 08:07 O2 Del Method Room Air 11/03/24 08:07 BMI result Body Mass Index 38.2 Const: General: cooperative, comfortable and no acute distress O rientation/consciousness: patient oriented x3 GI: Other: soft, minimal tenderness at center incision without rebound/guarding, nondistended, incisions healing well Neuro: General: patient oriented x3 Objective Data Active Medications Heparin Sodium (Porcine) (Heparin Sodium,Porcine 5,000 Unit/Ml Vial) 4,000 unit 40 unit/kg (4000 unit) IVPUSH PROTOCOL BOLUS PRN; Protocol PRN Reason: 40 unit/kg - Heparin Protocol Last Admin: 11/03/24 00:07 Dose: 4,000 unit Documented By: KEVIN Heparin Sodium (Porcine) (Heparin Sodium,Porcine 5,000 Unit/Ml Vial) 8,100 unit 80 unit/kg (8100 unit) IVPUSH PROTOCOL BOLUS PRN; Protocol PRN Reason: 80 unit/kg - Heparin Protocol Hydromorphone HCl (Hydromorphone Hcl 0.5 Mg/0.5 Ml Syringe) 0.25 mg IVPUSH Q3H PRN; Protocol PRN Reason: Pain, Moderate(Pain Scale 4-6) Last Admin: 11/01/24 09:09 Dose: 0.25 mg Documented By: GRAZIC Acetaminophen (Ofirmev) 1,000 mg in 100 mls @ 16.7 mls/hr IV .Q6H [facility] Last Infusion: 11/03/24 11:04 Dose: 16.7 mls/hr Documented By: HO.MOHAMER Thiamine HCl 100 mg/ Sodium (Chloride) 101 mls @ 202 mls/hr IV DAILY [facility] Last Infusion: 11/03/24 09:55 Dose: Infused Documented By: ANA LILIA Folic Acid 1 mg/ Sodium (Chloride) 50.2 mls @ 100.4 mls/hr IV DAILY [facility] Last Infusion: 11/03/24 10:37 Dose: Infused Documented By: ANA LILIA Heparin Sodium/Sodium Chloride (Heparin Sodium,Porcine/1/2ns) 25,000 unit in 250 mls @ 0 mls/hr IVCONT .Q0M [facility]; Protocol Last Titration: 11/03/24 07:37 Dose: 8 units/kg/hr, 8.08 mls/hr Documented By: ANA LILIA Co-signed By: ANGELA Potassium Chloride/Sodium Chloride (Kcl 20 Meq In 0.45% Sod) 20 meq in 1,000 mls @ 125 mls/hr IVCONT .Q8H [facility] Last Infusion: 11/03/24 10:02 Dose: 0 mls/hr Documented By: ANA LILIA Metoclopramide HCl (Metoclopramide Hcl 10 Mg/2 Ml Vial) 10 mg IVPUSH Q6H PRN PRN Reason: Nausea no effect from zofran Last Admin: 11/03/24 06:23 Dose: 10 mg Documented By: KEVIN Metoprolol Tartrate (Metoprolol Tartrate 5 Mg/5 Ml Vial) 5 mg IVPUSH Q6H PRN PRN Reason: BP>140/90 Ondansetron HCl (Ondansetron Hcl 4 Mg/2 Ml Vial) 4 mg IVPUSH Q8H PRN PRN Reason: Nausea Last Admin: 10/31/24 19:49 Dose: 4 mg Documented By: KELSIE Pantoprazole Sodium (Pantoprazole Sodium 40 Mg/10 Ml Vial) 40 mg IVPUSH BID@0630,1630 [facility] Last Admin: 11/03/24 06:14 Dose: 40 mg Documented By: KEVIN Sodium Chloride (0.9 % Sodium Chloride Flush 3 Ml Syringe) 3 ml IVFLUSH QSHIFT [facility] Last Admin: 11/03/24 08:09 Dose: 3 ml Documented By: ANA LILIA Labs 11/03/24 06:10 11/03/24 06:10 Labs: Laboratory Results - last 24 hr 11/02/24 11/02/24 11/03/24 17:03 23:10 06:10 MCV 77.2 L MCH 26.2 L MCHC 33.9 RDW 14.9 Plt Count 245 MPV 11.3 Immature Gran % (Auto) 0.4 Neut % (Auto) 64.9 Lymph % (Auto) 25.6 [place] % (Auto) 6.6 Eos % (Auto) 1.9 Baso % (Auto) 0.6 Lymph # (Auto) 1.8 [place] # (Auto) 0.5 Eos # (Auto) 0.1 Baso # (Auto) 0.0 Abs Immat Gran (auto) 0.03 Absolute Neuts (auto) 4.5 Absolute Nucleated RBC 0.000 Nucleated RBC % (auto) 0.0 aPTT Heparin Protocol 98.8 H D 49.0 L D 100.1 H D Anion Gap 15 Estim Creat Clear Calc 136.8 Estimated GFR > 60 Random Glucose 68 Lactic Acid 0.6 Calcium 9.1 D Microbiology Microbiology Results: Microbiology 10/31/24 10:37 Blood Culture - Preliminary Blood - Venous No growth after 48 hours. 10/31/24 10:37 Blood Culture - Preliminary Blood - Venous No growth after 48 hours. 10/31/24 Unknown Urine Culture - Final Urine clean catch - Clean Catch Midstream Escherichia coli Procedures Date of Service Date of Service: 11/03/24 Progress Note: A&P Assessment and plan (1) Portal vein thrombosis: Status: Acute (2) Mesenteric vein thrombosis: Status: Acute (3) S/P laparoscopic sleeve gastrectomy: Status: Acute (4) Protein S deficiency: Status: Acute Plan Labs reviewed, lactate remains WNL, VSS. Start bariatric stage 2 diet. Pt knows to follow pace of drinking at 2ml/min using syringe. CT scan tomorrow afternoon to reevaluate thrombosis prior to procedure. Will contact radiology regarding when procedure will be scheduled so we can stop heparin gtt prior to procedure. Continue to follow CBC, lytes, lactate. Discussed with Dr. Castellanos. Time Spent With Patient Time: Total time managing care of this patient today __30__ minutes. Quality Stroke Does the patient have a stroke diagnosis?: No VTE Prior VTE?: No VTE Risk Level:: Surgical - high VTE Device Contraindication: N/A - Device Ordered VTE Drug Contraindication: N/A - Med Ordered
[2024-11-03 12:00] VITALS: BP 123/97; PULSE 95; RESP 18; TEMP 36.3; O2SAT 95
[2024-11-03 13:01] LABS: PTT Heparin Drip 41.8 SEC (53-77.9)
[2024-11-03 14:32] VITALS: BP 132/80; PULSE 71; RESP 18; TEMP 36.1; O2SAT 100
[2024-11-03] MEDS: Heparin Sodium,Porcine/1/2NS 25,000 UNIT/250 ML IV.SOLN 10.1 UNIT IVCONT (15:50)
[2024-11-03 18:00] VITALS: BP 110/73; PULSE 85; RESP 18; TEMP 36.6; O2SAT 98
[2024-11-03 20:02] LABS: PTT Heparin Drip 73.5 SEC (53-77.9)
[2024-11-03 23:30] VITALS: BP 126/70; PULSE 73; RESP 16; TEMP 36.3; O2SAT 98
[2024-11-04 01:35] LABS: PTT Heparin Drip 67.9 SEC (53-77.9)
[2024-11-04 03:00] VITALS: BP 128/75; PULSE 77; RESP 16; TEMP 36.2; O2SAT 95
[2024-11-04] MEDS: Acetaminophen 1,000 MG/100 ML PIGGYBACK 16.7 MG IV ×4 (05:13→23:57)
[2024-11-04 05:45] LABS: MANUAL DIFF FLAG NO
[2024-11-04 05:46] LABS: Basophils Percent Auto 0.5 % (0-2); Eosinophils Absolute Auto 0.1 X10*3/uL (0.0-0.4); Eosinophils Percent Auto 2.2 % (0-4); Hemoglobin 10.7 g/dl (12.0-16.0); Imm Gran Abs Auto 0.01 X10*3/uL (0.00-0.03); Imm Gran Pct Auto 0.2 % (0.0-0.4); Lymphocytes Absolute Auto 1.4 X10*3/uL (1.2-4.9); Lymphocytes Percent Auto 23.6 % (20-40); Mean Corpuscular HGB Conc 34.5 g/dl (31.0-35.0); Mean Corpuscular Hemoglobin 26.5 pg (27.0-33.0); Mean Corpuscular Volume 76.7 fL (80.0-98.0); Mean Platelet Volume 10.7 fL (9.4-12.3); Monocytes Absolute Auto 0.7 X10*3/uL (0.1-1.2); Monocytes Percent Auto 11.1 % (2-11); Neutrophils Absolute Auto 3.8 x10*3/uL (2.0-8.3); Neutrophils Percent Auto 62.4 % (45-73); Platelet Count 237 X10*3/uL (160-400); Red Blood Count 4.04 X10*6/uL (4.20-5.50); Red Cell Distribution Width 14.9 % (11.0-16.0)
[2024-11-04 06:00] LABS: Lactic Acid 0.5 mmol/L (0.5-2.0)
[2024-11-04 06:03] LABS: Anion Gap 15 (12-20); Blood Urea Nitrogen 6 mg/dL (9-16); Calcium 8.7 mg/dL (8.4-10.2); Carbon Dioxide 17 mmol/L (22-29); Chloride 111 mmol/L (96-108); Creatinine Clr Calc Pharmacy 132.3; Estimated Glomerular Filt Rate > 60; Glucose Random 66 mg/dL (60-115); Potassium 3.7 mmol/L (3.3-5.1); Sodium 139 mmol/L (135-145)
--- NOTE | 2024-11-04 06:07 | PC.NURSE ---
Pt maintained on Heparin drip at 10 units/kg/hr, PTT within TR x2, no bleed noted
[2024-11-04 08:36] VITALS: BP 125/81; PULSE 88; RESP 18; TEMP 36.5; O2SAT 98
[2024-11-04] MEDS: 0.9 % Sodium Chloride Flush 3 ML SYRINGE IVFLUSH (08:36)
[2024-11-04] MEDS: Thiamine HCL 100 MG in 0.9 % Sodium Chloride 100 ML 202 MG IV (08:38)
[2024-11-04] MEDS: Folic Acid 1 MG in 0.9 % Sodium Chloride 50 ML 100.4 MG IV (09:31)
[2024-11-04 12:11] VITALS: BP 116/65; PULSE 77; RESP 16; TEMP 36.1; O2SAT 97
[2024-11-04] MEDS: KCl 20 mEq in 0.45% Sod 20 MEQ/1,000 ML IV.SOLN 125 MEQ IVCONT ×2 (13:05→21:22)
--- NOTE | 2024-11-04 13:14 | P.PNGS_ITS ---
Subjective Subjective Date of Service: 11/04/24 Interval history: Last night pt reported feeling an air bubble in her chest during ambulation. CXR ordered and encouraged to use her IS. Upon discussion about this pt notes it occurred soon after she started to take in protein shakes. She feels better this morning. Denies abdominal pain, no nausea but no appetite/thirst and has taken in only about 1oz water. Using Premier shakes but does not care for them much. Passing flatus, voiding. Physical Exam 2 Vital Signs: Vital Signs: Last Vital Signs Temp 96.9 F 11/04/24 12:11 Pulse 77 11/04/24 12:11 Resp 16 11/04/24 12:11 BP 116/65 11/04/24 12:11 Pulse Ox 97 11/04/24 12:11 O2 Del Method Room Air 11/04/24 12:11 BMI result Body Mass Index 38.2 Const: General: cooperative, comfortable and no acute distress O rientation/consciousness: patient oriented x3 GI: Other: soft, minimal tenderness in epigastrium without rebound/guarding, nondistended, incisions healing well Neuro: General: patient oriented x3 Objective Data Active Medications Heparin Sodium (Porcine) (Heparin Sodium,Porcine 5,000 Unit/Ml Vial) 4,000 unit 40 unit/kg (4000 unit) IVPUSH PROTOCOL BOLUS PRN; Protocol PRN Reason: 40 unit/kg - Heparin Protocol Last Admin: 11/03/24 13:25 Dose: 4,000 unit Documented By: ANA LILIA Heparin Sodium (Porcine) (Heparin Sodium,Porcine 5,000 Unit/Ml Vial) 8,100 unit 80 unit/kg (8100 unit) IVPUSH PROTOCOL BOLUS PRN; Protocol PRN Reason: 80 unit/kg - Heparin Protocol Hydromorphone HCl (Hydromorphone Hcl 0.5 Mg/0.5 Ml Syringe) 0.25 mg IVPUSH Q3H PRN; Protocol PRN Reason: Pain, Moderate(Pain Scale 4-6) Last Admin: 11/01/24 09:09 Dose: 0.25 mg Documented By: KHANH Thiamine HCl 100 mg/ Sodium (Chloride) 101 mls @ 202 mls/hr IV DAILY [facility] Last Infusion: 11/04/24 09:25 Dose: Infused Documented By: ANA LILIA Folic Acid 1 mg/ Sodium (Chloride) 50.2 mls @ 100.4 mls/hr IV DAILY [facility] Last Infusion: 11/04/24 10:09 Dose: Infused Documented By: ANA LILIA Heparin Sodium/Sodium Chloride (Heparin Sodium,Porcine/1/2ns) 25,000 unit in 250 mls @ 0 mls/hr IVCONT .Q0M [facility]; Protocol Last Titration: 11/04/24 01:42 Dose: 10 units/kg/hr, 10.1 mls/hr Documented By: KEVIN Co-signed By: AGNIESZKA Acetaminophen (Ofirmev) 1,000 mg in 100 mls @ 16.7 mls/hr IV .Q6H [facility] Last Admin: 11/04/24 12:49 Dose: 16.7 mls/hr Documented By: ANA LILIA Potassium Chloride/Sodium Chloride (Kcl 20 Meq In 0.45% Sod) 20 meq in 1,000 mls @ 125 mls/hr IVCONT .Q8H [facility] Last Admin: 11/04/24 13:05 Dose: 125 mls/hr Documented By: ANA LILIA Metoclopramide HCl (Metoclopramide Hcl 10 Mg/2 Ml Vial) 10 mg IVPUSH Q6H PRN PRN Reason: Nausea no effect from zofran Last Admin: 11/03/24 06:23 Dose: 10 mg Documented By: KEVIN Metoprolol Tartrate (Metoprolol Tartrate 5 Mg/5 Ml Vial) 5 mg IVPUSH Q6H PRN PRN Reason: BP>140/90 Ondansetron HCl (Ondansetron Hcl 4 Mg/2 Ml Vial) 4 mg IVPUSH Q8H PRN PRN Reason: Nausea Last Admin: 10/31/24 19:49 Dose: 4 mg Documented By: KELSIE Sodium Chloride (0.9 % Sodium Chloride Flush 3 Ml Syringe) 3 ml IVFLUSH QSHIFT [facility] Last Admin: 11/04/24 08:36 Dose: 3 ml Documented By: ANA LILIA Labs 11/04/24 05:40 11/04/24 05:40 Labs: Laboratory Results - last 24 hr 11/03/24 11/04/24 11/04/24 19:40 01:14 05:40 MCV 76.7 L MCH 26.5 L MCHC 34.5 RDW 14.9 Plt Count 237 MPV 10.7 Immature Gran % (Auto) 0.2 Neut % (Auto) 62.4 Lymph % (Auto) 23.6 [place] % (Auto) 11.1 H Eos % (Auto) 2.2 Baso % (Auto) 0.5 Lymph # (Auto) 1.4 [place] # (Auto) 0.7 Eos # (Auto) 0.1 Baso # (Auto) 0.0 Abs Immat Gran (auto) 0.01 Absolute Neuts (auto) 3.8 Absolute Nucleated RBC 0.000 Nucleated RBC % (auto) 0.0 aPTT Heparin Protocol 73.5 D 67.9 Anion Gap 15 Estim Creat Clear Calc 132.3 Estimated GFR > 60 Random Glucose 66 Lactic Acid 0.5 Calcium 8.7 Procedures Date of Service Date of Service: 11/04/24 Progress Note: A&P Assessment and plan (1) Mesenteric vein thrombosis: Status: Acute (2) Portal vein thrombosis: Status: Acute (3) S/P laparoscopic sleeve gastrectomy: Status: Acute (4) Protein S deficiency: Status: Acute Plan Labs reviewed, lactate remains WNL, VSS. Continue bariatric stage 2 diet with pace of drinking at 2ml/min using syringe. Will try Ensure Clear option. CT scan today afternoon to reevaluate thrombosis prior to procedure. Per pt, Dr. Damon would like to evaluate repeat scan to determine whether to proceed tomorrow. Will contact radiology regarding when procedure will be scheduled so we can stop heparin gtt prior to procedure. Continue to follow CBC, lytes, lactate. Will follow up with radiology tomorrow re: pt's finding of right middle lobe lung scarring on CXR- image appears similar compared to preop CXR. Discussed with Dr. Castellanos. Time Spent With Patient Time: Total time managing care of this patient today __30__ minutes. Quality Stroke Does the patient have a stroke diagnosis?: No VTE Prior VTE?: No VTE Risk Level:: Surgical - high VTE Device Contraindication: N/A - Device Ordered VTE Drug Contraindication: N/A - Med Ordered
[2024-11-04] MEDS: iohexoL 350 MG/ML 100 ML INFUS..BTL 85 ML IV (14:41)
[2024-11-04 15:07] LABS: Appearance Urine Clear; Color Urine Yellow; Glucose Urine UA Negative (Negative); Leukocyte Esterase Urine Small (1+) (Negative); Nitrite Urine Negative (Negative); Specific Gravity - Urine 1.015 (1.005-1.025); UMIC TRIGGER UACC YES; Urine Blood Negative (Negative); Urine Ketones 80 mg/dL (Negative); Urine Protein Negative (Neg-Trace)
[2024-11-04 15:10] LABS: Bacteria Urine Trace (None Seen); Hyaline Casts Urine 0-2 /LPF (0-2); RBC Urine 0-2 /HPF (0-2); UACC Culture Trigger YES
[2024-11-04 16:00] VITALS: BP 129/85; PULSE 66; RESP 12; TEMP 36.7; O2SAT 99
[2024-11-04] MEDS: Heparin Sodium,Porcine/1/2NS 25,000 UNIT/250 ML IV.SOLN 10.1 UNIT IVCONT (16:08)
--- NOTE | 2024-11-04 19:26 | PC.NURSE ---
Pt. maintained on Heparin drip at 10units/kg/hr, no bleeding noted or reported. This Nurse reached out to the bariatric team if the Heparin drip should be stopped at any point pending possible procedure tomorrow, Per Bariatric team providers, will review the study in the morning and make a decision.
[2024-11-04 20:00] VITALS: BP 121/75; PULSE 69; RESP 12; TEMP 36.6; O2SAT 99
[2024-11-04 23:41] VITALS: BP 124/77; PULSE 65; RESP 16; TEMP 36.3; O2SAT 97
[2024-11-05 04:00] VITALS: BP 120/71; PULSE 62; RESP 16; TEMP 36.3; O2SAT 98
[2024-11-05] MEDS: KCl 20 mEq in 0.45% Sod 20 MEQ/1,000 ML IV.SOLN 125 MEQ IVCONT ×3 (05:27→22:54)
[2024-11-05] MEDS: Acetaminophen 1,000 MG/100 ML PIGGYBACK 16.7 MG IV ×3 (05:28→19:27)
[2024-11-05 06:14] LABS: Hematocrit 32.2 % (37.0-47.0); Hemoglobin 11.3 g/dl (12.0-16.0); Mean Corpuscular HGB Conc 35.1 g/dl (31.0-35.0); Mean Corpuscular Hemoglobin 26.8 pg (27.0-33.0); Mean Corpuscular Volume 76.3 fL (80.0-98.0); Mean Platelet Volume 11.1 fL (9.4-12.3); Platelet Count 261 X10*3/uL (160-400); Red Blood Count 4.22 X10*6/uL (4.20-5.50); White Blood Count 5.8 X10*3/uL (4.8-10.8)
[2024-11-05 06:29] LABS: Anion Gap 16 (12-20); Blood Urea Nitrogen 5 mg/dL (9-16); Calcium 8.8 mg/dL (8.4-10.2); Carbon Dioxide 18 mmol/L (22-29); Chloride 109 mmol/L (96-108); Creatinine Clr Calc Pharmacy 141.4; Estimated Glomerular Filt Rate > 60; Glucose Random 66 mg/dL (60-115); Sodium 139 mmol/L (135-145)
[2024-11-05 06:30] LABS: Lactic Acid 0.5 mmol/L (0.5-2.0)
[2024-11-05 06:32] LABS: PTT Heparin Drip 64.2 SEC (53-77.9)
--- NOTE | 2024-11-05 07:55 | P.PNGS_ITS ---
Subjective Subjective Date of Service: 11/05/24 Interval history: Feels well but did not like the Premier or the Ensure Plusn shakes. Has not been drinking adequate amount of fluids orally repeat CT yesterday showed some reduction of the blood clot and improvement of the appearance of the proximal jejunum that was mildly thickened before. Physical Exam 2 Vital Signs: Vital Signs: Last Vital Signs Temp 97.4 F 11/05/24 04:00 Pulse 62 11/05/24 04:00 Resp 16 11/05/24 04:00 BP 120/71 11/05/24 04:00 Pulse Ox 98 11/05/24 04:00 O2 Del Method Room Air 11/05/24 04:00 BMI result Body Mass Index 38.2 GI: Inspection: Yes normal to inspection and Yes incision (well healed) P alpation (GI): Soft to palpation and Tenderness to palpation present (GI) (less tender than before) Extrem: Right lower extremity: normal to inspection (no calf tenderness) L eft lower extremity: normal to inspection (no calf tenderness) Objective Data Active Medications Heparin Sodium (Porcine) (Heparin Sodium,Porcine 5,000 Unit/Ml Vial) 4,000 unit 40 unit/kg (4000 unit) IVPUSH PROTOCOL BOLUS PRN; Protocol PRN Reason: 40 unit/kg - Heparin Protocol Last Admin: 11/03/24 13:25 Dose: 4,000 unit Documented By: ANA LILIA Heparin Sodium (Porcine) (Heparin Sodium,Porcine 5,000 Unit/Ml Vial) 8,100 unit 80 unit/kg (8100 unit) IVPUSH PROTOCOL BOLUS PRN; Protocol PRN Reason: 80 unit/kg - Heparin Protocol Hydromorphone HCl (Hydromorphone Hcl 0.5 Mg/0.5 Ml Syringe) 0.25 mg IVPUSH Q3H PRN; Protocol PRN Reason: Pain, Moderate(Pain Scale 4-6) Last Admin: 11/01/24 09:09 Dose: 0.25 mg Documented By: KHANH Thiamine HCl 100 mg/ Sodium (Chloride) 101 mls @ 202 mls/hr IV DAILY [facility] Last Infusion: 11/04/24 09:25 Dose: Infused Documented By: ANA LILIA Folic Acid 1 mg/ Sodium (Chloride) 50.2 mls @ 100.4 mls/hr IV DAILY [facility] Last Infusion: 11/04/24 10:09 Dose: Infused Documented By: ANA LILIA Heparin Sodium/Sodium Chloride (Heparin Sodium,Porcine/1/2ns) 25,000 unit in 250 mls @ 0 mls/hr IVCONT .Q0M [facility]; Protocol Last Titration: 11/05/24 07:03 Dose: 10 units/kg/hr, 10.1 mls/hr Documented By: ROBYAC Co-signed By: KEVIN Acetaminophen (Ofirmev) 1,000 mg in 100 mls @ 16.7 mls/hr IV .Q6H [facility] Last Admin: 11/05/24 05:28 Dose: 16.7 mls/hr Documented By: KEVIN Potassium Chloride/Sodium Chloride (Kcl 20 Meq In 0.45% Sod) 20 meq in 1,000 mls @ 125 mls/hr IVCONT .Q8H [facility] Last Admin: 11/05/24 05:27 Dose: 125 mls/hr Documented By: KEVIN Metoclopramide HCl (Metoclopramide Hcl 10 Mg/2 Ml Vial) 10 mg IVPUSH Q6H PRN PRN Reason: Nausea no effect from zofran Last Admin: 11/03/24 06:23 Dose: 10 mg Documented By: KEVIN Metoprolol Tartrate (Metoprolol Tartrate 5 Mg/5 Ml Vial) 5 mg IVPUSH Q6H PRN PRN Reason: BP>140/90 Ondansetron HCl (Ondansetron Hcl 4 Mg/2 Ml Vial) 4 mg IVPUSH Q8H PRN PRN Reason: Nausea Last Admin: 10/31/24 19:49 Dose: 4 mg Documented By: KELSIE Sodium Chloride (0.9 % Sodium Chloride Flush 3 Ml Syringe) 3 ml IVFLUSH QSHIFT [facility] Last Admin: 11/05/24 00:14 Dose: Not Given Documented By: KEVIN Non-Admin Reason: IV Running Labs 11/05/24 06:05 11/05/24 06:05 Labs: Laboratory Results - last 24 hr 11/04/24 11/05/24 14:55 06:05 MCV 76.3 L MCH 26.8 L MCHC 35.1 H RDW 15.0 Plt Count 261 MPV 11.1 Absolute Nucleated RBC 0.000 Nucleated RBC % (auto) 0.0 aPTT Heparin Protocol 64.2 Anion Gap 16 Estim Creat Clear Calc 141.4 Estimated GFR > 60 Random Glucose 66 Lactic Acid 0.5 Calcium 8.8 Urine Color Yellow Urine Appearance Clear Urine pH 6.0 Ur Specific [place] 1.015 Urine Protein Negative Urine Glucose (UA) Negative Urine Ketones 80 Urine Blood Negative Urine Nitrite Negative Ur Leukocyte Esterase Small (1+) H Urine RBC 0-2 Urine WBC 11-20 H Ur Squamous Epith Cells 6-10 Urine Bacteria Trace Hyaline Casts 0-2 Procedures Date of Service Date of Service: 11/05/24 Progress Note: A&P Assessment and plan (1) Mesenteric vein thrombosis: Status: Acute Assessment and Plan: 1. Continue IV heparin 2. Will try protein bars and Celebrate protein water. As I told the patient she should be able to drink 40oz of fluids per day and at least 40-50gr of protein per day before she gets discharged 3. We are waiting for IR decision regarding need for thrombolysis Time Spent With Patient Time: Total time managing care of this patient today ____ minutes. Quality Stroke Does the patient have a stroke diagnosis?: No VTE Prior VTE?: No VTE Risk Level:: Surgical - high VTE Device Contraindication: N/A - Device Ordered VTE Drug Contraindication: N/A - Med Ordered
[2024-11-05 08:00] VITALS: BP 119/80; PULSE 89; RESP 18; TEMP 36.2; O2SAT 98
[2024-11-05] MEDS: Thiamine HCL 100 MG in 0.9 % Sodium Chloride 100 ML 202 MG IV (09:07)
[2024-11-05] MEDS: Folic Acid 1 MG in 0.9 % Sodium Chloride 50 ML 100.4 MG IV (09:46)
[2024-11-05 12:09] VITALS: BP 110/73; PULSE 91; RESP 18; TEMP 36.5; O2SAT 97
[2024-11-05] MEDS: Heparin Sodium,Porcine/1/2NS 25,000 UNIT/250 ML IV.SOLN 10.1 UNIT IVCONT (14:13)
--- NOTE | 2024-11-05 15:25 | MHC.CM.PN ---
PER PROGRESS NOTE, PT IS NOT MEDICALLY CLEAR DCP REMAINS HOME VIA PRIVATE TRANSPORT
[2024-11-05 16:01] VITALS: BP 114/70; PULSE 77; RESP 18; TEMP 36.1; O2SAT 98
[2024-11-05] MEDS: Warfarin Sodium 5 MG TABLET PO (17:19)
[2024-11-05 19:48] VITALS: BP 131/81; PULSE 70; RESP 18; TEMP 36.6; O2SAT 99
[2024-11-05] MEDS: 0.9 % Sodium Chloride Flush 3 ML SYRINGE IVFLUSH (22:59)
[2024-11-05 23:39] VITALS: BP 118/70; PULSE 79; RESP 18; TEMP 36.3; O2SAT 95
[2024-11-06] MEDS: Acetaminophen 1,000 MG/100 ML PIGGYBACK 16.7 MG IV ×4 (01:31→20:47)
[2024-11-06 04:00] VITALS: BP 125/80; PULSE 57; RESP 18; TEMP 36.6; O2SAT 98
[2024-11-06 05:48] LABS: Basophils Percent Auto 0.4 % (0-2); Eosinophils Absolute Auto 0.1 X10*3/uL (0.0-0.4); Eosinophils Percent Auto 2.3 % (0-4); Hematocrit 32.6 % (37.0-47.0); Hemoglobin 11.2 g/dl (12.0-16.0); Imm Gran Abs Auto 0.02 X10*3/uL (0.00-0.03); Imm Gran Pct Auto 0.4 % (0.0-0.4); Lymphocytes Absolute Auto 1.6 X10*3/uL (1.2-4.9); Lymphocytes Percent Auto 29.2 % (20-40); MANUAL DIFF FLAG NO; Mean Corpuscular HGB Conc 34.4 g/dl (31.0-35.0); Mean Corpuscular Hemoglobin 26.4 pg (27.0-33.0); Mean Corpuscular Volume 76.7 fL (80.0-98.0); Mean Platelet Volume 10.9 fL (9.4-12.3); Monocytes Absolute Auto 0.6 X10*3/uL (0.1-1.2); Monocytes Percent Auto 10.6 % (2-11); Neutrophils Absolute Auto 3.2 x10*3/uL (2.0-8.3); Neutrophils Percent Auto 57.1 % (45-73); Platelet Count 279 X10*3/uL (160-400); Red Blood Count 4.25 X10*6/uL (4.20-5.50); White Blood Count 5.6 X10*3/uL (4.8-10.8)
[2024-11-06 05:53] LABS: INTERNATIONAL NORM RATIO 1.6 (0.9-1.1)
[2024-11-06 05:57] LABS: Lactic Acid 0.5 mmol/L (0.5-2.0)
[2024-11-06 05:58] LABS: Alanine Aminotransferase 297 U/L (0-31); Albumin Level 3.4 g/dL (3.5-5.0); Alkaline Phosphatase 93 U/L (39-117); Anion Gap 15 (12-20); Aspartate Amino Transferase 222 U/L (5-31); Bilirubin Total 0.4 mg/dL (0.0-1.0); Blood Urea Nitrogen 6 mg/dL (9-16); Calcium 8.9 mg/dL (8.4-10.2); Carbon Dioxide 18 mmol/L (22-29); Chloride 110 mmol/L (96-108); Creatinine Clr Calc Pharmacy 134.5; Estimated Glomerular Filt Rate > 60; Glucose Random 67 mg/dL (60-115); Potassium 3.9 mmol/L (3.3-5.1); Sodium 139 mmol/L (135-145); Total Protein 6.3 g/dL (6.5-8.0)
[2024-11-06] MEDS: KCl 20 mEq in 0.45% Sod 20 MEQ/1,000 ML IV.SOLN 125 MEQ IVCONT ×3 (06:37→22:02)
[2024-11-06 06:53] LABS: PTT Heparin Drip 76.5 SEC (53-77.9)
--- NOTE | 2024-11-06 07:44 | P.PNGS_ITS ---
Subjective Subjective Date of Service: 11/06/24 Interval history: Feels well. No pain. IR decided not to proceed with thrombolysis since the last CT was improved. Physical Exam 2 Vital Signs: Vital Signs: Last Vital Signs Temp 97.8 F 11/06/24 04:00 Pulse 57 11/06/24 04:00 Resp 18 11/06/24 04:00 BP 125/80 11/06/24 04:00 Pulse Ox 98 11/06/24 04:00 O2 Del Method Room Air 11/06/24 04:00 BMI result Body Mass Index 38.2 GI: Inspection: Yes normal to inspection Palpation (GI): Soft to palpation and Tenderness to palpation present (GI) (mild epigastric tenderness) Extrem: Right lower extremity: normal to inspection (no calf tenderness) L eft lower extremity: normal to inspection (no calf tenderness) Objective Data Active Medications Heparin Sodium (Porcine) (Heparin Sodium,Porcine 5,000 Unit/Ml Vial) 4,000 unit 40 unit/kg (4000 unit) IVPUSH PROTOCOL BOLUS PRN; Protocol PRN Reason: 40 unit/kg - Heparin Protocol Last Admin: 11/03/24 13:25 Dose: 4,000 unit Documented By: ANA LILIA Heparin Sodium (Porcine) (Heparin Sodium,Porcine 5,000 Unit/Ml Vial) 8,100 unit 80 unit/kg (8100 unit) IVPUSH PROTOCOL BOLUS PRN; Protocol PRN Reason: 80 unit/kg - Heparin Protocol Thiamine HCl 100 mg/ Sodium (Chloride) 101 mls @ 202 mls/hr IV DAILY [facility] Last Infusion: 11/05/24 10:08 Dose: Infused Documented By: JOSE Folic Acid 1 mg/ Sodium (Chloride) 50.2 mls @ 100.4 mls/hr IV DAILY [facility] Last Infusion: 11/05/24 10:42 Dose: Infused Documented By: JOSE Heparin Sodium/Sodium Chloride (Heparin Sodium,Porcine/1/2ns) 25,000 unit in 250 mls @ 0 mls/hr IVCONT .Q0M [facility]; Protocol Last Admin: 11/05/24 14:13 Dose: 10 units/kg/hr, 10.1 mls/hr Documented By: JOSE Co-signed By: CAREY Acetaminophen (Ofirmev) 1,000 mg in 100 mls @ 16.7 mls/hr IV .Q6H [facility] Last Admin: 11/06/24 01:31 Dose: 16.7 mls/hr Documented By: BARBARA Potassium Chloride/Sodium Chloride (Kcl 20 Meq In 0.45% Sod) 20 meq in 1,000 mls @ 125 mls/hr IVCONT .Q8H [facility] Last Admin: 11/06/24 06:37 Dose: 125 mls/hr Documented By: BARBARA Metoclopramide HCl (Metoclopramide Hcl 10 Mg/2 Ml Vial) 10 mg IVPUSH Q6H PRN PRN Reason: Nausea no effect from zofran Last Admin: 11/03/24 06:23 Dose: 10 mg Documented By: CASTILM Metoprolol Tartrate (Metoprolol Tartrate 5 Mg/5 Ml Vial) 5 mg IVPUSH Q6H PRN PRN Reason: BP>140/90 Ondansetron HCl (Ondansetron Hcl 4 Mg/2 Ml Vial) 4 mg IVPUSH Q8H PRN PRN Reason: Nausea Last Admin: 10/31/24 19:49 Dose: 4 mg Documented By: KELSIE Sodium Chloride (0.9 % Sodium Chloride Flush 3 Ml Syringe) 3 ml IVFLUSH QSHIFT [facility] Last Admin: 11/05/24 22:59 Dose: 3 ml Documented By: BARBARA Warfarin Sodium (Warfarin Sodium 5 Mg Tablet) 5 mg PO ONCE@1800 ONE Stop: 11/06/24 18:01 Labs 11/06/24 05:31 11/06/24 05:31 Labs: Laboratory Results - last 24 hr 11/06/24 11/06/24 05:31 06:34 MCV 76.7 L MCH 26.4 L MCHC 34.4 RDW 15.0 Plt Count 279 MPV 10.9 Immature Gran % (Auto) 0.4 Neut % (Auto) 57.1 Lymph % (Auto) 29.2 [place] % (Auto) 10.6 Eos % (Auto) 2.3 Baso % (Auto) 0.4 Lymph # (Auto) 1.6 [place] # (Auto) 0.6 Eos # (Auto) 0.1 Baso # (Auto) 0.0 Abs Immat Gran (auto) 0.02 Absolute Neuts (auto) 3.2 Absolute Nucleated RBC 0.000 Nucleated RBC % (auto) 0.0 PT 18.0 H INR 1.6 H aPTT Heparin Protocol 76.5 Anion Gap 15 Estim Creat Clear Calc 134.5 Estimated GFR > 60 Random Glucose 67 Lactic Acid 0.5 Calcium 8.9 Total Bilirubin 0.4 AST 222 H ALT 297 H Alkaline Phosphatase 93 Total Protein 6.3 L Albumin 3.4 L Microbiology Microbiology Results: Microbiology 10/31/24 10:37 Blood Culture - Final Blood - Venous No growth after 5 days. 10/31/24 10:37 Blood Culture - Final Blood - Venous No growth after 5 days. 11/04/24 Unknown Urine Culture - Preliminary Urine clean catch - Clean Catch Midstream Culture in progress. Procedures Date of Service Date of Service: 11/06/24 Progress Note: A&P Assessment and plan (1) Mesenteric vein thrombosis: Status: Acute Assessment and Plan: 1. Give another 5mg Coumadin today. INR was 1.6. Goal is to have an INR>2 for 2- 3 days consistently 2. Try to do one 20gr protein water today and a 30gr protein bar. Keep track of all PO fluids 3. Continue IV heparin 4. Monitor LFTs Time Spent With Patient Time: Total time managing care of this patient today ____ minutes. Quality Stroke Does the patient have a stroke diagnosis?: No VTE Prior VTE?: No VTE Risk Level:: Surgical - high VTE Device Contraindication: N/A - Device Ordered VTE Drug Contraindication: N/A - Med Ordered
[2024-11-06 08:00] VITALS: BP 124/78; PULSE 92; RESP 16; TEMP 36.4; O2SAT 97
[2024-11-06] MEDS: Thiamine HCL 100 MG in 0.9 % Sodium Chloride 100 ML 202 MG IV (08:46)
[2024-11-06] MEDS: Folic Acid 1 MG in 0.9 % Sodium Chloride 50 ML 100.4 MG IV (09:25)
[2024-11-06 11:59] VITALS: BP 119/73; PULSE 69; RESP 16; TEMP 36.6; O2SAT 97
[2024-11-06 13:32] LABS: PTT Heparin Drip 75.2 SEC (53-77.9)
[2024-11-06] MEDS: Heparin Sodium,Porcine/1/2NS 25,000 UNIT/250 ML IV.SOLN 10.1 UNIT IVCONT (14:16)
[2024-11-06 16:11] VITALS: BP 126/79; PULSE 99; RESP 18; TEMP 36.3; O2SAT 98
--- NOTE | 2024-11-06 17:29 | PC.NURSE ---
Per dr. frank. If Kcl 20meq 0.45 NS reaches renew stop date and is DCd. Renew. Only to be DCd if says so.
[2024-11-06] MEDS: Warfarin Sodium 5 MG TABLET PO (18:02)
[2024-11-06 19:36] VITALS: BP 114/79; PULSE 67; RESP 16; TEMP 36.3; O2SAT 99
[2024-11-06 19:59] LABS: PTT Heparin Drip 63.2 SEC (53-77.9)
[2024-11-06 23:00] VITALS: BP 118/77; PULSE 70; RESP 16; TEMP 36.4; O2SAT 96
[2024-11-07 02:01] VITALS: BP 125/73; PULSE 66; RESP 16; TEMP 36; O2SAT 95
[2024-11-07 02:26] LABS: PTT Heparin Drip 84.1 SEC (53-77.9)
[2024-11-07] MEDS: Acetaminophen 1,000 MG/100 ML PIGGYBACK 16.7 MG IV ×4 (02:45→21:20)
[2024-11-07] MEDS: KCl 20 mEq in 0.45% Sod 20 MEQ/1,000 ML IV.SOLN 125 MEQ IVCONT ×3 (06:10→23:06)
[2024-11-07 06:24] LABS: INTERNATIONAL NORM RATIO 2.2 (0.9-1.1); Prothrombin Time 25.6 SEC (10.9-12.4)
[2024-11-07 06:32] LABS: Alanine Aminotransferase 326 U/L (0-31); Albumin Level 3.3 g/dL (3.5-5.0); Alkaline Phosphatase 87 U/L (39-117); Anion Gap 15 (12-20); Aspartate Amino Transferase 188 U/L (5-31); Bilirubin Total 0.3 mg/dL (0.0-1.0); Blood Urea Nitrogen 5 mg/dL (9-16); Carbon Dioxide 20 mmol/L (22-29); Chloride 108 mmol/L (96-108); Creatinine Clr Calc Pharmacy 143.9; Estimated Glomerular Filt Rate > 60; Glucose Random 67 mg/dL (60-115); Potassium 3.9 mmol/L (3.3-5.1); Sodium 139 mmol/L (135-145); Total Protein 6.3 g/dL (6.5-8.0)
[2024-11-07 07:00] VITALS: BP 112/74; PULSE 80; RESP 18; TEMP 36.5; O2SAT 97
--- NOTE | 2024-11-07 08:10 | P.PNGS_ITS ---
Subjective Subjective Date of Service: 11/07/24 Interval history: Feels well. Minimal pain. Was able to complete one Celebrate protein water and a 30gr Fit Crunch bar. Last bowel movement was on Tuesday Physical Exam 2 Vital Signs: Vital Signs: Last Vital Signs Temp 97.7 F 11/07/24 07:00 Pulse 80 11/07/24 07:00 Resp 18 11/07/24 07:00 BP 112/74 11/07/24 07:00 Pulse Ox 97 11/07/24 07:00 O2 Del Method Room Air 11/07/24 07:00 BMI result Body Mass Index 38.2 GI: Inspection: Yes normal to inspection, Yes incision (well healed) and Yes obesity Palpation (GI): Soft to palpation and Tenderness to palpation present (GI) (mildly tender ) in the epigastrum Extrem: Right lower extremity: normal to inspection (no calf tenderness) L eft lower extremity: normal to inspection (no calf tenderness) Objective Data Active Medications Heparin Sodium (Porcine) (Heparin Sodium,Porcine 5,000 Unit/Ml Vial) 4,000 unit 40 unit/kg (4000 unit) IVPUSH PROTOCOL BOLUS PRN; Protocol PRN Reason: 40 unit/kg - Heparin Protocol Last Admin: 11/03/24 13:25 Dose: 4,000 unit Documented By: ANA LILIA Heparin Sodium (Porcine) (Heparin Sodium,Porcine 5,000 Unit/Ml Vial) 8,100 unit 80 unit/kg (8100 unit) IVPUSH PROTOCOL BOLUS PRN; Protocol PRN Reason: 80 unit/kg - Heparin Protocol Thiamine HCl 100 mg/ Sodium (Chloride) 101 mls @ 202 mls/hr IV DAILY [facility] Last Infusion: 11/06/24 09:25 Dose: Infused Documented By: MARY Folic Acid 1 mg/ Sodium (Chloride) 50.2 mls @ 100.4 mls/hr IV DAILY [facility] Last Infusion: 11/06/24 10:18 Dose: Infused Documented By: MARY Heparin Sodium/Sodium Chloride (Heparin Sodium,Porcine/1/2ns) 25,000 unit in 250 mls @ 0 mls/hr IVCONT .Q0M [facility]; Protocol Last Titration: 11/07/24 02:36 Dose: 8 units/kg/hr, 8.08 mls/hr Documented By: BARBARA Co-signed By: TAMIAQC Potassium Chloride/Sodium Chloride (Kcl 20 Meq In 0.45% Sod) 20 meq in 1,000 mls @ 125 mls/hr IVCONT .Q8H [facility] Last Admin: 11/07/24 06:10 Dose: 125 mls/hr Documented By: BARBARA Acetaminophen (Ofirmev) 1,000 mg in 100 mls @ 16.7 mls/hr IV .Q6H [facility] Last Admin: 11/07/24 02:45 Dose: 16.7 mls/hr Documented By: BARBARA Metoclopramide HCl (Metoclopramide Hcl 10 Mg/2 Ml Vial) 10 mg IVPUSH Q6H PRN PRN Reason: Nausea no effect from zofran Last Admin: 11/03/24 06:23 Dose: 10 mg Documented By: KEVIN Metoprolol Tartrate (Metoprolol Tartrate 5 Mg/5 Ml Vial) 5 mg IVPUSH Q6H PRN PRN Reason: BP>140/90 Ondansetron HCl (Ondansetron Hcl 4 Mg/2 Ml Vial) 4 mg IVPUSH Q8H PRN PRN Reason: Nausea Last Admin: 10/31/24 19:49 Dose: 4 mg Documented By: KELSIE Sodium Chloride (0.9 % Sodium Chloride Flush 3 Ml Syringe) 3 ml IVFLUSH QSHIFT [facility] Last Admin: 11/07/24 00:50 Dose: Not Given Documented By: BARBARA Non-Admin Reason: IV Running Labs 11/06/24 05:31 11/07/24 06:06 Labs: Laboratory Results - last 24 hr 11/06/24 11/06/24 11/07/24 13:06 19:40 02:08 Hold Purple Top PT INR aPTT Heparin Protocol 75.2 63.2 84.1 H D Anion Gap Estim Creat Clear Calc Estimated GFR Random Glucose Calcium Total Bilirubin AST ALT Alkaline Phosphatase Total Protein Albumin 11/07/24 06:06 Hold Purple Top SEE NOTE PT 25.6 H D INR 2.2 H aPTT Heparin Protocol Anion Gap 15 Estim Creat Clear Calc 143.9 Estimated GFR > 60 Random Glucose 67 Calcium 9.0 Total Bilirubin 0.3 AST 188 H ALT 326 H Alkaline Phosphatase 87 Total Protein 6.3 L Albumin 3.3 L Microbiology Microbiology Results: Microbiology 11/04/24 Unknown Urine Culture - Final Urine clean catch - Clean Catch Midstream Escherichia coli Procedures Date of Service Date of Service: 11/07/24 Progress Note: A&P Assessment and plan (1) Mesenteric vein thrombosis: Status: Acute Plan 1. Coumadin 5mg PO today 2. Check INR, CBC, CMP in am 3. Nutritional plan for today to do two 20gr protein kuhn annd two 20gr protein bars Time Spent With Patient Time: Total time managing care of this patient today ____ minutes. Quality Stroke Does the patient have a stroke diagnosis?: No VTE Prior VTE?: No VTE Risk Level:: Surgical - high VTE Device Contraindication: N/A - Device Ordered VTE Drug Contraindication: N/A - Med Ordered
[2024-11-07] MEDS: Folic Acid 1 MG in 0.9 % Sodium Chloride 50 ML 100.4 MG IV (10:18)
[2024-11-07] MEDS: Thiamine HCL 100 MG in 0.9 % Sodium Chloride 100 ML 202 MG IV (10:59)
[2024-11-07 11:00] VITALS: BP 109/68; PULSE 82; RESP 18; TEMP 36.8; O2SAT 97
--- NOTE | 2024-11-07 11:44 | MHC.CM.PN ---
Patient not medically cleared for dc at this time. CM will continue to follow.
[2024-11-07 15:00] VITALS: BP 114/73; PULSE 93; RESP 18; TEMP 36.5; O2SAT 97
[2024-11-07] MEDS: Warfarin Sodium 5 MG TABLET PO (17:54)
[2024-11-07] MEDS: Heparin Sodium,Porcine/1/2NS 25,000 UNIT/250 ML IV.SOLN 8.08 UNIT IVCONT (18:07)
[2024-11-07 19:00] VITALS: BP 122/76; PULSE 76; RESP 18; TEMP 36.5; O2SAT 99
[2024-11-07 23:00] VITALS: BP 124/76; PULSE 83; RESP 18; TEMP 36.5; O2SAT 98
[2024-11-08 03:00] VITALS: BP 120/66; PULSE 73; RESP 18; TEMP 36.4; O2SAT 96
[2024-11-08] MEDS: Acetaminophen 1,000 MG/100 ML PIGGYBACK 16.7 MG IV ×4 (03:02→23:36)
[2024-11-08 06:05] LABS: Basophils Percent Auto 0.6 % (0-2); Eosinophils Absolute Auto 0.1 X10*3/uL (0.0-0.4); Eosinophils Percent Auto 2.2 % (0-4); Hematocrit 34.3 % (37.0-47.0); Hemoglobin 11.5 g/dl (12.0-16.0); Imm Gran Abs Auto 0.01 X10*3/uL (0.00-0.03); Imm Gran Pct Auto 0.2 % (0.0-0.4); Lymphocytes Absolute Auto 1.6 X10*3/uL (1.2-4.9); Lymphocytes Percent Auto 32.7 % (20-40); MANUAL DIFF FLAG SCAN; Mean Corpuscular HGB Conc 33.5 g/dl (31.0-35.0); Mean Corpuscular Hemoglobin 26.2 pg (27.0-33.0); Mean Corpuscular Volume 78.1 fL (80.0-98.0); Mean Platelet Volume 10.6 fL (9.4-12.3); Monocytes Absolute Auto 0.7 X10*3/uL (0.1-1.2); Monocytes Percent Auto 13.4 % (2-11); Neutrophils Absolute Auto 2.5 x10*3/uL (2.0-8.3); Neutrophils Percent Auto 50.9 % (45-73); Platelet Count 280 X10*3/uL (160-400); Red Blood Count 4.39 X10*6/uL (4.20-5.50); Red Cell Distribution Width 15.6 % (11.0-16.0); SCAN SMEAR FLAG 1; White Blood Count 4.9 X10*3/uL (4.8-10.8)
[2024-11-08 06:19] LABS: Prothrombin Time 34.8 SEC (10.9-12.4)
[2024-11-08 06:26] LABS: SLIDE REVIEW VERIFIED
[2024-11-08 06:30] LABS: Alanine Aminotransferase 337 U/L (0-31); Albumin Level 3.3 g/dL (3.5-5.0); Alkaline Phosphatase 87 U/L (39-117); Anion Gap 14 (12-20); Aspartate Amino Transferase 160 U/L (5-31); Bilirubin Total 0.3 mg/dL (0.0-1.0); Blood Urea Nitrogen 5 mg/dL (9-16); Calcium 8.9 mg/dL (8.4-10.2); Carbon Dioxide 21 mmol/L (22-29); Chloride 108 mmol/L (96-108); Creatinine Clr Calc Pharmacy 136.8; Estimated Glomerular Filt Rate > 60; Glucose Random 71 mg/dL (60-115); Potassium 3.9 mmol/L (3.3-5.1); Sodium 139 mmol/L (135-145); Total Protein 6.3 g/dL (6.5-8.0)
[2024-11-08] MEDS: KCl 20 mEq in 0.45% Sod 20 MEQ/1,000 ML IV.SOLN 125 MEQ IVCONT ×2 (07:10→18:19)
--- NOTE | 2024-11-08 07:37 | P.PNGS_ITS ---
Subjective Subjective Date of Service: 11/08/24 Interval history: Feels well. She did one 20gr protein water and a 30gr protein bar. Did 27oz of fluids all together. Had one small bowel movement of normal color. No nausea or abdominal pain Physical Exam 2 Vital Signs: Vital Signs: Last Vital Signs Temp 97.5 F 11/08/24 03:00 Pulse 73 11/08/24 03:00 Resp 18 11/08/24 03:00 BP 120/66 11/08/24 03:00 Pulse Ox 96 11/08/24 03:00 O2 Del Method Room Air 11/08/24 03:00 BMI result Body Mass Index 38.2 GI: Inspection: Yes normal to inspection, Yes incision (well healed) and Yes obesity Palpation (GI): Soft to palpation and Tenderness to palpation present (GI) (very mild) in the epigastrum Extrem: Right lower extremity: normal to inspection (no calf tenderness) L eft lower extremity: normal to inspection (no calf tenderness) Objective Data Active Medications Heparin Sodium (Porcine) (Heparin Sodium,Porcine 5,000 Unit/Ml Vial) 4,000 unit 40 unit/kg (4000 unit) IVPUSH PROTOCOL BOLUS PRN; Protocol PRN Reason: 40 unit/kg - Heparin Protocol Last Admin: 11/03/24 13:25 Dose: 4,000 unit Documented By: ANA LILIA Heparin Sodium (Porcine) (Heparin Sodium,Porcine 5,000 Unit/Ml Vial) 8,100 unit 80 unit/kg (8100 unit) IVPUSH PROTOCOL BOLUS PRN; Protocol PRN Reason: 80 unit/kg - Heparin Protocol Thiamine HCl 100 mg/ Sodium (Chloride) 101 mls @ 202 mls/hr IV DAILY [facility] Last Infusion: 11/07/24 11:43 Dose: Infused Documented By: MICHELE Folic Acid 1 mg/ Sodium (Chloride) 50.2 mls @ 100.4 mls/hr IV DAILY [facility] Last Infusion: 11/07/24 10:51 Dose: Infused Documented By: MICHELE Heparin Sodium/Sodium Chloride (Heparin Sodium,Porcine/1/2ns) 25,000 unit in 250 mls @ 0 mls/hr IVCONT .Q0M [facility]; Protocol Last Admin: 11/07/24 18:07 Dose: 8 units/kg/hr, 8.08 mls/hr Documented By: MICHELE Co-signed By: VIRI Potassium Chloride/Sodium Chloride (Kcl 20 Meq In 0.45% Sod) 20 meq in 1,000 mls @ 125 mls/hr IVCONT .Q8H [facility] Last Admin: 11/08/24 07:10 Dose: 125 mls/hr Documented By: MICHELE Acetaminophen (Ofirmev) 1,000 mg in 100 mls @ 16.7 mls/hr IV .Q6H [facility] Last Admin: 11/08/24 03:02 Dose: 16.7 mls/hr Documented By: AGUSTÍN Metoclopramide HCl (Metoclopramide Hcl 10 Mg/2 Ml Vial) 10 mg IVPUSH Q6H PRN PRN Reason: Nausea no effect from zofran Last Admin: 11/03/24 06:23 Dose: 10 mg Documented By: KEVIN Metoprolol Tartrate (Metoprolol Tartrate 5 Mg/5 Ml Vial) 5 mg IVPUSH Q6H PRN PRN Reason: BP>140/90 Ondansetron HCl (Ondansetron Hcl 4 Mg/2 Ml Vial) 4 mg IVPUSH Q8H PRN PRN Reason: Nausea Last Admin: 10/31/24 19:49 Dose: 4 mg Documented By: KELSIE Sodium Chloride (0.9 % Sodium Chloride Flush 3 Ml Syringe) 3 ml IVFLUSH QSHIFT [facility] Last Admin: 11/07/24 23:08 Dose: Not Given Documented By: AGUSTÍN Non-Admin Reason: IV Running Labs 11/08/24 05:29 11/08/24 05:29 Labs: Laboratory Results - last 24 hr 11/07/24 11/07/24 11/08/24 07:51 14:23 05:29 MCV 78.1 L MCH 26.2 L MCHC 33.5 RDW 15.6 Plt Count 280 MPV 10.6 Immature Gran % (Auto) 0.2 Neut % (Auto) 50.9 Lymph % (Auto) 32.7 [place] % (Auto) 13.4 H Eos % (Auto) 2.2 Baso % (Auto) 0.6 Lymph # (Auto) 1.6 [place] # (Auto) 0.7 Eos # (Auto) 0.1 Baso # (Auto) 0.0 Abs Immat Gran (auto) 0.01 Absolute Neuts (auto) 2.5 Absolute Nucleated RBC 0.000 Nucleated RBC % (auto) 0.0 Smear Tech's Comments VERIFIED PT 34.8 H D INR 3.0 H aPTT Heparin Protocol 71.0 64.0 65.0 Anion Gap 14 Estim Creat Clear Calc 136.8 Estimated GFR > 60 Random Glucose 71 Calcium 8.9 Total Bilirubin 0.3 AST 160 H ALT 337 H Alkaline Phosphatase 87 Total Protein 6.3 L Albumin 3.3 L Microbiology Microbiology Results: Microbiology 11/04/24 Unknown Urine Culture - Final Urine clean catch - Clean Catch Midstream Escherichia coli Procedures Date of Service Date of Service: 11/08/24 Progress Note: A&P Assessment and plan (1) Mesenteric vein thrombosis: Status: Acute Assessment and Plan: 1. 3mg Coumadin today 2. Try to do 2 20gr protein kuhn and a 30gr protein bar. 3. Goal to drink at leat 30-35oz of fluids today 4. Poss discharge tomorrow if INR is >2 Time Spent With Patient Time: Total time managing care of this patient today ____ minutes. Quality Stroke Does the patient have a stroke diagnosis?: No VTE Prior VTE?: No VTE Risk Level:: Surgical - high VTE Device Contraindication: N/A - Device Ordered VTE Drug Contraindication: N/A - Med Ordered
[2024-11-08 07:56] VITALS: BP 116/78; PULSE 79; RESP 16; TEMP 36.4; O2SAT 98
[2024-11-08] MEDS: Thiamine HCL 100 MG in 0.9 % Sodium Chloride 100 ML 202 MG IV (09:07)
[2024-11-08] MEDS: Folic Acid 1 MG in 0.9 % Sodium Chloride 50 ML 100.4 MG IV (09:46)
[2024-11-08 11:00] VITALS: BP 100/73; PULSE 95; RESP 18; TEMP 36.6; O2SAT 98
[2024-11-08 15:00] VITALS: BP 117/65; PULSE 69; RESP 14; TEMP 36.4; O2SAT 96
--- NOTE | 2024-11-08 15:46 | PM.DS ---
DS: Providers Provider Date of Service: 11/09/24 Date of admission: 10/31/24 14:17 Date of discharge: 11/09/24 Primary care physician: yAdee Santos MD Consults: 11/02/24 07:42 Consult to Hematology / Oncology Stat Consulting Provider: Rosemary Mcguire Reason for consultation: anticoagulation reccomendation Has provider been notified: Yes DS: Diagnosis Discharge Diagnosis (1) Mesenteric vein thrombosis: Status: Acute DS: Summary Hospital Course Hospital Course: ADMITTING DIAGNOSIS: obesity, SMV thrombosis, portal vein thrombosis, protein S deficiency DISCHARGE DIAGNOSIS: same PAST SURGICAL HISTORY:? History of delivery History of esophagogastroduodenoscopy (EGD) Hx of colonoscopy Hx of hysterectomy Laparoscopic sleeve gastrectomy with gastropexy 10/17/2024 DISCHARGE SUMMARY: History of Present Illness: The patient is a?43 year-old woman with a history of protein S deficiency who recently underwent laparoscopic sleeve gastrectomy with gastropexy 10/17/2024. The patient was on Arixtra preoperatively but did not restart it postoperatively. She presented to the ED on 10/31/2024 with abdominal pain x [address] scan, she was found to have thrombosis of the superior mesenteric vein, the left portal vein, and the posterior branch of the right portal vein; and wall thickening of the proximal jejunum with associated inflammatory stranding, highly suspicious for ischemia. She was admitted and started on a heparin gtt. Hospital Course: The patient was kept NPO with IVF resuscitation. Lactate levels were trended and remained WNL. Repeat CT scan showed improvement; IR was consulted and considered intervention, but after an additional repeat CT scan continued to show improvement, decision was made to manage conservatively. Patient was seen by hematology in consultation. Patient was allowed bariatric stage 3 diet and was eventually able to tolerate protein water and protein bars after initially having difficulty. On HD5 she was started on warfarin. Her INR was followed and quickly became therapeutic by HD 7. Dose of warfarin was reduced from 5mg to 3mg. Pt was able to be discharged on HD10 tolerating adequate fluids, protein water and protein bars; with no complaints of abdominal pain or nausea. Patient will follow up with the anticoagulation clinic as well as weight management next week. She will also follow up with hematology (Dr. 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 Prior to discharge alll questions were answered and the patient verbalized understanding of all instructions. Time Attestation Discharge Coordination Time (in mins): 45 Quality: Safe Use of Opioids Does Pt have an Active Cancer Diagnosis on the Problem List?: No Quality: Stroke Does the patient have a stroke diagnosis?: No Physical Exam Vital Signs: Vital Signs: Last Vital Signs Temp 97.5 F 11/08/24 15:00 Pulse 69 11/08/24 15:00 Resp 14 11/08/24 15:00 BP 117/65 11/08/24 15:00 Pulse Ox 96 11/08/24 15:00 O2 Del Method Room Air 11/08/24 15:00 BMI result Body Mass Index 38.2 DS: Data Data Completed and Pending Completed studies during hospitalization [Text1]: Procedures Excision of Stomach, Percutaneous Endoscopic Approach, Vertical (10/17/24) Release Peritoneum, Percutaneous Endoscopic Approach (10/17/24) Labs on day of discharge: Laboratory Results - last 24 hr 11/08/24 05:29 WBC 4.9 RBC 4.39 Hgb 11.5 L Hct 34.3 L MCV 78.1 L MCH 26.2 L MCHC 33.5 RDW 15.6 Plt Count 280 MPV 10.6 Immature Gran % (Auto) 0.2 Neut % (Auto) 50.9 Lymph % (Auto) 32.7 [place] % (Auto) 13.4 H Eos % (Auto) 2.2 Baso % (Auto) 0.6 Lymph # (Auto) 1.6 [place] # (Auto) 0.7 Eos # (Auto) 0.1 Baso # (Auto) 0.0 Abs Immat Gran (auto) 0.01 Absolute Neuts (auto) 2.5 Absolute Nucleated RBC 0.000 Nucleated RBC % (auto) 0.0 Smear Tech's Comments VERIFIED PT 34.8 H D INR 3.0 H aPTT Heparin Protocol 65.0 Sodium 139 Potassium 3.9 Chloride 108 Carbon Dioxide 21 L Anion Gap 14 BUN 5 L Creatinine 0.60 Estim Creat Clear Calc 136.8 Estimated GFR > 60 Random Glucose 71 Calcium 8.9 Total Bilirubin 0.3 AST 160 H ALT 337 H Alkaline Phosphatase 87 Total Protein 6.3 L Albumin 3.3 L Discharge Plan Discharge Anticipated Discharge Date/Time: 11/09/24 10:00 Patient Disposition: Home, Self-Care Discharge Diagnosis: SMV/portal vein thrombosis after sleeve gastrectomy, protein S deficiency Referrals: Aydee Santos MD [Primary Care Provider, Medical] - 1 Week Discharge Medications: Continued warfarin 3 mg tablet 3 mg PO DAILY Qty: 90 0RF Protocol: Dose Management Condition: Tuesday Dose/Route: 6 mg Instruction: 2 x 3 mg tablets Condition: Tuesday Dose/Route: 9 mg Instruction: 3 x 3 mg tablets Condition: Tuesday Dose/Route: 9 mg Instruction: 3 x 3 mg tablets Condition: Tuesday Dose/Route: 6 mg Instruction: 2 x 3 mg tablets Condition: Dose/Route: 6 mg Instruction: 2 x 3 mg tablets Condition: Tuesday Dose/Route: 6 mg Instruction: 2 x 3 mg tablets Condition: Tuesday Dose/Route: 6 mg Instruction: 2 x 3 mg tablets Protocol Text: Adjustment Start Date: Tuesday11/19/24 INR Value: 2.0 INR Date: 11/19/24 Recheck Date: 11/21/24 pantoprazole 40 mg tablet,delayed release (DR/EC) 40 mg PO DAILY@629 multivitamin with iron Tablet 1 tab PO DAILY acetaminophen 650 mg/20.3 mL Suspension 650 mg PO Q4H PRN (Reason: Pain) atorvastatin 10 mg tablet 10 mg PO DAILY loratadine 10 mg tablet 10 mg PO DAILY sucralfate 100 mg/mL suspension 10 ml PO BID Qty: 600 2RF ondansetron 4 mg tablet,disintegrating 4 mg PO Q12H Qty: 20 0RF Rx Instructions: Only take one every 12 hours as needed if you have nausea Held warfarin 2 mg tablet 2 mg PO DAILY Qty: 90 0RF Hold Instructions: Resume on 11/10/24. Protocol: Dose Management Condition: Tuesday Dose/Route: 6 mg Instruction: 2 x 3 mg tablets Condition: Tuesday Dose/Route: 9 mg Instruction: 3 x 3 mg tablets Condition: Tuesday Dose/Route: 9 mg Instruction: 3 x 3 mg tablets Condition: Tuesday Dose/Route: 6 mg Instruction: 2 x 3 mg tablets Condition: Dose/Route: 6 mg Instruction: 2 x 3 mg tablets Condition: Tuesday Dose/Route: 6 mg Instruction: 2 x 3 mg tablets Condition: Tuesday Dose/Route: 6 mg Instruction: 2 x 3 mg tablets Protocol Text: Adjustment Start Date: Tuesday11/19/24 INR Value: 2.0 INR Date: 11/19/24 Recheck Date: 11/21/24 warfarin 1 mg tablet 1 mg PO DAILY Qty: 90 0RF Hold Instructions: Resume on 11/10/24. Protocol: Dose Management Condition: Tuesday Dose/Route: 6 mg Instruction: 2 x 3 mg tablets Condition: Tuesday Dose/Route: 9 mg Instruction: 3 x 3 mg tablets Condition: Tuesday Dose/Route: 9 mg Instruction: 3 x 3 mg tablets Condition: Tuesday Dose/Route: 6 mg Instruction: 2 x 3 mg tablets Condition: Dose/Route: 6 mg Instruction: 2 x 3 mg tablets Condition: Tuesday Dose/Route: 6 mg Instruction: 2 x 3 mg tablets Condition: Tuesday Dose/Route: 6 mg Instruction: 2 x 3 mg tablets Protocol Text: Adjustment Start Date: Tuesday11/19/24 INR Value: 2.0 INR Date: 11/19/24 Recheck Date: 11/21/24 losartan 50 mg tablet 25 mg PO DAILY PRN (Reason: If BP >130) Hold Instructions: Resume on 10/19/24. Check your blood pressure every morning and follow the parameters Dr. Castellanos gave you amlodipine 5 mg tablet 2.5 - 5 mg PO DAILY Hold Instructions: Resume on 10/19/24. Check your blood pressure every morning and follow the parameters Dr. Castellanos gave you Rx Instructions: PT takes 1/2-1 tab depending on what her parameters are. No Action fondaparinux 5 mg/0.4 mL syringe 5 mg subcut DAILY Qty: 4 0RF polyethylene glycol 3350 [Gavilax] 17 gram/dose powder PO Discharge Orders: Discharge Order (Routine); Ordered 11/09/24 Ordered By: Teja Castellanos Activity on Discharge: No heavy lifting Stand Alone Forms: Patient Portal Discharge page Print Language: Malawian Activity Restrictions/Additional Instructions: Repeat the INR blod test tomorrow 11/10/[address] Castellanos know Care Plan Goals: weight loss, resolution of thrombosis Health Concerns: obesity, SMV/portal vein thrombosis Plan of Treatment: Follow up appointments: Anticoagulation Clinic: 11/12/2024 at 10am- 1st floor [facility] Keep your previously scheduled appointment with Weight Management on Tuesday11/14/2024 at [address] Mcguire,hematology: 11/28/2024 at 4pm- 1st floor [facility] No tub baths, sex or returning to work until discussed at first post op appointment. No alcohol, tobacco or illegal drug use. Continue to use incentive spirometer hourly while awake. Walk in home for 5- 10 minutes every 2 hours during the first week. Wear abdominal binder with activity. Follow all meal plan instructions from your bariatric surgeon. Review bariatric handbook and call with any questions. Discharge Instructions 1. Please call your doctor or come back to the emergency room should any new symptoms arise. 2. Activity: abstain from alcohol,? limited stair climbing, no bending, no driving, no exercise, no illicit substances, no lifting, no sex, no tub bath, no work. 4. Diet: follow your bariatric surgeon's recommendations for advancing diet. Call your doctor if: - Your temperature exceeds 101.5 F - You experience excessive pain or swelling - You have an unexpected reaction to medication - You have excessive bleeding - You experience continued vomiting/nausea - Your incision begins to separate - Your incision shows signs of infection such as increased redness, swelling, excessive pain, heat, or drainage (light blood or clear fluid is normal) General instructions: No lifting greater than 10 lbs for the first 6 weeks after your previous surgery. No driving within 24 hours of taking narcotic pain medications. If you do not move your bowels in the next 2 days, please take milk of magnesia over the counter. Please follow the post op diet and do not advance your diet until instructed by your surgeon or until you are seen in the office in about 1 week. Please walk around your home every hour or two to prevent blood clots from forming in your legs. You do not need to wake from sleeping to walk. Please sleep in a bed or couch to prevent kinking at the hips and knees. Please take your incentive spirometer (your lung obstetrics technician) home with you and use it for the next few days to prevent pneumonias. You may shower; no hot tubs, baths or swimming pools. Please make sure you are consuming 40-60 ounces of total fluids per day. Avoid all carbonation. Please call the office with any questions or concerns such as increasing abdominal pain, fever, chills, shortness of breath, chest pain, leg pain or swelling, or redness or drainage from your incisions. Do not hesitate to contact the office with any questions at . Assessment: SMV thrombosis, portal vein thrombosis after sleeve gastrectomy Discharge Date/Time: 11/09/24 09:51
[2024-11-08] MEDS: Warfarin Sodium 3 MG TABLET PO (18:19)
[2024-11-08 19:00] VITALS: BP 109/71; PULSE 77; RESP 18; TEMP 36.6; O2SAT 97
--- NOTE | 2024-11-08 21:57 | P.PNGS_ITS ---
Subjective Subjective Date of Service: 11/09/24 Interval history: Feels well. No abdominal pain. Did 33oz of fluids including one 20gr protein water and 3/4 of a 30gr Fit Crunch bar Physical Exam 2 Vital Signs: Vital Signs: Last Vital Signs Temp 97.9 F 11/08/24 19:00 Pulse 77 11/08/24 19:00 Resp 18 11/08/24 19:00 BP 109/71 11/08/24 19:00 Pulse Ox 97 11/08/24 19:00 O2 Del Method Room Air 11/08/24 19:00 BMI result Body Mass Index 38.2 GI: Inspection: Yes normal to inspection and Yes incision (well healed) P alpation (GI): Soft to palpation Extrem: Right lower extremity: normal to inspection (no calf tenderness) L eft lower extremity: normal to inspection (no calf tenderness) Objective Data Active Medications Heparin Sodium (Porcine) (Heparin Sodium,Porcine 5,000 Unit/Ml Vial) 4,000 unit 40 unit/kg (4000 unit) IVPUSH PROTOCOL BOLUS PRN; Protocol PRN Reason: 40 unit/kg - Heparin Protocol Last Admin: 11/03/24 13:25 Dose: 4,000 unit Documented By: ANA LILIA Heparin Sodium (Porcine) (Heparin Sodium,Porcine 5,000 Unit/Ml Vial) 8,100 unit 80 unit/kg (8100 unit) IVPUSH PROTOCOL BOLUS PRN; Protocol PRN Reason: 80 unit/kg - Heparin Protocol Thiamine HCl 100 mg/ Sodium (Chloride) 101 mls @ 202 mls/hr IV DAILY [facility] Last Infusion: 11/08/24 10:02 Dose: Infused Documented By: MICHELE Folic Acid 1 mg/ Sodium (Chloride) 50.2 mls @ 100.4 mls/hr IV DAILY [facility] Last Infusion: 11/08/24 11:10 Dose: Infused Documented By: MICHELE Heparin Sodium/Sodium Chloride (Heparin Sodium,Porcine/1/2ns) 25,000 unit in 250 mls @ 0 mls/hr IVCONT .Q0M [facility]; Protocol Last Admin: 11/07/24 18:07 Dose: 8 units/kg/hr, 8.08 mls/hr Documented By: MICHELE Co-signed By: VIRI Acetaminophen (Ofirmev) 1,000 mg in 100 mls @ 16.7 mls/hr IV .Q6H [facility] Last Admin: 11/08/24 17:54 Dose: 16.7 mls/hr Documented By: MICHELE Potassium Chloride/Sodium Chloride (Kcl 20 Meq In 0.45% Sod) 20 meq in 1,000 mls @ 125 mls/hr IVCONT .Q8H [facility] Last Admin: 11/08/24 18:19 Dose: 125 mls/hr Documented By: MICHELE Metoclopramide HCl (Metoclopramide Hcl 10 Mg/2 Ml Vial) 10 mg IVPUSH Q6H PRN PRN Reason: Nausea no effect from zofran Last Admin: 11/03/24 06:23 Dose: 10 mg Documented By: CASTLEON Metoprolol Tartrate (Metoprolol Tartrate 5 Mg/5 Ml Vial) 5 mg IVPUSH Q6H PRN PRN Reason: BP>140/90 Ondansetron HCl (Ondansetron Hcl 4 Mg/2 Ml Vial) 4 mg IVPUSH Q8H PRN PRN Reason: Nausea Last Admin: 10/31/24 19:49 Dose: 4 mg Documented By: KELSIE Sodium Chloride (0.9 % Sodium Chloride Flush 3 Ml Syringe) 3 ml IVFLUSH QSHIFT [facility] Last Admin: 11/08/24 16:37 Dose: Not Given Documented By: MICHELE Non-Admin Reason: IV Running Labs 11/09/24 06:06 11/09/24 06:06 Labs: Laboratory Results - last 24 hr 11/08/24 05:29 MCV 78.1 L MCH 26.2 L MCHC 33.5 RDW 15.6 Plt Count 280 MPV 10.6 Immature Gran % (Auto) 0.2 Neut % (Auto) 50.9 Lymph % (Auto) 32.7 [place] % (Auto) 13.4 H Eos % (Auto) 2.2 Baso % (Auto) 0.6 Lymph # (Auto) 1.6 [place] # (Auto) 0.7 Eos # (Auto) 0.1 Baso # (Auto) 0.0 Abs Immat Gran (auto) 0.01 Absolute Neuts (auto) 2.5 Absolute Nucleated RBC 0.000 Nucleated RBC % (auto) 0.0 Smear Tech's Comments VERIFIED PT 34.8 H D INR 3.0 H aPTT Heparin Protocol 65.0 Anion Gap 14 Estim Creat Clear Calc 136.8 Estimated GFR > 60 Random Glucose 71 Calcium 8.9 Total Bilirubin 0.3 AST 160 H ALT 337 H Alkaline Phosphatase 87 Total Protein 6.3 L Albumin 3.3 L Procedures Date of Service Date of Service: 11/09/24 Progress Note: A&P Assessment and plan (1) Mesenteric vein thrombosis: Status: Acute Assessment and Plan: 1. Goal to drink two 20gr protein kuhn per day and one 30gr Fit Crunch protein bar 2. Goal to drink 35oz of fluids per day 3. F/up at the anticoagulation clinic on 11/12/[address] Mcguire on 11/28/24 at 4pm 4. D/C today Time Spent With Patient Time: Total time managing care of this patient today ____ minutes. Quality Stroke Does the patient have a stroke diagnosis?: No VTE Prior VTE?: No VTE Risk Level:: Surgical - high VTE Device Contraindication: N/A - Device Ordered VTE Drug Contraindication: N/A - Med Ordered
[2024-11-08 23:00] VITALS: BP 121/75; PULSE 74; RESP 18; TEMP 36.6; O2SAT 99
[2024-11-09] MEDS: Heparin Sodium,Porcine/1/2NS 25,000 UNIT/250 ML IV.SOLN 8.08 UNIT IVCONT (01:24)
[2024-11-09] MEDS: KCl 20 mEq in 0.45% Sod 20 MEQ/1,000 ML IV.SOLN 125 MEQ IVCONT (02:55)
[2024-11-09 03:00] VITALS: BP 102/63; PULSE 69; RESP 16; TEMP 36.5; O2SAT 95
[2024-11-09] MEDS: Acetaminophen 1,000 MG/100 ML PIGGYBACK 16.7 MG IV (05:10)
[2024-11-09 06:11] LABS: MANUAL DIFF FLAG NO
[2024-11-09 06:24] LABS: Basophils Percent Auto 0.6 % (0-2); Eosinophils Absolute Auto 0.1 X10*3/uL (0.0-0.4); Eosinophils Percent Auto 1.7 % (0-4); Hemoglobin 11.7 g/dl (12.0-16.0); Imm Gran Abs Auto 0.02 X10*3/uL (0.00-0.03); Imm Gran Pct Auto 0.4 % (0.0-0.4); Lymphocytes Absolute Auto 1.6 X10*3/uL (1.2-4.9); Lymphocytes Percent Auto 30.9 % (20-40); Mean Corpuscular HGB Conc 34.4 g/dl (31.0-35.0); Mean Corpuscular Hemoglobin 26.4 pg (27.0-33.0); Mean Corpuscular Volume 76.7 fL (80.0-98.0); Mean Platelet Volume 10.7 fL (9.4-12.3); Monocytes Absolute Auto 0.7 X10*3/uL (0.1-1.2); Monocytes Percent Auto 12.3 % (2-11); Neutrophils Absolute Auto 2.9 x10*3/uL (2.0-8.3); Neutrophils Percent Auto 54.1 % (45-73); Platelet Count 284 X10*3/uL (160-400); Red Blood Count 4.43 X10*6/uL (4.20-5.50); Red Cell Distribution Width 15.8 % (11.0-16.0); White Blood Count 5.3 X10*3/uL (4.8-10.8)
[2024-11-09 06:25] LABS: Prothrombin Time 34.4 SEC (10.9-12.4)
[2024-11-09 06:28] LABS: PTT Heparin Drip 84.9 SEC (53-77.9)
[2024-11-09 06:30] LABS: Alanine Aminotransferase 319 U/L (0-31); Albumin Level 3.4 g/dL (3.5-5.0); Alkaline Phosphatase 92 U/L (39-117); Anion Gap 15 (12-20); Aspartate Amino Transferase 123 U/L (5-31); Bilirubin Total 0.3 mg/dL (0.0-1.0); Blood Urea Nitrogen 5 mg/dL (9-16); Calcium 8.9 mg/dL (8.4-10.2); Carbon Dioxide 20 mmol/L (22-29); Chloride 106 mmol/L (96-108); Creatinine Clr Calc Pharmacy 134.5; Estimated Glomerular Filt Rate > 60; Glucose Random 70 mg/dL (60-115); Potassium 3.8 mmol/L (3.3-5.1); Sodium 137 mmol/L (135-145); Total Protein 6.4 g/dL (6.5-8.0)
[2024-11-09 07:00] VITALS: BP 130/71; PULSE 86; RESP 16; TEMP 36.4; O2SAT 98
--- NOTE | 2024-11-09 07:52 | PC.NURSE ---
Addendum entered by Dayami Arevalo RN 11/09/24 07:57: Per MD Gomez stop Hep Gtt pt to be DC'd later today. Original Note: 07:20 aPTT resulted at 84.9, per protocol hep gtt decreased by 2units/kg/hr. Gtt running at 6 un/kg/hr, per louise aPTT to be redrawn at 13:20.
[2024-11-09] MEDS: Thiamine HCL 100 MG in 0.9 % Sodium Chloride 100 ML 202 MG IV (08:05)
[2024-11-09] MEDS: 0.9 % Sodium Chloride Flush 3 ML SYRINGE IVFLUSH (08:08)
--- NOTE | 2024-11-09 09:43 | MHC.CM.PN ---
Patient medically cleared for dc home self care. Private transport via family who is at bedside. RN aware.
== END 2024-11-09 09:51 | disposition home or self-care (01) | DRG 279 ==
LOC: HO.ED 13:51 → HO.EDOVER 14:32 → HO.S3 16:26
PROVIDERS: Internal Medicine; Physician Assistant Surgical; Registered Nurse Emergency; Admitting Provider Surgery; Emergency Provider Emergency Medicine Emergency Medical Services; PCP Internal Medicine; Visit Provider Surgery
DX: I81 Portal vein thrombosis (principal); K55.059 Acute (reversible) ischemia of intestine, part and extent unspecified; D68.59 Other primary thrombophilia; Z98.84 Bariatric surgery status; Z86.711 Personal history of pulmonary embolism; Z87.891 Personal history of nicotine dependence; Z79.01 Long term (current) use of anticoagulants; Z79.899 Other long term (current) drug therapy
CPT/HCPCS: 36415; 71045; 74177; 80048; 80053; 81001; 82607; 82746; 83605; 83615; 83690; 83735; 85025; 85027; 85610; 85730; 87040; 87086; 87088; 87186; 99285; J0131; J1171; J1644; J1808; J2270; J2405; J2470; J2765; J3411; J3420; J3480; J7120; Q9967

== ENCOUNTER → 2024-10-31 09:11 | Outpatient (BNV) | payer OTHER, SELFPAY | PROVIDERS: Emergency Provider Emergency Medicine Emergency Medical Services; PCP Internal Medicine; Visit Provider Radiology Diagnostic Radiology | DX: K55.069 Acute infarction of intestine, part and extent unspecified (principal); R18.8 Other ascites; I81 Portal vein thrombosis | CPT/HCPCS: 74177 ==

== ENCOUNTER 2024-10-31 14:17 | Outpatient (BNV) | payer OTHER, SELFPAY | END 2024-11-03 17:12 | PROVIDERS: Admitting Provider Surgery; Emergency Provider Emergency Medicine Emergency Medical Services; PCP Internal Medicine; Visit Provider Radiology Diagnostic Radiology | DX: R06.02 Shortness of breath (principal) | CPT/HCPCS: 71045 ==

== ENCOUNTER 2024-10-31 14:17 | Outpatient (BNV) | payer OTHER, SELFPAY | END 2024-11-04 13:00 | PROVIDERS: Admitting Provider Surgery; Emergency Provider Emergency Medicine Emergency Medical Services; PCP Internal Medicine; Visit Provider Radiology Diagnostic Radiology | DX: K57.30 Diverticulosis of large intestine without perforation or abscess without bleeding (principal) | CPT/HCPCS: 74177 ==

== ENCOUNTER 2024-10-31 14:17 | Outpatient (BNV) | payer OTHER, SELFPAY | END 2024-11-01 07:56 | PROVIDERS: Admitting Provider Surgery; Emergency Provider Emergency Medicine Emergency Medical Services; PCP Internal Medicine; Visit Provider Radiology Diagnostic Radiology | DX: I81 Portal vein thrombosis (principal) | CPT/HCPCS: 74177 ==

== ENCOUNTER → 2024-10-31 14:17 | Outpatient (BNV) | payer OTHER, SELFPAY | PROVIDERS: Admitting Provider Surgery; Emergency Provider Emergency Medicine Emergency Medical Services; PCP Internal Medicine; Visit Provider Internal Medicine | DX: K55.069 Acute infarction of intestine, part and extent unspecified (principal) | CPT/HCPCS: 99222 ==

== ENCOUNTER → 2024-10-31 14:17 | Outpatient (BNV) | payer OTHER, SELFPAY | PROVIDERS: Admitting Provider Surgery; Emergency Provider Emergency Medicine Emergency Medical Services; PCP Internal Medicine; Visit Provider Physician Assistant Surgical | DX: K55.069 Acute infarction of intestine, part and extent unspecified (principal) | CPT/HCPCS: 99024 ==

== ENCOUNTER 2024-11-06 11:17 | Outpatient (AMB) | payer OTHER, SELFPAY ==
--- NOTE | 2024-11-06 11:12 | MHC.WMTHER ---
Intake Intake Visit Reasons: TV PO LSG 10/17/24 Allergies latex Allergy (Mild, Verified 10/31/24 07:51) Itching oxycodone [From Percocet] Allergy (Mild, Verified 10/31/24 07:51) price [facility] Medical History (Updated 11/02/24 @ 11:51 by Rosemary Mcguire MD) H. pylori infection Hyperlipidemia H. pylori infection Fatty liver Protein S deficiency Elevated cholesterol DJD (degenerative joint disease) Anxiety Depression Hypertension Non-insulin dependent type 2 diabetes mellitus Sleep apnea Morbid obesity Surgical History (Updated 11/02/24 @ 11:51 by Rosemary Mcguire MD) History of esophagogastroduodenoscopy (EGD) History of delivery Hx of colonoscopy Hx of hysterectomy Family History Mother Diabetes Hypertension Obesity High cholesterol Father Drug addiction HIV (human immunodeficiency virus infection) Daughter No problems noted. Social History Household Members: Spouse Household Members Other:: 2 Housing: Apartment Are you a primary acute care nurse to a significant other at home: No Do you presently have visiting nurse or other home services: No Alcohol intake: current Alcohol intake frequency: holidays/special occasions only Comment: rings appropriately Patient Tobacco Use Status: Former Tobacco user Tobacco use type: Cigarette Years Smoked: 22 service: No Behavioral Health Assessment Weight Management Therapy Therapy Notes Details Subjective: PT reports she has been struggling with mesenteric vein thrombosis and has been hospitalized since 10/31/2024, currently receiving multidisciplinary treatment and doing better. She hopes to tolerate shakes better before is discharged. On the other hand, she has been struggling emotionally as her daughter was admitted for crisis/ hospitalization as she had self-harming plans. Objective: PT presents for a F/up visit via Telehealth, PT is dealing with major medical issues requiring her to be inpatient. . Supportive listening was implemented as we processed the patient's ongoing medical challenges and concerns regarding her daughter's mental health. A CPT and strength-based approach was utilized to support the patient's coping with her medical issues and recovery. We identified various supports and coping skills, including mackenzie-based strategies, for her to implement. The importance of being present and not rushing the recovery process was reinforced, emphasizing the need to avoid exhausting her physical and mental resources. Assessment/Response: Mental status: sensitive and worried. Denies depression. moderate functioning issues due to medical issues and currently hospitalized. Risk reported/identified: none. Assessment & Plan Assessment & Plan (1) Adjustment disorder: Code(s): F43.20 - Adjustment disorder, unspecified Plan F/up in 1 week. Next mary: 12/13/2024 12pm - 30 min Telehealth Telehealth Telehealth Platform: Telephone Location of provider rendering services: practice address Location of patient: other Patient Identification confirmed using: Name, : Yes Telehealth method: voice only Patient verbally consented to treatment: Yes Patient verbally consented to billing insurance company: Yes Patient informed of any privacy concerns related to visit: Yes Minutes spent on Phone/Video with Pt.: 45 Coding Level of Care Code Established Pt Psytx 45 mins (67238) Patient Type Established Diagnoses Adjustment disorder F43.20 Time Spent (min) 45
--- OUTSIDE RECORDS SUMMARY | 2024-11-06 12:55 | XMS_ITS | Clinical Summary ---
Author Organization [address] [facility] Address [address] [place] [address] Phone Care Team Providers Care Occupational Therapy Assist Name Role Phone Unavailable Primary Care Provider [...]
== END 2024-11-06 11:52 | disposition home or self-care (01) ==
LOC: HO.HBST 11:17
PROVIDERS: PCP Internal Medicine; Visit Provider Counselor Mental Health
DX: F43.20 Adjustment disorder, unspecified (principal)
CPT/HCPCS: 90834

== ENCOUNTER 2024-11-10 10:01 | Outpatient (REF) | payer OTHER, SELFPAY ==
--- OUTSIDE RECORDS SUMMARY | 2024-11-10 10:04 | XMS_ITS | Clinical Summary ---
Author Organization [address] [facility] Address [address] [place] [address] Phone Care Team Providers Care Network Announcer Name Role Phone Unavailable Primary Care Provider [...]
[2024-11-10 11:00] LABS: INTERNATIONAL NORM RATIO 2.7 (0.9-1.1); Prothrombin Time 31.5 SEC (10.9-12.4)
== END 2024-11-10 10:02 | disposition home or self-care (01) ==
LOC: HO.LAB 10:01
PROVIDERS: PCP Internal Medicine; Visit Provider Surgery
DX: Z79.01 Long term (current) use of anticoagulants (principal)
CPT/HCPCS: 36415; 85610

== ENCOUNTER 2024-11-12 09:57 | Outpatient (AMB) | payer OTHER, SELFPAY ==
--- NOTE | 2024-11-12 10:11 | MHC.OFFVISCO ---
Intake Intake Visit Reasons: Anticoagulation Social Problems Specialist Required: No Allergies latex Allergy (Mild, Verified 11/12/24 10:04) Itching oxycodone (From Percocet) Allergy (Mild, Verified 11/12/24 10:04) jittery Medication List - Last Reconciled 11/12/24 by Chio Lundberg RN acetaminophen 650 mg PO Q4H PRN amlodipine 2.5 - 5 mg PO DAILY Held on 11/09/24. Instructions: Resume on 11/10/24. Check your blood pressure every morning as soon as you wake up and send it to Dr. Castellanos. Do no take the blood pressure medication if the blood pressure is below 120/70. Wait every day to hear back from Dr. Castellanos before you take the medication. atorvastatin 10 mg PO DAILY loratadine 10 mg PO DAILY losartan 25 mg PO DAILY PRN Held on 11/09/24. Instructions: Resume on 11/10/24. Check your blood pressure every morning as soon as you wake up and send it to Dr. Castellanos. Do no take the blood pressure medication if the blood pressure is below 120/70. Wait every day to hear back from Dr. Castellanos before you take the medication. multivitamin with iron 1 tab PO DAILY ondansetron 4 mg PO Q12H pantoprazole 40 mg PO DAILY@0630 polyethylene glycol 3350 (Gavilax) grams PO sucralfate 10 mL PO BID warfarin 1 mg PO DAILY Held on 11/09/24. Instructions: Resume on 11/10/24. warfarin 2 mg PO DAILY Held on 11/09/24. Instructions: Resume on 11/10/24. 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 Education provided to pt and s.o. with packet given for reference and review with good verbal understanding. INR ??1.7 out of therapeutic range 2.5-3.5 ( INR in range a few days ago11/10/24) Medications and supplements reviewed Patient status: states no pain today, occ may need childrens tylenol Medications or supplements: updated list- takes b/p med prn - has parameters per PCP Diet: limited to liquid protein water shakes and some soft foods Denies any signs and symptoms of bleeding or clotting or unusual bruising Bleeding, bruising, clotting discussed Nutritional guidance given: review food list - diet per weight loss program and keep ACS up to date with meal plans Dose: had been on 3mg and 4mg dose past few day- dose 6mg today 4mg Tue and recheck F/U INR Date : 3 days Patient and S.O verbalizing understanding of instructions given This nor will be sent to Dr Mcguire and Surgeon for inquiry if pt should be either lovneox or fondapernox. 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 current occupational exposures/hazards: No Fall risk assessment: No Falls in past year Cardiovascular Hx: HTN (prior to surgery , has paramaters post surgery- running lower now 11/12 ) and Other Lung Disease HX: 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 PE for a few years, 2001 - used heparin for procedures preventatively ) and Other (SLEEP APNEA HX - SEEMS TO BE LESS CURRENTLY ) Endocrine Hx: Thyroid Disease (Hx years ago - enc to ask PCP to follow up yearly, ) and Diabetes (controlled with diet right now ) Musculoskeletal Hx: Arthritis (left knee left shoulder degenerative arthritis) Blood Disorder Hx: Other (Protein S deficiency ) GI Hx: Diverticulosis (x 2 with bleeding ) and Other (fatty liver ) Hx: Other (hysterectomy 2010 - Has ovaries ) Neurological Hx: Migraines/Headaches (use to have migraines ) Cancer HX: No (runs in family ) Psych. Illness/Depression: No Is last menstrual period known: No (2010) Post menopausal: No (has ovaries ) Patient : No (gastric sleeve 2010 hysterectomy ) Other: gastric sleeve 2010 hysterectomy, abortions x 2 2002 2003, Anti-Coag. Education Record Teaching Recipient: Family and Significant Other (Eliseo Barrientos ) What is the easiest way to learn: Reading, Listening, Demonstration and Education Packet Barriers to Learning Identified: Other: (diet ) Significant other who can be involved in Teaching Process when Indicated: Eliseo If Barriers are identified, describe method to overcome: challenging dietary requirements Social Problems Specialist Required: No Readiness To Learn: Good Teaching Methods: Discussion and Handout Response to Teaching: Verbalize Understanding Education Intervention/Brief Description of Teaching 1. Able to state reason for taking Warfarin: Yes 2. Able to state Pain Management techniques: Yes 3. Able to state action of Warfarin.: Yes Able to state current dose, pill color, how and when Warfarin to be taken: Yes Able to identify signs of bleeding &/or clotting: Yes 4. Able to identify need to keep diet consistent in regard to vitamin K intake: Yes Able to state restriction on alcohol: Yes 5. Able to state need for compliance with PT/INR testing: Yes Describes rationale for carrying ID and wearing Medic Alert bracelet: Yes Patient instructed to monitor for excess bruising or signs/symptoms of clotting or bleeding: Yes 6. Able to state that there are drugs that interact with Warfin: Yes 7. Able to state the need to seek medical attention when illness/injury occur.: Yes Describes the need to avoid activities with high risk of injury: Yes 8. Able to state duration of treatment: Yes 9. Demonstrates understanding of notifying all providers of pending dental surgical, or other invasive procedures: Yes 10. Able to state Home Care instructions Questionnaires HAS-BLED Does the patient had uncontrolled Hypertension?: No Does the patient have renal disease?: No Does the patient have liver disease?: No Does the patient have a history of stroke?: No Has the patient had major bleeding or predisposition to bleeding?: No Does the patient have labile INRs?: Yes Is the patient over 65 years of age?: No Is the patient on medications that gives them a predisposition to bleeding?: Yes Does the patient use alcohol?: Yes (very rare) HAS-BLED Score: 3 CHADSVASC Age: <65 Gender: Female Does the patient have a history of CHF?: No Does the patient have a history of Hypertension?: Yes Does the patient have a history of Stroke/TIA/Thromboembolism?: Yes (PE ) Does the patient have a history of Vascular Disease (prior NC, PAD or aortic plaque)?: No Does the patient have a history of Diabetes?: Yes CHADS VACS Score: 5 Beau Prediction Score Rsk VTE Active Cancer: No Previous VTE, excluding superficial vein thrombosis: Yes Reduced mobility: No 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 AND HISTORY OF COVID IN THE PAST ) With-in last month Trauma and/or Surgery: Yes Elderly 70 year or older: No Heart and/or Respiratory Failure: No Acute Myocardial infarction and/or Ischemic Stroke: No Acute Infection and/or Rheumatologic Disorder: No Obesity (BMI 30 or greater): Yes Ongoing Hormonal Treatment: No Score: 9 Beau Score less than 4; Low Risk of VTE Beau Score 4 or greater; High Risk of VTE Coding Level of Care Code New Patient Level 2 Diagnoses Current use of anticoagulant therapy Z79.01 Assessment & Plan Assessment & Plan (1) Current use of anticoagulant therapy: Code(s): 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
[2024-11-12 10:45] LABS: ~PT, ~INR - Anti Coag Clinic 1.7 (0.9-1.1)
--- OUTSIDE RECORDS SUMMARY | 2024-11-12 10:55 | XMS_ITS | Clinical Summary ---
Author Organization [address] [facility] Address [address] [place] [address] Phone Care Team Providers Care Imager Name Role Phone Unavailable Primary Care Provider [...]
== END 2024-11-12 12:18 | disposition home or self-care (01) ==
LOC: HO.ACS 09:57
PROVIDERS: PCP Internal Medicine; Visit Provider Internal Medicine Medical Oncology
DX: Z79.01 Long term (current) use of anticoagulants (principal)

== ENCOUNTER → 2024-11-12 09:57 | Outpatient (BNVA) | payer OTHER, SELFPAY | PROVIDERS: PCP Internal Medicine; Visit Provider Internal Medicine Medical Oncology | DX: K55.059 Acute (reversible) ischemia of intestine, part and extent unspecified (principal); Z86.711 Personal history of pulmonary embolism; Z79.01 Long term (current) use of anticoagulants; Z51.81 Encounter for therapeutic drug level monitoring | CPT/HCPCS: 85610; 99202 ==

== ENCOUNTER 2024-11-13 13:04 | Outpatient (AMB) | payer OTHER, SELFPAY ==
--- NOTE | 2024-11-13 12:15 | A.OFFWM_ITS ---
Intake Intake Visit Reasons: TV PO LSG 10/17/24 Allergies latex Allergy (Mild, Verified 01/02/25 08:39) Itching oxycodone (From Percocet) Allergy (Mild, Verified 01/02/25 08:39) jittery mite-Dermatophagoides pteronyssinus (dust mite - ) Allergy (Verified 01/02/25 08:39) Hives PFSH Medical History Pulmonary embolism H. pylori infection Hyperlipidemia H. pylori infection Fatty liver Protein S deficiency Elevated cholesterol DJD (degenerative joint disease) Anxiety Depression Hypertension Non-insulin dependent type 2 diabetes mellitus Sleep apnea Morbid obesity Surgical History S/P laparoscopic sleeve gastrectomy History of esophagogastroduodenoscopy (EGD) History of delivery Hx of colonoscopy Hx of hysterectomy Family History Mother Diabetes High cholesterol Hypertension Obesity Father Drug addiction HIV (human immunodeficiency virus infection) Daughter No problems noted. Maternal Grandmother Breast cancer Family/Other Breast cancer Maternal Grandmother Alzheimer dementia Maternal Grandfather Alzheimer dementia Paternal Grandmother Alzheimer dementia Social History Household Members: Spouse and Family Household Members Other:: 2 Housing: House Are you a primary plant health care technician to a significant other at home: No Do you presently have visiting nurse or other home services: No Alcohol intake: current Alcohol intake frequency: holidays/special occasions only Comment: rings appropriately Patient Tobacco Use Status: Former Tobacco user Tobacco use type: Cigarette Years Smoked: 22 service: No Current occupational status: employed 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 She also notes experiencing difficulties with sleep. The patient mentions she is force-feeding herself and is questioning why she cannot consume certain soft foods, despite having seen in a video that she could. Additionally, she is struggling to adhere to the recommended limitations on her activity levels. Objective: PT presents for a f/up visit via telehealth. . Provided a supportive space for the patient to express her feelings and concerns, validating her experiences and emotions. Encouraged her to communicate openly with her healthcare providers about her needs and challenges. Worked with the patient to identify and challenge negative thought patterns related to her interactions with healthcare providers. Encouraged reframing th itzel thoughts to reduce feelings of blame and frustration. Engaged the patient in problem-solving exercises to address specific challenges she faces, such as dietary restrictions and activity limitations, empowering her to find practical solutions. Assessment/Response: * Mental status: Down, sad. Oriented x3, alert. Mild-mod functioning issues. * Risk reported/identified: None. Food/Weight/Diet Expectations of change PT started the program at 261 lbs, weight as of 09/01/24, was 250 lbs. 10/01/2024 weight: 247Lbs. Day of surgery weight 10/17/2024: 235Lbs PO weight 10/23/2024: 230Lbs PO weight 11/11/2024: 211Lbs Assessment & Plan Assessment & Plan (1) Adjustment disorder: Code(s): F43.20 - Adjustment disorder, unspecified Plan Advised the patient to consult with Dr. Cazares to obtain specific details about her meal plan, including the exact type of protein powder recommended. Emphasized the importance of adhering to the current plan and avoiding the introduction of solid foods until she receives explicit clearance from her provider. F/up in 1-2 weeks. Next mary: TBD. Telehealth Telehealth Telehealth Platform: Telephone Location of provider rendering services: practice address Location of patient: address on file Patient Identification confirmed using: Name, : Yes Telehealth method: voice only Patient verbally consented to treatment: Yes Patient verbally consented to billing insurance company: Yes Patient informed of any privacy concerns related to visit: Yes Minutes spent on Phone/Video with Pt.: 45 Coding Level of Care Code Established Pt Tele Psytx 45 mins (10812) Patient Type Established Diagnoses Adjustment disorder F43.20 Time Spent (min) 45
== END 2024-11-13 13:04 | disposition home or self-care (01) ==
LOC: HO.HBST 13:04
PROVIDERS: PCP Internal Medicine; Visit Provider Counselor Mental Health
DX: F43.20 Adjustment disorder, unspecified (principal)
CPT/HCPCS: 90834

== ENCOUNTER 2024-11-14 09:05 | Outpatient (REF) | payer OTHER, SELFPAY ==
--- OUTSIDE RECORDS SUMMARY | 2024-11-14 09:53 | XMS_ITS | Clinical Summary ---
Author Organization [address] [facility] Address [address] [place] [address] Phone Care Team Providers Care Feed Blender Name Role Phone Unavailable Primary Care Provider [...]
[2024-11-14 10:01] LABS: INTERNATIONAL NORM RATIO 2.1 (0.9-1.1); Prothrombin Time 24.2 SEC (10.9-12.4)
== END 2024-11-14 09:06 | disposition home or self-care (01) ==
LOC: HO.LAB 09:05
PROVIDERS: PCP Internal Medicine; Visit Provider Surgery
DX: K55.069 Acute infarction of intestine, part and extent unspecified (principal)
CPT/HCPCS: 36415; 85610; 99212

== ENCOUNTER 2024-11-14 13:58 | Outpatient (AMB) | payer OTHER, SELFPAY ==
--- NOTE | 2024-11-14 14:01 | MHC.NURWM ---
Intake Intake Visit Reasons: (OV) PO LSG 10/17/24 Allergies latex Allergy (Mild, Verified 11/12/24 10:04) Itching oxycodone (From Percocet) Allergy (Mild, Verified 11/12/24 10:04) jittery Coding
--- NOTE | 2024-11-14 14:07 | A.OFFVIS_ITS ---
VS Expanded 11/14/24 14:30 BP 127/79 Blood Pressure Location Rt brachial Blood Pressure Position Sitting Pulse 95 Pulse Source Pulse Oximeter Temp 97.4 F Temperature Source Temporal Artery Scan Pulse Oximetry 96 Oxygen Delivery Method Room Air Height 5 ft 4 in Weight 210 lb 12.8 oz BMI 36.2 Body Fat % 43.0 Body Fat Mass 90.6 Fat Free Mass 120.2 Visceral Fat Rating 11.0 Body Water % 40.7 Body Water Mass 85.8 Muscle Mass/Score 114.0 Basal Metabolic Rate/Score 1,676 Intake Visit Reasons: (OV) PO LSG 10/17/24 Allergies latex Allergy (Mild, Verified 11/14/24 14:34) Itching oxycodone (From Percocet) Allergy (Mild, Verified 11/14/24 14:34) jittery HPI Comments Details: This?a?44?yo female who is s/p LSG without hiatal hernia repair on?10/17/2024. Presents for 1 month post op visit. Weight today is 210.8 pounds, with a BMI of 36.2. There has been a 50.4 pound weight loss,(initial weight 261.2 pounds) since starting the program on 07/13/2024 reflecting a 19.2 % total body weight loss and a weight loss of 30.5 pounds since surgery (operative weight 241.3 pounds) reflecting a 12.6 % TBWL since surgery. No complaints of nausea, emesis, abdominal pain or reflux. Postop day 11, patient began to experience some abdominal discomfort with associated nausea and intermittent vomiting. She presented to the emergency department on 10/31/2024. She was found to have thrombus of the superior mesenteric vein, left portal vein and posterior branch of the right portal vein. She was started on heparin drip and seen in consultation by Hematology. Recommendation was for Coumadin for 3 months followed by NOAC, and possible furt her workup for her protein S deficiency history. Serial CAT scans showed stable thrombus and at time of discharge she was tolerating her shakes and a protein bar. She continues to be followed by the anticoagulation clinic. Scheduled for INR tomorrow. Since being discharged from the hospital, she is tolerating 1 protein water (does not like the flavor) although is supposed to be doing 2 and to protein bars although she does get some minor cramping with the protein bars. Present meal plan includes: Supposed to have 2 protein Martin and to protein bars although she states she is only doing 1 protein water she does not particularly like the flavor. ? Exercise routine includes: None yet [facility] Medical History (Updated 11/14/24 @ 00:03 by Elvis Loza) Pulmonary embolism H. pylori infection Hyperlipidemia H. pylori infection Fatty liver Protein S deficiency Elevated cholesterol DJD (degenerative joint disease) Anxiety Depression Hypertension Non-insulin dependent type 2 diabetes mellitus Sleep apnea Morbid obesity Surgical History (Updated 11/14/24 @ 14:34 by Lalita Preston CMA) S/P laparoscopic sleeve gastrectomy History of esophagogastroduodenoscopy (EGD) History of delivery Hx of colonoscopy Hx of hysterectomy Family History Mother Diabetes Hypertension Obesity High cholesterol Father Drug addiction HIV (human immunodeficiency virus infection) Daughter No problems noted. 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 Castellanos. She may consider using isopure protein powder on flavored or infusion. She will discuss with him resuming exercise. We will have her return to the office in approximately 1 month. (2) Mesenteric vein thrombosis: Code(s): K55.069 - Acute infarction of intestine, part and extent unspecified Category: Medical Plan: Currently on anticoagulation both oral and injectable. She will continue to follow with the anticoagulation clinic in follow-up with Hematology as an outpatient next month.
[2024-11-14 14:30] VITALS: BP 127/79; PULSE 95; TEMP 36.3; O2SAT 96; BMI 36.2
== END 2024-11-14 14:36 | disposition home or self-care (01) ==
LOC: HO.HBS 13:59
PROVIDERS: Visit Provider Physician Assistant Surgical
DX: Z98.84 Bariatric surgery status (principal); K55.069 Acute infarction of intestine, part and extent unspecified
CPT/HCPCS: 99024

== ENCOUNTER 2024-11-15 09:27 | Outpatient (AMB) | payer OTHER, SELFPAY ==
[2024-11-15 10:10] LABS: Prothrombin Time Whole Bld POC 20.8 sec (11.1-13.5); ~PT, ~INR - Anti Coag Clinic 1.7 (0.9-1.1)
--- NOTE | 2024-11-15 10:20 | MHC.OFFVISCO ---
Intake Intake Visit Reasons: Anticoagulation Allergies latex Allergy (Mild, Verified 11/15/24 09:57) Itching oxycodone (From Percocet) Allergy (Mild, Verified 11/15/24 09:57) maxery Medication List - Last Reconciled 11/15/24 by Carleen Bess, RN acetaminophen 650 mg PO Q4H PRN amlodipine 2.5 - 5 mg PO DAILY Held on 11/09/24. Instructions: Resume on 11/10/24. Check your blood pressure every morning as soon as you wake up and send it to Dr. Castellanos. Do no take the blood pressure medication if the blood pressure is below 120/70. Wait every day to hear back from Dr. Castellanos before you take the medication. atorvastatin 10 mg PO DAILY fondaparinux 5 mg (0.4 mL) subcut DAILY loratadine 10 mg PO DAILY losartan 25 mg PO DAILY PRN Held on 11/09/24. Instructions: Resume on 11/10/24. Check your blood pressure every morning as soon as you wake up and send it to Dr. Castellanos. Do no take the blood pressure medication if the blood pressure is below 120/70. Wait every day to hear back from Dr. Castellanos before you take the medication. multivitamin with iron 1 tab PO DAILY ondansetron 4 mg PO Q12H pantoprazole 40 mg PO DAILY@0630 polyethylene glycol 3350 (Gavilax) grams PO sucralfate 10 mL PO BID warfarin 1 mg See Protocol PO DAILY Held on 11/09/24. Instructions: Resume on 11/10/24. warfarin 2 mg See Protocol PO DAILY Held on 11/09/24. Instructions: Resume on 11/10/24. warfarin 3 mg See Protocol PO DAILY Nursing Note INR: 1.7?out of therapeutic range of 2.5-3.5 Medications and supplements reviewed Patient status: feels well, having a difficult time with liquid diet. S/P gastric sleeve. Trying to follow Dr Candy phillips. Trying to get in enough protein. Medications or supplements: no changes. Pt states she did not start lovenox per Dr Gupta orders. Diet: High protein shakes Denies any signs and symptoms of bleeding or clotting or unusual bruising Bleeding, bruising, clotting discussed Nutritional guidance given: per Dr Gupta Dose: 6mg daily F/U INR Date: 11/19/24?? Patient verbalizing understanding of instructions given. T/C call to Dr Gupta'office. Spoke to Dinesh and reported INR 1.7. Composed note also sent to Dr Gupta with INR dosing plan and next retest date with the question of starting lovenox or fondaparinux. Pt also texted Dr Gupta herself with INR and question lovenox. 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
--- OUTSIDE RECORDS SUMMARY | 2024-11-15 10:27 | XMS_ITS | Clinical Summary ---
Author Organization [address] [facility] Address [address] [place] [address] Phone Care Team Providers Care Sludge Control Attendant Name Role Phone Unavailable Primary Care Provider [...]
== END 2024-11-15 10:52 | disposition home or self-care (01) ==
LOC: HO.ACS 09:27
PROVIDERS: PCP Internal Medicine; Visit Provider Internal Medicine Medical Oncology
DX: Z79.01 Long term (current) use of anticoagulants (principal)

== ENCOUNTER → 2024-11-15 09:27 | Outpatient (BNVA) | payer OTHER, SELFPAY | PROVIDERS: PCP Internal Medicine; Visit Provider Internal Medicine Medical Oncology | DX: Z79.01 Long term (current) use of anticoagulants (principal) | CPT/HCPCS: 85610; 99212 ==

== ENCOUNTER 2024-11-16 09:35 | Outpatient (REF) | payer OTHER, SELFPAY ==
--- OUTSIDE RECORDS SUMMARY | 2024-11-16 10:04 | XMS_ITS | Clinical Summary ---
Author Organization [address] [facility] Address [address] [place] [address] Phone Care Team Providers Care Senior Hris Analyst Name Role Phone Unavailable Primary Care Provider [...]
[2024-11-16 10:52] LABS: INTERNATIONAL NORM RATIO 2.4 (0.9-1.1)
== END 2024-11-16 09:36 | disposition home or self-care (01) ==
LOC: HO.LAB 09:35
PROVIDERS: PCP Internal Medicine; Visit Provider Physician Assistant Surgical
DX: K55.069 Acute infarction of intestine, part and extent unspecified (principal)
CPT/HCPCS: 36415; 85610

== ENCOUNTER 2024-11-19 09:01 | Outpatient (AMB) | payer OTHER, SELFPAY ==
--- OUTSIDE RECORDS SUMMARY | 2024-11-19 09:17 | XMS_ITS | Clinical Summary ---
Author Organization [address] [facility] Address [address] [place] [address] Phone Care Team Providers Care Digital Marketing Assistant Name Role Phone Unavailable Primary Care Provider [...]
[2024-11-19 09:21] LABS: Prothrombin Time Whole Bld POC 20.6 sec (11.1-13.5); ~PT, ~INR - Anti Coag Clinic 1.7 (0.9-1.1)
--- NOTE | 2024-11-19 09:50 | MHC.OFFVISCO ---
Intake Intake Visit Reasons: Anticoagulation Allergies latex Allergy (Mild, Verified 11/19/24 09:12) Itching oxycodone (From Percocet) Allergy (Mild, Verified 11/19/24 09:12) jittery Medication List - Last Reconciled 11/19/24 by Carleen Bess, RN acetaminophen 650 mg PO Q4H PRN amlodipine 2.5 - 5 mg PO DAILY Held on 11/09/24. Instructions: Resume on 11/10/24. Check your blood pressure every morning as soon as you wake up and send it to Dr. Castellanos. Do no take the blood pressure medication if the blood pressure is below 120/70. Wait every day to hear back from Dr. Castellanos before you take the medication. atorvastatin 10 mg PO DAILY fondaparinux 5 mg (0.4 mL) subcut DAILY loratadine 10 mg PO DAILY losartan 25 mg PO DAILY PRN Held on 11/09/24. Instructions: Resume on 11/10/24. Check your blood pressure every morning as soon as you wake up and send it to Dr. Castellanos. Do no take the blood pressure medication if the blood pressure is below 120/70. Wait every day to hear back from Dr. Castellanos before you take the medication. multivitamin with iron 1 tab PO DAILY ondansetron 4 mg PO Q12H pantoprazole 40 mg PO DAILY@0630 polyethylene glycol 3350 (Gavilax) grams PO sucralfate 10 mL PO BID warfarin 1 mg See Protocol PO DAILY Held on 11/09/24. Instructions: Resume on 11/10/24. warfarin 2 mg See Protocol PO DAILY Held on 11/09/24. Instructions: Resume on 11/10/24. warfarin 3 mg See Protocol PO DAILY Nursing Note INR: 1.7, poc repeated and result 1.8 out of therapeutic range of 2-3 Pt sent to lab for venous draw to confirm low INR and result 2.0. Pt had venous draw on 11/16/[address] Gupta and result was 2.4. Medications and supplements reviewed Patient status: feels well, having a difficult time getting enough protein in diet. Medications or supplements: no changes Diet: S/P gastric sleeve, high protein diet per Dr Gupta Denies any signs and symptoms of bleeding or clotting or unusual bruising Bleeding, bruising, clotting discussed Nutritional guidance given: avoid greens but stay within the diet per Dr Gupta Dose: 9mg today and tomorrow and then retest F/U INR Date: 11/21/24?? Patient verbalizing understanding of instructions given. 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
== END 2024-11-19 11:20 | disposition home or self-care (01) ==
LOC: HO.ACS 09:01
PROVIDERS: PCP Internal Medicine; Visit Provider Internal Medicine Medical Oncology
DX: Z79.01 Long term (current) use of anticoagulants (principal)

== ENCOUNTER 2024-11-19 09:01 | Outpatient (REF) | payer OTHER, SELFPAY ==
[2024-11-19 09:56] LABS: Prothrombin Time 23.1 SEC (10.9-12.4)
== END 2024-11-19 09:02 | disposition home or self-care (01) ==
LOC: HO.LAB 09:01
PROVIDERS: PCP Internal Medicine; Visit Provider Internal Medicine Medical Oncology
DX: Z79.01 Long term (current) use of anticoagulants (principal)
CPT/HCPCS: 36415; 85610; 99212

== ENCOUNTER 2024-11-21 09:37 | Outpatient (AMB) | payer OTHER, SELFPAY ==
--- OUTSIDE RECORDS SUMMARY | 2024-11-21 09:56 | XMS_ITS | Clinical Summary ---
Author Organization [address] [facility] Address [address] [place] [address] Phone Care Team Providers Care Java Solutions Architect Name Role Phone Unavailable Primary Care Provider [...]
[2024-11-21 09:58] LABS: Prothrombin Time Whole Bld POC 28.4 sec (11.1-13.5); ~PT, ~INR - Anti Coag Clinic 2.4 (0.9-1.1)
--- NOTE | 2024-11-21 10:06 | MHC.OFFVISCO ---
Intake Intake Visit Reasons: Anticoagulation Allergies latex Allergy (Mild, Verified 11/21/24 09:41) Itching oxycodone (From Percocet) Allergy (Mild, Verified 11/21/24 09:41) jittery Nursing Note PT.DENIES ANY CP,MED CHANGES OR SX OF BLEEDING. WILL CONTINUE BID LOVENOX AND INCREASE WARFARIN TO 9MG AGAIN TODAY. CHECK INR HERE TOMORROW. PT.HAS PICKED UP FONDAPARINUX, TO BE USED GOING FORWARD IF NEEDED. 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
== END 2024-11-21 10:14 | disposition home or self-care (01) ==
LOC: HO.ACS 09:37
PROVIDERS: PCP Internal Medicine; Visit Provider Internal Medicine Medical Oncology
DX: Z79.01 Long term (current) use of anticoagulants (principal)

== ENCOUNTER → 2024-11-21 09:37 | Outpatient (BNVA) | payer OTHER, SELFPAY | PROVIDERS: PCP Internal Medicine; Visit Provider Internal Medicine Medical Oncology | DX: K55.059 Acute (reversible) ischemia of intestine, part and extent unspecified (principal); Z86.711 Personal history of pulmonary embolism; Z79.01 Long term (current) use of anticoagulants; Z51.81 Encounter for therapeutic drug level monitoring | CPT/HCPCS: 85610; 99211 ==

== ENCOUNTER 2024-11-22 09:41 | Outpatient (AMB) | payer OTHER, SELFPAY ==
--- OUTSIDE RECORDS SUMMARY | 2024-11-22 10:05 | XMS_ITS | Clinical Summary ---
Author Organization [address] [facility] Address [address] [place] [address] Phone Care Team Providers Care Production Inspector Name Role Phone Unavailable Primary Care [...]
[2024-11-22 10:12] LABS: Prothrombin Time Whole Bld POC 39.9 sec (11.1-13.5); ~PT, ~INR - Anti Coag Clinic 3.3 (0.9-1.1)
--- NOTE | 2024-11-22 10:29 | MHC.OFFVISCO ---
Intake Intake Visit Reasons: Anticoagulation Allergies latex Allergy (Mild, Verified 11/22/24 10:04) Itching oxycodone (From Percocet) Allergy (Mild, Verified 11/22/24 10:04) jittery Medication List - Last Reconciled 11/22/24 by Carleen Bess, RN acetaminophen 650 mg PO Q4H PRN amlodipine 2.5 - 5 mg PO DAILY Held on 11/09/24. Instructions: Resume on 11/10/24. Check your blood pressure every morning as soon as you wake up and send it to Dr. Castellanos. Do no take the blood pressure medication if the blood pressure is below 120/70. Wait every day to hear back from Dr. Castellanos before you take the medication. atorvastatin 10 mg PO DAILY fondaparinux 5 mg (0.4 mL) subcut DAILY loratadine 10 mg PO DAILY losartan 25 mg PO DAILY PRN Held on 11/09/24. Instructions: Resume on 11/10/24. Check your blood pressure every morning as soon as you wake up and send it to Dr. Castellanos. Do no take the blood pressure medication if the blood pressure is below 120/70. Wait every day to hear back from Dr. Castellanos before you take the medication. multivitamin with iron 1 tab PO DAILY ondansetron 4 mg PO Q12H pantoprazole 40 mg PO DAILY@0630 polyethylene glycol 3350 (Gavilax) grams PO sucralfate 10 mL PO BID warfarin 1 mg See Protocol PO DAILY Held on 11/09/24. Instructions: Resume on 11/10/24. warfarin 2 mg See Protocol PO DAILY Held on 11/09/24. Instructions: Resume on 11/10/24. warfarin 3 mg See Protocol PO DAILY Nursing Note INR: 3.3 in therapeutic range of 2.5-3.5 Medications and supplements reviewed No changes in health, diet, medications, or supplements, Denies any signs and symptoms of bleeding or bruising or clotting. 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 Illness/Depression: No Coding Level of Care Code Est Patient Level 1 Diagnoses Current use of anticoagulant therapy Z79.01 Results AMB INR Fingerstick AMB INR Fingerstick 3.3 Last Edit by Carleen Bess RN on 11/22/24 10:22 interface delay Assessment & Plan Assessment & Plan (1) Current use of anticoagulant therapy: Code(s): Z79.01 - retirement (current) use of anticoagulants Category: Medical
== END 2024-11-22 10:32 | disposition home or self-care (01) ==
LOC: HO.ACS 09:41
PROVIDERS: PCP Internal Medicine; Visit Provider Internal Medicine Medical Oncology
DX: Z79.01 Long term (current) use of anticoagulants (principal)

== ENCOUNTER → 2024-11-22 09:41 | Outpatient (BNVA) | payer OTHER, SELFPAY | PROVIDERS: PCP Internal Medicine; Visit Provider Internal Medicine Medical Oncology | DX: Z79.01 Long term (current) use of anticoagulants (principal) | CPT/HCPCS: 85610; 99211 ==

== ENCOUNTER 2024-11-26 14:19 | Outpatient (AMB) | payer OTHER, SELFPAY ==
[2024-11-26 14:36] LABS: Prothrombin Time Whole Bld POC 31.3 sec (11.1-13.5); ~PT, ~INR - Anti Coag Clinic 2.6 (0.9-1.1)
--- OUTSIDE RECORDS SUMMARY | 2024-11-26 14:47 | XMS_ITS | Clinical Summary ---
Author Organization [address] [facility] Address [address] [place] [address] Phone Care Team Providers Care Human Resources Operations Specialist Name Role Phone Unavailable Primary Care Provider [...] 5 Years) and At-Risk Patients (6 to 49 Years) Aged Out No longer eligible b ased on patient's age to complete this topic RSV Immunization Patients Un amira 20 months Aged Out No longer eligible b ased on patient's age to complete this topic Varicella Vaccines Aged Out No longer eligible based on patient's age to complete this topic
--- NOTE | 2024-11-26 14:49 | MHC.OFFVISCO ---
Intake Intake Visit Reasons: Anticoagulation Allergies latex Allergy (Mild, Verified 11/26/24 14:25) Itching oxycodone (From Percocet) Allergy (Mild, Verified 11/26/24 14:25) jittery Medication List - Last Reconciled 11/26/24 by Chio Lundberg RN acetaminophen 650 mg PO Q4H PRN amlodipine 2.5 - 5 mg PO DAILY Held on 11/09/24. Instructions: Resume on 11/10/24. Check your blood pressure every morning as soon as you wake up and send it to Dr. Castellanos. Do no take the blood pressure medication if the blood pressure is below 120/70. Wait every day to hear back from Dr. Castellanos before you take the medication. atorvastatin 10 mg PO DAILY fondaparinux 5 mg (0.4 mL) subcut DAILY loratadine 10 mg PO DAILY losartan 25 mg PO DAILY PRN Held on 11/09/24. Instructions: Resume on 11/10/24. Check your blood pressure every morning as soon as you wake up and send it to Dr. Castellanos. Do no take the blood pressure medication if the blood pressure is below 120/70. Wait every day to hear back from Dr. Castellanos before you take the medication. multivitamin with iron 1 tab PO DAILY ondansetron 4 mg PO Q12H pantoprazole 40 mg PO DAILY@0630 polyethylene glycol 3350 (Gavilax) grams PO sucralfate 10 mL PO BID warfarin 1 mg See Protocol PO DAILY Held on 11/09/24. Instructions: Resume on 11/10/24. warfarin 2 mg See Protocol PO DAILY Held on 11/09/24. Instructions: Resume on 11/10/24. warfarin 3 mg See Protocol PO DAILY Nursing Note INR: 2.6 in therapeutic range 2.5-3.5 Medications and supplements reviewed * Has 2 large bruises on her abd from fondaparinux and lovenox that are fading with gravity- it was explained that the bruise will appear to be spreading as gravity draws it down but will fade in color *She states she has been constipated x 1 week- she was enc to follow MD orders for bowel care and to call the surgeon - it was explained it is best not to wait to avoid haveing a blockage Denies any signs and symptoms of bleeding or bruising or clotting. 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
== END 2024-11-26 14:56 | disposition home or self-care (01) ==
LOC: HO.ACS 14:19
PROVIDERS: PCP Internal Medicine; Visit Provider Internal Medicine Medical Oncology
DX: Z79.01 Long term (current) use of anticoagulants (principal)

== ENCOUNTER → 2024-11-26 14:19 | Outpatient (BNVA) | payer OTHER, SELFPAY | PROVIDERS: PCP Internal Medicine; Visit Provider Internal Medicine Medical Oncology | DX: K55.019 Acute (reversible) ischemia of small intestine, extent unspecified (principal); Z86.711 Personal history of pulmonary embolism; Z51.81 Encounter for therapeutic drug level monitoring; Z79.01 Long term (current) use of anticoagulants | CPT/HCPCS: 85610; 99211 ==

== ENCOUNTER 2024-11-28 08:45 | Outpatient (REF) | payer OTHER, SELFPAY ==
--- OUTSIDE RECORDS SUMMARY | 2024-11-28 08:58 | XMS_ITS | Clinical Summary ---
Author Organization [address] [facility] Address [address] [place] [address] Phone Care Team Providers Care Television Service Engineer Name Role Phone Unavailable Primary Care [...] Influencers of Health Screening 05/02/2024 Influenza Vaccine (#1) 2025 HIB Vaccines Aged Out No longer [...]
[2024-11-28 10:49] LABS: Appearance Urine Cloudy; Glucose Urine UA Negative (Negative); PH 6.5 (5.0-9.0); Specific Gravity - Urine 1.015 (1.005-1.025); UMIC TRIGGER UACC YES
[2024-11-28 11:11] LABS: UACC Culture Trigger YES
== END 2024-11-28 08:46 | disposition home or self-care (01) ==
LOC: HO.LAB 08:45
PROVIDERS: PCP Internal Medicine; Visit Provider Surgery
DX: N39.0 Urinary tract infection, site not specified (principal)
CPT/HCPCS: 81001; 87086; 87088; 87186

== ENCOUNTER → 2024-11-28 15:44 | Outpatient (BNV) | payer OTHER, SELFPAY | PROVIDERS: Visit Provider Internal Medicine | DX: K55.069 Acute infarction of intestine, part and extent unspecified (principal) | CPT/HCPCS: 99214; G2211 ==

== ENCOUNTER 2024-11-30 07:33 | Outpatient (AMB) | payer OTHER, SELFPAY ==
--- OUTSIDE RECORDS SUMMARY | 2024-11-30 07:35 | XMS_ITS | Clinical Summary ---
Author Organization [address] [facility] Address [address] [place] [address] Phone Care Team Providers Care Evp Operations Name Role Phone Unavailable Primary Care Provider [...]
[2024-11-30 07:41] LABS: Prothrombin Time Whole Bld POC 36.8 sec (11.1-13.5); ~PT, ~INR - Anti Coag Clinic 3.1 (0.9-1.1)
--- NOTE | 2024-11-30 07:49 | MHC.OFFVISCO ---
Intake Intake Visit Reasons: Anticoagulation Allergies latex Allergy (Mild, Verified 11/30/24 07:34) Itching oxycodone (From Percocet) Allergy (Mild, Verified 11/30/24 07:34) jittery mite-Dermatophagoides pteronyssinus (dust mite - ) Allergy (Verified 11/30/24 07:34) Hives Medication List - Last Reconciled 11/30/24 by Chio Lundberg RN acetaminophen 650 mg PO Q4H PRN amlodipine 2.5 - 5 mg PO DAILY Held on 11/09/24. Instructions: Resume on 11/10/24. Check your blood pressure every morning as soon as you wake up and send it to Dr. Castellanos. Do no take the blood pressure medication if the blood pressure is below 120/70. Wait every day to hear back from Dr. Castellanos before you take the medication. atorvastatin 10 mg PO DAILY fondaparinux 5 mg (0.4 mL) subcut DAILY loratadine 10 mg PO DAILY losartan 25 mg PO DAILY PRN Held on 11/09/24. Instructions: Resume on 11/10/24. Check your blood pressure every morning as soon as you wake up and send it to Dr. Castellanos. Do no take the blood pressure medication if the blood pressure is below 120/70. Wait every day to hear back from Dr. Castellanos before you take the medication. multivitamin with iron 1 tab PO DAILY ondansetron 4 mg PO Q12H pantoprazole 40 mg PO DAILY@0630 polyethylene glycol 3350 (Gavilax) 17 grams PO DAILY sucralfate 10 mL PO BID warfarin 1 mg See Protocol PO DAILY Held on 11/09/24. Instructions: Resume on 11/10/24. warfarin 2 mg See Protocol PO DAILY Held on 11/09/24. Instructions: Resume on 11/10/24. warfarin 3 mg See Protocol PO DAILY Nursing Note INR: 3.1 in therapeutic range 2.5-3.5 Medications and supplements reviewed *Warfarin dose still in the adjustment phase due to her healing from surgery and her diet. *She will be starting an antbx for UTI possibly today- she is to call with name of antbx . She is aware her warfarin dose may have to change. Denies any signs and symptoms of bleeding or bruising or clotting. 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 Illness/Depression: No Coding Level of Care Code Est Patient Level 1 Diagnoses Current use of anticoagulant therapy Z79.01 Results AMB INR Fingerstick AMB INR Fingerstick 3.1 Last Edit by Chio Lundberg RN on 11/30/24 07:41 Assessment & Plan Assessment & Plan (1) Current use of anticoagulant therapy: Code(s): Z79.01 - [facility] (current) use of anticoagulants Category: Medical
== END 2024-11-30 11:10 | disposition home or self-care (01) ==
LOC: HO.ACS 07:33
PROVIDERS: PCP Internal Medicine; Visit Provider Internal Medicine Medical Oncology
DX: Z79.01 Long term (current) use of anticoagulants (principal)

== ENCOUNTER → 2024-11-30 07:33 | Outpatient (BNVA) | payer OTHER, SELFPAY | PROVIDERS: PCP Internal Medicine; Visit Provider Internal Medicine Medical Oncology | DX: K55.059 Acute (reversible) ischemia of intestine, part and extent unspecified (principal); Z86.711 Personal history of pulmonary embolism; Z79.01 Long term (current) use of anticoagulants; Z51.81 Encounter for therapeutic drug level monitoring | CPT/HCPCS: 85610; 99211 ==

== ENCOUNTER 2024-12-03 08:24 | Outpatient (AMB) | payer OTHER, SELFPAY ==
--- OUTSIDE RECORDS SUMMARY | 2024-12-03 08:29 | XMS_ITS | Clinical Summary ---
Author Organization [address] [facility] Address [address] [place] [address] Phone Care Team Providers Care Superintendent Recreation Name Role Phone Unavailable Primary Care Provider [...]
[2024-12-03 08:40] LABS: Prothrombin Time Whole Bld POC 28.6 sec (11.1-13.5); ~PT, ~INR - Anti Coag Clinic 2.4 (0.9-1.1)
--- NOTE | 2024-12-03 08:47 | MHC.OFFVISCO ---
Intake Intake Visit Reasons: Anticoagulation Allergies latex Allergy (Mild, Verified 12/03/24 08:34) Itching oxycodone (From Percocet) Allergy (Mild, Verified 12/03/24 08:34) jittery mite-Dermatophagoides pteronyssinus (dust mite - ) Allergy (Verified 12/03/24 08:34) Hives Medication List - Last Reconciled 12/03/24 by Chio Lundberg RN acetaminophen 650 mg PO Q4H PRN amlodipine 2.5 - 5 mg PO DAILY Held on 11/09/24. Instructions: Resume on 11/10/24. Check your blood pressure every morning as soon as you wake up and send it to Dr. Castellanos. Do no take the blood pressure medication if the blood pressure is below 120/70. Wait every day to hear back from Dr. Castellanos before you take the medication. atorvastatin 10 mg PO DAILY ciprofloxacin 250 mg (5 mL) PO Q12H fondaparinux 5 mg (0.4 mL) subcut DAILY loratadine 10 mg PO DAILY losartan 25 mg PO DAILY PRN Held on 11/09/24. Instructions: Resume on 11/10/24. Check your blood pressure every morning as soon as you wake up and send it to Dr. Castellanos. Do no take the blood pressure medication if the blood pressure is below 120/70. Wait every day to hear back from Dr. Castellanos before you take the medication. multivitamin with iron 1 tab PO DAILY ondansetron 4 mg PO Q12H pantoprazole 40 mg PO DAILY@0630 polyethylene glycol 3350 (Gavilax) 17 grams PO DAILY sucralfate 10 mL PO BID warfarin 1 mg See Protocol PO DAILY Held on 11/09/24. Instructions: Resume on 11/10/24. warfarin 2 mg See Protocol PO DAILY Held on 11/09/24. Instructions: Resume on 11/10/24. warfarin 3 mg See Protocol PO DAILY Nursing Note INR: 2.4 ALMOST in therapeutic range Medications and supplements reviewed Starting antbx for UTI - cipro 250mg liquid po bid- can raise the INR - onset unknown- may absorb quicker being a liquid Denies any signs and symptoms of bleeding or bruising or clotting. 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 Illness/Depression: No Coding Level of Care Code Est Patient Level 1 Diagnoses Current use of anticoagulant therapy Z79.01 Assessment & Plan Assessment & Plan (1) Current use of anticoagulant therapy: Code(s): Z79.01 - intermediate (current) use of anticoagulants Category: Medical
== END 2024-12-03 08:51 | disposition home or self-care (01) ==
LOC: HO.ACS 08:24
PROVIDERS: PCP Internal Medicine; Visit Provider Internal Medicine Medical Oncology
DX: Z79.01 Long term (current) use of anticoagulants (principal)

== ENCOUNTER → 2024-12-03 08:24 | Outpatient (BNVA) | payer OTHER, SELFPAY | PROVIDERS: PCP Internal Medicine; Visit Provider Internal Medicine Medical Oncology | DX: K55.059 Acute (reversible) ischemia of intestine, part and extent unspecified (principal); Z86.711 Personal history of pulmonary embolism; Z79.01 Long term (current) use of anticoagulants; Z51.81 Encounter for therapeutic drug level monitoring | CPT/HCPCS: 85610; 99211 ==

== ENCOUNTER 2024-12-06 13:42 | Outpatient (AMB) | payer OTHER, SELFPAY ==
--- NOTE | 2024-12-06 13:10 | A.OFFWM_ITS ---
Intake Intake Visit Reasons: TV PO LSG 10/17/24 Allergies latex Allergy (Mild, Verified 01/02/25 08:39) Itching oxycodone (From Percocet) Allergy (Mild, Verified 01/02/25 08:39) jittery mite-Dermatophagoides pteronyssinus (dust mite - ) Allergy (Verified 01/02/25 08:39) Hives PFSH Medical History Pulmonary embolism H. pylori infection Hyperlipidemia H. pylori infection Fatty liver Protein S deficiency Elevated cholesterol DJD (degenerative joint disease) Anxiety Depression Hypertension Non-insulin dependent type 2 diabetes mellitus Sleep apnea Morbid obesity Surgical History S/P laparoscopic sleeve gastrectomy History of esophagogastroduodenoscopy (EGD) History of delivery Hx of colonoscopy Hx of hysterectomy Family History Mother Diabetes High cholesterol Hypertension Obesity Father Drug addiction HIV (human immunodeficiency virus infection) Daughter No problems noted. Maternal Grandmother Breast cancer Family/Other Breast cancer Maternal Grandmother Alzheimer dementia Maternal Grandfather Alzheimer dementia Paternal Grandmother Alzheimer dementia Social History Household Members: Spouse and Family Household Members Other:: 2 Housing: House Are you a primary director long term care to a significant other at home: No Do you presently have visiting nurse or other home services: No Alcohol intake: current Alcohol intake frequency: holidays/special occasions only Comment: rings appropriately Patient Tobacco Use Status: Former Tobacco user Tobacco use type: Cigarette Years Smoked: 22 service: No Current occupational status: employed 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 Her most recent weight is 211 lbs. She has resumed walking in the pool twice this week and continues to walk regularly. She expresses a desire to maintain ongoing support from the Weight Management (WM) team. She is currently drinking 70?80 oz of fluids daily and has begun experimenting with different types of foods. Objective: The patient presented for a post-operative follow-up appointment. . Discussed functioning and explored emotional and behavioral responses to post-op changes and provided support for ongoing adjustment. Reflected on challenges related to introducing solid foods earlier than recommended, including increased appetite and the potential to lose the appetite-suppressing benefits of the immediate post-op period. Provided education on the importance of adhering to the staged dietary progression to optimize surgical outcomes and minimize complications. Reviewed strategies for managing common post-op issues. Encouraged continued engagement in physical activity, such as pool walking, and discussed ways to increase activity as tolerated. Assessment/Response: * Mental status: Alert, oriented, mood stable, affect appropriate. No evidence of cognitive impairment or acute distress. * Risk reported/identified: None Patient is engaged in her recovery and receptive to education and support. Food/Weight/Diet Expectations of change PT started the program at 261 lbs, weight as of 09/01/24, was 250 lbs. 10/01/2024 weight: 247Lbs. Day of surgery weight 10/17/2024: 235Lbs PO weight 10/23/2024: 230Lbs PO weight 11/11/2024: 211Lbs Assessment & Plan Assessment & Plan (1) Adjustment disorder: Code(s): F43.20 - Adjustment disorder, unspecified Plan -Reinforce adherence to post-op dietary guidelines and address any emerging challenges -Continue monthly post-operative support sessions * Next appointment scheduled for 01/03/25 at 9am. Telehealth Telehealth Telehealth [facility]: [facility] Location of provider rendering services: other (Home office. [place], [place]) Location of patient: address on file Patient Identification confirmed using: Name, : Yes Telehealth method: video Patient verbally consented to treatment: Yes Patient verbally consented to billing insurance company: Yes Patient informed of any privacy concerns related to visit: Yes Minutes spent on Phone/Video with Pt.: 55 Coding Level of Care Code Established Pt Tele Psytx >53 mins (22103) Patient Type Established Diagnoses Adjustment disorder F43.20 Time Spent (min) 55
--- OUTSIDE RECORDS SUMMARY | 2024-12-06 14:24 | XMS_ITS | Clinical Summary ---
Author Organization [address] [facility] Address [address] [place] [address] Phone Care Team Providers Care Racing Mechanic Name Role Phone Unavailable Primary Care [...]
== END 2024-12-06 14:14 | disposition home or self-care (01) ==
LOC: HO.HBST 13:42
PROVIDERS: PCP Internal Medicine; Visit Provider Counselor Mental Health
DX: F43.20 Adjustment disorder, unspecified (principal)
CPT/HCPCS: 90837

== ENCOUNTER 2024-12-07 08:28 | Outpatient (AMB) | payer OTHER, SELFPAY ==
--- OUTSIDE RECORDS SUMMARY | 2024-12-07 08:29 | XMS_ITS | Clinical Summary ---
Author Organization [address] [facility] Address [address] [place] [address] Phone Care Team Providers Care Safety Clothing And Equipment Developer Name Role Phone Unavailable Primary Care Provider [...]
[2024-12-07 08:44] LABS: Prothrombin Time Whole Bld POC 25.0 sec (11.1-13.5); ~PT, ~INR - Anti Coag Clinic 2.1 (0.9-1.1)
--- NOTE | 2024-12-07 09:02 | MHC.OFFVISCO ---
Intake Intake Visit Reasons: Anticoagulation Allergies latex Allergy (Mild, Verified 12/03/24 08:34) Itching oxycodone (From Percocet) Allergy (Mild, Verified 12/03/24 08:34) jittery mite-Dermatophagoides pteronyssinus (dust mite - ) Allergy (Verified 12/03/24 08:34) Hives Nursing Note INR: 2.1 out of therapeutic range of 2.5-3.5 Pt started ciprofloxacin for UTI on 12/03/24 which can raise the INR but INR has gone down from 2.4 to 2.1 after 4 days in the course of treatment for the UTI. Medications and supplements reviewed Patient status: feels well Medications or supplements: no changes Diet: as per Dr Gupta Denies any signs and symptoms of bleeding or clotting or unusual bruising Bleeding, bruising, clotting discussed Nutritional guidance given: to follow diet from weight management center Dose: increase today's dose to 12mg then 6mg/9mg/6mg then retest. F/U INR Date: 12/11/24?? Patient verbalizing understanding of instructions given. 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 Illness/Depression: No Coding Level of Care Code Est Patient Level 1 Diagnoses Current use of anticoagulant therapy Z79.01 Results AMB INR Fingerstick AMB INR Fingerstick 2.1 Last Edit by Carleen Bess RN on 12/07/24 08:59 interface delay Assessment & Plan Assessment & Plan (1) Current use of anticoagulant therapy: Code(s): Z79.01 - skilled nursing (current) use of anticoagulants Category: Medical
== END 2024-12-07 09:08 | disposition home or self-care (01) ==
LOC: HO.ACS 08:28
PROVIDERS: PCP Internal Medicine; Visit Provider Internal Medicine Medical Oncology
DX: Z79.01 Long term (current) use of anticoagulants (principal)

== ENCOUNTER → 2024-12-07 08:28 | Outpatient (BNVA) | payer OTHER, SELFPAY | PROVIDERS: PCP Internal Medicine; Visit Provider Internal Medicine Medical Oncology | DX: K55.059 Acute (reversible) ischemia of intestine, part and extent unspecified (principal); Z86.711 Personal history of pulmonary embolism; Z79.01 Long term (current) use of anticoagulants; Z51.81 Encounter for therapeutic drug level monitoring | CPT/HCPCS: 85610; 99211 ==

== ENCOUNTER 2024-12-11 09:37 | Outpatient (AMB) | payer OTHER, SELFPAY ==
[2024-12-11 09:42] LABS: Prothrombin Time Whole Bld POC 33.5 sec (11.1-13.5); ~PT, ~INR - Anti Coag Clinic 2.8 (0.9-1.1)
--- NOTE | 2024-12-11 09:51 | MHC.OFFVISCO ---
Intake Intake Visit Reasons: Anticoagulation Allergies latex Allergy (Mild, Verified 12/11/24 09:37) Itching oxycodone (From Percocet) Allergy (Mild, Verified 12/11/24 09:37) jittery mite-Dermatophagoides pteronyssinus (dust mite - ) Allergy (Verified 12/11/24 09:37) Hives Medication List - Last Reconciled 12/11/24 by Carleen Bess RN acetaminophen 650 mg PO Q4H PRN amlodipine 2.5 - 5 mg PO DAILY Held on 11/09/24. Instructions: Resume on 11/10/24. Check your blood pressure every morning as soon as you wake up and send it to Dr. Castellanos. Do no take the blood pressure medication if the blood pressure is below 120/70. Wait every day to hear back from Dr. Castellanos before you take the medication. atorvastatin 10 mg PO DAILY ciprofloxacin HCl 250 mg PO BID fondaparinux 5 mg (0.4 mL) subcut DAILY loratadine 10 mg PO DAILY losartan 25 mg PO DAILY PRN Held on 11/09/24. Instructions: Resume on 11/10/24. Check your blood pressure every morning as soon as you wake up and send it to Dr. Castellanos. Do no take the blood pressure medication if the blood pressure is below 120/70. Wait every day to hear back from Dr. Castellanos before you take the medication. multivitamin with iron 1 tab PO DAILY ondansetron 4 mg PO Q12H pantoprazole 40 mg PO DAILY@0630 polyethylene glycol 3350 (Gavilax) 17 grams PO DAILY sucralfate 10 mL PO BID warfarin 1 mg See Protocol PO DAILY Held on 11/09/24. Instructions: Resume on 11/10/24. warfarin 2 mg See Protocol PO DAILY Held on 11/09/24. Instructions: Resume on 11/10/24. warfarin 3 mg See Protocol PO DAILY Nursing Note INR: 2.8 in therapeutic range of 2.5-3.5 Medications and supplements reviewed No changes in health, diet, medications, or supplements, Denies any signs and symptoms of bleeding or bruising or clotting. Bleeding, bruising, clotting discussed Dose: 9mg X 4 days and 6mg X 3 days (M/W/F) F/U INR: 1 week Patient verbalizes understanding of instructions with read back given 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 PE for a few years, 2001 - used heparin for procedures preventatively ) and Other (SLEEP APNEA HX - SEEMS TO BE LESS CURRENTLY ) Endocrine Hx: Thyroid Disease (Hx years ago - enc to ask PCP to follow up yearly, ) and Diabetes (controlled with diet right now ) Musculoskeletal Hx: Arthritis (left knee left shoulder degenerative arthritis) Blood Disorder Hx: Other (Protein S deficiency ) GI Hx: Diverticulosis (x 2 with bleeding ) and Other (fatty liver ) Hx: Other (hysterectomy 2010 - Has ovaries ) Neurological Hx: Migraines/Headaches (use to have migraines ) Cancer HX: No (runs in family ) Psych. 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
--- OUTSIDE RECORDS SUMMARY | 2024-12-11 10:16 | XMS_ITS | Clinical Summary ---
Author Organization [address] [facility] Address [address] [place] [address] Phone Care Team Providers Care Enterprise Records Analyst Name Role Phone Unavailable Primary Care [...] Vaccine ( - 2023-2 5 season) 2024 Colorectal Cancer Screening: Colonoscopy 05/02/2024 HIV Screening 05/02/2024 Hepatitis C Screening 05/02/2024 Social Influencers of Health Screening 05/02/2024 Depression Screening 05/23/2024 Influenza Vaccine (#1) 2025 HIB Vaccines Aged [...]
== END 2024-12-11 10:00 | disposition home or self-care (01) ==
LOC: HO.ACS 09:37
PROVIDERS: PCP Internal Medicine; Visit Provider Internal Medicine Medical Oncology
DX: Z79.01 Long term (current) use of anticoagulants (principal)

== ENCOUNTER → 2024-12-11 09:37 | Outpatient (BNVA) | payer OTHER, SELFPAY | PROVIDERS: PCP Internal Medicine; Visit Provider Internal Medicine Medical Oncology | DX: K55.059 Acute (reversible) ischemia of intestine, part and extent unspecified (principal); Z86.711 Personal history of pulmonary embolism; Z79.01 Long term (current) use of anticoagulants; Z51.81 Encounter for therapeutic drug level monitoring | CPT/HCPCS: 85610; 99212 ==

== ENCOUNTER 2024-12-12 08:25 | Outpatient (AMB) | payer OTHER, SELFPAY ==
--- NOTE | 2024-12-12 08:31 | A.OFFVIS_ITS ---
VS Expanded 12/12/24 08:47 BP 112/73 Blood Pressure Location Rt brachial Blood Pressure Position Sitting Pulse 84 Pulse Source Pulse Oximeter Temp 97.3 F Temperature Source Temporal Artery Scan Pulse Oximetry 99 Oxygen Delivery Method Room Air Height 5 ft 4 in Weight 208 lb 12.8 oz BMI 35.8 Body Fat % 37.9 Body Fat Mass 79.2 Fat Free Mass 129.6 Visceral Fat Rating 10.0 Body Water % 44.2 Body Water Mass 92.4 Muscle Mass/Score 123.0 Basal Metabolic Rate/Score 1,775 Intake Visit Reasons: (OV) PO LSG 10/17/24 Allergies latex Allergy (Mild, Verified 12/12/24 08:48) Itching oxycodone (From Percocet) Allergy (Mild, Verified 12/12/24 08:48) jittery mite-Dermatophagoides pteronyssinus (dust mite - ) Allergy (Verified 12/12/24 08:48) Hives HPI Comments Details: This?a?44?yo female who is s/p LSG without hiatal hernia repair on?10/17/2024. Presents for 2 month post op visit. Weight today is 208.8 pounds, with a BMI of 35.9. There has been a 52.4 pound weight loss,(initial weight 261.2 pounds) since starting the program on 07/13/2024 reflecting a 19.4 % total body weight loss and a weight loss of 32.5 pounds since surgery (operative weight 241.3 pounds) reflecting a 12.8 % TBWL since surgery. No complaints of nausea, emesis , abdominal pain or reflux. On postop day 11, patient began to experience some abdominal discomfort with associated nausea and intermittent vomiting. She presented to the emergency department on 10/31/2024. She was found to have thrombus of the superior mesenteric vein, left portal vein and posterior branch of the right portal vein. She was started on heparin drip and seen in consultation by Hematology. Recommendation was for Coumadin for 3 months followed by NOAC, and possible further workup for her protein S deficiency history. Serial CAT scans showed stable thrombus and at time of discharge she was tolerating her shakes and a protein bar. She continues to be followed by the anticoagulation clinic. Present meal plan includes: Protein 2.0 water at 8-10 Fit crunch bar 11-1 3 forks egg/cottage cheese or yogurt at 3 pm another bar 5-8 Drinking 70-80 oz water ? Exercise routine includes: Has membership to [email or web address] and [email or web address] at home She was having difficulty trying to find time to go to the gym and exercise. She states that she is now going to commit to find the time. Her partner is going to be having hip replacement surgery and so she is working on scheduling for him as well as finding time for herself [facility] Medical History (Updated 11/28/24 @ 18:43 by Rosemary Mcguire MD) Pulmonary embolism H. pylori infection Hyperlipidemia H. pylori infection Fatty liver Protein S deficiency Elevated cholesterol DJD (degenerative joint disease) Anxiety Depression Hypertension Non-insulin dependent type 2 diabetes mellitus Sleep apnea Morbid obesity Surgical History S/P laparoscopic sleeve gastrectomy History of esophagogastroduodenoscopy (EGD) History of delivery Hx of colonoscopy Hx of hysterectomy Family History Mother Diabetes High cholesterol Hypertension Obesity Father Drug addiction HIV (human immunodeficiency virus infection) Daughter No problems noted. Maternal Grandmother Breast cancer Family/Other Breast cancer Maternal Grandmother Alzheimer dementia Maternal Grandfather Alzheimer dementia Paternal Grandmother Alzheimer dementia Social History (Updated 11/28/24 @ 15:51 by Dulce Irwin) Household Members: Spouse and Family Household Members Other:: 2 Housing: House Are you a primary rn transitional care to a significant other at home: No Do you presently have visiting nurse or other home services: No Alcohol intake: current Alcohol intake frequency: holidays/special occasions only Comment: rings appropriately Patient Tobacco Use Status: Former Tobacco user Tobacco use type: Cigarette Years Smoked: 22 service: No Current occupational status: employed 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 She is following the meal plan however has not been exercising. She states she is going to try to identify a time when she can go to the gym. Discussed using the treadmill, stationary bike, elliptical machine with a goal of burning at least 400 calories each session, at least 5 days per week. She states that she enjoys swimming and I told her that she certainly could swim as well however it would be in addition to the cardiovascular activity and not instead of. She will continue to communicate with Dr. Castellanos for advancement of her meal plan. She will return to the office in approximately 1 month (2) Portal vein thrombosis: Code(s): I81 - Portal vein thrombosis Category: Medical Plan: Continue oral anticoagulation. Follow-up with Hematology. Coumadin dosing per Hematology
--- OUTSIDE RECORDS SUMMARY | 2024-12-12 08:38 | XMS_ITS | Clinical Summary ---
Author Organization [address] [facility] Address [address] [place] [address] Phone Care Team Providers Care Software Engineering Analyst Name Role Phone Unavailable Primary Care [...]
[2024-12-12 08:47] VITALS: BP 112/73; PULSE 84; TEMP 36.3; O2SAT 99; BMI 35.8
== END 2024-12-12 09:03 | disposition home or self-care (01) ==
LOC: HO.HBS 08:25
PROVIDERS: PCP Internal Medicine; Visit Provider Physician Assistant Surgical
DX: Z98.84 Bariatric surgery status (principal); I81 Portal vein thrombosis
CPT/HCPCS: 99024

== ENCOUNTER → 2024-12-12 08:25 | Outpatient (BNVA) | payer OTHER, SELFPAY | PROVIDERS: PCP Internal Medicine; Visit Provider Physician Assistant Surgical | DX: Z48.815 Encounter for surgical aftercare following surgery on the digestive system (principal); I81 Portal vein thrombosis; Z98.84 Bariatric surgery status | CPT/HCPCS: 99212 ==

== ENCOUNTER 2024-12-18 08:30 | Outpatient (AMB) | payer OTHER, SELFPAY ==
[2024-12-18 08:40] LABS: Prothrombin Time Whole Bld POC 20.9 sec (11.1-13.5); ~PT, ~INR - Anti Coag Clinic 1.7 (0.9-1.1)
--- OUTSIDE RECORDS SUMMARY | 2024-12-18 08:45 | XMS_ITS | Clinical Summary ---
Author Organization [address] [facility] Address [address] [place] [address] Phone Care Team Providers Care Health Insurance Agent Name Role Phone Unavailable Primary Care Provider [...]
--- NOTE | 2024-12-18 08:50 | MHC.OFFVISCO ---
Intake Intake Visit Reasons: Anticoagulation Allergies latex Allergy (Mild, Verified 12/18/24 08:31) Itching oxycodone (From Percocet) Allergy (Mild, Verified 12/18/24 08:31) jittery mite-Dermatophagoides pteronyssinus (dust mite - ) Allergy (Verified 12/18/24 08:31) Hives Medication List - Last Reconciled 12/18/24 by Carleen Bess RN acetaminophen 650 mg PO Q4H PRN amlodipine 2.5 - 5 mg PO DAILY Held on 11/09/24. Instructions: Resume on 11/10/24. Check your blood pressure every morning as soon as you wake up and send it to Dr. Castellanos. Do no take the blood pressure medication if the blood pressure is below 120/70. Wait every day to hear back from Dr. Castellanos before you take the medication. atorvastatin 10 mg PO DAILY ciprofloxacin HCl 250 mg PO BID fondaparinux 5 mg (0.4 mL) subcut DAILY loratadine 10 mg PO DAILY losartan 25 mg PO DAILY PRN Held on 11/09/24. Instructions: Resume on 11/10/24. Check your blood pressure every morning as soon as you wake up and send it to Dr. Castellanos. Do no take the blood pressure medication if the blood pressure is below 120/70. Wait every day to hear back from Dr. Castellanos before you take the medication. multivitamin with iron 1 tab PO DAILY ondansetron 4 mg PO Q12H pantoprazole 40 mg PO DAILY@0630 polyethylene glycol 3350 (Gavilax) 17 grams PO DAILY sucralfate 10 mL PO BID warfarin 1 mg See Protocol PO DAILY Held on 11/09/24. Instructions: Resume on 11/10/24. warfarin 2 mg See Protocol PO DAILY Held on 11/09/24. Instructions: Resume on 11/10/24. warfarin 3 mg See Protocol PO DAILY Nursing Note INR: 1.7 out of therapeutic rangeof 2-3 Medications and supplements reviewed Patient status: feels well. Pt denies missed dose but states she has some tari green over the weekend which is the strongest green to lower the INR. No change in meds or diet Denies any signs and symptoms of bleeding or clotting or unusual bruising Bleeding, bruising, clotting discussed Nutritional guidance given: to avoid greens until INR therapeutic Dose: 9mg the next 3 days then return for retest F/U INR Date: 12/21/24?? Patient verbalizing understanding of instructions given. Composed note sent to Dr Mcguire who responded to have pt start Fondaparinux. T/C to pt to instruct her to take Fondaparinux today, tomorrow and then to come in for retest 12/21/24 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 PE for a few years, 2001 - used heparin for procedures preventatively ) and Other (SLEEP APNEA HX - SEEMS TO BE LESS CURRENTLY ) Endocrine Hx: Thyroid Disease (Hx years ago - enc to ask PCP to follow up yearly, ) and Diabetes (controlled with diet right now ) Musculoskeletal Hx: Arthritis (left knee left shoulder degenerative arthritis) Blood Disorder Hx: Other (Protein S deficiency ) GI Hx: Diverticulosis (x 2 with bleeding ) and Other (fatty liver ) Hx: Other (hysterectomy 2010 - Has ovaries ) Neurological Hx: Migraines/Headaches (use to have migraines ) Cancer HX: No (runs in family ) Psych. Illness/Depression: No Coding Level of Care Code Est Patient Level 1 Diagnoses Current use of anticoagulant therapy Z79.01 Assessment & Plan Assessment & Plan (1) Current use of anticoagulant therapy: Code(s): Z79.01 - senior living (current) use of anticoagulants Category: Medical
== END 2024-12-18 10:29 | disposition home or self-care (01) ==
LOC: HO.ACS 08:30
PROVIDERS: PCP Internal Medicine; Visit Provider Internal Medicine Medical Oncology
DX: Z79.01 Long term (current) use of anticoagulants (principal)

== ENCOUNTER → 2024-12-18 08:30 | Outpatient (BNVA) | payer OTHER, SELFPAY | PROVIDERS: PCP Internal Medicine; Visit Provider Internal Medicine Medical Oncology | DX: K55.059 Acute (reversible) ischemia of intestine, part and extent unspecified (principal); Z86.711 Personal history of pulmonary embolism; Z79.01 Long term (current) use of anticoagulants; Z51.81 Encounter for therapeutic drug level monitoring | CPT/HCPCS: 85610; 99211 ==

== ENCOUNTER 2024-12-21 07:36 | Outpatient (AMB) | payer OTHER, SELFPAY ==
--- OUTSIDE RECORDS SUMMARY | 2024-12-21 07:38 | XMS_ITS | Clinical Summary ---
Author Organization [address] [facility] Address [address] [place] [address] Phone Care Team Providers Care Office Cleaner Name Role Phone Unavailable Primary Care Provider [...]
--- NOTE | 2024-12-21 07:42 | MHC.OFFVISCO ---
Intake Intake Visit Reasons: Anticoagulation Allergies latex Allergy (Mild, Verified 12/21/24 07:36) Itching oxycodone (From Percocet) Allergy (Mild, Verified 12/21/24 07:36) jittery mite-Dermatophagoides pteronyssinus (dust mite - ) Allergy (Verified 12/21/24 07:36) Hives Medication List - Last Reconciled 12/21/24 by Chio Lundberg RN acetaminophen 650 mg PO Q4H PRN amlodipine 2.5 - 5 mg PO DAILY Held on 11/09/24. Instructions: Resume on 11/10/24. Check your blood pressure every morning as soon as you wake up and send it to Dr. Castellanos. Do no take the blood pressure medication if the blood pressure is below 120/70. Wait every day to hear back from Dr. Castellanos before you take the medication. atorvastatin 10 mg PO DAILY fondaparinux 5 mg (0.4 mL) subcut DAILY loratadine 10 mg PO DAILY losartan 25 mg PO DAILY PRN Held on 11/09/24. Instructions: Resume on 11/10/24. Check your blood pressure every morning as soon as you wake up and send it to Dr. Castellanos. Do no take the blood pressure medication if the blood pressure is below 120/70. Wait every day to hear back from Dr. Castellanos before you take the medication. multivitamin with iron 1 tab PO DAILY ondansetron 4 mg PO Q12H pantoprazole 40 mg PO DAILY@0630 polyethylene glycol 3350 (Gavilax) 17 grams PO DAILY sucralfate 10 mL PO BID warfarin 1 mg See Protocol PO DAILY Held on 11/09/24. Instructions: Resume on 11/10/24. warfarin 2 mg See Protocol PO DAILY Held on 11/09/24. Instructions: Resume on 11/10/24. warfarin 3 mg See Protocol PO DAILY Nursing Note INR: 2.3 almost in therapeutic range - 2.5-3.5 Medications and supplements reviewed Pt is on fondaparinox Pt had BRB whit BM at 5 am, she also had blood on tissue paper when wiping and noticed BRB in toilet bowl, no further bleeding at this time. She states she has strained some while having the BM. She also swam for several hours at pool yesterday/ offers no complaints of pain or discomfort. Denies any signs and symptoms of clotting. Bleeding, bruising, clotting discussed - it was advised to wait this am for a few hours to make sure she is not having any more bleeding before taking the fonadiparinox and until her health care providers can be contacted Nutritional guidance given - follow md instructions Dose: 9mg x 5 days/ 6mg x 2 days Requires refill using 6mg tabs =60 tabs for dose adjustment F/U INR: 12/24/2204 Patient verbalizes understanding of instructions given Sending this msg to her health care providers 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 PE for a few years, 2001 - used heparin for procedures preventatively ) and Other (SLEEP APNEA HX - SEEMS TO BE LESS CURRENTLY ) Endocrine Hx: Thyroid Disease (Hx years ago - enc to ask PCP to follow up yearly, ) and Diabetes (controlled with diet right now ) Musculoskeletal Hx: Arthritis (left knee left shoulder degenerative arthritis) Blood Disorder Hx: Other (Protein S deficiency ) GI Hx: Diverticulosis (x 2 with bleeding ) and Other (fatty liver ) Hx: Other (hysterectomy 2010 - Has ovaries ) Neurological Hx: Migraines/Headaches (use to have migraines ) Cancer HX: No (runs in family ) Psych. 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
[2024-12-21 07:45] LABS: Prothrombin Time Whole Bld POC 28.1 sec (11.1-13.5); ~PT, ~INR - Anti Coag Clinic 2.3 (0.9-1.1)
== END 2024-12-21 08:09 | disposition home or self-care (01) ==
LOC: HO.ACS 07:36
PROVIDERS: PCP Internal Medicine; Visit Provider Internal Medicine Medical Oncology
DX: Z79.01 Long term (current) use of anticoagulants (principal)

== ENCOUNTER → 2024-12-21 07:36 | Outpatient (BNVA) | payer OTHER, SELFPAY | PROVIDERS: PCP Internal Medicine; Visit Provider Internal Medicine Medical Oncology | DX: Z79.01 Long term (current) use of anticoagulants (principal) | CPT/HCPCS: 85610; 99211 ==

== ENCOUNTER 2024-12-24 07:48 | Outpatient (AMB) | payer OTHER, SELFPAY ==
--- OUTSIDE RECORDS SUMMARY | 2024-12-24 07:50 | XMS_ITS | Clinical Summary ---
Author Organization [address] [facility] Address [address] [place] [address] Phone Care Team Providers Care Concrete Conveyor Operator Name Role Phone Unavailable Primary Care [...]
[2024-12-24 07:56] LABS: Prothrombin Time Whole Bld POC 23.9 sec (11.1-13.5); ~PT, ~INR - Anti Coag Clinic 2.0 (0.9-1.1)
--- NOTE | 2024-12-24 08:09 | MHC.OFFVISCO ---
Intake Intake Visit Reasons: Anticoagulation Allergies latex Allergy (Mild, Verified 12/24/24 07:51) Itching oxycodone (From Percocet) Allergy (Mild, Verified 12/24/24 07:51) jittery mite-Dermatophagoides pteronyssinus (dust mite - ) Allergy (Verified 12/24/24 07:51) Hives Medication List - Last Reconciled 12/24/24 by Chio Lundberg RN acetaminophen 650 mg PO Q4H PRN amlodipine 2.5 - 5 mg PO DAILY Held on 11/09/24. Instructions: Resume on 11/10/24. Check your blood pressure every morning as soon as you wake up and send it to Dr. Castellanos. Do no take the blood pressure medication if the blood pressure is below 120/70. Wait every day to hear back from Dr. Castellanos before you take the medication. atorvastatin 10 mg PO DAILY fondaparinux 5 mg (0.4 mL) subcut DAILY loratadine 10 mg PO DAILY losartan 25 mg PO DAILY PRN Held on 11/09/24. Instructions: Resume on 11/10/24. Check your blood pressure every morning as soon as you wake up and send it to Dr. Castellanos. Do no take the blood pressure medication if the blood pressure is below 120/70. Wait every day to hear back from Dr. Castellanos before you take the medication. multivitamin with iron 1 tab PO DAILY ondansetron 4 mg PO Q12H pantoprazole 40 mg PO DAILY@0630 polyethylene glycol 3350 (Gavilax) 17 grams PO DAILY sucralfate 10 mL PO BID warfarin 3 mg See Protocol PO DAILY warfarin 2 mg See Protocol PO DAILY warfarin 1 mg See Protocol PO DAILY Nursing Note INR 2.0 out of therapeutic range 2.5-3.5 Medications and supplements reviewed Patient status: only had 1 BM that had blood s/p straining last tuesday12/21/2024 , no further blood with BMs, more active Medications or supplements: no changes Diet: weight loss progra,. protein bar, and smoothies Denies any signs and symptoms of bleeding or clotting or unusual bruising Bleeding, bruising, clotting discussed Nutritional guidance given: follow program Dose: 12mg today then 9mg daily - has fondaparinux - will consult with to cont F/U INR Date: 12/26/2024 ?? Patient verbalizing understanding of instructions given. 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 PE for a few years, 2001 - used heparin for procedures preventatively ) and Other (SLEEP APNEA HX - SEEMS TO BE LESS CURRENTLY ) Endocrine Hx: Thyroid Disease (Hx years ago - enc to ask PCP to follow up yearly, ) and Diabetes (controlled with diet right now ) Musculoskeletal Hx: Arthritis (left knee left shoulder degenerative arthritis) Blood Disorder Hx: Other (Protein S deficiency ) GI Hx: Diverticulosis (x 2 with bleeding ) and Other (fatty liver ) Hx: Other (hysterectomy 2010 - Has ovaries ) Neurological Hx: Migraines/Headaches (use to have migraines ) Cancer HX: No (runs in family ) Psych. Illness/Depression: No Coding Level of Care Code Est Patient Level 1 Diagnoses Current use of anticoagulant therapy Z79.01 Results AMB INR Fingerstick AMB INR Fingerstick 2.0 Last Edit by Chio Lundberg RN on 12/24/24 07:58 manual entry Assessment & Plan Assessment & Plan (1) Current use of anticoagulant therapy: Code(s): Z79.01 - prison (current) use of anticoagulants Category: Medical
== END 2024-12-24 08:17 | disposition home or self-care (01) ==
LOC: HO.ACS 07:48
PROVIDERS: PCP Internal Medicine; Visit Provider Internal Medicine Medical Oncology
DX: Z79.01 Long term (current) use of anticoagulants (principal)

== ENCOUNTER → 2024-12-24 07:48 | Outpatient (BNVA) | payer OTHER, SELFPAY | PROVIDERS: PCP Internal Medicine; Visit Provider Internal Medicine Medical Oncology | DX: Z79.01 Long term (current) use of anticoagulants (principal) | CPT/HCPCS: 85610; 99211 ==

== ENCOUNTER 2024-12-26 09:29 | Outpatient (AMB) | payer OTHER, SELFPAY ==
[2024-12-26 09:46] LABS: Prothrombin Time Whole Bld POC 33.3 sec (11.1-13.5); ~PT, ~INR - Anti Coag Clinic 2.8 (0.9-1.1)
--- OUTSIDE RECORDS SUMMARY | 2024-12-26 09:52 | XMS_ITS | Clinical Summary ---
Author Organization [address] [facility] Address [address] [place] [address] Phone Care Team Providers Care Brokerage Coordinator Name Role Phone Unavailable Primary Care Provider [...]
--- NOTE | 2024-12-26 10:02 | MHC.OFFVISCO ---
Intake Intake Visit Reasons: Anticoagulation Allergies latex Allergy (Mild, Verified 12/26/24 09:41) Itching oxycodone (From Percocet) Allergy (Mild, Verified 12/26/24 09:41) jittery mite-Dermatophagoides pteronyssinus (dust mite - ) Allergy (Verified 12/26/24 09:41) Hives Medication List - Last Reconciled 12/26/24 by Malena Vargas RN acetaminophen 650 mg PO Q4H PRN amlodipine 2.5 - 5 mg PO DAILY Held on 11/09/24. Instructions: Resume on 11/10/24. Check your blood pressure every morning as soon as you wake up and send it to Dr. Castellanos. Do no take the blood pressure medication if the blood pressure is below 120/70. Wait every day to hear back from Dr. Castellanos before you take the medication. atorvastatin 10 mg PO DAILY fondaparinux 5 mg (0.4 mL) subcut DAILY loratadine 10 mg PO DAILY losartan 25 mg PO DAILY PRN Held on 11/09/24. Instructions: Resume on 11/10/24. Check your blood pressure every morning as soon as you wake up and send it to Dr. Castellanos. Do no take the blood pressure medication if the blood pressure is below 120/70. Wait every day to hear back from Dr. Castellanos before you take the medication. multivitamin with iron 1 tab PO DAILY ondansetron 4 mg PO Q12H pantoprazole 40 mg PO DAILY@0630 polyethylene glycol 3350 (Gavilax) 17 grams PO DAILY sucralfate 10 mL PO BID warfarin 3 mg See Protocol PO DAILY warfarin 2 mg See Protocol PO DAILY warfarin 1 mg See Protocol PO DAILY Nursing Note NO CP,SOB,DIET/MED CHANGES,FALLS OR SX OF BLEEDING. BOOST WARFARIN SLIGHTLY TO 9MGM DAILY AND FOLLOW-UP IN 1 WEEK. WILL CALL MD FOR POSSIBLE CHANGE TO 6MGM TABLETS. DIET DISCUSSED PT.HAS RE-INTRODUCED OTHER FOODS INTO HER DIET. TO CALL [facility] IF ANY QUESTIONS/CONCERNS ARISE. 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 Illness/Depression: No Coding Level of Care Code Est Patient Level 1 Diagnoses Current use of anticoagulant therapy Z79.01 Assessment & Plan Assessment & Plan (1) Current use of anticoagulant therapy: Code(s): Z79.01 - retirement (current) use of anticoagulants Category: Medical
== END 2024-12-26 10:06 | disposition home or self-care (01) ==
LOC: HO.ACS 09:29
PROVIDERS: PCP Internal Medicine; Visit Provider Internal Medicine Medical Oncology
DX: Z79.01 Long term (current) use of anticoagulants (principal)

== ENCOUNTER → 2024-12-26 09:29 | Outpatient (BNVA) | payer OTHER, SELFPAY | PROVIDERS: PCP Internal Medicine; Visit Provider Internal Medicine Medical Oncology | DX: K55.019 Acute (reversible) ischemia of small intestine, extent unspecified (principal); Z86.711 Personal history of pulmonary embolism; Z51.81 Encounter for therapeutic drug level monitoring; Z79.01 Long term (current) use of anticoagulants | CPT/HCPCS: 85610; 99211 ==

== ENCOUNTER 2025-01-02 08:31 | Outpatient (AMB) | payer OTHER, SELFPAY ==
--- OUTSIDE RECORDS SUMMARY | 2025-01-02 08:42 | XMS_ITS | Clinical Summary ---
Author Organization [address] [facility] Address [address] [place] [address] Phone Care Team Providers Care Automatic Data Processing Planner Name Role Phone Unavailable Primary Care Provider [...]
--- NOTE | 2025-01-02 08:45 | MHC.OFFVISCO ---
Intake Intake Visit Reasons: Anticoagulation Allergies latex Allergy (Mild, Verified 01/02/25 08:39) Itching oxycodone (From Percocet) Allergy (Mild, Verified 01/02/25 08:39) jittery mite-Dermatophagoides pteronyssinus (dust mite - ) Allergy (Verified 01/02/25 08:39) Hives Medication List - Last Reconciled 01/02/25 by Xochitl Tidwell RN acetaminophen 650 mg PO Q4H PRN amlodipine 2.5 - 5 mg PO DAILY Held on 11/09/24. Instructions: Resume on 11/10/24. Check your blood pressure every morning as soon as you wake up and send it to Dr. Castellanos. Do no take the blood pressure medication if the blood pressure is below 120/70. Wait every day to hear back from Dr. Castellanos before you take the medication. atorvastatin 10 mg PO DAILY fondaparinux 5 mg (0.4 mL) subcut DAILY loratadine 10 mg PO DAILY losartan 25 mg PO DAILY PRN Held on 11/09/24. Instructions: Resume on 11/10/24. Check your blood pressure every morning as soon as you wake up and send it to Dr. Castellanos. Do no take the blood pressure medication if the blood pressure is below 120/70. Wait every day to hear back from Dr. Castellanos before you take the medication. multivitamin with iron 1 tab PO DAILY ondansetron 4 mg PO Q12H pantoprazole 40 mg PO DAILY@0630 polyethylene glycol 3350 (Gavilax) 17 grams PO DAILY sucralfate 10 mL PO BID warfarin 2 mg See Protocol PO DAILY warfarin 1 mg See Protocol PO DAILY warfarin 6 mg PO DAILY Nursing Note INR 2.1-? out of therapeutic range 2.5-3.5 Medications and supplements reviewed Patient status: no c.o Medications or supplements: calcium citrate daily-- no interaction per micromedex Diet: same, attempting to eat more reds Denies any signs and symptoms of bleeding or clotting or unusual bruising Bleeding, bruising, clotting discussed Nutritional guidance given: no greens for 2 days Dose: 12 mg today- then 9mg x 6, 12mg x 1+ F/U INR Date : 1 week?? Patient verbalizing understanding of instructions given. 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
[2025-01-02 08:46] LABS: Prothrombin Time Whole Bld POC 25.4 sec (11.1-13.5); ~PT, ~INR - Anti Coag Clinic 2.1 (0.9-1.1)
== END 2025-01-02 09:00 | disposition home or self-care (01) ==
LOC: HO.ACS 08:31
PROVIDERS: PCP Internal Medicine; Visit Provider Internal Medicine Medical Oncology
DX: Z79.01 Long term (current) use of anticoagulants (principal)

== ENCOUNTER → 2025-01-02 08:31 | Outpatient (BNVA) | payer OTHER, SELFPAY | PROVIDERS: PCP Internal Medicine; Visit Provider Internal Medicine Medical Oncology | DX: Z79.01 Long term (current) use of anticoagulants (principal) | CPT/HCPCS: 85610; 99211 ==

== ENCOUNTER 2025-01-03 09:29 | Outpatient (AMB) | payer OTHER, SELFPAY ==
--- NOTE | 2025-01-03 09:15 | A.OFFWM_ITS ---
Intake Intake Visit Reasons: TV PO LSG 10/17/24 Allergies latex Allergy (Mild, Verified 02/12/25 10:01) Itching oxycodone (From Percocet) Allergy (Mild, Verified 02/12/25 10:01) jittery mite-Dermatophagoides pteronyssinus (dust mite - ) Allergy (Verified 02/12/25 10:01) Hives PFSH Medical History Pulmonary embolism H. pylori infection Hyperlipidemia H. pylori infection Fatty liver Protein S deficiency Elevated cholesterol DJD (degenerative joint disease) Anxiety Depression Hypertension Non-insulin dependent type 2 diabetes mellitus Sleep apnea Morbid obesity Surgical History S/P laparoscopic sleeve gastrectomy History of esophagogastroduodenoscopy (EGD) History of delivery Hx of colonoscopy Hx of hysterectomy Family History Mother Diabetes High cholesterol Hypertension Obesity Father Drug addiction HIV (human immunodeficiency virus infection) Daughter No problems noted. Maternal Grandmother Breast cancer Family/Other Breast cancer Maternal Grandmother Alzheimer dementia Maternal Grandfather Alzheimer dementia Paternal Grandmother Alzheimer dementia Social History Household Members: Spouse and Family Household Members Other:: 2 Housing: House Are you a primary ocular care technician to a significant other at home: No Do you presently have visiting nurse or other home services: No Alcohol intake: current Alcohol intake frequency: holidays/special occasions only Comment: rings appropriately Patient Tobacco Use Status: Former Tobacco user Tobacco use type: Cigarette Years Smoked: 22 service: No Current occupational status: employed 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 She reports that she has started eating food on her own and has noticed her weight has remained stable over the past couple of weeks. Mood is improved overall, though she continues to experience periods of stress related to family issues. Objective: Patient attended a post-op behavioral health visit. Interventions included CBT- based strategies to increase awareness of self-sabotaging eating patterns, mindful eating, and coping with family-related stress. Problem-solving and goal- setting were also addressed. Assessment/Response: * Mental status: Patient is alert and oriented x3, mood is described as ?improved but sometimes stressed,? affect is congruent, thought process is logical and organized. No evidence of psychosis or shanika. * Risk reported/identified: none Assessment & Plan Assessment & Plan (1) Adjustment disorder: Code(s): F43.20 - Adjustment disorder, unspecified Plan Follow-up in 4 weeks. Next appointment scheduled for 01/31/2025. Patient will continue to practice mindful eating, utilize coping strategies for stress, and monitor for self-sabotaging behaviors. Telehealth Telehealth Telehealth Platform: [employer] Location of provider rendering services: other (Home office. [place], [place]) Location of patient: address on file Patient Identification confirmed using: Name, : Yes Telehealth method: voice only Patient verbally consented to treatment: Yes Patient verbally consented to billing insurance company: Yes Patient informed of any privacy concerns related to visit: Yes Minutes spent on Phone/Video with Pt.: 45 Coding Level of Care Code Established Pt Tele Psytx 45 mins (13040) Patient Type Established Diagnoses Adjustment disorder F43.20 Time Spent (min) 45
--- OUTSIDE RECORDS SUMMARY | 2025-01-03 10:04 | XMS_ITS | Clinical Summary ---
Author Organization [address] [facility] Address [address] [place] [address] Phone Care Team Providers Care It Applications Analyst Name Role Phone Unavailable Primary Care [...]
== END 2025-01-03 10:14 | disposition home or self-care (01) ==
LOC: HO.HBST 09:29
PROVIDERS: PCP Internal Medicine; Visit Provider Counselor Mental Health
DX: F43.20 Adjustment disorder, unspecified (principal)
CPT/HCPCS: 90834

== ENCOUNTER 2025-01-08 09:59 | Outpatient (AMB) | payer OTHER, SELFPAY ==
--- NOTE | 2025-01-08 10:20 | MHC.OFFVISCO ---
Intake Intake Visit Reasons: Anticoagulation Allergies latex Allergy (Mild, Verified 01/02/25 08:39) Itching oxycodone (From Percocet) Allergy (Mild, Verified 01/02/25 08:39) jittery mite-Dermatophagoides pteronyssinus (dust mite - ) Allergy (Verified 01/02/25 08:39) Hives Medication List - Last Reconciled 01/08/25 by Chio Lundberg RN acetaminophen 650 mg PO Q4H PRN amlodipine 2.5 - 5 mg PO DAILY Held on 11/09/24. Instructions: Resume on 11/10/24. Check your blood pressure every morning as soon as you wake up and send it to Dr. Castellanos. Do no take the blood pressure medication if the blood pressure is below 120/70. Wait every day to hear back from Dr. Castellanos before you take the medication. atorvastatin 10 mg PO DAILY calcium citrate 500 mg PO DAILY fondaparinux 5 mg (0.4 mL) subcut DAILY loratadine 10 mg PO DAILY losartan 25 mg PO DAILY PRN Held on 11/09/24. Instructions: Resume on 11/10/24. Check your blood pressure every morning as soon as you wake up and send it to Dr. Castellanos. Do no take the blood pressure medication if the blood pressure is below 120/70. Wait every day to hear back from Dr. Castellanos before you take the medication. multivitamin with iron 1 tab PO DAILY ondansetron 4 mg PO Q12H pantoprazole 40 mg PO DAILY@0630 polyethylene glycol 3350 (Gavilax) 17 grams PO DAILY sucralfate 10 mL PO BID warfarin 2 mg See Protocol PO DAILY warfarin 1 mg See Protocol PO DAILY warfarin 6 mg See Protocol PO DAILY Nursing Note INR: 2.4 Almost therapeutic range 2.5-3.5 Medications and supplements reviewed No changes in medications, Recently started calcium citrate and eating more protein and small amts of fruits and vegetables and protein bar daily, exercising more daily Denies any signs and symptoms of bleeding or bruising or clotting. 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
[2025-01-08 10:35] LABS: Prothrombin Time Whole Bld POC 28.8 sec (11.1-13.5); ~PT, ~INR - Anti Coag Clinic 2.4 (0.9-1.1)
--- OUTSIDE RECORDS SUMMARY | 2025-01-08 11:08 | XMS_ITS | Clinical Summary ---
Author Organization [address] [facility] Address [address] [place] [address] Phone Care Team Providers Care Tube Drawer Name Role Phone Unavailable Primary Care Provider [...]
== END 2025-01-08 10:25 | disposition home or self-care (01) ==
LOC: HO.ACS 09:59
PROVIDERS: PCP Internal Medicine; Visit Provider Internal Medicine Medical Oncology
DX: Z79.01 Long term (current) use of anticoagulants (principal)

== ENCOUNTER → 2025-01-08 09:59 | Outpatient (BNVA) | payer OTHER, SELFPAY | PROVIDERS: PCP Internal Medicine; Visit Provider Internal Medicine Medical Oncology | DX: K55.059 Acute (reversible) ischemia of intestine, part and extent unspecified (principal); I26.99 Other pulmonary embolism without acute cor pulmonale; Z79.01 Long term (current) use of anticoagulants; Z51.81 Encounter for therapeutic drug level monitoring | CPT/HCPCS: 85610; 99211 ==

== ENCOUNTER 2025-01-09 08:30 | Outpatient (AMB) | payer OTHER, SELFPAY ==
--- NOTE | 2025-01-09 08:05 | MHC.OFFVISWM ---
VS Expanded 01/09/25 08:06 Height 5 ft 4 in Weight 207 lb BMI 35.5 Body Fat % 46 Fat Free Mass 111.6 Visceral Fat Rating 17 Body Water % 37 Muscle Mass/Score 104.8 Basal Metabolic Rate/Score 1,462 Intake Visit Reasons: TV PO LSG 10/17/24 Behavioral Pediatrician Required: No Allergies latex Allergy (Mild, Verified 01/02/25 08:39) Itching oxycodone (From Percocet) Allergy (Mild, Verified 01/02/25 08:39) jittery mite-Dermatophagoides pteronyssinus (dust mite - ) Allergy (Verified 01/02/25 08:39) Hives Medication List - Last Reconciled 01/09/25 by ROBBI Maldonado acetaminophen 650 mg PO Q4H PRN amlodipine 2.5 - 5 mg PO DAILY Held on 11/09/24. Instructions: Resume on 11/10/24. Check your blood pressure every morning as soon as you wake up and send it to Dr. Castellanos. Do no take the blood pressure medication if the blood pressure is below 120/70. Wait every day to hear back from Dr. Castellanos before you take the medication. atorvastatin 10 mg PO DAILY calcium citrate 500 mg PO DAILY loratadine 10 mg PO DAILY losartan 25 mg PO DAILY PRN Held on 11/09/24. Instructions: Resume on 11/10/24. Check your blood pressure every morning as soon as you wake up and send it to Dr. Castellanos. Do no take the blood pressure medication if the blood pressure is below 120/70. Wait every day to hear back from Dr. Castellanos before you take the medication. multivitamin with iron 1 tab PO DAILY ondansetron 4 mg PO Q12H pantoprazole 40 mg PO DAILY@0630 polyethylene glycol 3350 (Gavilax) 17 grams PO DAILY sucralfate 10 mL PO BID warfarin 2 mg See Protocol PO DAILY warfarin 1 mg See Protocol PO DAILY warfarin 6 mg See Protocol PO DAILY HPI Comments Details: This?a?44?yo female who is s/p LSG without hiatal hernia repair on?10/17/2024. Presents for 3 month post op visit. Weight today is 207 pounds, with a BMI of 35.5. There has been a 54.2 pound weight loss,(initial weight 261.2 pounds) since starting the program on 07/13/2024 reflecting a 20.7 % total body weight loss and a weight loss of 34.3 pounds since surgery (operative weight 241.3 pounds) reflecting a 14.2 % TBWL since surgery. No complaints of nausea, emesis, abdominal pain or reflux. On postop day 11, patient began to experience some abdominal discomfort with associated nausea and intermittent vomiting. She presented to the emergency department on 10/31/2024. She was found to have thrombus of the superior mesenteric vein, left portal vein and posterior branch of the right portal vein. She was started on heparin drip and seen in consultation by Hematology. Recommendation was for Coumadin for 3 months followed by NOAC, and possible further workup for her protein S deficiency history. Serial CAT scans showed stable thrombus and at time of discharge she was tolerating her shakes and a protein bar. She continues to be followed by the anticoagulation clinic. Pt states she has started red fruits to try to increase INR. She did this on her own. Dr Cazares is going to put in for a CT scan to follow up on her thrombus. She was not taking her meal as she was starting to eat watermelon. Present meal plan includes: Protein 2.0 water at 8-10 Fit crunch bar 11-1 3 forks egg/cottage cheese or yogurt at 3 pm another bar 5-8 Drinking 70-80 oz water ? Exercise routine includes: Has membership to [employer] and [employer] at home, walking 4 days per week. 2 mi per day f [facility] Medical History Pulmonary embolism H. pylori infection Hyperlipidemia H. pylori infection Fatty liver Protein S deficiency Elevated cholesterol DJD (degenerative joint disease) Anxiety Depression Hypertension Non-insulin dependent type 2 diabetes mellitus Sleep apnea Morbid obesity Surgical History S/P laparoscopic sleeve gastrectomy History of esophagogastroduodenoscopy (EGD) History of delivery Hx of colonoscopy Hx of hysterectomy Family History Mother Diabetes High cholesterol Hypertension Obesity Father Drug addiction HIV (human immunodeficiency virus infection) Daughter No problems noted. Maternal Grandmother Breast cancer Family/Other Breast cancer Maternal Grandmother Alzheimer dementia Maternal Grandfather Alzheimer dementia Paternal Grandmother Alzheimer dementia Social History Household Members: Spouse and Family Household Members Other:: 2 Housing: House Are you a primary progressive care manager to a significant other at home: No Do you presently have visiting nurse or other home services: No Alcohol intake: current Alcohol intake frequency: holidays/special occasions only Comment: rings appropriately Patient Tobacco Use Status: Former Tobacco user Tobacco use type: Cigarette Years Smoked: 22 service: No Current occupational status: employed 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 Current occupational exposures/hazards: No Telehealth Telehealth Telehealth Platform: Telephone Location of provider rendering services: practice address Location of patient: address on file Patient Identification confirmed using: Name, : Yes Telehealth method: voice only Patient verbally consented to treatment: Yes Patient verbally consented to billing insurance company: Yes Patient informed of any privacy concerns related to visit: Yes Minutes spent on Phone/Video with Pt.: 15 Assessment & Plan Assessment & Plan (1) S/P laparoscopic sleeve gastrectomy: Code(s): Z98.84 - Bariatric surgery status Category: Surgical Plan: Discussed the importance of following the meal plans exactly. Additionally, discussed the importance of regular exercise, tracking calories burned. Talked about [id number] as an mary that she can download to track her walking. Encouraged her to go to the [facility] 3 days a week if she enjoys walking for days week with a goal of burning 2000 calories per week total. She will continue to communicate with Dr. Castellanos. We will have her return to the clinic for follow-up phone call in 4 weeks (2) Portal vein thrombosis: Code(s): I81 - Portal vein thrombosis Category: Medical Plan: Continues under the care of Hematology/Oncology as well as the anticoagulation clinic. She has follow-up in January and may be switched over to Eliquis at that time. Repeat CAT scan will be scheduled for follow-up imaging
[2025-01-09 08:06] VITALS: BMI 35.5
--- OUTSIDE RECORDS SUMMARY | 2025-01-09 09:26 | XMS_ITS | Clinical Summary ---
Author Organization [address] [facility] Address [address] [place] [address] Phone Care Team Providers Care Cash Person Name Role Phone Unavailable Primary Care Provider [...]
== END 2025-01-09 08:49 | disposition home or self-care (01) ==
LOC: HO.HBS 08:46
PROVIDERS: PCP Internal Medicine; Visit Provider Physician Assistant Surgical
DX: Z98.84 Bariatric surgery status (principal); I81 Portal vein thrombosis
CPT/HCPCS: 99024

== ENCOUNTER → 2025-01-09 08:30 | Outpatient (BNVA) | payer OTHER, SELFPAY | PROVIDERS: PCP Internal Medicine; Visit Provider Physician Assistant Surgical | DX: I81 Portal vein thrombosis (principal); E66.9 Obesity, unspecified; Z68.35 Body mass index [BMI] 35.0-35.9, adult; Z90.3 Acquired absence of stomach [part of] | CPT/HCPCS: 99212 ==

== ENCOUNTER 2025-01-14 08:04 | Outpatient (AMB) | payer OTHER, SELFPAY ==
--- OUTSIDE RECORDS SUMMARY | 2025-01-14 08:09 | XMS_ITS | Clinical Summary ---
Author Organization [address] [facility] Address [address] [place] [address] Phone Care Team Providers Care Arm Rest Builder Name Role Phone Unavailable Primary Care Provider [...]
--- NOTE | 2025-01-14 08:21 | MHC.OFFVISCO ---
Intake Intake Visit Reasons: Anticoagulation Allergies latex Allergy (Mild, Verified 01/14/25 08:05) Itching oxycodone (From Percocet) Allergy (Mild, Verified 01/14/25 08:05) jittery mite-Dermatophagoides pteronyssinus (dust mite - ) Allergy (Verified 01/14/25 08:05) Hives Medication List - Last Reconciled 01/14/25 by Chio Lundberg RN acetaminophen 650 mg PO Q4H PRN amlodipine 2.5 - 5 mg PO DAILY Held on 11/09/24. Instructions: Resume on 11/10/24. Check your blood pressure every morning as soon as you wake up and send it to Dr. Castellanos. Do no take the blood pressure medication if the blood pressure is below 120/70. Wait every day to hear back from Dr. Castellanos before you take the medication. atorvastatin 10 mg PO DAILY calcium citrate 500 mg PO DAILY loratadine 10 mg PO DAILY losartan 25 mg PO DAILY PRN Held on 11/09/24. Instructions: Resume on 11/10/24. Check your blood pressure every morning as soon as you wake up and send it to Dr. Castellanos. Do no take the blood pressure medication if the blood pressure is below 120/70. Wait every day to hear back from Dr. Castellanos before you take the medication. multivitamin with iron 1 tab PO DAILY ondansetron 4 mg PO Q12H pantoprazole 40 mg PO DAILY@0630 polyethylene glycol 3350 (Gavilax) 17 grams PO DAILY warfarin 2 mg See Protocol PO DAILY warfarin 1 mg See Protocol PO DAILY warfarin 6 mg See Protocol PO DAILY Nursing Note INR: 3.1 in therapeutic range Medications and supplements reviewed *Pt feels well- following diet - 1-2 protein bars / day, completed sucralfate stoppin it can raise the INR, 12 days left Pantoprazole- stopping it may lower the INR Denies any signs and symptoms of bleeding or bruising or clotting. Bleeding, bruising, clotting discussed Nutritional guidance given - cont your diet plan add small amt of greens to diet that you can tolerate and approved by weight loss program Dose: 12mg x 2 days/ 9mg x 5 days F/U INR: 1 week Patient verbalizes understanding of instructions given 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 PE for a few years, 2001 - used heparin for procedures preventatively ) and Other (SLEEP APNEA HX - SEEMS TO BE LESS CURRENTLY ) Endocrine Hx: Thyroid Disease (Hx years ago - enc to ask PCP to follow up yearly, ) and Diabetes (controlled with diet right now ) Musculoskeletal Hx: Arthritis (left knee left shoulder degenerative arthritis) Blood Disorder Hx: Other (Protein S deficiency ) GI Hx: Diverticulosis (x 2 with bleeding ) and Other (fatty liver ) Hx: Other (hysterectomy 2010 - Has ovaries ) Neurological Hx: Migraines/Headaches (use to have migraines ) Cancer HX: No (runs in family ) Psych. Illness/Depression: No Coding Level of Care Code Est Patient Level 1 Diagnoses Current use of anticoagulant therapy Z79.01 Results AMB INR Fingerstick AMB INR Fingerstick 3.1 Last Edit by Chio Lundberg RN on 01/14/25 08:15 manual entry Assessment & Plan Assessment & Plan (1) Current use of anticoagulant therapy: Code(s): Z79.01 - snf (current) use of anticoagulants Category: Medical
[2025-01-14 09:07] LABS: Prothrombin Time Whole Bld POC 36.8 sec (11.1-13.5); ~PT, ~INR - Anti Coag Clinic 3.1 (0.9-1.1)
== END 2025-01-14 08:29 | disposition home or self-care (01) ==
LOC: HO.ACS 08:04
PROVIDERS: PCP Internal Medicine; Visit Provider Internal Medicine Medical Oncology
DX: Z79.01 Long term (current) use of anticoagulants (principal)

== ENCOUNTER → 2025-01-14 08:04 | Outpatient (BNVA) | payer OTHER, SELFPAY | PROVIDERS: PCP Internal Medicine; Visit Provider Internal Medicine Medical Oncology | DX: K55.059 Acute (reversible) ischemia of intestine, part and extent unspecified (principal); I26.99 Other pulmonary embolism without acute cor pulmonale; Z79.01 Long term (current) use of anticoagulants; Z51.81 Encounter for therapeutic drug level monitoring | CPT/HCPCS: 85610; 99211 ==

== ENCOUNTER 2025-01-22 08:11 | Outpatient (AMB) | payer OTHER, SELFPAY ==
[2025-01-22 08:21] LABS: Prothrombin Time Whole Bld POC 28.8 sec (11.1-13.5); ~PT, ~INR - Anti Coag Clinic 2.4 (0.9-1.1)
--- NOTE | 2025-01-22 08:30 | MHC.OFFVISCO ---
Intake Intake Visit Reasons: Anticoagulation Allergies latex Allergy (Mild, Verified 01/22/25 08:14) Itching oxycodone (From Percocet) Allergy (Mild, Verified 01/22/25 08:14) jittery mite-Dermatophagoides pteronyssinus (dust mite - ) Allergy (Verified 01/22/25 08:14) Hives Medication List - Last Reconciled 01/22/25 by Malena Vargas RN acetaminophen 650 mg PO Q4H PRN amlodipine 2.5 - 5 mg PO DAILY Held on 11/09/24. Instructions: Resume on 11/10/24. Check your blood pressure every morning as soon as you wake up and send it to Dr. Castellanos. Do no take the blood pressure medication if the blood pressure is below 120/70. Wait every day to hear back from Dr. Castellanos before you take the medication. atorvastatin 10 mg PO DAILY calcium citrate 500 mg PO DAILY loratadine 10 mg PO DAILY losartan 25 mg PO DAILY PRN Held on 11/09/24. Instructions: Resume on 11/10/24. Check your blood pressure every morning as soon as you wake up and send it to Dr. Castellanos. Do no take the blood pressure medication if the blood pressure is below 120/70. Wait every day to hear back from Dr. Castellanos before you take the medication. multivitamin with iron 1 tab PO DAILY ondansetron 4 mg PO Q12H pantoprazole 40 mg PO DAILY@0630 polyethylene glycol 3350 (Gavilax) 17 grams PO DAILY warfarin See Protocol 12 mg x 2 days/ 9mg x 5 days orally daily; take 1 1/2 tabs - 2 tabs daily = 60 tabs/ month =180 tabs for 3 month Nursing Note PT.DENIES ANY CP,SOB,DIET/MED CHANGES,FALLS OR SX OF BLEEDING. NO MISSED DOSES. INCREASE WEEKLY DOSE AND FOLLOW-UP IN 10 DAYS. NO GREENS TODAY BUT OK TO START TO RE-INTRODUCE GREENS,AND WILL MONITOR INR CLOSELY GOOD UNDERSTANDING OF DOSING INSTR. Anti-Coag Initial Assessment Social Hx Patient Tobacco Use Status: Former Tobacco user Tobacco use type: Cigarette alcohol intake: current Alcohol intake frequency: holidays/special occasions only Cardiovascular Hx: HTN (prior to surgery , has paramaters post surgery- running lower now 6/23 ) and Other Lung Disease HX: 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 PE for a few years, 2001 - used heparin for procedures preventatively ) and Other (SLEEP APNEA HX - SEEMS TO BE LESS CURRENTLY ) Endocrine Hx: Thyroid Disease (Hx years ago - enc to ask PCP to follow up yearly, ) and Diabetes (controlled with diet right now ) Musculoskeletal Hx: Arthritis (left knee left shoulder degenerative arthritis) Blood Disorder Hx: Other (Protein S deficiency ) GI Hx: Diverticulosis (x 2 with bleeding ) and Other (fatty liver ) Hx: Other (hysterectomy 2010 - Has ovaries ) Neurological Hx: Migraines/Headaches (use to have migraines ) Cancer HX: No (runs in family ) Psych. Illness/Depression: No Coding Level of Care Code Est Patient Level 1 Diagnoses Current use of anticoagulant therapy Z79.01 Assessment & Plan Assessment & Plan (1) Current use of anticoagulant therapy: Code(s): Z79.01 - USP (current) use of anticoagulants Category: Medical
--- OUTSIDE RECORDS SUMMARY | 2025-01-22 08:42 | XMS_ITS | Encounter Summary ---
Author Organization [employer] Address [address] [place] [address] Care Team Providers Care Mailing Manager Name Role Phone Unavailable Primary Care Provider Unavailabl e Encounter Details Date Type Department Care Team (Late st Contact Info) Description 05/02/2024 Lab Requisition [facility] - Main Lab [address] [facility] [place] [address] Jesus Roberts MD [address] [facility] [address] [place] [address] Gross hematuria Social History Tobacco Use Types [...] pathological findings. 05/11/2024 6:13 PM EST [facility] ([facility]) [facility] Clinical Information [id number] Urine cytology/urine FISH. 05/11/2024 6:13 PM EST [facility] Gross Description A. Urine, Voided, : [id number] RECD 1 TP CYTO 1 TP FISH. 05/11/2024 6:13 PM [facility] Disclaimer Unless otherwise specified, all tissue is 10% NB formalin fixed and paraffin embedded. Technical pathology services provided by [facility] at [facility] [address] [place] [address] (CLIA #[id number]/Rebekah Pedro MD, Beaming Machine Operator) 05/11/2024 6:13 PM [facility] Tissue Urine specimen from urethra / Unknown 04/25/2024 05/02/2024 1:18 PM EST us Jesus Roberts MD LAB PATHOLOGY ORDERAB LES Final Result [facility] [address] [place] [address], documented in this encounter Visit Diagnoses Diagnosis Gross hematuria documented in this encounter
--- OUTSIDE RECORDS SUMMARY | 2025-01-22 08:42 | XMS_ITS | Clinical Summary ---
Author Organization 299 [facility] Address [address] [place] [address] Phone Care Team Providers Care Advanced Practice Nurse Name Role Phone Unavailable Primary Care Provider [...]
== END 2025-01-22 08:43 | disposition home or self-care (01) ==
LOC: HO.ACS 08:11
PROVIDERS: PCP Internal Medicine; Visit Provider Internal Medicine Medical Oncology
DX: Z79.01 Long term (current) use of anticoagulants (principal)

== ENCOUNTER → 2025-01-22 08:11 | Outpatient (BNVA) | payer OTHER, SELFPAY | PROVIDERS: PCP Internal Medicine; Visit Provider Internal Medicine Medical Oncology | DX: Z79.01 Long term (current) use of anticoagulants (principal) | CPT/HCPCS: 85610; 99211 ==

== ENCOUNTER 2025-01-31 10:11 | Outpatient (AMB) | payer OTHER, SELFPAY ==
--- NOTE | 2025-01-31 10:10 | MHC.WMTHER ---
Intake Intake Visit Reasons: TV PO LSG 10/17/24 Allergies latex Allergy (Mild, Verified 01/22/25 08:14) Itching oxycodone (From Percocet) Allergy (Mild, Verified 01/22/25 08:14) jittery mite-Dermatophagoides pteronyssinus (dust mite - ) Allergy (Verified 01/22/25 08:14) Hives PFSH Medical History Pulmonary embolism H. pylori infection Hyperlipidemia H. pylori infection Fatty liver Protein S deficiency Elevated cholesterol DJD (degenerative joint disease) Anxiety Depression Hypertension Non-insulin dependent type 2 diabetes mellitus Sleep apnea Morbid obesity Surgical History S/P laparoscopic sleeve gastrectomy History of esophagogastroduodenoscopy (EGD) History of delivery Hx of colonoscopy Hx of hysterectomy Family History Mother Diabetes High cholesterol Hypertension Obesity Father Drug addiction HIV (human immunodeficiency virus infection) Daughter No problems noted. Maternal Grandmother Breast cancer Family/Other Breast cancer Maternal Grandmother Alzheimer dementia Maternal Grandfather Alzheimer dementia Paternal Grandmother Alzheimer dementia Social History Household Members: Spouse and Family Household Members Other:: 2 Housing: House Are you a primary animal care assistant to a significant other at home: No Do you presently have visiting nurse or other home services: No Alcohol intake: current Alcohol intake frequency: holidays/special occasions only Comment: rings appropriately Patient Tobacco Use Status: Former Tobacco user Tobacco use type: Cigarette Years Smoked: 22 service: No Current occupational status: employed 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 She is happy with her improved A1C and increased energy levels but notes ongoing stress. Patient expresses interest in consulting with a fiction and nonfiction prose writer or dietitian to develop a more varied meal plan that accommodates her medical needs. Objective: Patient attended a post-operative behavioral health appointment via phone. She is alert, engaged, and able to articulate her progress and challenges. Discussed current functioning, adherence to her meal plan, and strategies to increase physical activity. No acute distress or safety concerns noted. During the session, we used cognitive restructuring to help the patient identify and reframe negative thoughts related to stress and weight management. We practiced mindful eating techniques to increase awareness of hunger and satiety cues, and discussed strategies to reduce emotional eating. Together, we set specific, achievable goals for nutrition and physical activity, and developed a structured daily routine to support these changes. We also explored problem-solving approaches for overcoming barriers to meal planning and exercise. Peer support resources were reinforced. Assessment/Response: Mental status: WNl Risk reported/identified: none Assessment & Plan Assessment & Plan (1) Adjustment disorder: Code(s): F43.20 - Adjustment disorder, unspecified Plan F/up in 1 month per Pt's request. Next mary: 02/28/25 at 9am, Phone call Telehealth Telehealth Telehealth Platform: Direct Flow Medical Location of provider rendering services: other (Home office. [place], [place]) Location of patient: address on file Patient Identification confirmed using: Name, : Yes Telehealth method: voice only Patient verbally consented to treatment: Yes Patient verbally consented to billing insurance company: Yes Patient informed of any privacy concerns related to visit: Yes Minutes spent on Phone/Video with Pt.: 45 Coding Level of Care Code Established Pt Tele Psytx 45 mins (77824) Patient Type Established Diagnoses Adjustment disorder F43.20 Time Spent (min) 45
--- OUTSIDE RECORDS SUMMARY | 2025-01-31 12:26 | XMS_ITS | Encounter Summary ---
Author Organization [employer] Address [address] [place] [address] Care Team Providers Care Perioperative Tech Name Role Phone Unavailable Primary Care Provider Unavailabl e Encounter Details Date Type Department Care Team (Late st Contact Info) Description 05/02/2024 Lab Requisition [facility] - Main Lab [address] [facility] [place] [address] Jesus Roberts MD 100 [facility] [address] [place] [address] Gross hematuria Social History Tobacco Use Types [...] and pathological findings. 05/11/2024 6:13 PM EST [facility] ([facility]) [facility] Clinical Information [id number] Urine cytology/urine FISH. 05/11/2024 6:13 PM EST [facility] Gross Description A. Urine, Voided, : [id number] RECD 1 TP CYTO 1 TP FISH. 05/11/2024 6:[address] [facility] Disclaimer Unless otherwise specified, all tissue is 10% NB formalin fixed and paraffin embedded. Technical pathology services provided by [facility] at [facility] [address] [place] [address] (CLIA #[id number]/Rebekah Pedro MD, Observer Helper) 05/11/2024 6:[address] [facility] Tissue Urine specimen from urethra / Unknown 04/25/2024 05/02/2024 1:18 PM EST us Jesus Roberts MD LAB PATHOLOGY ORDERAB LES Final Result [facility] [address] [place] [address], documented in this encounter Visit Diagnoses Diagnosis Gross hematuria documented in this encounter
--- OUTSIDE RECORDS SUMMARY | 2025-01-31 12:26 | XMS_ITS | Clinical Summary ---
Author Organization 299 [facility] Address [address] [place] [address] Phone Care Team Providers Care Guest Services Manager Name Role Phone Unavailable Primary Care [...] Cervical Cancer Screening: P ap Smear 11/15/1999 Colorectal Cancer Screening: Colonoscopy 05/02/2024 HIV Screening 05/02/2024 Hepatitis C Screening 05/02/2024 Social Influencers of Health Screening 05/02/2024 Depression Screening 05/23/2024 COVID-19 Vaccine ( - 2023-2 5 season) 2025 Influenza Vaccine (#1) 2025 HIB Vaccines Aged [...]
== END 2025-01-31 10:49 | disposition home or self-care (01) ==
LOC: HO.HBST 10:11
PROVIDERS: PCP Internal Medicine; Visit Provider Counselor Mental Health
DX: F43.20 Adjustment disorder, unspecified (principal)
CPT/HCPCS: 90834

== ENCOUNTER 2025-02-01 08:15 | Outpatient (REF) | payer OTHER, SELFPAY ==
--- OUTSIDE RECORDS SUMMARY | 2025-02-01 08:33 | XMS_ITS | Encounter Summary ---
Author Organization [employer] Address [address] [place] [address] Care Team Providers Care Breeder Service Technician Name Role Phone Unavailable Primary Care Provider Unavailabl e Encounter Details Date Type Department Care Team (Late st Contact Info) Description 05/02/2024 Lab Requisition [facility] - Main Lab 299 [facility] [place] [address] Jesus Roberts MD 100 [facility] [address] [place] [address] Gross hematuria Social History Tobacco Use Types [...] and pathological findings. 05/11/2024 6:13 PM EST [facility] ([facility]) [facility] Clinical Information [id number] Urine cytology/urine FISH. 05/11/2024 6:13 PM EST [facility] Gross Description A. Urine, Voided, : [id number] RECD 1 TP CYTO 1 TP FISH. 05/11/2024 6:13 PM [facility] Disclaimer Unless otherwise specified, all tissue is 10% NB formalin fixed and paraffin embedded. Technical pathology services provided by [facility] at [facility] [address] [place] [address] (CLIA #[id number]/Rebekah Pedro MD, Chassis Wirer) 05/11/2024 6:13 PM [facility] Tissue Urine specimen from urethra / Unknown 04/25/2024 05/02/2024 1:18 PM EST us Jesus Roberts MD LAB PATHOLOGY ORDERAB LES Final Result [facility] [address] [place] [address], documented in this encounter Visit Diagnoses Diagnosis Gross hematuria documented in this encounter
--- OUTSIDE RECORDS SUMMARY | 2025-02-01 08:33 | XMS_ITS | Clinical Summary ---
Author Organization 299 [facility] Address [address] [place] [address] Phone Care Team Providers Care Electrical Appliance Repairer Name Role Phone Unavailable Primary Care Provider [...]
[2025-02-01 08:53] LABS: Hematocrit 34.6 % (37.0-47.0); Hemoglobin 12.0 g/dl (12.0-16.0); Mean Corpuscular HGB Conc 34.7 g/dl (31.0-35.0); Mean Corpuscular Hemoglobin 27.1 pg (27.0-33.0); Mean Corpuscular Volume 78.3 fL (80.0-98.0); NRBC Abs Auto 0.000 X10*3/uL (0.0-0.012); NRBC Pct Auto 0.0 /100WBC (0.0-0.2); Platelet Count 205 X10*3/uL (160-400); Red Blood Count 4.42 X10*6/uL (4.20-5.50); White Blood Count 5.0 X10*3/uL (4.8-10.8)
[2025-02-01 09:13] LABS: Alanine Aminotransferase 23 U/L (0-31); Albumin Level 3.8 g/dL (3.5-5.0); Alkaline Phosphatase 65 U/L (39-117); Anion Gap 12 (12-20); Aspartate Amino Transferase 20 U/L (5-31); Blood Urea Nitrogen 11 mg/dL (9-16); Calcium 8.9 mg/dL (8.4-10.2); Carbon Dioxide 24 mmol/L (22-29); Chloride 110 mmol/L (96-108); Estimated Glomerular Filt Rate > 60; Potassium 3.6 mmol/L (3.3-5.1); Sodium 142 mmol/L (135-145); Total Protein 6.3 g/dL (6.5-8.0)
[2025-02-05 22:37] LABS: Protein S Activity rflx Tot&Fr 24 % normal (60-140)
[2025-02-08 13:18] LABS: Protein S Total (Antigenic) 61 % normal (70-140)
== END 2025-02-01 08:16 | disposition home or self-care (01) ==
LOC: HO.LAB 08:15
PROVIDERS: PCP Internal Medicine; Visit Provider Internal Medicine
DX: K55.069 Acute infarction of intestine, part and extent unspecified (principal)
CPT/HCPCS: 36415; 80053; 85027; 85302; 85303; 85305; 85306; 85610; 99211

== ENCOUNTER 2025-02-01 08:18 | Outpatient (AMB) | payer OTHER, SELFPAY ==
[2025-02-01 08:26] LABS: Prothrombin Time Whole Bld POC 21.3 sec (11.1-13.5); ~PT, ~INR - Anti Coag Clinic 1.8 (0.9-1.1)
--- NOTE | 2025-02-01 08:37 | MHC.OFFVISCO ---
Intake Intake Visit Reasons: Anticoagulation Allergies latex Allergy (Mild, Verified 02/01/25 08:21) Itching oxycodone (From Percocet) Allergy (Mild, Verified 02/01/25 08:21) jittery mite-Dermatophagoides pteronyssinus (dust mite - ) Allergy (Verified 02/01/25 08:21) Hives Medication List - Last Reconciled 02/01/25 by Carleen Bess RN acetaminophen 650 mg PO Q4H PRN amlodipine 2.5 - 5 mg PO DAILY Held on 11/09/24. Instructions: Resume on 11/10/24. Check your blood pressure every morning as soon as you wake up and send it to Dr. Castellanos. Do no take the blood pressure medication if the blood pressure is below 120/70. Wait every day to hear back from Dr. Castellanos before you take the medication. apixaban (Eliquis) 5 mg PO BID atorvastatin 10 mg PO DAILY calcium citrate 500 mg PO DAILY loratadine 10 mg PO DAILY losartan 25 mg PO DAILY PRN Held on 11/09/24. Instructions: Resume on 11/10/24. Check your blood pressure every morning as soon as you wake up and send it to Dr. Castellanos. Do no take the blood pressure medication if the blood pressure is below 120/70. Wait every day to hear back from Dr. Castellanos before you take the medication. multivitamin with iron 1 tab PO DAILY ondansetron 4 mg PO Q12H pantoprazole 40 mg PO DAILY@0630 polyethylene glycol 3350 (Gavilax) 17 grams PO DAILY Nursing Note Pt to [facility]. States Dr Mcguire has prescribed Eliquis and this is her last visit. She states Dr Mcguire told her to start Eliquis on Tuesday. INR: 1.8 below therapeutic range of 2.5-3.5. Called and spoke to Dr Mcguire. Reported INR of 1.8 and she gave pt instructions to start Eliquis today. Pt understands and will take the first dose this morning and knows she is to take 5mg twice a day. 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 Illness/Depression: No Coding Level of Care Code Est Patient Level 1 Diagnoses Current use of anticoagulant therapy Z79.01 Assessment & Plan Assessment & Plan (1) Current use of anticoagulant therapy: Code(s): Z79.01 - group home (current) use of anticoagulants Category: Medical
== END 2025-02-01 08:43 | disposition home or self-care (01) ==
LOC: HO.ACS 08:18
PROVIDERS: PCP Internal Medicine; Visit Provider Internal Medicine Medical Oncology
DX: Z79.01 Long term (current) use of anticoagulants (principal)

== ENCOUNTER 2025-04-04 09:42 | Outpatient (AMB) | payer OTHER, SELFPAY ==
--- NOTE | 2025-04-04 09:50 | MHC.OFFVISWM ---
VS Expanded 04/04/25 10:05 BP 119/77 Blood Pressure Location Rt brachial Blood Pressure Position Sitting Pulse 98 Pulse Source Pulse Oximeter Temp 96.6 F L Temperature Source Temporal Artery Scan Pulse Oximetry 98 Oxygen Delivery Method Room Air Height 5 ft 4 in Weight 188 lb 6.4 oz BMI 32.3 Body Fat % 34.7 Body Fat Mass 65.2 Fat Free Mass 123.0 Visceral Fat Rating 8.0 Body Water % 46.5 Body Water Mass 87.6 Muscle Mass/Score 116.8 Basal Metabolic Rate/Score 1,668 Intake Visit Reasons: OV PO LSG 10/14/24 Allergies latex Allergy (Mild, Verified 04/04/25 10:09) Itching oxycodone (From Percocet) Allergy (Mild, Verified 04/04/25 10:09) jittery mite-Dermatophagoides pteronyssinus (dust mite - ) Allergy (Verified 04/04/25 10:09) Hives Medication List - Last Reconciled 04/04/25 by ROBBI Martinez acetaminophen 650 mg PO Q4H PRN amlodipine 2.5 - 5 mg PO DAILY Held on 11/09/24. Instructions: Resume on 11/10/24. Check your blood pressure every morning as soon as you wake up and send it to Dr. Castellanos. Do no take the blood pressure medication if the blood pressure is below 120/70. Wait every day to hear back from Dr. Castellanos before you take the medication. apixaban (Eliquis) 5 mg PO BID apixaban (Eliquis) 5 mg PO BID atorvastatin 10 mg PO DAILY calcium citrate 500 mg PO DAILY loratadine 10 mg PO DAILY losartan 25 mg PO DAILY PRN Held on 11/09/24. Instructions: Resume on 11/10/24. Check your blood pressure every morning as soon as you wake up and send it to Dr. Castellanos. Do no take the blood pressure medication if the blood pressure is below 120/70. Wait every day to hear back from Dr. Castellanos before you take the medication. multivitamin with iron 1 tab PO DAILY ondansetron 4 mg PO Q12H HPI Comments Details: This a 44 yo female who is s/p LSG without hiatal hernia repair on 10/17/2024. Presents for 3 month post op visit. Weight today is 188.4 pounds, with a BMI of 32.3. Weight loss of 18.6lb since last OV in December. Initial weight 261.2 pounds starting the program on 07/13/2024 operative weight 241.3 pounds. No complaints of nausea, emesis, abdominal pain or reflux. On postop day 11, patient began to experience some abdominal discomfort with associated nausea and intermittent vomiting. She presented to the emergency department on 10/31/2024. She was found to have thrombus of the superior mesenteric vein, left portal vein and posterior branch of the right portal vein. She was started on heparin drip and seen in consultation by Hematology. Recommendation was for Coumadin for 3 months followed by NOAC, and possible further workup for her protein S deficiency history. Serial CAT scans showed stable thrombus and at time of discharge she was tolerating her shakes and a protein bar. She continues to be followed by the anticoagulation clinic. Dr Cazares ordered CT scan to follow up on her thrombus, however pt lost insurance and was unable to have done. She now has insurance again. Rarely needs lisinopril, continues to dose meds according to parameters given by Dr Cazares. Checking blood sugars, occasionally feels lethargic if low, was prescribed glucose pills and sometimes will take one a day. Happy that her energy levels have increased a lot. Present meal plan includes: Protein 2.0 water at 8-10 Fit crunch bar 11-1 3 forks egg/cottage cheese or yogurt at 3 pm another bar 5-8 Drinking 70-80 oz water I do eat watermelon- but that's water Exercise routine includes: Has membership to [employer] and [employer] at home, walking 4 days per week. 2 mi per day [facility] Medical History Pulmonary embolism H. pylori infection Hyperlipidemia H. pylori infection Fatty liver Protein S deficiency Elevated cholesterol DJD (degenerative joint disease) Anxiety Depression Hypertension Non-insulin dependent type 2 diabetes mellitus Sleep apnea Morbid obesity Surgical History S/P laparoscopic sleeve gastrectomy History of esophagogastroduodenoscopy (EGD) History of delivery Hx of colonoscopy Hx of hysterectomy Family History Mother Diabetes High cholesterol Hypertension Obesity Father Drug addiction HIV (human immunodeficiency virus infection) Daughter No problems noted. Maternal Grandmother Breast cancer Family/Other Breast cancer Maternal Grandmother Alzheimer dementia Maternal Grandfather Alzheimer dementia Paternal Grandmother Alzheimer dementia Social History Household Members: Spouse and Family Household Members Other:: 2 Housing: House Are you a primary career technical education teacher to a significant other at home: No Do you presently have visiting nurse or other home services: No Alcohol intake: current Alcohol intake frequency: holidays/special occasions only Comment: rings appropriately Patient Tobacco Use Status: Former Tobacco user Tobacco use type: Cigarette Years Smoked: 22 service: No Current occupational status: employed 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 Current occupational exposures/hazards: No Physical Exam Vital Signs: Last Vital Signs Temp 96.6 F L 04/04/25 10:05 Pulse 98 04/04/25 10:05 BP 119/77 04/04/25 10:05 Pulse Ox 98 04/04/25 10:05 Oxygen Delivery Method Room Air 04/04/25 10:05 BMI result Body Mass Index 32.3 Assessment & Plan Assessment & Plan (1) S/P laparoscopic sleeve gastrectomy: Code(s): Z98.84 - Bariatric surgery status Category: Medical (2) Obesity: Code(s): E66.9 - Obesity, unspecified Category: Medical (3) Portal vein thrombosis: Code(s): I81 - Portal vein thrombosis Category: Medical (4) Mesenteric vein thrombosis: Code(s): K55.069 - Acute infarction of intestine, part and extent unspecified Category: Medical Plan Pt has lost 100 lbs now since starting to work on nutrition and health. Following with Dr Mcguire, on Eliquis only now. She wanted to decrease protein bars some days, suggested half a Premier protein shake mixed with 2-3oz UAM instead if she wants. Can introduce 3 forks chicken or fish and up to 3 forks cooked veg like broccoli or cauliflower, discussed eating protein first. Will continue to monitor BS and BP, schedule CT scan. RTC 3mo. Orders: Orders Vitamin D 25-OH Total Today Z98.84 - Bariatric surgery status TSH reflex Free T4 Today Z98.84 - Bariatric surgery status C Reactive Protein Today Z98.84 - Bariatric surgery status Comprehensive Met. Panel Today Z98.84 - Bariatric surgery status Lipid Panel Today Z98.84 - Bariatric surgery status IRON PROFILE Today Z98.84 - Bariatric surgery status Vitamin B12 and Folate Today Z98.84 - Bariatric surgery status Ferritin Today Z98.84 - Bariatric surgery status Vitamin A Today Z98.84 - Bariatric surgery status Zinc Today Z98.84 - Bariatric surgery status Complete Blood Count Auto Diff Today Z98.84 - Bariatric surgery status Insulin Today Z98.84 - Bariatric surgery status Hemoglobin A1c Today Z98.84 - Bariatric surgery status Vitamin B1 Today Z98.84 - Bariatric surgery status
[2025-04-04 10:05] VITALS: BP 119/77; PULSE 98; TEMP 35.9; O2SAT 98; BMI 32.3
--- OUTSIDE RECORDS SUMMARY | 2025-04-04 11:16 | XMS_ITS | Encounter Summary ---
Author Organization [employer] Address [address] [place] [address] Care Team Providers Care Engraving Plate Maker Name Role Phone Aydee Santos MD Primary Care Provider [phone] Encounter Details Date Type Department Care Team (Late st Contact Info) Description 03/27/2025 Lab Requisition [facility] - Main Lab [address] [facility] [place] [address] Christina Jacobs PA [address] [facility] [address] [place] [address] Urinary tract infection, site not specified; Other chronic cystitis with hematuria Social History Tobacco Use Types Packs/Day [...] Procedure Name Priority Date/Time Associated Diagnosis Comments CULTURE URINE Routine 03/27/2025 12:00 AM EST Urinary tract infection, site not specified Other chronic cystitis with hematuria documented in this encounter Results * (ABNORMAL) Culture urine (03/27/2025 12:00 AM EST) Culture, Urine >=100,000 CFU/mL Escherichia coli(A) DOMO 03/29/2025 10:10 AM EST [facility] ([facility] Urine Urine specimen obtained by clean catch procedure / Unknown 03/27/2025 03/27/2025 12:39 PM EST Narrative Organism Antibiotic Method Susceptibility Escherichia coli Amoxicillin/Clavulanate DOMO 8 ug/ml: Susceptible Escherichia coli Ampicillin/Sulbactam DOMO 16 ug/ml: Intermediate Escherichia coli Piperacillin/Tazobactam DOMO <=4 ug/ml: Susceptible Escherichia coli Cefazolin (Urine) DOMO 4 ug/ml: Susceptible Escherichia coli Cefoxitin DOMO <=4 ug/ml: Susceptible Escherichia coli Ceftazidime DOMO <=0.5 ug/ml: Susceptible Escherichia coli Ceftriaxone DOMO <=0.25 ug/ml: Susceptible Escherichia coli Cefepime DOMO <=0.12 ug/ml: Susceptible Escherichia coli Meropenem DOMO <=0.25 ug/ml: Susceptible Escherichia coli Amikacin DOMO 2 ug/ml: Susceptible Escherichia coli Gentamicin DOMO <=1 ug/ml: Susceptible Escherichia coli Ciprofloxacin DOMO <=0.06 ug/ml: Susceptible Escherichia coli Levofloxacin DOMO <=0.12 ug/ml: Susceptible Escherichia coli Nitrofurantoin DOMO <=16 ug/ml: Susceptible Escherichia coli Trimethoprim/Sulfamethoxazole DOMO <=20 ug/ml: Susceptible us Christina [facility] MICROBIOLOGY - GENERAL ORD ERABLES Final Result [facility] ([facility] LAB [address] [place] [address], documented in this encounter Visit Diagnoses Diagnosis Urinary tract infection, site not specified Other chronic cystitis with hematuria documented in this encounter Care Teams Engraving Plate Maker Relationship Specialty Start Date End Date Aydee Santos MD [address] [place] [address] PCP - General Internal Medicine 03/27/25 documented as of this encounter
--- OUTSIDE RECORDS SUMMARY | 2025-04-04 11:16 | XMS_ITS | Clinical Summary ---
Author Organization [facility] Address [address] [place] [address] Phone Care Team Providers Care Electrical Helper Name Role Phone Aydee Santos MD Primary Care Provider Encounters Date Type Department Care Team Description 03/27/2025 Lab Requisition [facility] - Main Lab [address] [place] [address] Christina Jacobs PA Urinary tract infection, site not specified; Other chronic cystitis with hematuria from Last 3 Months Social History Tobacco Use Types Packs/Day Years Used Date Smoking Tobacco: Never Assessed Comments Unknown Sex and Gender Information Value Date Recorded Sex Assigned at Not on file Legal Sex Female 1:12 PM EST Gender Identity Not on file Sexual Orientation Not on file Plan of Treatment Health Maintenance Due Date Last Done Comments Breast Cancer Screening 1978 Colorectal Cancer Screening: Colonoscopy 1978 DTaP,Tdap,and Td Vaccines (1 - Tdap) 1997 Hepatitis B Vaccines (1 of 3 - 19+ 3-dose series) 1997 Cervical Cancer Screening: P ap Smear 11/15/1999 HIV Screening 05/02/2024 Hepatitis C Screening 05/02/2024 Social Influencers of Health Screening 05/02/2024 Depression Screening 05/23/2024 COVID-19 Vaccine (1 - 2024-2 6 season) 2025 Influenza Vaccine (#1) 2025 RSV Immunization Adult Patie nts (1 - 1-dose 75+ series) 2053 HIB Vaccines Aged Out No longer eligi [...] not specified Other chronic cystitis with hematuria from Last 3 Months Results * (ABNORMAL) Culture urine (03/27/2025 12:00 AM EST) Culture, Urine >=100,000 CFU/mL Escherichia coli(A) DOMO 03/29/2025 10:10 AM EST [facility] Urine Urine specimen obtained by [...] DOMO 2 ug/ml: Susceptible Escherichia coli Gentamicin DMOO <=1 ug/ml: Susceptible Escherichia coli Ciprofloxacin DOMO <=0.06 ug/ml: Susceptible Escherichia coli Levofloxacin DOMO <=0.12 ug/ml: Susceptible Escherichia coli Nitrofurantoin DOMO <=16 ug/ml: Susceptible Escherichia coli Trimethoprim/Sulfamethoxazole DOMO <=20 ug/ml: Susceptible us Christina [facility] LAB MICROBIOLOGY - GENERAL ORD ERABLES Final Result [facility] ([facility] HOSPITAL LAB [address] [place] [address], from Last 3 Months Insurance [facility] Care Teams Electrical Helper Relationship Specialty Start Date End Date Aydee Santos MD [address] [place] [address] PCP - General Internal Medicine 03/27/25
--- OUTSIDE RECORDS SUMMARY | 2025-04-04 11:16 | XMS_ITS | Encounter Summary ---
Author Organization [employer] Address [address] [place] [address] Care Team Providers Care Podiatric Aide Name Role Phone Aydee Santos MD Primary Care Provider [phone] Encounter Details Date Type Department Care Team (Late st Contact Info) Description 05/02/2024 Lab Requisition [facility] - Main Lab [address] [facility] [place] [address] Jesus Roberts MD [address] [facility] [address] [place] [address] Gross hematuria Social History Tobacco Use Types [...] and pathological findings. 05/11/2024 6:13 PM EST [facility] Clinical Information [id number] Urine cytology/urine FISH. 05/11/2024 6:13 PM EST [facility] Gross Description A. Urine, Voided, : [id number] RECD 1 TP CYTO 1 TP FISH. 05/11/2024 6:13 PM EST [facility] Disclaimer Unless otherwise specified, all tissue is 10% NB formalin fixed and paraffin embedded. Technical pathology services provided by [facility] [address] [facility] [address] [place] [address] (CLIA #[id number]/Rebekah Pedro MD, [employer]) 05/11/2024 6:13 PM EST [facility] Tissue Urine specimen from urethra / Unknown 04/25/2024 05/02/2024 1:18 PM EST us Jesus Roberts MD LAB PATHOLOGY ORDERAB LES Final Result [facility] [address] [place] [address], documented in this encounter Visit Diagnoses Diagnosis Gross hematuria documented in this encounter Care Teams Podiatric Aide Relationship Specialty Start Date End Date Aydee Santos MD [address] [place] [address] PCP - General Internal Medicine 03/27/25 documented as of this encounter
== END 2025-04-04 10:39 | disposition home or self-care (01) ==
LOC: HO.HBS 09:43
PROVIDERS: PCP Internal Medicine; Visit Provider Physician Assistant Surgical
DX: E66.9 Obesity, unspecified (principal); Z68.32 Body mass index [BMI] 32.0-32.9, adult; Z90.3 Acquired absence of stomach [part of]; Z98.84 Bariatric surgery status; I81 Portal vein thrombosis; K55.069 Acute infarction of intestine, part and extent unspecified
CPT/HCPCS: 99214; G2211

== ENCOUNTER 2025-04-10 08:17 | Outpatient (REF) | payer OTHER, SELFPAY ==
[2025-04-10 08:36] LABS: MANUAL DIFF FLAG NO
[2025-04-10 09:03] LABS: Hematocrit 37.3 % (37.0-47.0); Hemoglobin 12.6 g/dl (12.0-16.0); Imm Gran Abs Auto 0.01 X10*3/uL (0.00-0.03); Imm Gran Pct Auto 0.2 % (0.0-0.4); Lymphocytes Absolute Auto 1.3 X10*3/uL (1.2-4.9); Mean Corpuscular HGB Conc 33.8 g/dl (31.0-35.0); Mean Corpuscular Hemoglobin 28.3 pg (27.0-33.0); Mean Corpuscular Volume 83.8 fL (80.0-98.0); NRBC Abs Auto 0.000 X10*3/uL (0.0-0.012); NRBC Pct Auto 0.0 /100WBC (0.0-0.2); Platelet Count 239 X10*3/uL (160-400); Red Blood Count 4.45 X10*6/uL (4.20-5.50); White Blood Count 4.8 X10*3/uL (4.8-10.8)
[2025-04-10 09:43] LABS: Alanine Aminotransferase 27 U/L (0-31); Albumin Level 4.0 g/dL (3.5-5.0); Alkaline Phosphatase 73 U/L (39-117); Anion Gap 10 (12-20); Aspartate Amino Transferase 23 U/L (5-31); Blood Urea Nitrogen 8 mg/dL (9-16); Calcium 9.2 mg/dL (8.4-10.2); Carbon Dioxide 26 mmol/L (22-29); Chloride 109 mmol/L (96-108); Cholesterol 135 mg/dL (<200); Estimated Glomerular Filt Rate > 60; HDL Cholesterol 34 mg/dL (>40); Iron 48 mcg/dL (30-160); Percent Iron Saturation 21 % (15-50); Potassium 4.0 mmol/L (3.3-5.1); Sodium 141 mmol/L (135-145); Total Iron Binding Capacity 232 mcg/dL (228-428); Total Protein 6.6 g/dL (6.5-8.0); Triglycerides 66 mg/dL (<150); Unsaturated Iron Binding 184 ug/dL
[2025-04-10 10:00] LABS: Ferritin 100 ng/mL (10-250)
[2025-04-10 10:05] LABS: Folate 14.9 ng/mL (> or = 4.0); Vitamin B12 468 pg/mL (200-900)
--- OUTSIDE RECORDS SUMMARY | 2025-04-10 15:54 | XMS_ITS | Encounter Summary ---
Author Organization [employer] Address [address] [place] [address] Care Team Providers Care Cement Tile Maker Name Role Phone Aydee Santos MD Primary Care Provider [phone] Encounter Details Date Type Department Care Team (Late st Contact Info) Description 05/02/2024 Lab Requisition [facility] - Main Lab [address] [facility] [place] [address] Jesus Roberts MD [address] [facility] [address] [place] [address] Gross hematuria Social History Tobacco Use Types [...] and pathological findings. 05/11/2024 6:13 PM EST [facility] H[facility] LAB Clinical Information [id number] Urine cytology/urine FISH. 05/11/2024 6:13 PM EST [facility] Gross Description A. Urine, Voided, : [id number] RECD 1 TP CYTO 1 TP FISH. 05/11/2024 6:13 PM EST [facility] Disclaimer Unless otherwise specified, all tissue is 10% NB formalin fixed and paraffin embedded. Technical pathology services provided by [facility] [address] [place] [address] (CLIA #[id number]/Rebekah Pedro MD, Foundation Stage Teacher) 05/11/2024 6:13 PM EST [facility] Tissue Urine specimen from urethra / Unknown 04/25/2024 05/02/2024 1:18 PM EST us Jesus Roberst MD LAB PATHOLOGY ORDERAB LES Final Result [facility] [address] [place] [address], documented in this encounter Visit Diagnoses Diagnosis Gross hematuria documented in this encounter Care Teams Cement Tile Maker Relationship Specialty Start Date End Date Aydee Santos MD [address] [place] [address] PCP - General Internal Medicine 03/27/25 documented as of this encounter
--- OUTSIDE RECORDS SUMMARY | 2025-04-10 15:54 | XMS_ITS | Encounter Summary ---
Author Organization [employer] Address [address] [place] [address] Care Team Providers Care Heating And Air Conditioning Mechanic Name Role Phone Aydee Santos MD Primary Care Provider [phone] Encounter Details Date Type Department Care Team (Late st Contact Info) Description 03/27/2025 Lab Requisition [facility] - Main Lab [address] [facility] [place] [address] Christina Jacobs PA [address] [facility] [address] [place] [address] Urinary tract infection, site not specified; Other [...] Escherichia coli(A) DOMO 03/29/2025 10:10 AM EST [facility] Urine Urine specimen obtained by [...] MICROBIOLOGY - GENERAL ORD ERABLES Final Result [facility] ([facility]) HOSPITAL LAB [address] [place] [address], documented in this encounter Visit Diagnoses Diagnosis Urinary tract infection, site not specified Other chronic cystitis with hematuria documented in this encounter Care Teams Heating And Air Conditioning Mechanic Relationship Specialty Start Date End Date Aydee Santos MD [address] [place] [address] PCP - General Internal Medicine 03/27/25 documented as of this encounter
--- OUTSIDE RECORDS SUMMARY | 2025-04-10 15:54 | XMS_ITS | Clinical Summary ---
Author Organization [address] [facility] Address [address] [place] [address] Phone Care Team Providers Care Customer Expert Name Role Phone Aydee Santos MD Primary Care Provider [phone] Encounters Date Type Department Care Team Description 03/27/2025 Lab Requisition [facility] - Main Lab [address] [place] [address] Christina Jacobs PA Urinary tract [...] Escherichia coli(A) DOMO 03/29/2025 10:10 AM EST [facility] Urine Urine specimen obtained by clean [...] - GENERAL ORD ERABLES Final Result [facility] ([facility] HOSP[facility] LAB [address] [place] [address], from Last 3 Months Insurance [facility] Care Teams Customer Expert Relationship Specialty Start Date End Date Aydee Santos MD [address] [place] [address] PCP - General Internal Medicine 03/27/25
== END 2025-04-10 08:18 | disposition home or self-care (01) ==
LOC: HO.LAB 08:17
PROVIDERS: Absent Provider Physician Assistant Surgical; PCP Internal Medicine; Visit Provider Surgery
DX: Z13.1 Encounter for screening for diabetes mellitus (principal); Z13.6 Encounter for screening for cardiovascular disorders; Z13.29 Encounter for screening for other suspected endocrine disorder; Z98.84 Bariatric surgery status
CPT/HCPCS: 36415; 80053; 80061; 82306; 82607; 82728; 82746; 83036; 83525; 83540; 84425; 84443; 84590; 84630; 85025; 86140

== ENCOUNTER 2025-05-15 15:23 | Outpatient (REF) | payer OTHER, SELFPAY ==
--- NOTE | ~2025-05-15 | CT_ITS ---
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 No focal hepatic lesions. Spleen, gallbladder and biliary tree, pancreas, adrenal glands and kidneys demonstrate no acute findings. 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 Hepatic vasculature is otherwise patent. The portal vein is patent to the level of the confluence. There is a diminutive superior mesenteric vein likely related to prior thrombosis. Distal mesenteric vasculature appears patent and there does appear to be collateralization via the inferior mesenteric vein which has increased in size compared to the prior exam. No acute appearing thrombus. Gastric sleeve. There is no bowel wall thickening or inflammatory change. Sigmoid and descending colon diverticulosis without diverticulitis. No bowel obstruction, pneumoperitoneum, or pneumatosis. Uterus is absent. Unchanged appearance of the ovaries. Fluid previously seen within the pelvis has resolved. No bladder wall thickening or filling defect. No pathologically enlarged lymph nodes. Nonaneurysmal aorta. No acute fracture. 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 The main and right portal vein are patent on the current study. Collateralization via the inferior mesenteric vein which is increased in caliber compared to the prior study. No bowel wall thickening or inflammatory change on the current study. Resolution of the small volume pelvic ascites. Chronic and incidental findings as described above. This document has been electronically signed by: Ceci Longo MD on 05/17/2025 08:50:01
--- OUTSIDE RECORDS SUMMARY | 2025-05-15 15:26 | XMS_ITS | Encounter Summary ---
Author Organization [employer] Address [address] [place] [address] Care Team Providers Care Campus Recruiting Internship Name Role Phone Aydee Santos MD Primary Care Provider [phone] Encounter Details Date Type Department Care Team (Late st Contact Info) Description 05/02/2024 Lab Requisition [facility] - Main Lab [address] [facility] [place] [address] Jesus Roberts MD [address] [facility] [address] [place] [address] Gross hematuria Social History Tobacco Use Types [...] and pathological findings. 05/11/2024 6:13 PM EST [facility] at [address] EST Clinical Information [id number] Urine cytology/urine FISH. 05/11/2024 6:13 PM EST [facility] Gross Description A. Urine, Voided, : [id number] RECD 1 TP CYTO 1 TP FISH. 05/11/2024 6:13 PM EST [facility] Disclaimer Unless otherwise specified, all tissue is 10% NB formalin fixed and paraffin embedded. Technical pathology services provided by [facility] [address] [facility] [address] [place] [address] (CLIA #[id number]/Rebekah Pedro MD, Hot Dip Plater) 05/11/2024 6:13 PM EST [facility] Tissue Urine specimen from urethra / Unknown 04/25/2024 05/02/2024 1:18 PM EST us Jesus Roberts MD LAB PATHOLOGY ORDERAB LES Final Result [facility] [address] [place] [address], documented in this encounter Visit Diagnoses Diagnosis Gross hematuria documented in this encounter Care Teams Campus Recruiting Internship Relationship Specialty Start Date End Date Aydee Santos MD [address] [place] [address] PCP - General Internal Medicine 03/27/25 documented as of this encounter
--- OUTSIDE RECORDS SUMMARY | 2025-05-15 15:26 | XMS_ITS | Encounter Summary ---
Author Organization [employer] Address [address] [place] [address] Care Team Providers Care Radio Board Operator Name Role Phone Aydee Santos MD Primary Care Provider [phone] Encounter Details Date Type Department Care Team (Late st Contact Info) Description 03/27/2025 Lab Requisition [facility] - Main Lab [address] [facility] [place] [address] Christina Jacobs PA [address] [facility] [address] [place] [address] Urinary tract infection, site not specified; Other [...] Escherichia coli(A) DOMO 03/29/2025 10:10 AM EST [facility] Urine Urine specimen obtained [...] DOMO <=0.5 ug/ml: Susceptible Escherichia coli Ceftriaxone ODMO <=0.25 ug/ml: Susceptible Escherichia coli Cefepime DOMO [...] MICROBIOLOGY - GENERAL ORD ERABLES Final Result [facility] ([facility] HOSP[facility] LAB [address] [place] [address], documented in this encounter Visit Diagnoses Diagnosis Urinary tract infection, site not specified Other chronic cystitis with hematuria documented in this encounter Care Teams Radio Board Operator Relationship Specialty Start Date End Date Aydee Santos MD [address] [place] [address] PCP - General Internal Medicine 03/27/25 documented as of this encounter
--- OUTSIDE RECORDS SUMMARY | 2025-05-15 15:26 | XMS_ITS | Clinical Summary ---
Author Organization [facility] Address [address] [place] [address] Phone Care Team Providers Care Teletype Or Varitype Keyboard Operator Name Role Phone Aydee Santos MD Primary Care Provider [phone] Encounters Date Type Department Care Team Description 03/27/2025 Lab Requisition [facility] - Main Lab [address] [place] [address] Christina Jacobs PA Urinary tract [...] Escherichia coli(A) DOMO 03/29/2025 10:10 AM EST [facility] Urine Urine specimen obtained by [...] ERABLES Final Result [facility] HOSPITAL LAB [address] [place] [address], from Last 3 Months Insurance [facility] Care Teams Teletype Or Varitype Keyboard Operator Relationship Specialty Start Date End Date Aydee Santos MD [address] [place] [address] PCP - General Internal Medicine 03/27/25
[2025-05-15] MEDS: iohexoL 350 MG/ML 100 ML INFUS..BTL IV (17:32)
== END 2025-05-15 15:24 | disposition home or self-care (01) ==
LOC: HO.CT 15:23
PROVIDERS: PCP Internal Medicine; Visit Provider Surgery
DX: I81 Portal vein thrombosis (principal); K55.069 Acute infarction of intestine, part and extent unspecified
CPT/HCPCS: 74177; Q9967

== ENCOUNTER → 2025-05-15 15:25 | Outpatient (BNV) | payer OTHER, SELFPAY | PROVIDERS: PCP Internal Medicine; Visit Provider Radiology Diagnostic Radiology | DX: I82.891 Chronic embolism and thrombosis of other specified veins (principal) | CPT/HCPCS: 74177 ==